=== PATIENT | female | born 1985 | race Caucasian/White ===

== ENCOUNTER 2018-07-29 21:47 | Emergency (ER) | payer SELFPAY ==
--- NOTE | 2018-07-29 22:45 | RAD REPORT ---
EXAM DESCRIPTION: RAD - Chest Single View - 07/29/2018 10:34 pm CLINICAL HISTORY: CHEST PAIN Chest pain. COMPARISON: No comparisons FINDINGS: Portable technique limits examination quality. The lungs are grossly clear. The heart is normal in size. No displaced fractures.Hardware is present midthoracic spine. IMPRESSION: No acute intrathoracic process suspected.
[2018-07-29 22:51] LABS: Urine Specific Gravity >1.030 (1.005-1.030)
[2018-07-29 22:51] LABS: Urine Blood 2+ (NEG); Urine Glucose NEGATIVE (NEG); Urine Protein NEGATIVE (NEG); Urine Specific Gravity >1.030 (1.005-1.030); Urine pH 5.5 (5.0-7.0)
[2018-07-29 23:43] LABS: Absolute Lymphocytes (CBC) 1.9 K/uL (0.7-4.9); Absolute Monocytes 0.5 K/uL (0.1-1.3); Absolute Neutrophil 5.4 K/uL (1.8-8.0); Basophils % 0.5 % (0-1.3); Eosinophils % 2.4 % (0-4.4); Lymphocytes % 23.5 % (15.3-44.8); MCH 27.2 pg (27.0-35.0); MCV 79.4 fL (80-100); MPV 8.4 fL (7.6-11.3); Monocytes % 6.5 % (3.3-12.3); RBC Red Blood Cell Count 4.79 M/uL (3.86-4.86)
[2018-07-29] MEDS ORDERED: KETOROLAC 30 MG/ML INJ ONE (23:57)
[2018-07-30 00:09] LABS: BUN Blood Urea Nitrogen 11 mg/dL (7-18); Bicarbonate 30 mmol/L (21-32); Glucose Level 119 mg/dL (74-106); Potassium 4.1 mmol/L (3.5-5.1); Sodium Level 141 mmol/L (136-145)
--- NOTE | 2018-07-30 00:18 | EDPHYS ---
Physician Documentation [facility] Name: Merlene Rockwell Age: 33 yrs Sex: Female : 1985 Arrival Date: 07/29/2018 Time: 21:49 Bed 7 Private MD: ED Physician Dustin Jean HPI: 07/30 06:17 This 33 yrs old Female presents to ER via EMS with complaints of Fall Injury. tw4 06:17 Details of fall: The patient fell from seated position, out of a wheelchair. Onset: The tw4 symptoms/episode began/occurred today. Associated injuries: The patient sustained injury to the head, contusion. Severity of symptoms: At their worst the symptoms were moderate, in the emergency department the symptoms are unchanged. 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 - Social history:: Smoking status: Patient/guardian denies using tobacco. - Ebola Screening: : No symptoms or risks identified at this time. ROS: 07/30 06:17 Constitutional: Negative for fever, chills, and weight loss, Eyes: Negative for injury, tw4 pain, redness, and discharge, Cardiovascular: Negative for chest pain, palpitations, and edema, Respiratory: Negative for shortness of breath, cough, wheezing, and pleuritic chest pain, Abdomen/GI: Negative for abdominal pain, nausea, vomiting, diarrhea, and constipation, MS/Extremity: Negative for injury and deformity, Skin: Negative for injury, rash, and discoloration, Neuro: Negative for headache, weakness, numbness, tingling, and seizure. 06:17 Neck: Positive for tenderness. tw4 Exam: 06:17 Constitutional: This is a well developed, well nourished patient who is awake, alert, tw4 and in no acute distress. Head/Face: Normocephalic, atraumatic. 06:17 Cardiovascular: Regular rate and rhythm with a normal S1 and S2. No gallops, murmurs, or rubs. Normal PMI, no JVD. No pulse deficits. Respiratory: Lungs have equal breath sounds bilaterally, clear to auscultation and percussion. No rales, rhonchi or wheezes noted. No increased work of breathing, no retractions or nasal flaring. Abdomen/GI: Soft, non-tender, with normal bowel sounds. No distension or tympany. No guarding or rebound. No evidence of tenderness throughout. Back: No spinal tenderness. No costovertebral tenderness. Full range of motion. 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 Vital Signs: 07/29 21:54 BP 123 / 96; Pulse 101; Resp 20; Temp 97.8(O); Pulse Ox 98% on R/A; Weight 64.86 kg; ea Height 5 ft. (152.40 cm); Pain 10/10; 22:50 BP 129 / 94; Pulse 98; Resp 18; Pulse Ox 100% ; ea 23:09 BP 111 / 85; Pulse 113; Resp 15; Pulse Ox 97% on R/A; ao 07/30 00:28 BP 117 / 84; Pulse 98; Resp 18; Pulse Ox 98% on R/A; ea 03:26 BP 116 / 71; Pulse 108; Resp 15; Pulse Ox 97% on R/A; jb5 05:48 BP 120 / 68; Pulse 90; Resp 16; Pulse Ox 98% ; ea 07/29 21:54 Body Mass Index 27.93 (64.86 kg, 152.40 cm) ea Kay Coma Score: 07/29 21:54 Eye Response: spontaneous(4). Verbal Response: oriented(5). Motor Response: obeys ea commands(6). Total: 15. 22:50 Eye Response: spontaneous(4). Verbal Response: oriented(5). Motor Response: obeys ea commands(6). Total: 15. Trauma Score (Adult): 21:54 Eye Response: spontaneous(1); Verbal Response: oriented(1); Motor Response: obeys ea commands(2); Systolic BP: > 89 mm Hg(4); Respiratory Rate: 10 to 29 per min(4); Harriman Score: 15; Trauma Score: 12 MDM: 21:49 Patient medically screened. tw4 07/30 06:17 Differential diagnosis: closed head injury, contusion. Data reviewed: vital signs, tw4 nurses notes. Data interpreted: Pulse oximetry: Interpretation: normal. Counseling: I had a detailed discussion with the patient and/or guardian regarding: the historical points, exam findings, and any diagnostic results supporting the discharge/admit diagnosis. Counseling: I had a detailed discussion with the patient and/or guardian regarding: lab results, radiology results. Special discussion: I discussed with the patient/guardian in detail that at this point there is no indication for admission to the hospital. It is understood, however, that if the symptoms persist or worsen the patient needs to return immediately for re-evaluation. 07/29 21:52 Order name: Basic Metabolic Panel; Complete Time: 00:13 tw4 07/29 21:52 Order name: CBC with Diff; Complete Time: 00:13 tw4 07/29 21:52 Order name: Creatinine for Radiology; Complete Time: 00:13 tw4 07/29 21:52 Order name: Type And Screen tw4 07/29 22:43 Order name: Urine Dipstick--Ancillary (enter results); Complete Time: 00:13 cc 07/29 22:44 Order name: Urine --Ancillary (enter results); Complete Time: 00:13 cc 07/29 21:52 Order name: XRAY Chest (1 view); Complete Time: 00:13 tw4 07/29 21:52 Order name: CT Traumagram (Head C Spine CAP wo con) tw4 07/30 02:00 Order name: ABO/RH no charge EDMS 07/29 21:52 Order name: Labs collected and sent; Complete Time: 23:36 tw4 Administered Medications: 07/29 23:56 Drug: TORadol 30 mg Route: IM; Site: left deltoid; ea 07/30 00:19 Follow up: Response: No adverse reaction; Pain is unchanged, physician notified ea 00:25 Drug: morphine 4 mg Route: IM; Site: left deltoid; ea 01:00 Follow up: Response: No adverse reaction; Pain is decreased ea Disposition: 07/30/18 00:18 Discharged to Home. Impression: Concussion, chest wall contusion. - Condition is Stable. - Discharge Instructions: Post-Concussion Syndrome, [id number]-rz-Izdl, Concussion, Adult, [id number]-Frbj, Head Injury, Adult, Wpqk-dr-Ezni. - Medication Reconciliation Form, Thank You Letter, Antibiotic Education, Prescription Opioid Use form. - Follow up: Private Physician; When: Upon discharge from the Emergency Department; Reason: Further diagnostic work-up, Recheck today's complaints, Continuance of care, Re-evaluation by your physician. - Problem is new. - Symptoms have improved. Signatures: Dispatcher [employer] EDFL Vanda Edmondson RN RN Tobin Bautista RN RN Dustin Mendieta MD MD tw4 Corrections: (The following items were deleted from the chart) 07/29 22:05 21:54 Head Brain Wo Cont+CT.RAD.BRZ ordered. [facility] : 21:54 Head C Spine MPR Wo Con+CT.RAD.BRZ ordered. [facility] EDFL : 21:54 Thorax Wo Con+CT.RAD.BRZ ordered. [facility] 07/30 09:04 00:18 07/30/2018 00:18 Discharged to Home. Impression: Concussion; chest wall bp contusion. Condition is Stable. Discharge Instructions: Post-Concussion Syndrome, Hxxf-[id number], Concussion, Adult, Cojz-pt-Mtex, Head Injury, Adult, Lrra-vs-Yfvm. Forms are Medication Reconciliation Form, Thank You Letter, Antibiotic Education, Prescription Opioid Use. Follow up: Private Physician; When: Upon discharge from the Emergency Department; Reason: Further diagnostic work-up, Recheck today's complaints, Continuance of care, Re-evaluation by your physician. Problem is new. Symptoms have improved. tw4
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
[2018-07-30] MEDS ORDERED: MORPHINE 4 MG/ML SYR ONE (00:21)
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
== END 2018-07-30 09:04 | disposition home or self-care (01) ==
LOC: ER 21:47
DX: S06.0X0A Concussion without loss of consciousness, initial encounter (principal); S20.219A Contusion of unspecified front wall of thorax, initial encounter; W05.0XXA Fall from non-moving wheelchair, initial encounter; Y93.89 Activity, other specified; Y92.9 Unspecified place or not applicable; F32.9 Major depressive disorder, single episode, unspecified
CPT/HCPCS: 36415; 70450; 71045; 71250; 72125; 80048; 81003; 81025; 85025; 86850; 86900; 86901; 96372; 99285

== ENCOUNTER 2018-08-10 12:13 | Emergency (ER) | payer SELFPAY ==
[2018-08-10] MEDS ORDERED: NA CHLORIDE 0.9% 500 ML ONE (12:48)
[2018-08-10] MEDS ORDERED: hydrOXYzine HCl 50 MG/ML VIAL IM ONE (12:49)
[2018-08-10 13:19] LABS: Absolute Monocytes 0.9 K/uL (0.1-1.3); Absolute Neutrophil 16.6 K/uL (1.8-8.0); Basophils % 0.6 % (0-1.3); Hematocrit 29.9 % (36.0-45.0); Lymphocytes % 5.4 % (15.3-44.8); MCH 25.5 pg (27.0-35.0); MCV 78.2 fL (80-100); MPV 7.9 fL (7.6-11.3); Monocytes % 4.9 % (3.3-12.3); RBC Red Blood Cell Count 3.83 M/uL (3.86-4.86)
[2018-08-10 13:20] LABS: Protime INR 1.19
--- NOTE | 2018-08-10 13:27 | RAD REPORT ---
EXAM DESCRIPTION: Brianne Single View08/10/2018 1:22 pm CLINICAL HISTORY: Fever COMPARISON: 08/08/2018 FINDINGS: The lungs appear clear of acute infiltrate. The heart is normal size IMPRESSION: No acute abnormalities displayed
[2018-08-10 13:42] LABS: ALT/SGPT 21 U/L (12-78); AST/SGOT 27 U/L (15-37); Albumin 2.7 g/dL (3.4-5.0); Alkaline Phosphatase 118 U/L (45-117); BUN Blood Urea Nitrogen 22 mg/dL (7-18); Bicarbonate 26 mmol/L (21-32); Bilirubin Direct 0.1 mg/dL (0-0.2); Bilirubin Total 0.4 mg/dL (0.2-1.0); Glucose Level 83 mg/dL (74-106); Magnesium 2.3 mg/dL (1.8-2.4); NT PRO-BNP 3805 pg/mL (<125); Protein, Total 7.5 g/dL (6.4-8.2); Sodium Level 141 mmol/L (136-145); Troponin (Emerg Dept Use Only) < 0.02 ng/mL (0.0-0.045)
--- NOTE | 2018-08-10 13:58 | RAD REPORT ---
EXAM DESCRIPTION: CT - Head Brain Wo Cont - 08/10/2018 1:42 pm CLINICAL HISTORY: Alteration of awareness. Confusion COMPARISON: 07/29/2018 TECHNIQUE: Computed axial tomography of the head was obtained. IV contrast was not requested. All CT scans are performed using dose optimization technique as appropriate and may include automated exposure control or mA/KV adjustment according to patient size. FINDINGS: An intracranial bleed is not seen . The ventricles are normal in caliber. No extra-axial fluid collection is noted. Fluid within the sinuses/ mastoids is not seen. Mild central spinal stenosis involves upper cervical spine IMPRESSION: No acute intracranial abnormality is seen. If patient's symptoms persist MRI of the bra in would be recommended. Mild central spinal stenosis involves upper cervical spine
[2018-08-10 15:29] LABS: Urine White Blood Cell Casts OK
[2018-08-10 15:30] LABS: Blood Morphology Comment NOT SEEN (NOT SEEN); Platelet Estimate INCR
--- NOTE | 2018-08-10 15:42 | RAD REPORT ---
EXAM DESCRIPTION: CT - Abdomen Pelvis W Contrast - 08/10/2018 3:15 pm CLINICAL HISTORY: Abdominal pain, altered mental status, history of UTI COMPARISON: CT imaging July 29. TECHNIQUE: Biphasic, helical CT imaging of the abdomen and pelvis was performed following 100 ml non -ionic IV contrast. Oral contrast was given. All CT scans are performed using dose optimization technique as appropriate and may include automated exposure control or mA/KV adjustment according to patient size. FINDINGS: Atelectasis present in the posterior gutter on the left. No pericardial effusion. The liver, spleen, and pancreas show no suspicious findings. Gallbladder and biliary tree are also wi thout suspicious finding. Heterogeneous enhancement pattern present in both kidneys. No hydronephrosis. No solid mass. Right ki dney is incompletely rotated. There is a nonobstructing 5 mm calcification lower pole left kidney and 2 mm calcification upper pole. Patient has normal variant retroaortic left renal vein. Urinary bladd er is fully contracted around a Arriaga catheter. No gastric dilatation or wall thickening. No dilated large or small bowel loops present. Tineo pouc h is seen. Patient has a left mid abdomen ostomy site. No acute finding at the ostomy site. There is a minimal amount of free fluid in the pelvis. No free air or pneumatosis. No omental thickening or bulky lymphadenopathy. No adrenal abnormality. Disc and bony degenerative changes are present. There is a posterior decubitus ulcer on the right roseann t extends from the skin surface down to the right ischium. Ischium is mildly sclerotic at this site a nd may be chronic osteomyelitis. There is posterolateral decubitus ulcer changes extending down to th e greater trochanter region. IMPRESSION: Bilateral pyelonephritis without abscess or emergent complication. Urinary bladder is fully contracted around a Arriaga catheter limiting assessment. Minimal amount of free fluid in the peritoneal cavity of the pelvis. No abnormality seen as an etiolo gy. Posterior and post oral lateral right decubitus ulcers. Chronic osteomyelitis of the ischial tuberosi ty noted on the right. No new finding since July 29.
[2018-08-10] MEDS ORDERED: CEFTRIAXONE/SWI 1gm 1 GM/10 ML SYR ONE (16:31)
--- NOTE | 2018-08-10 16:47 | EDPHYS ---
Physician Documentation [facility] Name: Merlene Rockwell Age: 33 yrs Sex: Female : 1985 Arrival Date: 08/10/2018 Time: 12:14 Bed 3 Private MD: ED Physician Cristino Cabrales HPI: 08/10 12:36 This 33 yrs old Female presents to ER via EMS with complaints of Altered kdr Mental Status. 12:36 This 33 yrs old Female presents to ER via EMS with complaints of Altered kdr Mental Status - The patient is unable to commuicate and cooperate with the exam. 12:36 The patient presents with agitation, confusion. Onset: The symptoms/episode kdr began/occurred just prior to arrival, this morning. Possible causes: unknown. Associated signs and symptoms: Pertinent positives:. Current symptoms: In the emergency department the patient's symptoms are unchanged from the initial presentation. Patient's baseline: Neuro: alert but confused, The patient states she is rocking back and forth in bed saying "mama." She is otherwise not able to cooperate with exam and answer questions. It is unknown whether or not the patient has had similar symptoms in the past. It is unknown whether or not the patient has recently seen a physician. 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 - Social history:: Smoking status: . - Ebola Screening: : Patient denies travel to an Ebola-affected area in the 21 days before illness onset. ROS: 12:36 Constitutional: Unable to obtain Eyes: Negative for injury, pain, redness, and kdr discharge. 12:36 Unable to obtain ROS due to altered mental status, patient distress, patient being uncooperative. Exam: 12:36 Constitutional: This is a well developed, well nourished patient who is awake, alert, kdr and in mild to moderate distress. Head/Face: Normocephalic, atraumatic. Eyes: Pupils equal round and reactive to light, extra-ocular motions intact. Lids and lashes normal. Conjunctiva and sclera are non-icteric and not injected. Cornea within normal limits. Periorbital areas with no swelling, redness, or edema. Neck: Trachea midline, no thyromegaly or masses palpated, and no cervical lymphadenopathy. Supple, full range of motion without nuchal rigidity, or vertebral point tenderness. No Meningismus. Chest/axilla: Normal chest wall appearance and motion. Nontender with no deformity. No lesions are appreciated. Cardiovascular: Regular rate and rhythm with a normal S1 and S2. No gallops, murmurs, or rubs. Normal PMI, no JVD. No pulse deficits. Respiratory: Lungs have equal breath sounds bilaterally, clear to auscultation and percussion. No rales, rhonchi or wheezes noted. No increased work of breathing, no retractions or nasal flaring. Back: No spinal tenderness. No costovertebral tenderness. Full range of motion. Skin: Warm, dry with normal turgor. Normal color with no rashes, no lesions, and no evidence of cellulitis. MS/ Extremity: Pulses equal, no cyanosis. Neurovascular intact. Full, normal range of motion. 12:36 Abdomen/GI: Inspection: The patient has a poorly connected colostomy bag in the left lower quadrant. Vital Signs: 12:23 BP 103 / 91; Pulse 112; Resp 19; Temp 98.6(O); Pulse Ox 100% on R/A; tw2 13:30 BP 126 / 88; Pulse 99; Resp 19; Pulse Ox 100% on R/A; tw2 14:20 BP 113 / 96; Pulse 100; Resp 19; Pulse Ox 100% on R/A; tw2 15:38 BP 97 / 67; Pulse 87; Resp 17; Pulse Ox 100% on R/A; tw2 16:32 BP 94 / 61; Pulse 81; Resp 16; Pulse Ox 100% on R/A; tw2 MDM: 16:47 Patient medically screened. kdr 08/11 06:06 Data reviewed: vital signs, nurses notes, lab test result(s), EKG, radiologic studies. kdr Counseling: I had a detailed discussion with the patient and/or guardian regarding: the historical points, exam findings, and any diagnostic results supporting the discharge/admit diagnosis, lab results, radiology results, the need for outpatient follow up. 08/10 12:30 Order name: Basic Metabolic Panel [facility] 08/10 12:30 Order name: CBC with Diff [facility] 08/10 12:30 Order name: LFT's kdr 08/10 12:30 Order name: Magnesium kdr 08/10 12:30 Order name: NT PRO-BNP [facility] 08/10 12:30 Order name: PT-INR kdr 08/10 12:30 Order name: Troponin (emerg Dept Use Only) kdr 08/10 12:30 Order name: AMMONIA; Complete Time: 16:05 [facility] 08/10 12:30 Order name: Blood Culture Adult (2) kdr 08/10 12:30 Order name: Procalcitonin; Complete Time: 16:05 [facility] 08/10 12:30 Order name: Lactate; Complete Time: 16:05 [facility] 08/10 12:30 Order name: Basic Metabolic Panel; Complete Time: 16:05 [facility] 08/10 12:30 Order name: CBC with Automated Diff; Complete Time: 16:05 [facility] 08/10 12:30 Order name: Liver (Hepatic) Function; Complete Time: 16:05 [facility] 08/10 12:30 Order name: XRAY Chest (1 view); Complete Time: 16:05 [facility] 08/10 12:30 Order name: EKG; Complete Time: 12:31 [facility] 08/10 12:30 Order name: Magnesium; Complete Time: 16:05 [facility] 08/10 12:30 Order name: NT PRO-BNP; Complete Time: 16:05 [facility] 08/10 12:30 Order name: Protime (+INR); Complete Time: 16:05 [facility] 08/10 12:30 Order name: Troponin (Emerg Dept Use Only); Complete Time: 16:05 [facility] 08/10 12:36 Order name: CT Head Brain wo Cont; Complete Time: 16:05 [facility] 08/10 13:34 Order name: CBC Smear Scan; Complete Time: 16:05 [facility] 08/10 14:40 Order name: CT Abd/Pelvis - W/Contrast; Complete Time: 16: [facility] 08/10 16:08 Order name: Urine Culture [facility] 08/10 16:27 Order name: Urine Dipstick--Ancillary (enter results) eb 08/10 16:27 Order name: Urine --Ancillary (enter results) eb 08/10 12:30 Order name: Cardiac monitoring; Complete Time: 13:05 kdr 08/10 12:30 Order name: EKG - Nurse/Tech; Complete Time: 13:05 kdr 08/10 12:30 Order name: IV Saline Lock; Complete Time: 13:05 kdr 08/10 12:30 Order name: Labs collected and sent; Complete Time: 13:05 kdr 08/10 12:30 Order name: O2 Per Protocol; Complete Time: 13:04 kdr 08/10 12:30 Order name: O2 Sat Monitoring; Complete Time: 13:04 kdr 08/10 16:08 Order name: Urine Dipstick-Ancillary (obtain specimen); Complete Time: 16:20 kdr Administered Medications: 08/10 12:50 Drug: hydrOXYzine 25 mg {Note: GIVEN IM, RIGHT DELTOID.} Route: PO; tw2 14:57 Follow up: Response: No adverse reaction; No change in condition tw2 13:00 Drug: NS 0.9% 500 ml Route: IV; Rate: bolus; Site: right wrist; tw2 14:57 Follow up: Response: No adverse reaction; IV Status: Completed infusion; IV Intake: tw2 500ml 13:02 Not Given (not available): Benadryl 25 mg IVP once tw2 16:25 Drug: Rocephin - (cefTRIAXone) 1 grams {Note: IVP available only.} Route: IVPB; Infused tw2 Over: 5 mins; Site: right wrist; 16:30 Follow up: IV Status: Completed infusion tw2 16:49 Follow up: Response: No adverse reaction tw2 Disposition: 08/10/18 16:47 Discharged to Home. Impression: Altered mental status, unspecified, Urinary tract infection, site not specified, Cymbalta abuse. - Condition is Stable. - Discharge Instructions: Confusion, Substance Use Disorder, Urinary Tract Infection, Adult, [id number]. - Prescriptions for Bactrim DS 800- 160 mg Oral Tablet - take 1 tablet by ORAL route every 12 hours for 10 days; 20 tablet. - Medication Reconciliation Form, Thank You Letter, Antibiotic Education form. - Follow up: Private Physician; When: 2 - 3 days; Reason: If symptoms return, Further diagnostic work-up, Recheck today's complaints, Continuance of care, Re-evaluation by your physician. - Problem is new. - Symptoms have improved. Signatures: Dispatcher [employer] EDCristino Smith MD MD [facility] Dalila Anne RN RN ss Cira Holcomb RN RN tw2 Corrections: (The following items were deleted from the chart) 17:01 16:47 08/10/2018 16:47 Discharged to Home. Impression: Altered mental status, ss unspecified; Urinary tract infection, site not specified; Cymbalta abuse. Condition is Stable. Forms are Medication Reconciliation Form, Thank You Letter, Antibiotic Education, Prescription Opioid Use. Follow up: Private Physician; When: 2 - 3 days; Reason: If symptoms return, Further diagnostic work-up, Recheck today's complaints, Continuance of care, Re-evaluation by your physician. Problem is new. Symptoms have improved. kdr
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
[2018-08-10 17:12] LABS: Urine Blood 2+ (NEG); Urine Glucose NEGATIVE (NEG); Urine Protein NEGATIVE (NEG); Urine Specific Gravity 1.015 (1.005-1.030)
--- NOTE | 2018-08-11 04:19 | EKG ---
Test Date: 2018-08-10 Test Time: 13:09:38 Staff Counsel: LUCY/Chuyita MEASUREMENT RESULTS: Intervals: Rate: 97 CT: 124 QRSD: 82 QT: 348 QTc: 441 [place]: P: 40 CT: 124 QRS: 60 T: 3 INTERPRETIVE STATEMENTS: Sinus rhythm with premature supraventricular complexes and fusion complexes Nonspecific T wave abnormality Abnormal ECG No previous ECG available for comparison Electronically Signed On 08-11-18 04:17:19 CDT by Rik Chew
== END 2018-08-10 17:01 | disposition home or self-care (01) ==
LOC: ER 12:13
DX: N39.0 Urinary tract infection, site not specified (principal); F19.10 Other psychoactive substance abuse, uncomplicated; F32.9 Major depressive disorder, single episode, unspecified; Z88.8 Allergy status to other drugs, medicaments and biological substances
CPT/HCPCS: 36415; 70450; 71045; 74177; 80048; 80076; 81003; 81025; 82140; 83605; 83735; 83880; 84145; 84484; 85025; 85610; 87040; 87086; 87088; 93005; 96361; 96374; 99285; J0696; J3410; Q9967

== ENCOUNTER 2022-01-28 17:03 | Emergency (ER) | payer OTHER ==
--- OUTSIDE RECORDS SUMMARY | 2022-01-28 17:09 | XMS REPORT | Continuity of Care Document ---
:1985 Author Organization [facility] t Address [address] [place] [address] Care Team Providers Name Role Phone Robert Galarza MD Primary Care Physician Janell BROOKE Attending Clinician Unavailable Guevara JARQUIN Attending Clinician Unavailable SHANTANU Attending Clinician Unavailable Guevara Jarquin MD Attending Clinician Shantanu BYRNES Attending Clinician Caitlin BARNES Attending Clinician Doctor Unassigned, Name Attending Clinician Unavailable Payers Payer Name Policy Type Policy Number Effective Date Expiration Date [facility] MEDICARE [id number] 2020 2021 COMPLETE 00:00:00 00:00:00 [place] [id number] 2020 00:00:00 WELLMED/UHC DUAL [id number] 2021 COMP CHOICE PPO 00:00:00 DSNP MEDICAID OF [place] [id number] 2021 00:00:00 Problems Condition Condition Condition Status Onset Resolution Last Treating Co mments Source Name Details Category Date Date Treatment Clinician Date Intractabl Intractabl Disease Active U nivers e pain e pain 3-19 ity of 00:00: [place] 00 Medical Branch F/U Diagnosis Active 2021-07-27 Mem oria 07-21 13:01:00 l F/U 00:00: [place] 00 Active 07/21/2021 [facility] Fever in Fever in Disease Active Unive rs adult adult 9-10 ity of 00:00: [place] 00 Medical Branch VIDEO-F/U Diagnosis Active 2021-07-13 Memoria 8-24 11:59:00 l 00:00: [place] VIDEO-F/U 00 Active 06/15/2021 [facility] F/U Diagnosis Active 2021-06-15 Mem oria 7-14 14:26:00 l F/U 00:00: [place] 00 Active 05/05/2021 [facility] CALL F/U Diagnosis Active 2021-04-06 M emoria 6-11 10:26:00 l CALL F/U 00:00: Ash gilbert 00 Active 04/02/2021 [facility] POST-OP Diagnosis Active 2021-05-03 Me moria FOLLOW-UP 03-17 12:56:00 l WITH SP POST-OP 00:00: Ash SAM FOLLOW-UP 00 CHANGE WITH SP FLACO CHANGE Active 03/17/2021 [facility] F/U-6 WKS Diagnosis Active 2021-03-09 Memoria 5-10 11:53:00 l F/U-6 00:00: [place] WKS 00 Active 03/01/2021 [facility] WELL WOMAN Diagnosis Active 2021-04-24 Memoria 4-27 16:01:00 l WELL 00:00: [place] WOMAN 00 Active 02/16/2021 [facility] Complicate Complicate Disease Active U nivers d UTI d UTI 4-05 ity of (urinary (urinary 00:00: [place] tract tract 00 Medical infection) infection) Br anch PHONE-F/U Diagnosis Active 2021-04-02 Memoria 3-30 23:43:00 l 00:00: [place] PHONE-F/U 00 Active 01/19/2021 [facility] EVAL Diagnosis Active 2021-04-02 Mem oria 2- 23:43:00 l EVAL 00:00: [place] 00 Active 12/15/2020 [facility] F/U-WITHDR Diagnosis Active 2020-12-22 Memoria AWALS 12-14 15:12:00 l 00:00: [place] F/U-WITHDR 00 AWALS Active 12/14/2020 [facility] 6 WEEK Diagnosis Active 2019-102020-10-27 Mem oria F/U-PHONE - 13:24:00 l 6 WEEK 00:00: [place] F/U-PHONE 00 Active 09/14/2020 [facility] PHONE-EVAL Diagnosis Active 2019-102020-09-08 Memoria 10-31 08:51:00 l 00:00: [place] PHONE-EVAL 00 Active 08/31/2020 [facility] NEUROGENIC Diagnosis Active 2019-102020-11-02 Memoria BLADDER 10-31 12:54:00 l 00:00: [place] NEUROGENIC 00 BLADDER Active 08/31/2020 [facility] EVAL-RE-VA Diagnosis Active 2020-09-08 Memoria L 9-15 15:11:00 l 00:00: [place] EVAL-RE-VA 00 L Active 07/07/2020 [facility] Pressure Pressure Disease Active 2018-10 Overview: Un amol injury of injury of 0-24 Added ity of contiguous contiguous 00:00: automatic [place] region region 00 ally from Medical involving involving request [facility] right right for buttock buttock surgery and hip, and hip, [id number] stage 3 stage 3 Pressure Pressure Disease Active 2018-10 Overview: Un amol injury of injury of 0-24 Formattin i ty of contiguous contiguous 00:00: g of this [facility] region 00 note Medical involving involving might be Br anch right right different buttock buttock from the and hip, and hip, original. stage 3 stage 3 Added automatic ally from request for surgery [id number] Carpal Carpal Disease Active Overview: Method i tunnel tunnel 6-[address] syndrome syndrome 00:00: g of this Hos oscar of left of left 00 note l wrist wrist might be different from the original. Added automatic ally from request for surgery [id number] Carpal Carpal Disease Active Overview: Method i tunnel tunnel 5-[address] syndrome syndrome 00:00: g of this Hos oscar on right on right 00 note l might be different from the original. Added automatic ally from request for surgery [id number] Hypotensio Hypotensio Disease Active 2017-10 U nivers n n 0-13 ity of 00:00: [place] 00 Medical Branch UTI UTI Disease Active 2017-10 Univers (urinary (urinary 0-13 ity of tract tract 00:00: [place] infection) infection) 00 Me dical Branch Tachycardi Tachycardi Disease Active 2017-10 U nivers a a 0-12 ity of 00:00: [place] 00 Medical Branch Obesity Obesity Disease Active 2017-10 Univers (BMI (BMI 0-10 ity of 30-39.9) 30-39.9) 00:00: [place] 00 Medical Branch OSTEOMYELI Diagnosis Active 2019-07-19 Memoria TIS 7-07 17:36:00 l 00:00: [place] OSTEOMYELI 00 TIS Active 04/28/2018 [facility] Janice Janice Disease Active Univers UTI UTI 6-29 ity of 00:00: [place] 00 Medical Branch Pressure Pressure Disease Active Unive rs ulcer ulcer 6-14 ity of 00:00: [place] 00 Medical Branch Decubitus Decubitus Disease Active Uni vers ulcer of ulcer of 4-12 ity of sacral sacral 00:00: [place] region, region, 00 Medical stage 4 stage 4 Branch Tinea Tinea Disease Active Univers corporis corporis 4-12 ity of 00:00: [place] 00 Medical Branch Contact Contact Disease Active Univers dermatitis dermatitis 4-12 it y of due to due to 00:00: [place] adhesives, adhesives, 00 Me dical unspecifie unspecifie Br anch d contact d contact dermatitis dermatitis type type Decubitus Decubitus Disease Active Uni vers ulcer of ulcer of 2-23 ity of sacral sacral 00:00: [place] region region 00 Medical Branch Acute Acute Disease Active Univers osteomyeli osteomyeli 2-23 it y of tis of tis of 00:00: [place] right right 00 Medical pelvic pelvic Branch region region Polymicrob Polymicrob Disease Active U nivers ial ial 2-23 ity of bacterial bacterial 00:00[place] infection infection 00 [facility] magdy Branch Sepsis Sepsis Disease Active Univers 2-20 ity of 00:00: [place] 00 Medical Branch Right Right Disease Active Overview: Univer s ischial ischial 2-20 Formattin ity o f pressure pressure 00:00: g of this Rachid as sore, sore, 00 note Medical stage IV stage IV might be Bran ch different from the original. Added automatic ally from request for surgery [id number] FOLLOW UP Diagnosis Active 2018-04-16 Memoria -02 08:32:00 l FOLLOW 00:00: [place] UP 00 Active 8 [facility] EVAL FOR Diagnosis Active 2017-08-22 M emoria IP/REHAB 07-21 13:47:00 l NEEDS EVAL FOR 00:00: Ash gilbert IP/REHAB 00 NEEDS Active 07/21/2017 [facility] Paraplegic Problem Resolve 2021-07-16 Memoria immobility d 00:12:04 l syndrome [place] (disorder) Paraplegic immobility syndrome (disorder) Resolved Problem 07/16/2021 [facility] Nondepende Problem Resolve 2021-07-16 Memoria nt alcohol d 00:12:04 l abuse in [place] remission Nondepende (disorder) nt alcohol abuse in remission (disorder) Resolved Problem 07/16/2021 delete [facility] Neurogenic Problem Active 2021-07-16 M emoria bladder 00:12:04 l (finding) [place] Neurogenic bladder (finding) Active Problem 07/16/2021 [facility] Neurogenic Problem Active 2021-07-16 M emoria bowel 00:12:04 l (disorder) Ash n Neurogenic bowel (disorder) Active Problem 07/16/2021 [facility] Paraplegia Problem Active 2021-07-16 M emoria (disorder) 00:12:04 l [place] Paraplegia (disorder) Active Problem 07/16/2021 [facility] Simple Problem Active 2021-07-16 Memor ia obesity 00:12:04 l (disorder) Simple Herm dorothea obesity (disorder) Active Problem 07/16/2021 [facility] Spasm Problem Active 2021-07-16 Memor ia (finding) 00:12:04 l Spasm [place] (finding) Active Problem 07/16/2021 [facility] Chronic Problem Active 2021-07-16 Leighton rajeev alcoholism 00:12:04 l in Chronic [place] remission alcoholism (disorder) in remission (disorder) Active Problem 07/16/2021 [facility] Chronic Problem Active 2021-07-16 Leighton rajeev post-traum 00:12:04 l atic Chronic [place] stress post-traum disorder atic (disorder) stress disorder (disorder) Active Problem 07/16/2021 [facility] Generalize Problem Active 2021-07-16 M emoria d anxiety 00:12:04 l disorder [place] (disorder) Generalize d anxiety disorder (disorder) Active Problem 07/16/2021 [facility] Opioid Problem Active 2021-07-16 Memor ia dependence 00:12:04 l in Opioid [place] remission dependence (disorder) in remission (disorder) Active Problem 07/16/2021 [facility] Recurrent Problem Active 2021-07-16 Me moria major 00:12:04 l depressive Ash n episodes, Recurrent moderate major (disorder) depressive episodes, moderate (disorder) Active Problem 07/16/2021 [facility] MAJOR Diagnosis Active 2020-09-08 Mem oria DEPRESSIVE 08:51:00 l DISORDER, MAJOR Ash n RECURRENT, DEPRESSIVE UN DISORDER, RECURRENT, UN Active [facility] PARAPLEGIA Diagnosis Active 2020-12-06 Memoria , 17:01:00 l UNSPECIFIE Ash n D PARAPLEGIA , UNSPECIFIE D Active [facility] NEUROGENIC Diagnosis Active 2020-12-06 Memoria BOWEL, NOT 17:01:00 l ELSEWHERE Magen CLASSIFI NEUROGENIC BOWEL, NOT ELSEWHERE CLASSIFI Active [facility] NEURALGIA Diagnosis Active 2020-12-06 Memoria AND 17:01:00 l NEURITIS, [place] UNSPECIFIE NEURALGIA D AND NEURITIS, UNSPECIFIE D Active [facility] History of Past Illness Condition Condition Condition Status Onset Resolution Last Treating Co mments Source Name Details Category Date Date Treatment Clinician Date Generalize Problem 2021-03-11 2021-03-11 Memoria d anxiety 03-09 23:48:25 23:48:25 l disorder 19:15: Magen Generalize 00 d anxiety disorder 03/11/2021 [facility] Major Problem 2021-03-11 2021-03-11 M emoria depressive 03-09 23:48:25 23:48:25 l disorder, Major 19:15: Ash n recurrent, depressive 00 moderate disorder, recurrent, moderate 03/11/2021 [facility] Alcohol Problem 2021-03-11 2021-03-11 Memoria dependence 03-09 23:48:25 23:48:25 l , in Alcohol 19:15: Magen remission dependence 00 , in remission 03/09/2021 03/11/2021 [facility] Post-traum Problem 2021-03-11 2021-03-11 Memoria atic 03-09 23:48:25 23:48:25 l stress 19:15: Magen disorder, Post-traum 00 chronic atic stress disorder, chronic 03/09/2021 03/11/2021 [facility] Other Problem 2019-102020-08-26 2020-08-26 M emoria muscle - 23:49:51 23:49:51 l spasm Other 18:14: Magen muscle 00 spasm 08/24/2020 08/26/2020 [facility] Paraplegia Problem 2019-102020-08-26 2020-08-26 Memoria , - 23:49:51 23:49:51 l unspecifie 16:21: Ash n d Paraplegia 00 , unspecifie d 08/24/2020 08/26/2020 [facility] Reflex Problem 2019-102020-08-26 2020-08-26 M emoria neuropathi - 23:49:51 23:49:51 l c bladder, Reflex 16:21: [place] not neuropathi 00 elsewhere c bladder, classified not elsewhere classified 08/24/2020 08/26/2020 [facility] Neurogenic Problem 2019-102020-08-26 2020-08-26 Memoria bowel, not 10-24 23:49:51 23:49:51 l elsewhere 16:21: [place] classified Neurogenic 00 bowel, not elsewhere classified 08/24/2020 08/26/2020 [facility] Allergies, Adverse Reactions, Alerts Allergy Allergy Status Severity Reaction(s) Onset Inactive Treating Comm ents Source Name Type Date Date Clinician gabapent DA Active U Drowsy [facility] in 03-29 00:00: 00 Gabapent Propensi Active Other - See 2017-10 Lethargy Univers in ty to comments 0-10 ity of adverse 00:00: [place] reaction 00 Medical s [place] GABAPENT DRUG Active Other-Cmnt 2017-10 Univ ers IN INGREDI 0-10 ity of 00:00: [address] No Known DA Active U 2008- [facility] Intolera 9-27 Clear nces 00:00: [facility] No Known DA Active U 2004-0 [facility] Contrast 5-23 Clear Allergie 00:00: [facility] No Known DA Active U 2004-0 [facility] Drug 5-23 Clear Allergie 00:00: [facility] No Known DA Active U 2004-0 [facility] Food 5-23 Clear Allergie 00:00: [facility] No Known DA Active U 2004-0 [facility] Other 5-23 Clear Allergie 00:00: [facility] Family History Family Member Diagnosis Comments Start Date Stop Date Source Natural father No Known Problems Met [facility] [place] [facility] Natural mother Cancer [facility] Natural mother Mental illness Method [facility] Social History Social Habit Start Date Stop Date Quantity Comments Source Exposure to Unable to assess Univers ity of SARS-CoV-2 (event) [facility] Alcohol intake 2022-01-19 2022-01-19 Current University of 00:00:00 00:00:00 non-drinker of [facility] alcohol Branch (finding) Education 2022-01-08 2022-01-08 12 University of 00:00:00 00:00:00 [facility] Cigarettes smoked 2019-09-09 2019-09-09 Univers ity of current (pack per 00:00:00 00:00:00 ) - Reported Branch Cigarette 2019-09-09 2019-09-09 University of pack-years 00:00:00 00:00:00 [facility] Tobacco use and 2019-09-09 2019-09-09 Never used Universit y of exposure 00:00:00 00:00:00 [facility] Tobacco Comment 2019-09-09 2019-09-09 quit 1 year ago, Uni versity of 00:00:00 00:00:00 vapes [facility] now-occassionall Branch y History of tobacco 2018-05-01 2018-12-12 Cigarette Smoker [facility] use 00:00:00 00:00:00 [facility][birth year] [facility] [birth year] [facility] 00:00:00 00:00:00 Smoking Status Start Date Stop Date Source Tobacco smoking [facility] consumption unknown Social History [facility] Magen Former smoker 2019-09-09 00:00:00 2019-09-09 [place] o f [place] 00:00:00 [facility] Branch Medications Ordered Filled Start Stop Current Ordering Indication Dosage Frequency Signature Comments Components Source Medication Medication Date Date Medication? Clinician (SIG) Name Name collagenase Yes [id number] Apply to Univers 250 3-26 affected ity of unit/gram 00:00: area(s) [place] ointment 00 daily. Medical Branch collagenase Yes [id number] Apply to Univers 250 3-26 affected ity of unit/gram 00:00: area(s) [place] ointment 00 daily. Medical Branch collagenase Yes [id number] Apply to Univers 250 3-26 affected ity of unit/gram 00:00: area(s) [place] ointment 00 daily. Medical Branch sennosides Yes 8.6mg Take 8.6 Un amol (SENNA) 8.6 3-25 mg by ity of mg tablet 14:13: mouth 2 [place] [address] (two) Medical times Branch daily. baclofen 10 Yes 35mg Take 35 mg Univers mg tablet 3-25 by mouth 4 ity of 14:13: (four) [place] [address] times Medical daily. Branch furosemide Yes 40mg Take 40 mg U nivers 20 mg 3-25 by mouth ity of tablet 14:13: daily. [place] [address] Medical Branch omeprazole Yes 20mg Take 20 mg U nivers 20 mg 3-25 by mouth ity of capsule 14:13: at [place] [address] bedtime. Medical Branch docusate 2021-0 Yes 100mg Take 100 Univ ers 100 mg 3-25 mg by ity of capsule 14:13: mouth 2 31 (two) Medical times Branch daily. pregabalin 2022-0 Yes 300mg Take 300 Un amol (LYRICA) 3-25 mg by ity of 300 mg 14:13: mouth 3 [place] capsule 31 (three) Medical times Branch daily. SERTraline 2-0 Yes 200mg Take 200 Un amol 100 mg 3-25 mg by ity of tablet 14:13: mouth [place] 31 daily. Medical Branch traZODone 2021-0 Yes 200mg Take 200 Uni vers 100 mg 3-25 mg by ity of tablet 14:13: mouth at [place] [address] bedtime. Medical Branch busPIRone 2021-0 Yes 30mg Take 30 mg Un amol 30 mg 3-25 by mouth 3 ity of tablet 14:13: (three) [place] [address] times Medical daily. Branch prazosin 5 2021-0 Yes 5mg Take 5 mg Un amol mg capsule 3-25 by mouth ity o f 14:13: at [place] [address] bedtime. Medical Branch buPROPion 2021-0 Yes 300mg Take 300 Uni vers XL 3-25 mg by ity of (WELLBUTRIN 14:13: mouth 3 Rachid as XL) 300 mg 31 (three) Medica l 24 hr times Branch tablet daily. sennosides 2021-0 Yes 8.6mg Take 8.6 Un amol (SENNA) 8.6 3-25 mg by ity of mg tablet 14:13: mouth 2 (two) Medical times Branch daily. baclofen 10 2021-0 Yes 35mg Take 35 mg Univers mg tablet 3-25 by mouth 4 ity of 14:13: (four) [place] [address] times Medical daily. Branch furosemide 2-0 Yes 40mg Take 40 mg U nivers 20 mg 3-25 by mouth ity of tablet 14:13: daily. [place] [address] Medical Branch omeprazole 2-0 Yes 20mg Take 20 mg U nivers 20 mg 3-25 by mouth ity of capsule 14:13: at [place] [address] bedtime. Medical Branch docusate 2-0 Yes 100mg Take 100 Univ ers 100 mg 3-25 mg by ity of capsule 14:13: mouth 2 [place] 31 (two) Medical times Branch daily. pregabalin 202-0 Yes 300mg Take 300 Un amol (LYRICA) 3-25 mg by ity of 300 mg 14:13: mouth 3 [place] capsule 31 (three) Medical times Branch daily. SERTraline 2021-0 Yes 200mg Take 200 Un amol 100 mg 3-25 mg by ity of tablet 14:13: mouth [place] 31 daily. Medical Branch traZODone 2021-0 Yes 200mg Take 200 Uni vers 100 mg 3-25 mg by ity of tablet 14:13: mouth at [place] [address] bedtime. Medical Branch busPIRone 2021-0 Yes 30mg Take 30 mg Un amol 30 mg 3-25 by mouth 3 ity of tablet 14:13: (three) [place] [address] times Medical daily. Branch prazosin 5 2021-0 Yes 5mg Take 5 mg Un amol mg capsule 3-25 by mouth ity o f 14:13: at [place] [address] bedtime. Medical Branch buPROPion 2021-0 Yes 300mg Take 300 Uni vers XL 3-25 mg by ity of (WELLBUTRIN 14:13: mouth 3 Rachid as XL) 300 mg 31 (three) Medica l 24 hr times Branch tablet daily. sennosides 2021-0 Yes 8.6mg Take 8.6 Un amol (SENNA) 8.6 3-25 mg by ity of mg tablet 14:13: mouth 2 [place] [address] (two) Medical times Branch daily. baclofen 10 2021-0 Yes 35mg Take 35 mg Univers mg tablet 3-25 by mouth 4 ity of 14:13: (four) [place] [address] times Medical daily. Branch furosemide 2021-0 Yes 40mg Take 40 mg U nivers 20 mg 3-25 by mouth ity of tablet 14:13: daily. [place] [address] Medical Branch omeprazole 2-0 Yes 20mg Take 20 mg U nivers 20 mg 3-25 by mouth ity of capsule 14:13: at [place] [address] bedtime. Medical Branch docusate 2022-0 Yes 100mg Take 100 Univ ers 100 mg 3-25 mg by ity of capsule 14:13: mouth 2 [place] 31 (two) Medical times Branch daily. pregabalin 2022-0 Yes 300mg Take 300 Un amol (LYRICA) 3-25 mg by ity of 300 mg 14:13: mouth 3 [place] capsule 31 (three) Medical times Branch daily. SERTraline 0 Yes 200mg Take 200 Un amol 100 mg 3-25 mg by ity of tablet 14:13: mouth [place] 31 daily. Medical Branch traZODone 0 Yes 200mg Take 200 Uni vers 100 mg 3-25 mg by ity of tablet 14:13: mouth at [place] [address] bedtime. Medical Branch busPIRone 0 Yes 30mg Take 30 mg Un amol 30 mg 3-25 by mouth 3 ity of tablet 14:13: (three) [place] 31 times Medical daily. Branch prazosin 5 0 Yes 5mg Take 5 mg Un amol mg capsule 3-25 by mouth ity o f 14:13: at [place] [address] bedtime. Medical Branch buPROPion 0 Yes 300mg Take 300 Uni vers XL 3-25 mg by ity of (WELLBUTRIN 14:13: mouth 3 Rachid as XL) 300 mg 31 (three) Medica l 24 hr times Branch tablet daily. mupirocin 2 0 Yes [id number] Apply to Univers % ointment 3-25 area(s) 3 ity of 00:00: (three) [place] 00 times Medical daily. Branch acetaminoph Yes [id number] 650mg Take 2 Univers en 325 mg 3-25 tablets by ity of tablet 00:00: mouth [place] 00 every 6 Medical (six) Branch hours as needed for Pain (scale 1-3) or Temp > 38.5 C. mupirocin 2 2021-0 Yes [id number] Apply to Univers % ointment 3-25 area(s) 3 ity of 00:00: (three) [place] 00 times Medical daily. Branch acetaminoph 0 Yes [id number] 650mg Take 2 Univers en 325 mg 3-25 tablets by ity of tablet 00:00: mouth [place] 00 every 6 Medical (six) Branch hours as needed for Pain (scale 1-3) or Temp > 38.5 C. mupirocin 2 2021-0 Yes [id number] Apply to Univers % ointment 3-25 area(s) 3 ity of 00:00: (three) [place] 00 times Medical daily. Branch acetaminoph Yes [id number] 650mg Take 2 Univers en 325 mg 3-25 tablets by ity of tablet 00:00: mouth [place] 00 every 6 Medical (six) Branch hours as needed for Pain (scale 1-3) or Temp > 38.5 C. ciprofloxac 202- Yes [id number] 500mg Take 1 Univers in HCl 500 3-25 -04 tablet by ity of mg tablet 00:00: 04:59 mouth [place] 00 :00 every 12 Medical (twelve) Branch hours for 9 days. morphine ER 2021- Yes [id number] 30mg Take 1 Uni vers 30 mg 12 hr 3-25 -02 tablet by it y of tablet 00:00: 04:59 mouth [place] 00 :00 every 12 Medical (twelve) Branch hours for 7 days. Indication s: acute pain ketorolac Yes [id number] 10mg Take 1 U nivers 10 mg 3-19 tablet by ity of tablet 00:00: mouth [place] 00 every 6 Medical (six) Branch hours as needed for Pain (scale 7-10). ketorolac Yes [id number] 10mg Take 1 U nivers 10 mg 3-19 tablet by ity of tablet 00:00: mouth [place] 00 every 6 Medical (six) Branch hours as needed for Pain (scale 7-10). ketorolac Yes [id number] 10mg Take 1 U nivers 10 mg 3-19 tablet by ity of tablet 00:00: mouth [place] 00 every 6 Medical (six) Branch hours as needed for Pain (scale 7-10). lithium 2020-10 Yes 300mg 300 mg at [facility] ers carbonate 0-18 bedtime. ity of CR 300 mg 00:00: [place] SR tablet 00 Medical Branch lithium 2020-10 Yes 300mg 300 mg at [facility] ers carbonate 0-18 bedtime. ity of CR 300 mg 00:00: [place] SR tablet 00 Medical Branch lithium 2020-10 Yes 300mg 300 mg at [facility] ers carbonate 0-18 bedtime. ity of CR 300 mg 00:00: [place] SR tablet 00 Medical Branch Lurasidone Yes 40 mg = 1 Me moria Hydrochlori 9-21 tab, PO, l de 40 MG 20:27: Daily, [place] Oral Tablet 00 with food, [Latuda] # 30 tab, 5 Refill(s), Pharmacy: [facility] [id number], 152.4, cm, 03/08/21 13:22:00 CDT, Height, 75, kg, 03/08/21 13:22:00 CDT, Weight Lurasidone 0 Yes 20 mg = 1 Me moria Hydrochlori 8-24 tab, PO, l de 20 MG 19:31: Daily, [place] Oral Tablet 00 with food, [Latuda] # 30 tab, 5 Refill(s), Pharmacy: [facility] [id number], 152.4, cm, 03/08/21 13:22:00 CDT, Height, 75, kg, 03/08/21 13:22:00 CDT, Weight Lurasidone Yes 20 mg = 1 Me moria Hydrochlori 8-24 tab, PO, l de 20 MG 19:31: Daily, [place] Oral Tablet 00 with food, [Latuda] # 30 tab, 5 Refill(s), Pharmacy: [facility] [id number], 152.4, cm, 03/08/21 13:22:00 CDT, Height, 75, kg, 03/08/21 13:22:00 CDT, Weight Sertraline 0 Yes 150 mg = Mem oria 100 MG Oral 8-24 1.5 tab, l Tablet 19:26: PO, Daily, Latoya nn [Zoloft] 00 # 45 tab, 1 Refill(s), Pharmacy: [facility] [id number], 152.4, cm, 03/08/21 13:22:00 CDT, Height, 75, kg, 03/08/21 13:22:00 CDT, Weight Sertraline 2020-0 Yes 150 mg = Mem oria 100 MG Oral 8-24 1.5 tab, l Tablet 19:26: PO, Daily, Latoya nn [Zoloft] 00 # 45 tab, 1 Refill(s), Pharmacy: [facility] [id number], 152.4, cm, 03/08/21 13:22:00 CDT, Height, 75, kg, 03/08/21 13:22:00 CDT, Weight Lactobac 2021-0 Yes [id number] Take 1 Univ ers 40-Bifido 7-28 TAB-CAP/M2 ity of 3-S.thermop 00:00: by mouth [place] 100 billion 00 daily. Medica l cell Cap Branch Lactobac Yes [id number] Take 1 Univ ers 40-Bifido 7-28 TAB-CAP/M2 ity of 3-S.thermop 00:00: by mouth [place] 100 billion 00 daily. Medica l cell Cap Branch Lactobac Yes [id number] Take 1 Univ ers 40-Bifido 7-28 TAB-CAP/M2 ity of 3-S.thermop 00:00: by mouth [place] 100 billion 00 daily. Medica l cell Cap Branch phenazopyri Yes [id number] 200mg Take 1 Univers dine 200 mg 6-17 tablet by ity of tablet 00:00: mouth 3 [place] 00 (three) Medical times Branch daily. metroNIDAZO Yes [id number] Apply to Univers LE 6-17 area(s) ity of (METROGEL) 00:00: daily. [place] 1 % gel 00 Apply thin Medica l film to Branch skin. phenazopyri Yes [id number] 200mg Take 1 Univers dine 200 mg 6-17 tablet by ity of tablet 00:00: mouth 3 [place] 00 (three) Medical times Branch daily. metroNIDAZO Yes [id number] Apply to Univers LE 6-17 area(s) ity of (METROGEL) 00:00: daily. [place] 1 % gel 00 Apply thin Medica l film to Branch skin. phenazopyri Yes [id number] 200mg Take 1 Univers dine 200 mg 6-17 tablet by ity of tablet 00:00: mouth 3 [place] 00 (three) Medical times Branch daily. metroNIDAZO Yes [id number] Apply to Univers LE 6-17 area(s) ity of (METROGEL) 00:00: daily. [place] 1 % gel 00 Apply thin Medica l film to Branch skin. Trazodone Yes 200 mg = 2 Me moria Hydrochlori 6-15 tab, PO, l de 100 MG 20:14: Bedtime, # He r[place] Oral Tablet 00 60 tab, 5 Refill(s), Pharmacy: [facility], 152.4, cm, 03/08/21 13:22:00 CDT, Height, 75, kg, 03/08/21 13:22:00 CDT, Weight Trazodone 0 Yes 200 mg = 2 Me moria Hydrochlori 6-15 tab, PO, l de 100 MG 20:14: Bedtime, # Hussain ricci Oral Tablet 00 60 tab, 5 Refill(s), Pharmacy: [facility], 152.4, cm, 03/08/21 13:22:00 CDT, Height, 75, kg, 03/08/21 13:22:00 CDT, Weight Trazodone 0 Yes 200 mg = 2 Me moria Hydrochlori 6-15 tab, PO, l de 100 MG 20:14: Bedtime, # Hussain rmann Oral Tablet 00 60 tab, 5 Refill(s), Pharmacy: [facility], 152.4, cm, 03/08/21 13:22:00 CDT, Height, 75, kg, 03/08/21 13:22:00 CDT, Weight 24 HR 0 Yes 300 mg = 1 Memori a Bupropion 6-15 tab, PO, l Hydrochlori 20:13: Daily, # Hussain rmann de 300 MG 00 30 tab, 5 Extended Refill(s), Release Pharmacy: [facility] [Wellbutrin [facility] ] 256, 152.4, cm, 03/08/21 13:22:00 CDT, Height, 75, kg, 03/08/21 13:22:00 CDT, Weight 24 HR 0 Yes 300 mg = 1 Memori a Bupropion 6-15 tab, PO, l Hydrochlori 20:13: Daily, # Hussain rmann de 300 MG 00 30 tab, 5 Extended Refill(s), Release Pharmacy: [facility] [Wellbutrin [facility] ] 256, 152.4, cm, 03/08/21 13:22:00 CDT, Height, 75, kg, 03/08/21 13:22:00 CDT, Weight 24 HR 0 Yes 300 mg = 1 Memori a Bupropion 6-15 tab, PO, l Hydrochlori 20:13: Daily, # He rmann de 300 MG 00 30 tab, 5 Extended Refill(s), Release Pharmacy: [facility] [Wellbutrin [facility] ] 256, 152.4, cm, 03/08/21 13:22:00 CDT, Height, 75, kg, 03/08/21 13:22:00 CDT, Weight 24 HR Yes 150 mg = 1 Memori a Bupropion 5-18 tab, PO, l Hydrochlori 18:46: Q24H, # 30 [place] de 150 MG 00 tab, 5 Extended Refill(s), Release Pharmacy: [facility] [Wellbutrin [facility] ] 256, 152.4, cm, 03/08/21 13:22:00 CDT, Height, 75, kg, 03/08/21 13:22:00 CDT, Weight 24 HR Yes 150 mg = 1 Memori a Bupropion 5-18 tab, PO, l Hydrochlori 18:46: Q24H, # 30 [place] de 150 MG 00 tab, 5 Extended Refill(s), Release Pharmacy: [facility] [Wellbutrin [facility] ] 256, 152.4, cm, 03/08/21 13:22:00 CDT, Height, 75, kg, 03/08/21 13:22:00 CDT, Weight 24 HR Yes 150 mg = 1 Memori a Bupropion 5-18 tab, PO, l Hydrochlori 18:46: Q24H, # 30 [place] de 150 MG 00 tab, 5 Extended Refill(s), Release Pharmacy: [facility] [Wellbutrin [facility] ] 256, 152.4, cm, 03/08/21 13:22:00 CDT, Height, 75, kg, 03/08/21 13:22:00 CDT, Weight mupirocin 2 Yes Pressure Apply to [facility] % ointment 4-22 injury of area(s) 3 ity of 00:00: skin, (three) [place] 00 unspecified times Medical injury daily. 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, Weight Hydroxyzine 2020-0 Yes 25 mg = 1 M emoria Hydrochlori 4-08 tab, PO, l de 25 MG 20:31: PRN, PRN Latoya nn Oral Tablet 00 anxiety, take HALF to ONE tablet every 8 hours as needed for severe anxiety, X 30 day, # 10 tab, 2 Refill(s), Pharmacy: [facility] 256, 152.4, cm, 11/02/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, Height, 75.909, kg, 11/02/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, Weight Hydroxyzine 2020-0 Yes 25 mg = 1 M emoria Hydrochlori 4-08 tab, PO, l de 25 MG 20:31: PRN, PRN Latoya nn Oral Tablet 00 anxiety, take HALF to ONE tablet every 8 hours as needed for severe anxiety, X 30 day, # 10 tab, 2 Refill(s), Pharmacy: [facility] 256, 152.4, cm, 11/02/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, Height, 75.909, kg, 11/02/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, Weight prazosin 5 2020-0 Yes 5 mg = 1 Mem oria mg oral 4-08 cap, PO, l capsule 20:30: Bedtime, Ash n 00 for PTSD, # 30 cap, 5 Refill(s), Pharmacy: [facility] 256, 152.4, cm, 11/02/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, Height, 75.909, kg, 11/02/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, Weight prazosin 5 1-0 Yes 5 mg = 1 Mem oria mg oral 4-08 cap, PO, l capsule 20:30: Bedtime, Ash n 00 for PTSD, # 30 cap, 5 Refill(s), Pharmacy: [facility] 256, 152.4, cm, 11/02/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, Height, 75.909, kg, 11/02/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, Weight prazosin 5 2020-0 Yes 5 mg = 1 Mem oria mg oral 4-08 cap, PO, l capsule 20:30: Bedtime, Ash n 00 for PTSD, # 30 cap, 5 Refill(s), Pharmacy: [facility] 256, 152.4, cm, 11/02/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, Height, 75.909, kg, 11/02/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, Weight Sertraline Yes 200 mg = 2 M emoria 100 MG Oral 4-08 tab, PO, l Tablet 20:26: Daily, # [place] [Zoloft] 00 60 tab, 5 Refill(s), Pharmacy: [place] [id number], 152.4, cm, 11/02/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, Height, 75.909, kg, 11/02/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, Weight Trazodone 0 Yes 150 mg = Leighton rajeev Hydrochlori 4-08 1.5 tab, l de 100 MG 20:26: PO, [place] Oral Tablet 00 Bedtime, # 45 tab, 5 Refill(s), Pharmacy: [facility] 256, 152.4, cm, 11/02/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, Height, 75.909, kg, 11/02/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, Weight Sertraline 0 Yes 200 mg = 2 M emoria 100 MG Oral 4-08 tab, PO, l Tablet 20:26: Daily, # M[place] [Zoloft] 00 60 tab, 5 Refill(s), Pharmacy: [facility] 256, 152.4, cm, 11/02/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, Height, 75.909, kg, 11/02/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, Weight Trazodone 2020-0 Yes 150 mg = Leighton rajeev Hydrochlori 4-08 1.5 tab, l de 100 MG 20:26: PO, [place] Oral Tablet 00 Bedtime, # 45 tab, 5 Refill(s), Pharmacy: [place] [address], 152.4, cm, 11/02/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, Height, 75.909, kg, 11/02/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, Weight Sertraline Yes 200 mg = 2 M emoria 100 MG Oral 4-08 tab, PO, l Tablet 20:26: Daily, # [place] [Zoloft] 00 60 tab, 5 Refill(s), Pharmacy: [facility] 256, 152.4, cm, 11/02/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 Medical Branch sodium Yes [id number] 16[oz_a Apply 473 [facility] hypochlorit 4-08 v] mL to ity of e 0.5% 00:00: area(s) [place] solution 00 daily. Medical Branch sodium Yes [id number] 16[oz_a Apply 473 [facility] hypochlorit 4-08 v] mL to ity of e 0.5% 00:00: area(s) [place] solution 00 daily. Medical Branch sodium Yes Complicated 16[oz_a Apply 473 [facility] hypochlorit 4-08 UTI v] mL to ity of e 0.5% 00:00: (urinary area(s) [place] solution 00 tract daily. Medical infection) Branch pregabalin Yes 300mg Take 300 Un amol (LYRICA) 4-07 mg by ity of 300 mg 22:31: mouth 3 [place] capsule 13 (three) Medical times Branch daily. SERTraline Yes 150mg Take 150 Un amol 100 mg 4-07 mg by ity of tablet 22:31: mouth [place] [address] daily. Medical Branch traZODone Yes 100mg Take 100 Uni vers 100 mg 4-07 mg by ity of tablet 22:31: mouth at [place] [address] bedtime. Medical Branch prazosin 2 Yes 2mg Take 2 mg Un amol mg capsule 4-07 by mouth ity o f 22:31: at [place] [address] bedtime. Medical Branch sennosides Yes 8.6mg Take 8.6 Un amol (SENNA) 8.6 4-07 mg by ity of mg tablet 22:31: mouth 2 [place] 13 (two) Medical times Branch daily. baclofen 10 Yes 35mg Take 35 mg [facility] mg tablet 4-07 by mouth 4 ity of 22:31: (four) [place] [address] times Medical daily. Branch furosemide Yes 40mg Take 40 mg U nivers 20 mg 4-07 by mouth ity of tablet 22:31: daily. [place] [address] Medical Branch omeprazole Yes 20mg Take 20 mg U nivers 20 mg 4-07 by mouth ity of capsule 22:31: at [place] [address] bedtime. Medical Branch docusate Yes 100mg Take 100 Univ ers 100 mg 4-07 mg by ity of capsule 22:31: mouth 2 [place] [address] (two) Medical times Branch daily. 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, Weight Sertraline Yes 150 mg = Mem oria 100 MG Oral 1-26 1.5 tab, l Tablet 19:31: PO, Daily, Latoya nn [Zoloft] 00 # 45 tab, 5 Refill(s), Pharmacy: [facility] 256, 152.4, cm, 11/02/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, Height, 75.909, kg, 11/02/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, Weight Trazodone Yes 50 mg = 1 Mem oria Hydrochlori 1-26 tab, PO, l de 50 MG 19:31: PRN, PRN Latoya nn Oral Tablet 00 Insomnia, take HALF to ONE tab at bedtime, # 30 tab, 5 Refill(s), Pharmacy: [facility] 256, 152.4, cm, 11/02/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, Height, 75.909, kg, 11/02/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, Weight prazosin 2 Yes 2 mg = 1 Mem oria mg oral 1-26 cap, PO, l capsule 19:31: Bedtime, Ash n 00 for PTSD nightmares , # 30 cap, 5 Refill(s), Pharmacy: [facility] 256, 152.4, cm, 11/02/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, Height, 75.909, kg, 11/02/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, Weight Sertraline Yes 150 mg = Mem oria 100 MG Oral 1-26 1.5 tab, l Tablet 19:31: PO, Daily, Latoya nn [Zoloft] 00 # 45 tab, 5 Refill(s), Pharmacy: [facility] 256, 152.4, cm, 11/02/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, Height, 75.909, kg, 11/02/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, Weight Trazodone 0 Yes 50 mg = 1 Mem oria Hydrochlori 1-26 tab, PO, l de 50 MG 19:31: PRN, PRN Latoya nn Oral Tablet 00 Insomnia, take HALF to ONE tab at bedtime, # 30 tab, 5 Refill(s), Pharmacy: [facility] 256, 152.4, cm, 11/02/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, Height, 75.909, kg, 11/02/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, Weight prazosin 2 2020-0 Yes 2 mg = 1 Mem oria mg oral 1-26 cap, PO, l capsule 19:31: Bedtime, Sah n 00 for PTSD nightmares , # 30 cap, 5 Refill(s), Pharmacy: [facility] 256, 152.4, cm, 11/02/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, Height, 75.909, kg, 11/02/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, Weight Sertraline 0 Yes 150 mg = Mem oria 100 MG Oral 1-26 1.5 tab, l Tablet 19:31: PO, Daily, Latoya nn [Zoloft] 00 # 45 tab, 5 Refill(s), Pharmacy: [facility] [place], 152.4, cm, 11/02/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, Height, 75.909, kg, 11/02/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, Weight Trazodone 0 Yes 50 mg = 1 Mem oria Hydrochlori 1-26 tab, PO, l de 50 MG 19:31: PRN, PRN Latoya nn Oral Tablet 00 Insomnia, take HALF to ONE tab at bedtime, # 30 tab, 5 Refill(s), Pharmacy: [facility] 256, 152.4, cm, 11/02/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, Height, 75.909, kg, 11/02/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, Weight prazosin 2 2020-0 Yes 2 mg = 1 Mem oria mg oral 1-05 cap, PO, l capsule 22:36: Bedtime, Ash n 00 for PTSD nightmares , # 30 cap, 5 Refill(s), Pharmacy: [facility] 256, 152.4, cm, 08/24/20 10:31: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, Height, 77.273, kg, 08/24/20 10:31: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, Weight prazosin 2 2020-0 Yes 2 mg = 1 Mem oria mg oral 1-05 cap, PO, l capsule 22:36: Bedtime, Ash n 00 for PTSD nightmares , # 30 cap, 5 Refill(s), [facility] 256, 152.4, cm, 08/24/20 10:31: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, Height, 77.273, kg, 08/24/20 10:31: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, Weight prazosin 2 2020-0 Yes 2 mg = 1 Mem oria mg oral 1-05 cap, PO, l capsule 22:36: Bedtime, Ash n 00 for PTSD nightmares , # 30 cap, 5 Refill(s), Pharmacy: [facility] 256, 152.4, cm, 08/24/20 10:31: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, Height, 77.273, kg, 08/24/20 10:31: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, Weight Sertraline 2020-0 Yes 150 mg = Mem oria 100 MG Oral 1-05 1.5 tab, l Tablet 22:35: PO, Daily, Latoya nn [Zoloft] 00 # 45 tab, 5 Refill(s), Pharmacy: [facility] [place], 152.4, cm, 08/24/20 10:31: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, Height, 77.273, kg, 08/24/20 10:31: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, Weight Sertraline 2020-0 Yes 150 mg = Mem oria 100 MG Oral 1-05 1.5 tab, l Tablet 22:35: PO, Daily, Latoya nn [Zoloft] 00 # 45 tab, 5 Refill(s), Pharmacy: [facility] 256, 152.4, cm, 08/24/20 10:31: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, Height, 77.273, kg, 08/24/20 10:31: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, Weight Sertraline 2020-0 Yes 150 mg = Mem oria 100 MG Oral 1-05 1.5 tab, l Tablet 22:35: PO, Daily, Latoya nn [Zoloft] 00 # 45 tab, 5 Refill(s), Pharmacy: [facility] 256, 152.4, cm, 08/24/20 10:31: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, Height, 77.273, kg, 08/24/20 10:31: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, Weight prazosin 1 2019-10 Yes 1 mg = 1 Mem oria mg oral 1-17 cap, PO, l capsule 17:02: Bedtime, Ash n 00 for PTSD nightmares , # 30 cap, 5 Refill(s), Pharmacy: [facility] 256, 152.4, cm, 08/24/20 10:31: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, Height, 77.273, kg, 08/24/20 10:31: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, Weight prazosin 1 2019-10 Yes 1 mg = 1 Mem oria mg oral 1-17 cap, PO, l capsule 17:02: Bedtime, Ash n 00 for PTSD nightmares , # 30 cap, 5 Refill(s), Pharmacy: [facility] [place], 152.4, cm, 08/24/20 10:31: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, Height, 77.273, kg, 08/24/20 10:31: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, Weight prazosin 1 2019-10 Yes 1 mg = 1 Mem oria mg oral 1-17 cap, PO, l capsule 17:02: Bedtime, Ash n 00 for PTSD nightmares , # 30 cap, 5 Refill(s), Pharmacy: [facility] [place], 152.4, cm, 08/24/20 10:31: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, Height, 77.273, kg, 08/24/20 10:31: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, Weight Sertraline 2019-10 Yes 100 mg = 1 M emoria 100 MG Oral 1-17 tab, PO, l Tablet 17:01: Daily, # [place] [Zoloft] 00 30 tab, 5 Refill(s), Pharmacy: [facility] 256, 152.4, cm, 08/24/20 10:31: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, Height, 77.273, kg, 08/24/20 10:31: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, Weight Sertraline 2019-10 Yes 100 mg = 1 M emoria 100 MG Oral 1-17 tab, PO, l Tablet 17:01: Daily, # [place] [Zoloft] 00 30 tab, 5 Refill(s), Pharmacy: [facility] 256, 152.4, cm, 08/24/20 10:31: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, Height, 77.273, kg, 08/24/20 10:31: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, Weight Sertraline 2019-10 Yes 100 mg = 1 M emoria 100 MG Oral 1-17 tab, PO, l Tablet 17:01: Daily, # [place] [Zoloft] 00 30 tab, 5 Refill(s), Pharmacy: [facility] 256, 152.4, cm, 08/24/20 10:31: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, Height, 77.273, kg, 08/24/20 10:31: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, Weight pregabalin 2019-10 Yes 300 mg = 1 M emoria 300 MG Oral 1-02 cap, PO, l Capsule 17:17: TID, 0 [place] [Lyrica] 00 Refill(s) pregabalin 2019-10 Yes 300 mg = 1 M emoria 300 MG Oral 1-02 cap, PO, l Capsule 17:17: TID, 0 [place] [Lyrica] 00 Refill(s) pregabalin 2019-10 Yes 300 mg = 1 M emoria 300 MG Oral 1-02 cap, PO, l Capsule 17:17: TID, 0 [place] [Lyrica] 00 Refill(s) Furosemide 2019-10 Yes 40 mg = 1 Me moria 40 MG Oral 1-02 tab, PO, l Tablet 16:53: Daily, # [place] 00 30 tab, 0 Refill(s) sertraline 2019-10 Yes 50 mg = 1 Me moria 50 mg oral 1-02 tab, PO, l tablet 16:53: Daily, # [place] 00 30 tab, 0 Refill(s) baclofen 10 2019-10 Yes 10 mg = 1 M emoria mg oral 1-02 tab, PO, l tablet 16:53: Q6H, 0 [place] 00 Refill(s) Stool 2019-10 Yes 1 cap, PO, Memori a Softener + 1-02 BID, 0 l Stimulant 16:53: Refill(s) Her navarro Laxative 50 00 mg-8.6 mg oral capsule Amoxicillin 2019-10 Yes 500 mg, Mem oria 1-02 PO, Daily, l 16:53: 0 [place] 00 Refill(s) omeprazole 2019-10 Yes 20 mg = 1 Me moria 20 mg oral 1-02 cap, PO, l delayed 16:53: Daily, # Ash n release 00 30 cap, 1 capsule Refill(s) QUEtiapine 2019-10 Yes 100 mg = 1 M emoria 100 mg oral 10-24 tab, PO, l tablet 16:53: Q6H, 0 [place] 00 Refill(s) Bisacodyl 5 2019-10 Yes 5 mg = 1 Me moria MG Enteric 10-24 tab, PO, l Coated 16:53: Daily, 0 [place]agen Tablet 00 Refill(s) [Dulcolax] Potassium 2019-10 Yes 1 tab po Leighton rajeev gluconate 10-24 daily, 0 l 16:53: Refill(s) Magen 00 Multi 2019-10 Yes super b Memoria Vitamin+ 10-24 complex, 0 l 16:53: Refill(s) [place] MAGNESIUM 2019-10 Yes PO, Daily, Me moria GLUCONATE 10-24 0 l 16:53: Refill(s) [place] Melatonin 2019-10 Yes Bedtime, 0 Me moria 10-24 Refill(s) l 16:53: [place] 00 Furosemide 2019-10 Yes 40 mg = 1 Me moria 40 MG Oral 10-24 tab, PO, l Tablet 16:53: Daily, # [place] 00 30 tab, 0 Refill(s) sertraline 2019-10 Yes 50 mg = 1 Me moria 50 mg oral 10-24 tab, PO, l tablet 16:53: Daily, # [place] 00 30 tab, 0 Refill(s) baclofen 10 2019-10 Yes 10 mg = 1 M emoria mg oral 10-24 tab, PO, l tablet 16:53: Q6H, 0 [place] 00 Refill(s) Stool 2019-10 Yes 1 cap, PO, Memori a Softener + 10-24 BID, 0 l Stimulant 16:53: Refill(s) Her navarro Laxative 50 00 mg-8.6 mg oral capsule Amoxicillin 2019-10 Yes 500 mg, Mem oria 10-24 PO, Daily, l 16:53: 0 [place] 00 Refill(s) omeprazole 2019-10 Yes 20 mg = 1 Me moria 20 mg oral 10-24 cap, PO, l delayed 16:53: Daily, # Ash n release 00 30 cap, 1 capsule Refill(s) QUEtiapine 2019-10 Yes 100 mg = 1 M emoria 100 mg oral 02 tab, PO, l tablet 16:53: Q6H, 0 Magen 00 Refill(s) Bisacodyl 5 2019-10 Yes 5 mg = 1 Me moria MG Enteric 10-24 tab, PO, l Coated 16:53: Daily, 0 [place] Tablet 00 Refill(s) [Dulcolax] Potassium 2019-10 Yes 1 tab po Leighton rajeev gluconate 10-24 daily, 0 l 16:53: Refill(s) [place] Multi 2019-10 Yes super b Memoria Vitamin+ 10-24 complex, 0 l 16:53: Refill(s) [place]agen MAGNESIUM 2019-10 Yes PO, Daily, Me moria GLUCONATE 10-24 0 l 16:53: Refill(s) [place] Melatonin 2019-10 Yes Bedtime, 0 Me moria 10-24 Refill(s) l 16:53: [place] 00 Furosemide 2019-10 Yes 40 mg = 1 Me moria 40 MG Oral 10-24 tab, PO, l Tablet 16:53: Daily, # [place] 00 30 tab, 0 Refill(s) sertraline 2019-10 Yes 50 mg = 1 Me moria 50 mg oral 10-24 tab, PO, l tablet 16:53: Daily, # [place] 00 30 tab, 0 Refill(s) baclofen 10 2019-10 Yes 10 mg = 1 M emoria mg oral 10-24 tab, PO, l tablet 16:53: Q6H, 0 Magen 00 Refill(s) Stool 2019-10 Yes 1 cap, PO, Memori a Softener + 10-24 BID, 0 l Stimulant 16:53: Refill(s) Her navarro Laxative 50 00 mg-8.6 mg oral capsule Amoxicillin 2019-10 Yes 500 mg, Mem oria 02 PO, Daily, l 16:53: 0 [place] 00 Refill(s) omeprazole 2019-10 Yes 20 mg = 1 Me moria 20 mg oral 02 cap, PO, l delayed 16:53: Daily, # Ash n release 00 30 cap, 1 capsule Refill(s) QUEtiapine 2019-10 Yes 100 mg = 1 M emoria 100 mg oral -02 tab, PO, l tablet 16:53: Q6H, 0 [place] 00 Refill(s) Bisacodyl 5 2019-10 Yes 5 mg = 1 Me moria MG Enteric 1-02 tab, PO, l Coated 16:53: Daily, 0 [place] Tablet 00 Refill(s) [Dulcolax] Potassium 2019-10 Yes 1 tab po [place] rajeev gluconate -02 daily, 0 l 16:53: Refill(s) [place] 00 Multi 2019-10 Yes super b Memoria Vitamin+ - complex, 0 l 16:53: Refill(s) MAGNESIUM 2019-10 Yes PO, Daily, Me moria GLUCONATE 02 0 l 16:53: Refill(s) [place] Melatonin 2019-10 Yes Bedtime, 0 Me moria 02 Refill(s) l 16:53: [place] 00 QUEtiapine Yes 400mg QD Take 400 Me thodi XR 7-[address] (SEROquel 19:17: [facility] XR) 400 MG 52 nightly. l 24 hr tablet vitamin B Yes 1{tbl} QD Take 1 Meth nancy complex (B 7-[address] COMPLETE 19:17: [facility] ORAL) 52 daily. l Lactobac Yes 1{tbl} QD Take 1 Metho di no.41/Bifid 7-[address] obact no.7 19:17: mouth Hospit a (PROBIOTIC- 52 daily. l 10 ORAL) POTASSIUM Yes 1{tbl} QD Take 1 Meth nancy ORAL 7-[address] 19:17: [facility] 52 daily. l MAGNESIUM Yes 1{tbl} QD Take 1 Meth nancy ORAL 7-[address] 19:17: mouth [facility] 52 daily. l estradiol 2019-0 Yes Q90D Inject [facility] cypionate 7-[address] (DEPO-ESTRA 19:17: shoulder, H ospita DIOL) 5 52 thigh, or l mg/mL buttocks injection every 3 (three) months. AMOXICILLIN 2018- Yes 1{tbl} [id number] Take 1 [facility] ORAL 7-[id number] 19:17: 3D mouth 3 Hospita 52 (three) l times a day. omeprazole 2018-0 Yes TK 1 C PO Me thodi (PriLOSEC) 6-[address] 20 MG 00:00: Hospita capsule 00 l amitriptyli Yes 100mg Take 100 U nivers ne 25 mg 5-14 mg by ity of tablet 00:00: mouth at [place] 00 bedtime. [facility] amitriptyli Yes 25mg QD Take 25 mg [facility] ne (ELAVIL) 5-[address] 25 MG 00:00: nightly. Hospita tablet 00 l amitriptyli Yes 100mg Take 100 U nivers ne 25 mg 5-14 mg by ity of tablet 00:00: mouth at [place] 00 bedtime. [facility] amitriptyli Yes 100mg Take 100 U nivers ne 25 mg 5-14 mg by ity of tablet 00:00: mouth at [place] 00 bedtime. [facility] amitriptyli Yes 100mg Take 100 U nivers ne 25 mg 5-14 mg by ity of tablet 00:00: mouth at [place] 00 bedtime. [facility] furosemide Yes 20mg QD Take 20 mg M [facility]i (LASIX) 20 4-[address] mg tablet 00:00: daily. Hospit a 00 l HYDROcodone Yes TAKE 1 Meth nancy -acetaminop 4-[address] hen (NORCO) 00:00: THREE Hospi ta 7.5-325 mg 00 TIMES A l per tablet DAY FOR 28 DAY(S) baclofen Yes TAKE 3.5 Metho di (LIORESAL) 2-[address] 10 MG 00:00: TIMES A Hospita tablet 00 DAY WITH l FOOD OR MILK FOUR TIMES LYRICA 200 Yes 200mg [id number] Take 200 [facility] mg capsule 2-[id number] 00:00: 3D mouth 3 Hospita 00 (three) l times a day. zolpidem Yes 10mg QD Take 10 mg [facility] (AMBIEN) 10 2-[address] mg tablet 00:00: nightly. Hosp ilan 00 l Non-Adheren Yes Use as [facility] t Bandage 7- directed ity of (MEPITEL) 2 00:00: [place] X 3 " [facility] 00 [facility] Non-Adheren Yes Use as [facility] ers t Bandage 7-03 directed ity of (MEPITEL) 2 00:00: [place] X 3 " [facility] Non-Adheren 0 Yes Use as [facility] ers t Bandage 7-03 directed ity of (MEPITEL) 2 00:00: [place] X 3 " [facility] Non-Adheren 0 Yes Use as Univ ers t Bandage 7-03 directed ity of (MEPITEL) 2 00:00: [place] X 3 " [facility] zolpidem 10 Yes TAKE 1 Univ ers mg tablet 4-27 TABLET AT ity o f 00:00: BEDTIME [place] NEEDED Medical Branch zolpidem 10 Yes TAKE 1 Univ ers mg tablet 4-27 TABLET AT ity o f 00:00: BEDTIME [place] NEEDED Medical Branch zolpidem 10 Yes TAKE 1 Univ ers mg tablet 4-27 TABLET AT ity o f 00:00: BEDTIME [place] NEEDED Medical Branch zolpidem 10 Yes TAKE 1 Univ ers mg tablet 4-27 TABLET AT ity o f 00:00: BEDTIME [place] NEEDED Medical Branch Immunizations Ordered Filled Immunization Date Status Comments [facility] e Immunization Name Name Pneumococcal 2018-08-06 Completed University o f Polysaccharide, 00:00:00 [place] [facility] ical PPSV23 (PNEUMOVAX) Branch Pneumococcal 2018-08-06 Completed University o f Polysaccharide, 00:00:00 [place] [facility] PPSV23 (PNEUMOVAX) Branch Pneumococcal 2018-08-06 Completed University o f Polysaccharide, 00:00:00 [place] [facility] ical PPSV23 (PNEUMOVAX) Branch Pneumococcal 2018-08-06 Completed University o f Polysaccharide, 00:00:00 [place] Med ical PPSV23 (PNEUMOVAX) Branch Vital Signs Vital Name Observation Time Observation Value Comments Source Head exam ED 2021-03-30 10:55:24 atraumatic 02 Sat by Pulse 2021-03-30 10:55:24 100 /min Oximetry Body Mass Index 2021-03-30 10:55:24 23.5 Height 2021-03-30 10:55:24 177.8\\S\\70 Pulse Rate 2021-03-30 10:55:24 81 /min Respiratory Rate 2021-03-30 10:55:24 18 /min Respiratory Depth 2021-03-30 10:55:24 Normal /min Respiratory Effort 2021-03-30 10:55:24 Spontaneous /min Respiratory Pattern 2021-03-30 10:55:24 Normal /min Temperature 2021-03-30 10:55:24 36.0\\S\\96.8 Weight 2021-03-30 10:55:24 21717.148\\S\\2624 Head exam ED 2021-03-30 09:12:21 atraumatic Body Mass Index 2021-03-30 09:12:21 23.5 Height 2021-03-30 09:12:21 177.8\\S\\70 Weight 2021-03-30 09:12:21 40974.148\\S\\2624 Head exam ED 2021-03-30 08:32:51 atraumatic Body Mass Index 2021-03-30 08:32:51 23.5 Height 2021-03-30 08:32:51 177.8\\S\\70 Weight 2021-03-30 08:32:51 21718.148\\S\\2624 WEIGHT 2021-03-30 08:32:00 74.748147 kg HEIGHT 2021-03-30 08:32:00 177.8 cm Head exam ED 2021-03-30 07:48:44 atraumatic Systolic (mm Hg) 2021-03-08 18:05:00 [facility] [place] Diastolic (mm Hg) 2021-03-08 18:05:00 [facility] [place] Heart Rate 2021-03-08 18:05:00 [facility] [place] Respitory Rate 2021-03-08 18:05:00 [facility] [place] Height 2021-03-08 18:05:00 152.4 cm [facility] [place] BMI Calculated 2021-03-08 18:05:00 [facility] [place] Weight 2021-03-08 18:05:00 [facility] [place] Systolic (mm Hg) 2020-11-02 19:33:00 [facility] [place] Diastolic (mm Hg) 2020-11-02 19:33:00 [facility] [place] Heart Rate 2020-11-02 19:33:00 [facility] [place] Respitory Rate 2020-11-02 19:33:00 [facility] [place] Height 2020-11-02 19:33:00 152.4 cm [facility] [place] BMI Calculated 2020-11-02 19:33:00 [facility] [place] Weight 2020-11-02 19:33:00 [facility] [place] Respitory Rate 2020-08-24 16:31:00 [facility] [place] Height 2020-08-24 16:31:00 152.4 cm [facility] [place] BMI Calculated 2020-08-24 16:31:00 [facility] [place] Weight 2020-08-24 16:31:00 [facility] [place] Systolic (mm Hg) 2020-08-24 16:31:00 [place] [facility] [place] Diastolic (mm Hg) 2020-08-24 16:31:00 [facility] [place] Heart Rate 2020-08-24 16:31:00 [facility] [place] BMI Calculated 2017-08-22 20:00:00 [facility] [place] Weight 2017-08-22 20:00:00 [facility] [place] Height 2017-08-22 20:00:00 165.1 cm [facility] [place] Heart Rate 2017-08-22 20:00:00 [facility] [place] Respitory Rate 2017-08-22 20:00:00 [facility] [place] Systolic (mm Hg) 2017-08-22 20:00:00 [facility] [place] Diastolic (mm Hg) 2017-08-22 20:00:00 [facility] [place] Procedures Procedure Date / Time Performing Clinician Source Performed AUTHORIZATION FOR 2021-02-12 05:01:00 Doctor Unassigned, No Univ [facility] RELEASE OF PHI Name Medical Branch Plan of Care Planned Activity Planned Date Details Comments Source Future Scheduled 2022-01-06 Depression screening [facility] Test 00:00:00 (procedure) [code = Medical Branch 307384576] Future Scheduled 2021-06-23 INFLUENZA VACCINE [facility] Test 00:00:00 (Season Ended) [code Medical Branch = INFLUENZA VACCINE (Season Ended)] Future Scheduled 2012-08-07 Screening for [facility] Test 00:00:00 malignant neoplasm Medical [facility] of cervix (procedure) [code = 820987026] Future Scheduled 2005 DTaP,Tdap,and Td Univers [facility] Test 00:00:00 Vaccines (1 - Tdap) Medical Branch [code = DTaP,Tdap,and Td Vaccines (1 - Tdap)] Future Scheduled 1987 [facility] [place] [facility] 00:[facility]:00 (1 of 2 - 2-dose Medical [facility] childhood series) [code = VARICELLA VACCINES (1 of 2 - 2-dose childhood series)] Future Scheduled COVID-19 [facility]INE ([facility] [code = COVID-19 VACCINE (1)] Future Scheduled [facility] (procedure[facility] [code = 974368484] Future Scheduled [facility] Test malignant neoplasm of cervix (procedure) [code = 399284641] Future Scheduled [facility]ACCINE [facility] [code = INFLUENZA VACCINE] Encounters Start End Encounter Admission Attending Care Care Encounter Source Date/Time Date/Time Type Type Clinicians Facility Department ID 2022-01-18 Outpatient [facility] [id number] [place] 10:50:[id number] [place] [id number] 2021-12-22 Outpatient ADHIA, [facility] [id number] [place] 01:03:31 [facility] 2021-12-01 Outpatient ADHIA, [facility] [id number] [place] 01:04:23 [facility] 2021-11-17 Outpatient [facility] [id number] [facility] [address] 13:46:35 [id number] [facility] 2021-11-08 Outpatient ADHIA, [facility] [id number] [place] 01:04:23 [facility] 2021-10-12 Outpatient ADHIA, [facility] [id number] [place] 01:04:27 [facility] 2021-06-19 Outpatient ADHIA, [facility] [id number] [place] 01:06:58 [facility] 2021-04-10 Outpatient ADHIA, [facility] [id number] [place] 01:06:38 [facility] 2022-02-02 2022-02-02 Outpatient Lonnie [facility] [id number] Univers 10:00:00 10:00:00 AYSE [id number] [facility] 2022-02-02 2022-02-02 Outpatient Lonnie [facility]QU[facility] [id number] Univers 10:00:00 10:00:00 AYSE [facility] 2022-02-01 2022-02-01 Outpatient Lonnie FOURNIER [facility] [id number] Univers 11:00:00 11:00:00 MARISELA [id number] [facility] 2022-02-01 2022-02-01 [facility] [id number] Univers 11:00:00 11:00:00 MARISELA [facility] 2022-01-26 2022-01-26 TelemedicREGINA MirIT [id number] Univers 11:45:00 12:00:00 ne Visit [facility] [employer] [id number] ity [place] [id number] [address] 2022-01-26 2022-01-26 Outpatient Lonnie [facility] [id number] Q-20 Univers 11:45:00 11:45:00 [facility] [id number] [facility] 2022-01-26 2022-01-26 Outpatient Lonnie [facility] [id number] Univers 11:45:00 11:45:00 [facility] 2022-01-20 2022-01-20 [facility] [id number] Univers 00:00:00 00:00:00 Marisela WHARTON [id number] i ty [facility] [place] PROF[place] [id number] [place] dic[address] 2022-01-19 2022-01-19 Outpatient Lonnie [facility] [id number] Univers 11:00:00 11:00:00 [facility] 2022-01-17 2022-01-17 Telephone REGINA Jarquin [id number] Univers 00:00:00 00:00:00 [facility] [employer] [id number] [place] [id number] [address] 2021-09-22 2021-09-22 ambulatory [facility]MLC [facility] [id number] [facility] 2021-09-22 2021-09-22 ambulatory [facility]ML[facility] [employer] [id number] [facility] 2021-07-13 2021-07-[place] [id number] [facility] 16:22:00 04:59:00 r Psychiatric 24 l s/Psychothe Herm dorothea rapy (PSYR) 2021-07-02 2021-07-02 Outpatient [employer] [facility] [id number] [facility] 2021-06-30 2021-06-30 Outpatient [employer] [id number] [facility] 2021-06-29 2021-06-29 Outpatient [employer] [id number] [facility] 2021-06-15 2021-06-[place] [id number] Memoria 19:07:00 04:59:00 r Psychiatric 22 l s/Psychothe Herm dorothea meena (PSYR) 2021-06-09 2021-06-09 [facility] 1.2.840.114 [id number] 11:13:45 12:39:22 Visit [facility] [id number] [facility] [id number] [id number] 2021-06-07 2021-06-07 EXT MHH OP EXT MSRDP 1.2.840.114 [id number] [place] 00:00:00 00:00:00 LOCATION 350.1.13.58 H ealth 9.2.7.2.686 [id number] 2021-06-07 2021-06-07 EXT MHH OP EXT MSRDP 1.2.840.114 [id number] [place] 00:00:00 00:00:00 LOCATION 350.1.13.58 H ealth 9.2.7.2.686 [id number] 2021-06-07 2021-06-07 EXT MHH OP EXT MSRDP 1.2.840.114 1 [id number] [place] 00:00:00 00:00:00 LOCATION 350.1.13.58 H ealth 9.2.7.2.686 [id number] 2021-06-07 2021-06-07 EXT MHH OP EXT MSRDP 1.2.840.114 1 [id number] [place] 00:00:00 00:00:00 LOCATION 350.1.13.58 H ealth 9.2.7.2.686 [id number] 2021-06-07 2021-06-07 EXT MHH OP EXT MSRDP 1.2.840.114 1 [id number] [place] 00:00:00 00:00:00 LOCATION 350.1.13.58 H ealth 9.2.7.2.686 [id number] 2021-06-07 2021-06-07 EXT H OP EXT MSRDP 1.2.840.114 1 [id number] [place] 00:00:00 00:00:00 LOCATION 350.1.13.58 H ealth 9.2.7.2.686 [id number] 2021-05-03 2021-05-04 Outpatient nullFlavo TR Urology 46 [id number] Memoria 17:49:00 04:59:00 r Clinic 19 l (UROR) [place] 2021-04-06 2021-04-[place] [id number] Mem[facility] 15:24:00 04:59:00 r Psychiatric 20 l s/Psychothe Herm dorothea rapy (PSYR) 2021-03-09 2021-03-10 [place] [id number] [facility] 16:45:00 04:59:00 r Psychiatric 18 l s/Psychothe Herm dorothea rapy (PSYR) 2021-03-08 2021-03-09 [place] [id number] Memoria 17:38:00 04:59:00 r Gynecology 17 l Clinic [place] (GYNR) 2021-03-05 2021-03-05 EXT [facility] OP [place], EXT MSRDP 1.2.840.114 [id number] [place] 00:00:00 00:00:00 [place] LOCATION 350.1.13.58 [facility] 9.2.7.2.686 [id number] 2021-01-28 2021-01-29 [place] [id number] [facility] 19:46:00 04:59:00 r Psychiatric 15 l s/Psychothe Herm dorothea rapy (PSYR) 2020-12-22 2020-12-23 [place] [id number] [facility] 20:34:00 05:59:00 r Psychiatric 12 l s/Psychothe Herm dorothea rapy (PSYR) 2020-11-17 2020-11-18 [place] [id number] [facility] 13:00:00 05:59:00 r Psychiatric 10 l s/Psychothe Herm dorothea rapy (PSYR) 2020-11-02 2020-11-03 Outpatient nullFlavo TR Urology 46 [id number] [facility]oria 16:50:00 05:59:00 r Clinic 04 l (UROR) [place] 2020-10-27 2020-10-28 [place] [id number] Memoria 19:20:00 05:59:00 r Psychiatric 08 l s/Psychothe Herm dorothea rapy (PSYR) 2020-09-08 2020-09-09 [place] [id number] [facility] 14:45:00 05:59:00 r Psychiatric 07 l s/Psychothe Herm dorothea rapy (PSYR) 2020-08-24 2020-08-25 Outpatient nullFlavo TR Spinal 116 [id number] Memoria 16:00:00 05:59:00 r Cord Inj 03 l [facility] (SCIR) 2018-06-07 2018-09-07 PreAdmit nullFlavo [facility] [id number] Memoria 14:15:00 15:17:00 r Memorial 02 l [facility] 2017-08-22 2017-08-23 Outpatient nullFlavo [facility] [id number] Memoria 18:37:00 04:59:00 r Memorial 00 l [facility] Medical [facility] Results This patient has no known results.
[2022-01-28 18:14] LABS: Absolute Lymphocytes (CBC) 1.1 K/uL (0.7-4.9); Hematocrit 44.3 % (36.0-45.0); Lymphocytes % 26.9 % (15.3-44.8); MPV 8.5 fL (7.6-11.3); RBC Red Blood Cell Count 5.59 M/uL (3.86-4.86)
[2022-01-28 18:33] LABS: ALT/SGPT 31 U/L (12-78); AST/SGOT 21 U/L (15-37); Albumin 3.8 g/dL (3.4-5.0); BUN Blood Urea Nitrogen 4 mg/dL (7-18); Bicarbonate 30 mmol/L (21-32); Bilirubin Total 0.3 mg/dL (0.2-1.0); Glucose Level 89 mg/dL (74-106); Magnesium 2.5 mg/dL (1.8-2.4); Potassium 3.6 mmol/L (3.5-5.1); Protein, Total 7.7 g/dL (6.4-8.2); Sodium Level 140 mmol/L (136-145)
[2022-01-28 18:34] LABS: Bilirubin Direct < 0.1 mg/dL (0-0.2)
[2022-01-28 18:39] LABS: Alkaline Phosphatase 80 U/L (45-117); NT PRO-BNP 151 pg/mL (<125)
--- NOTE | 2022-01-28 18:40 | RAD REPORT ---
EXAM DESCRIPTION: RAD - Chest Single View - 01/28/2022 6:23 pm CLINICAL HISTORY: SOB COMPARISON: Portable 08/10/2018 TECHNIQUE: AP portable chest image was obtained 01/28/2022 6:23 pm . FINDINGS: Lungs are clear. Interstitial markings not significantly different from comparison. Heart and vasculature are normal. No measurable pleural effusion and no pneumothorax. No acute bony abnorma lity seen. Midthoracic hardware is unchanged from the comparison. No acute aortic findings suspected. IMPRESSION: No acute cardiopulmonary process.
[2022-01-28] MEDS ORDERED: NA CHLORIDE 0.9% 1,000 ML ONE (19:12)
[2022-01-28 19:22] LABS: Urine Blood 3+ (Negative); Urine Glucose Negative (Negative); Urine Protein 1+ (Negative)
[2022-01-28 19:54] LABS: Barbiturates NEGATIVE (NEGATIVE); Benzodiazepines NEGATIVE (NEGATIVE); Cocaine NEGATIVE (NEGATIVE); METHAMPHETAM NEGATIVE (NEGATIVE); Methadone NEGATIVE (NEGATIVE); Opiates POSITIVE (NEGATIVE); Phencyclidine NEGATIVE (NEGATIVE); THC Cannibis NEGATIVE (NEGATIVE)
--- NOTE | 2022-01-28 20:18 | RAD REPORT ---
EXAM DESCRIPTION: CT - Chest For Pe Angio - 01/28/2022 7:59 pm CLINICAL HISTORY: SOB COMPARISON: Chest Single View dated 01/28/2022; Head C Spine Cap Wo Con dated 07/29/2018 TECHNIQUE: Dynamically enhanced 3 mm thick images of the chest were obtained during administration o f approximately 150mL Isovue 370 IV contrast. Coronal and oblique MIP reconstruction images were gene rated and reviewed. Exam utilizes a protocol to evaluate the pulmonary arterial tree. All CT scans are performed using dose optimization technique as appropriate and may include automated exposure control or mA/KV adjustment according to patient size. FINDINGS: No pulmonary emboli are identified. The aorta as imaged shows no acute or suspicious finding. No pericardial thickening or effusion. No infiltrate or mass in the lung parenchyma. No pleural effusion or pleural thickening. No mediastinal or hilar suspicious masses. No chest wall masses or abnormal axillary lymphadenopathy. No acute bone finding. midthoracic fusion changes are present with interbody graft material and poste rior fusion hardware showing no acute finding. No new bone abnormality identifiable. IMPRESSION: No pulmonary emboli identified. No other acute or suspicious findings.
--- NOTE | 2022-01-28 20:26 | RAD REPORT ---
EXAM DESCRIPTION: CT - Abdomen Pelvis W Contrast - 01/28/2022 7:59 pm CLINICAL HISTORY: ABD PAIN COMPARISON: Abdomen Pelvis W Contrast dated 08/10/2018 TECHNIQUE: Biphasic, helical CT imaging of the abdomen and pelvis was performed following 100 ml non -ionic IV contrast. No oral contrast administered. All CT scans are performed using dose optimization technique as appropriate and may include automated exposure control or mA/KV adjustment according to patient size. FINDINGS: Chest findings detailed in separate report. The liver, spleen, and pancreas show no suspicious findings. Gallbladder and biliary tree are also wi thout suspicious finding. Symmetric renal function is seen with no hydronephrosis or suspicious renal mass. No pyelonephritis o r acute parenchymal process. Urinary bladder is fully contracted around a suprapubic catheter. No adr enal abnormalities. No uterine or ovarian abnormality seen. No stomach or small bowel abnormality. No appendicitis findings. Moderate stool volume is present jun ling but not dilating the colon from cecum to the left mid abdomen colostomy site. History indicates infectious material at the colostomy site. The terminal end of the colon in the subcutaneous fat does not appear abnormally thickened or edematous. There is no congested or edematous stranding in the johnson bcutaneous fat surrounding the terminal into the colostomy. No active colon process seen. Stool remai ns present in the Tineo pouch. No free air, free fluid or inflammatory stranding. No mass or bulky lymphadenopathy. No omental th ickening. Soft tissue stranding is present lateral to the hip joint and greater trochanter. Far lateral aspect of the soft tissues fall outside of the field of view. Patient has had chronic soft tissue in this re gion. Soft tissue stranding is present in the subcutaneous fat posterior to the left ischial tuberosi ty. Chronic wound changes are present posterior to the right ischium. Sclerotic bone changes are pres ent similar to comparison. Sinus tract is seen extending from the skin surface down to the bone. A ch ronic osteomyelitis is suspected our findings are not clearly different from 2018. Prominent soft tis sues around the right hip joint are also without clear change from comparison. There are thickened so ft tissues posterior to the lower sacrum and coccygeal segments similar to prior imaging. No acute vascular finding seen. IMPRESSION: No emergent CT abdomen or pelvis finding identifiable. History indicates infectious material within or around the left abdomen colostomy site. No abscess, a bnormal air collection or significant CT findings surrounding the terminal end of the colon at the co lostomy site. Large stool volume is present in the colon. Chronic soft tissue wounds along the posterior and lateral aspects of the pelvis.
--- NOTE | 2022-01-28 20:56 | EDPHYS ---
Physician Documentation [facility] Name: Merlene Rockwell Age: 36 yrs Sex: Female : 1985 Arrival Date: 01/28/2022 Time: 17:05 Bed 6 Private MD: ED Physician Cj Del Rio HPI: 01/28 18:00 This 36 yrs old Female presents to ER via EMS with complaints of Shortness of Breath. cp 18:00 The patient has shortness of breath at rest, that woke him/her from sleep. cp 18:00 Onset: The symptoms/episode began/occurred gradually, and became worse 3 day(s) ago. cp 18:00 Duration: The symptoms are intermittent. The patient's shortness of breath is cp aggravated by supine position, sleeping. Associated signs and symptoms: Pertinent negatives: chest pain, productive cough, fever, vomiting. 18:00 The patient presents with burning pain left lower abdomen around stoma. Patient with cp history of bowel resection surgery. 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 - Social history:: Smoking status: Patient denies any tobacco usage or history of. ROS: 18:05 Eyes: Negative for injury, pain, redness, and discharge. cp 18:05 Constitutional: Negative for body aches, chills, fever, poor PO intake. 18:05 ENT: Negative for drainage from ear(s), ear pain, sore throat, difficulty swallowing, difficulty handling secretions. 18:05 Cardiovascular: Negative for chest pain, edema, palpitations. 18:05 Respiratory: Positive for shortness of breath, Negative for cough, wheezing. 18:05 Abdomen/GI: Positive for of the left lower quadrant, burning pain, Negative for vomiting, diarrhea, constipation. 18:05 Back: Positive for pain at rest, pain with movement. 18:05 Neuro: Negative for altered mental status, headache, weakness. 18:05 All other systems are negative. Exam: 18:05 ECG was reviewed by the Attending Physician. cp 18:10 Constitutional: The patient appears in no acute distress, alert, awake, cp non-diaphoretic, non-toxic, well developed, well nourished. 18:10 Head/Face: Normocephalic, atraumatic. cp 18:10 Eyes: Periorbital structures: appear normal, Pupils: equal, round, and reactive to light and accomodation, Extraocular movements: intact throughout, Conjunctiva: normal, no exudate, no injection, Sclera: no appreciated abnormality, Lids and lashes: appear normal, bilaterally. 18:10 ENT: External ear(s): are unremarkable, Nose: is normal, Mouth: Lips: moist, Oral mucosa: pink and intact, moist, Posterior pharynx: Airway: no evidence of obstruction, patent. 18:10 Chest/axilla: Inspection: normal. 18:10 Cardiovascular: Rate: tachycardic, Rhythm: regular, Edema: is not appreciated, JVD: is not appreciated. 18:10 Respiratory: the patient does not display signs of respiratory distress, Respirations: normal, no use of accessory muscles, no retractions, labored breathing, is not present, Breath sounds: are clear throughout, no decreased breath sounds, no stridor, no wheezing. 18:10 Abdomen/GI: Inspection: stoma left lower abdomen, suprapubic urine catheter, Bowel sounds: active, all quadrants, Palpation: soft, in all quadrants, mild abdominal tenderness, in the left lower quadrant. 18:10 Back: pain, that is mild, of the low back area and mid back area, ROM is normal. 18:10 Skin: cellulitis, is not appreciated. 18:10 Neuro: Orientation: to person, place \T\ time. Mentation: able to follow commands, slow to respond, Motor: no acute changes, Sensation: no acute changes. Vital Signs: 17:00 BP 153 / 98; Pulse 114; Resp 20 S; Temp 97.8(TE); Pulse Ox 100% on R/A; Weight 72.57 jg9 kg; Height 5 ft. 0 in. (152.40 cm); Pain 0/10; 19:00 BP 138 / 99; Pulse 120; Resp 17 S; Pulse Ox 98% on R/A; jg9 21:13 BP 138 / 93; Pulse 85; Resp 20 S; Pulse Ox 100% on R/A; as6 17:00 Body Mass Index 31.25 (72.57 kg, 152.40 cm) jg9 MDM: 17:12 Patient medically screened. kiara 18:00 Differential diagnosis: asthma, Bronchitis CHF exacerbation, pneumonia, Pneumothorax cp pulmonary edema, Pulmonary Embolism Sepsis. 20:55 Data reviewed: vital signs, nurses notes, lab test result(s), EKG, radiologic studies, cp CT scan, plain films. 20:55 Antibiotic administration: Not indicated, the patient does not have an appreciated cp infiltrate. Test interpretation: by ED physician or midlevel provider: ECG, plain radiologic studies. ED course: VSS. Patient appears non-toxic and no signs of respiratory distress. Patient admits to taking multiple sedating meds to include oral morphine, lyrica, has baclofen pump and also reports history of sleep apnea. Patient reports she is awaiting CPAP machine. Will discharge to home for continued monitoring. 01/28 17:46 Order name: Basic Metabolic Panel; Complete Time: 18:54 cp 01/28 17:46 Order name: CBC with Diff; Complete Time: 18:54 cp 01/28 19:58 Interpretation: Normal except: WBC 4.2; RBC 5.59; MCV 79.2; MCH 25.8; RDW 17.3. cp 01/28 17:46 Order name: LFT's; Complete Time: 18:54 cp 01/28 17:46 Order name: Magnesium; Complete Time: 18:54 cp 01/28 17:46 Order name: NT PRO-BNP; Complete Time: 18:54 cp 01/28 19:04 Order name: UDS; Complete Time: 19:57 cp 01/28 19:57 Interpretation: Reviewed. cp 01/28 17:46 Order name: XRAY Chest (1 view); Complete Time: 18:54 cp 01/28 17:46 Order name: EKG; Complete Time: 17:47 cp 01/28 17:46 Order name: Cardiac monitoring; Complete Time: 19:03 cp 01/28 19:03 Order name: CT Chest For PE Angio; Complete Time: 20:33 cp 01/28 19:03 Order name: CT Abd/Pelvis - IV Contrast Only; Complete Time: 20:33 cp 01/28 19:23 Order name: Urine Dipstick-Ancillary; Complete Time: 19:57 EDMS 01/28 19:57 Interpretation: Normal except: UBLD 3+; UPROT 1+; UESTR Trace. cp 01/28 17:46 Order name: EKG - Nurse/Tech; Complete Time: 19:03 cp 01/28 17:46 Order name: IV Saline Lock; Complete Time: 19:03 cp 01/28 17:46 Order name: Labs collected and sent; Complete Time: 19:03 cp 01/28 17:46 Order name: O2 Per Protocol; Complete Time: 19:23 cp 01/28 17:46 Order name: O2 Sat Monitoring; Complete Time: 19:03 cp 01/28 19:04 Order name: Urine Test (obtain specimen); Complete Time: 19:23 cp 01/28 19:04 Order name: Urine Dipstick-Ancillary (obtain specimen); Complete Time: 19:23 cp EC:05 Rate is 129 beats/min. Rhythm is regular. AL interval is normal. QRS interval is cp normal. QT interval is normal. T waves are Inverted in lead aVF. Interpreted by me. Reviewed by me. Administered Medications: 19:05 Drug: NS 0.9% 1000 ml Route: IV; Rate: 1 bolus; Site: right antecubital; jg9 21:25 Follow up: Response: No adverse reaction; IV Status: Completed infusion; IV Intake: as6 1000ml 21:04 Drug: Ativan (LORazepam) 0.5 mg Route: IVP; Site: right antecubital; as6 21:25 Follow up: Response: No adverse reaction as6 Disposition Summary: 01/28/22 20:56 Discharge Ordered Location: Home cp Problem: new cp Symptoms: have improved cp Condition: Stable cp Diagnosis - Anxiety disorder, unspecified cp - Shortness of breath cp - Abdominal pain, unspecified cp Followup: cp - With: Private Physician - When: 2 - 3 days - Reason: Recheck today's complaints Discharge Instructions: - Discharge Summary Sheet cp - Abdominal Pain, Adult cp - Constipation, Adult cp - Shortness of Breath, Adult cp - Generalized Anxiety Disorder, Adult cp Forms: - Medication Reconciliation Form cp - Thank You Letter cp - Antibiotic Education cp - Prescription Opioid Use cp Prescriptions: - Colace 100 mg Oral Tablet - take 1 tablet by ORAL route every 12 hours; 14 tablet; Refills: 0, Product cp Selection Permitted Addendum: 02/03/2022 18:55 Co-signature as Attending Physician, Cj Del Rio MD I agree with the assessment and c mittal plan of care. Signatures: Dispatcher [employer] EDMS Cj Del Rio MD MD cha Smirch, Shelby, RN RN ss Cj Cabrales, PA PA Davi Hinkle RN RN as6 Morena Simms RN RN jg9 Lorraine Morales PA PA sb3 Corrections: (The following items were deleted from the chart) 01/28 17:17 17:15 Home Meds: Baclofen Oral [Inactive]; jg9 jg9 17:17 17:15 Home Meds: Lyrica Oral [Inactive]; jg9 jg9 17:17 17:15 Home Meds: Cymbalta Oral [Inactive]; jg9 jg9 17:17 17:15 Home Meds: hydrocodone-acetaminophen 10-325 mg Oral tab 1 tab every 4 hours jg9 [Inactive]; jg9 17:17 17:15 Home Meds: Seroquel Oral [Inactive]; jg9 jg9 17:17 17:15 Home Meds: Ambien Oral [Inactive]; jg9 jg9 17:17 17:16 PMHx: paraplegic; jg9 jg9 01/29 02:17 01/28 22:14 This 36 yrs old Female presents to ER via EMS with complaints of Shortness cp of Breath. cp 01/29 02:01/28 22:20 Constitutional: Negative for body aches, chills, fever, poor PO intake, cp cp 01/29 02:01/28 22:20 Cardiovascular: Negative for chest pain, edema, palpitations, cp cp 01/29 02:01/28 22:20 Respiratory: Positive for shortness of breath, Negative for cough, cp wheezing, cp 01/29 02:01/28 22:20 Abdomen/GI: Positive for of the left lower quadrant, burning pain, Negative cp for vomiting, diarrhea, constipation, cp 01/29 02:01/28 22:20 Eyes: Negative for injury, pain, redness, and discharge, cp cp 01/29 02:01/28 22:20 ENT: Negative for drainage from ear(s), ear pain, sore throat, difficulty cp swallowing, difficulty handling secretions, cp 01/29 02:01/28 22:20 Back: Positive for pain at rest, pain with movement, cp cp 01/29 22:20 Neuro: Negative for altered mental status, headache, weakness, cp cp 01/29 02:01/28 22:20 All other systems are negative, cp cp
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
[2022-01-28] MEDS ORDERED: LORazepam 2 MG/ML VIAL ONE (21:06)
[2022-01-29 03:57] VITALS: BP 138/93; O2SAT 100
--- NOTE | 2022-01-31 09:43 | EKG ---
Test Date: 2022-01-28 Test Time: 18:00:51 Objective C Developer: MCKENZIE MEASUREMENT RESULTS: Intervals: Rate: 129 DE: 144 QRSD: 80 QT: 312 QTc: 457 [place]: P: 52 DE: 144 QRS: 95 T: 22 INTERPRETIVE STATEMENTS: Sinus tachycardia Rightward axis ST & T wave abnormality, consider anterolateral ischemia Abnormal ECG Compared to ECG 08/10/2018 13:09:38 Right-axis deviation now present ST (T wave) deviation now present Possible ischemia now present Sinus rhythm no longer present Atrial premature complex(es) no longer present Fusion complex(es) no longer present T-wave abnormality no longer present Electronically Signed On 01-31-22 09:36:17 CDT by Rik Chew
== END 2022-01-28 21:38 | disposition home or self-care (01) ==
LOC: ER 17:03
DX: F41.9 Anxiety disorder, unspecified (principal); R10.32 Left lower quadrant pain; G89.29 Other chronic pain; G82.20 Paraplegia, unspecified
CPT/HCPCS: 96361; 93005; 85025; 80048; 36415; 83735; 80076; 81003; 83880; 80307; 71275; 74177; 71045; 96374; 99284; Q9967; J7030

== ENCOUNTER 2022-02-17 10:24 | Emergency (ER) | payer OTHER ==
--- OUTSIDE RECORDS SUMMARY | 2022-02-17 10:28 | XMS REPORT | Continuity of Care Document ---
:1985 Author Organization [facility] t Address [address] [place] [address] Care Team Providers Name Role Phone Robert Galarza MD Primary Care Physician CELINA Attending Clinician Unavailable Janell BROOKE Attending Clinician Unavailable STEPHANIE FLORENCE Attending Clinician Unavailable Chuyita Galarza Attending Clinician Unavailable Guevara Jarquin MD Attending Clinician Parker Attending Clinician Unavailable Caitlin BARNES Attending Clinician Doctor Unassigned, Name Attending Clinician Unavailable CELINA Admitting Clinician Unavailable Chuyita Galarza Admitting Clinician Unavailable Physician, Primary or Family Admitting Clinician Unavailabl e Payers Payer Name Policy Type Policy Number Effective Date Expiration Date Mikayla HENDRICKSON MEDICAID [id number] 2020 00:00:00 [facility] MEDICARE [id number] 2020 2021 COMPLETE 00:00:00 00:00:00 Problems Condition Condition Condition Status Onset Resolution Last Treating Co mments Source Name Details Category Date Date Treatment Clinician Date Intractabl Intractabl Disease Active U nivers e pain e pain 3-19 ity of 00:00: [place] [address] Medical Branch F/U Diagnosis Active 2021-07-27 Mem oria 07-21 13:01:00 l F/U 00:00: Magen 00 Active 07/21/2021 [facility] Fever in Fever in Disease Active Unive rs adult adult 9-10 ity of 00:00: [place] [address] Medical Branch VIDEO-F/U Diagnosis Active 2021-07-13 Memoria 8- 11:59:00 l 00:00: Magen VIDEO-F/U 00 Active [...] Ash SAM FOLLOW-UP 00 CHANGE WITH SP SAM CHANGE Active 03/17/2021 [facility] F/U-6 WKS Diagnosis Active 2021-03-09 Memoria 5-10 11:53:00 l F/U-6 00:00: Magen WKS 00 Active 03/01/2021 [facility] WELL WOMAN Diagnosis Active 2021-04-24 Memoria 4 16:01:00 l WELL 00:00: Magen WOMAN 00 Active 02/16/2021 [facility] Complicate Complicate Disease Active U nivers d UTI d UTI 4-05 ity of (urinary (urinary 00:00: [place] tract tract 00 Medical infection) infection) Br anch PHONE-F/U Diagnosis Active 2021-04-02 Memoria 3-30 23:43:00 l 00:00: Bee PHONE-F/U 00 Active 01/19/2021 [facility] EVAL Diagnosis Active 2021-04-02 Mem oria 2-23 23:43:00 l EVAL 00:00: Magen 00 Active 12/15/2020 [facility] F/U-WITHDR Diagnosis Active 2020-12-22 Memoria AWALS 2- 15:12:00 l 00:00: Bee F/U-WITHDR 00 AWALS Active 12/14/2020 [facility] 6 WEEK Diagnosis Active 2019-102020-10-27 Mem oria F/U-PHONE - 13:24:00 l 6 WEEK 00:00: Magen F/U-PHONE 00 Active 09/14/2020 [facility] PHONE-EVAL Diagnosis Active 2019-102020-09-08 Memoria - 08:51:00 l 00:00: Magen PHONE-EVAL 00 Active 08/31/2020 [facility] NEUROGENIC Diagnosis Active 2019-102020-11-02 Memoria BLADDER 10-31 12:54:00 l 00:00: Bee NEUROGENIC 00 BLADDER Active 08/31/2020 [facility] EVAL-RE-VA Diagnosis Active 2020-09-08 Memoria L -15 15:11:00 l 00:00: Bee EVAL-RE-VA 00 L Active 07/07/2020 [facility] Pressure Pressure Disease Active 2018-10 Overview: Un amol injury of injury of 0-24 Added ity of contiguous contiguous 00:00: automatic [place] region region 00 ally from Medical involving involving request [facility] right right for buttock buttock surgery and hip, and hip, [id number] stage 3 stage 3 Pressure Pressure Disease Active 2018-10 Overview: Un amol injury of injury of 0-24 Formattin i ty of contiguous contiguous 00:00: g of this [place] region region 00 note Medical involving involving might be Br anch right right different buttock buttock from the and hip, and hip, original. stage 3 stage 3 Added automatic ally from request for surgery [id number] Carpal Carpal Disease Active Overview: Method i tunnel tunnel 6-[address] syndrome syndrome 00:00: g of this Hos oscar of left of left 00 note l wrist wrist might be different from the original. Added automatic ally from request for surgery [id number] Carpal Carpal Disease Active Overview: Method i tunnel tunnel 5-[address] syndrome syndrome 00:00: g of this Hos oscar on right on right 00 note l might be different from the original. Added automatic ally from request for surgery [id number] Hypotensio Hypotensio Disease Active 2017-10 U nivers n n 0-13 ity of 00:00: [place] 00 Medical Branch UTI UTI Disease Active 2017-10 Univers (urinary (urinary 0-13 ity of tract tract 00:00: [place] infection) infection) 00 Il dical Branch Tachycardi Tachycardi Disease Active 2017-10 U nivers a a 0-12 ity of 00:00: 00 Medical Branch Obesity Obesity Disease Active 2017-10 Univers (BMI (BMI 0-10 ity of 30-39.9) 30-39.9) 00:00: Medical Branch OSTEOMYELI Diagnosis Active 2019-07-19 Memoria TIS 7-07 17:36:00 l 00:00: Magen OSTEOMYELI 00 TIS Active 04/28/2018 [facility] Janice Janice Disease Active Univers UTI UTI 6-29 ity of 00:00: Medical Branch Pressure Pressure Disease Active Unive rs ulcer ulcer 6-14 ity of 00:00: 00 Medical Branch Decubitus Decubitus Disease Active Uni vers ulcer of ulcer of 4-12 ity of sacral sacral 00:00: [place] region, region, 00 Medical stage 4 stage 4 Branch Tinea Tinea Disease Active Univers corporis corporis 4-12 ity of 00:00: [place] 00 Medical Branch Contact Contact Disease Active [...] bacterial 00:00[place] infection infection 00 [facility] magdy Branch Sepsis Sepsis Disease Active Univers 2-20 ity of 00:00: [place] 00 Medical Branch Right Right Disease Active Overview: Univer s ischial ischial 2-20 Formattin ity o f pressure pressure 00:00: g of this Rachid as sore, sore, 00 note Medical stage IV stage IV might be Bran ch different from the original. Added automatic ally from request for surgery [id number] FOLLOW UP Diagnosis Active 2018-04-16 Memoria 1-02 08:32:00 l FOLLOW 00:00: Bee UP 00 Active 8 [facility] EVAL FOR Diagnosis Active 2017-08-22 M emoria IP/REHAB 07-21 13:47:00 l NEEDS EVAL FOR 00:00: Ash gilbert IP/REHAB 00 NEEDS Active 07/21/2017 [facility] Paraplegic Problem Resolve 2021-07-16 Memoria immobility d 00:12:04 l syndrome Bee (disorder) Paraplegic immobility syndrome (disorder) Resolved Problem 07/16/2021 [facility] Nondepende Problem Resolve 2021-07-16 Memoria nt alcohol d 00:12:04 l abuse in Bee remission Nondepende (disorder) nt alcohol abuse in remission (disorder) Resolved Problem 07/16/2021 delete [facility] Neurogenic Problem Active 2021-07-16 M emoria bladder 00:12:04 l (finding) Bee Neurogenic bladder (finding) Active Problem 07/16/2021 [facility] Neurogenic Problem Active 2021-07-16 M emoria bowel 00:12:04 l (disorder) Ash n Neurogenic bowel (disorder) Active Problem 07/16/2021 [facility] Paraplegia Problem Active 2021-07-16 M emoria (disorder) 00:12:04 l Magen Paraplegia (disorder) Active Problem 07/16/2021 [facility] Simple Problem Active 2021-07-16 Memor ia obesity 00:12:04 l (disorder) Simple Herm dorothea obesity (disorder) Active Problem 07/16/2021 [facility] Spasm Problem Active 2021-07-16 Memor ia (finding) 00:12:04 l Spasm Magen (finding) Active Problem 07/16/2021 [facility] Chronic Problem Active 2021-07-16 Leighton rajeev alcoholism 00:12:04 l in Chronic Magen remission alcoholism (disorder) in remission (disorder) Active Problem 07/16/2021 [facility] Chronic Problem Active 2021-07-16 Leighton rajeev post-traum 00:12:04 l atic Chronic Magen stress post-traum disorder atic (disorder) stress disorder (disorder) Active Problem 07/16/2021 [facility] Generalize Problem Active 2021-07-16 M emoria d anxiety 00:12:04 l disorder Bee (disorder) Generalize d anxiety disorder (disorder) Active Problem 07/16/2021 [facility] Opioid Problem Active 2021-07-16 Memor ia dependence 00:12:04 l in Opioid Bee remission dependence (disorder) in remission (disorder) Active [...] Active 2020-12-06 Memoria AND 17:01:00 l NEURITIS, Bee UNSPECIFIE NEURALGIA D AND NEURITIS, UNSPECIFIE D [...] Other Problem 2019-102020-08-26 2020-08-26 M emoria muscle 10-24 23:49:51 23:49:51 l spasm Other 18:14: Bee muscle 00 spasm 08/24/2020 08/26/2020 [facility] Paraplegia Problem 2019-102020-08-26 2020-08-26 Memoria , 10-24 23:49:51 23:49:51 l unspecifie 16:21: Ash n d Paraplegia 00 , unspecifie d 08/24/2020 08/26/2020 [facility] Reflex Problem 2019-102020-08-26 2020-08-26 M emoria neuropathi 10-24 23:49:51 23:49:51 l c bladder, Reflex 16:21: Herm dorothea not neuropathi 00 elsewhere c bladder, classified not elsewhere classified 08/24/2020 08/26/2020 [facility] Neurogenic Problem 2019-102020-08-26 2020-08-26 Memoria bowel, not 10-24 23:49:51 23:49:51 l elsewhere 16:21: Magen classified Neurogenic 00 bowel, not elsewhere classified 08/24/2020 08/26/2020 [facility] Allergies, Adverse Reactions, Alerts Allergy Allergy Status Severity Reaction(s) Onset Inactive Treating Comm ents Source Name Type Date Date Clinician No Known DA Active U UNKNOWN [facility] 4-15 Clear nces 00:00: [facility] gabapent DA Active U Drowsy [facility] in 03-29 00:00: 00 Gabapent Propensi Active Other - See 2017-10 Lethargy Univers in ty to comments 0-10 ity of adverse 00:00: [place] reaction [address] [place] [address] s [place] No Known DA Active U 2008-0 [facility] Intolera 9-27 Clear nces 00:00: [facility] No Known DA Active U 2008-0 [facility] Intolera 9-27 Clear nces 00:00: [facility] No Known DA Active U 2004-0 [facility] Contrast 5-23 Clear Allergie 00:00: [facility] s [facility] No Known DA Active U 2004-0 [facility] Drug 5-23 Clear Allergie 00:00: [facility] s [facility] No Known DA Active U 2004-0 [facility] Food 5-23 Clear Allergie 00:00: [facility] s [facility] No Known DA Active U 2004-0 [facility] Other 5-23 Clear Allergie 00:00: [facility] Family History Family Member Diagnosis Comments Start Date Stop Date Source Natural father No Known Problems Met [facility] Natural mother Cancer [facility] Natural mother Mental illness Method ist [facility] Social History Social Habit Start Date Stop Date Quantity Comments Source Exposure to Not sure University SARS-CoV-2 (event) [facility] Alcohol intake 2022-01-19 2022-01-19 Current University of 00:00:00 00:00:00 non-drinker of [facility] alcohol Branch (finding) Education 2022-01-08 2022-01-08 University of 00:00:00 00:00:00 [facility] Cigarettes smoked 2019-09-09 2019-09-09 Univers ity of current (pack per 00:00:00 00:00:00 [place] ) - Reported Branch Cigarette 2019-09-09 2019-09-09 University of pack-years 00:00:00 00:00:00 [facility] Tobacco use and 2019-09-09 2019-09-09 Never used Universit y of exposure 00:00:00 00:00:00 [facility] Tobacco Comment 2019-09-09 2019-09-09 quit 1 year ago, Uni versity of 00:00:00 00:00:00 vapes [facility] now-occassionall Branch y History of tobacco 2018-05-01 2018-12-12 Cigarette Smoker [facility] use 00:00:00 00:00:00 [facility][birth year] At [birth year] [facility] 00:00:00 00:00:00 Smoking Status Start Date Stop Date Source Tobacco smoking [facility] consumption unknown Social History Alec Us Former smoker 2019-09-09 00:00:00 2019-09-09 University o f [place] 00:00:00 [facility] Medications Ordered Filled Start Stop Current Ordering Indication Dosage Frequency Signature Comments Components Source Medication Medication Date Date Medication? Clinician (SIG) Name Name [facility] Yes [id number] Apply to Univers 250 3-26 affected ity of unit/gram 00:00: area(s) [facility] daily. Medical Branch sennosides Yes 8.6mg Take 8.6 Un amol (SENNA) 8.6 3-25 mg by ity of mg tablet 14:13: mouth 2 [place] [address] (two) Medical times Branch daily. baclofen 10 Yes 35mg Take 35 mg Univers mg tablet 3-25 by mouth 4 ity of 14:13: (four) [place] [address] times Medical daily. Branch furosemide Yes 40mg Take 40 mg U nivers 20 mg 3-25 by mouth ity of tablet 14:13: daily. [place] [address] Medical Branch omeprazole Yes 20mg Take 20 mg U nivers 20 mg 3-25 by mouth ity of capsule 14:13: at [place] [address] bedtime. Medical Branch docusate Yes 100mg Take 100 Univ ers 100 mg 3-25 mg by ity of capsule 14:13: mouth 2 [place] 31 (two) Medical times Branch daily. pregabalin 0 Yes 300mg Take 300 Un amol (LYRICA) 3-25 mg by ity of 300 mg 14:13: mouth 3 [place] capsule 31 (three) Medical times Branch daily. SERTraline Yes 200mg Take 200 Un amol 100 mg 3-25 mg by ity of tablet 14:13: mouth [place] 31 daily. Medical Branch traZODone 0 Yes 200mg Take 200 Uni vers 100 mg 3-25 mg by ity of tablet 14:13: mouth at [place] 31 bedtime. Medical Branch busPIRone Yes 30mg Take 30 mg Un amol 30 mg 3-25 by mouth 3 ity of tablet 14:13: (three) [place] 31 times Medical daily. Branch prazosin 5 Yes 5mg Take 5 mg Un amol mg capsule 3-25 by mouth ity o f 14:13: at [place] [address] bedtime. Medical Branch buPROPion Yes 300mg Take 300 Uni vers XL 3-25 mg by ity of (WELLBUTRIN 14:13: mouth 3 Rachid as XL) 300 mg 31 (three) Medica l 24 hr times Branch tablet daily. mupirocin 2 Yes [id number] Apply to Univers % ointment 3-25 area(s) 3 ity of 00:00: (three) [place] 00 times Medical daily. Branch acetaminoph Yes [id number] 650mg Take 2 Univers en 325 mg 3-25 tablets by ity of tablet 00:00: mouth [place] 00 every 6 Medical (six) Branch hours as needed for Pain (scale 1-3) or Temp > 38.5 C. ketorolac Yes [id number] 10mg Take 1 U nivers 10 mg 3-19 tablet by ity of tablet 00:00: mouth [place] 00 every 6 Medical (six) Branch hours as needed for Pain (scale 7-10). lithium 2020-10 Yes 300mg 300 mg at [facility] ers carbonate 0-18 bedtime. ity of CR 300 mg 00:00: [place] SR tablet 00 Medical Branch Lurasidone Yes 40 mg = 1 Me moria Hydrochlori 9-21 tab, PO, l de 40 MG 20:27: Daily, Bee Oral Tablet 00 with food, [Latuda] # 30 tab, 5 Refill(s), Pharmacy: [facility] [id number], 152.4, cm, 03/08/21 13:22:00 CDT, Height, 75, kg, 03/08/21 13:22:00 CDT, Weight Lurasidone 2020-0 Yes 20 mg = 1 Me moria Hydrochlori 8-24 tab, PO, l de 20 MG 19:31: Daily, Bee Oral Tablet 00 with food, [Latuda] # 30 tab, 5 Refill(s), Pharmacy: [facility] [id number], 152.4, cm, 03/08/21 13:22:00 CDT, Height, 75, kg, 03/08/21 13:22:00 CDT, Weight Lurasidone 2020-0 Yes 20 mg = 1 Me moria Hydrochlori 8-24 tab, PO, l de 20 MG 19:31: Daily, Magen Oral Tablet 00 with food, [Latuda] # 30 tab, 5 Refill(s), Pharmacy: [facility] [id number], 152.4, cm, 03/08/21 13:22:00 CDT, Height, 75, kg, 03/08/21 13:22:00 CDT, Weight Sertraline 2020-0 Yes 150 mg = Mem oria 100 MG Oral 8-24 1.5 tab, l Tablet 19:26: PO, Daily, Latoya nn [Zoloft] 00 # 45 tab, 1 Refill(s), Pharmacy: [facility] [id number], 152.4, cm, 03/08/21 13:22:00 CDT, Height, 75, kg, 03/08/21 13:22:00 CDT, Weight Sertraline 2020-0 Yes 150 mg = Mem oria 100 MG Oral 8-24 1.5 tab, l Tablet 19:26: PO, Daily, Latoya nn [Zoloft] 00 # 45 tab, 1 Refill(s), Pharmacy: [facility] [id number], 152.4, cm, 03/08/21 13:22:00 CDT, Height, 75, kg, 03/08/21 13:22:00 CDT, Weight Lactobac Yes [id number] Take 1 Univ ers 40-Bifido 7-28 TAB-CAP/M2 ity of 3-S.thermop 00:00: by mouth [place] 100 billion 00 daily. Medica l cell Cap Branch phenazopyri Yes [id number] 200mg Take 1 Univers dine 200 mg 6-17 tablet by ity of tablet 00:00: mouth 3 [place] 00 (three) Medical times Branch daily. metroNIDAZO Yes [id number] Apply to Univers LE 6-17 area(s) ity of (METROGEL) 00:00: daily. [place] 1 % gel 00 Apply thin Medica l film to Branch skin. Trazodone Yes 200 mg = 2 Me moria Hydrochlori 6-15 tab, PO, l de 100 MG 20:14: Bedtime, # He rmann Oral Tablet 00 60 tab, 5 Refill(s), Pharmacy: [facility] 256, 152.4, cm, 03/08/21 13:22:00 CDT, Height, 75, kg, 03/08/21 13:22:00 CDT, Weight Trazodone Yes 200 mg = 2 Me moria Hydrochlori 6-15 tab, PO, l de 100 MG 20:14: Bedtime, # He rmann Oral Tablet 00 60 tab, 5 Refill(s), Pharmacy: [facility] 256, 152.4, cm, 03/08/21 13:22:00 CDT, Height, 75, kg, 03/08/21 13:22:00 CDT, Weight Trazodone Yes 200 mg = 2 Me moria Hydrochlori 6-15 tab, PO, l de 100 MG 20:14: Bedtime, # He rmann Oral Tablet 00 60 tab, 5 Refill(s), Pharmacy: [facility] 256, 152.4, cm, 03/08/21 13:22:00 CDT, Height, 75, kg, 03/08/21 13:22:00 CDT, Weight 24 HR Yes 300 mg = 1 Memori a Bupropion 6-15 tab, PO, l Hydrochlori 20:13: Daily, # He rmann de 300 MG 00 30 tab, 5 Extended Refill(s), Release Pharmacy: [facility] [Wellbutrin [facility] ] 256, 152.4, cm, 03/08/21 13:22:00 CDT, Height, 75, kg, 03/08/21 13:22:00 CDT, Weight 24 HR 0 Yes 300 mg = 1 Memori a Bupropion 6-15 tab, PO, l Hydrochlori 20:13: Daily, Ambreen Nixon rmann de 300 MG 00 30 tab, 5 Extended Refill(s), Release Pharmacy: [facility] [Wellbutrin [facility] ] 256, 152.4, cm, 03/08/21 13:22:00 CDT, Height, 75, kg, 03/08/21 13:22:00 CDT, Weight 24 HR 0 Yes 300 mg = 1 Memori a Bupropion 6-15 tab, PO, l Hydrochlori 20:13: Daily, Ambreen Nioxn rmann de 300 MG 00 30 tab, 5 Extended Refill(s), Release Pharmacy: [facility] [Wellbutrin [facility] ] 256, 152.4, cm, 03/08/21 13:22:00 CDT, Height, 75, kg, 03/08/21 13:22:00 CDT, Weight 24 HR 0 Yes 150 mg = 1 Memori a Bupropion 5-18 tab, PO, l Hydrochlori 18:46: Q24H, # 30 Bee de 150 MG 00 tab, 5 Extended Refill(s), Release Pharmacy: [facility] [Wellbutrin [facility] ] 256, 152.4, cm, 03/08/21 13:22:00 CDT, Height, 75, kg, 03/08/21 13:22:00 CDT, Weight 24 HR 0 Yes 150 mg = 1 Memori a Bupropion 5-18 tab, PO, l Hydrochlori 18:46: Q24H, # 30 Magen de 150 MG 00 tab, 5 Extended Refill(s), Release Pharmacy: [facility] [Wellbutrin [facility] ] 256, 152.4, cm, 03/08/21 13:22:00 CDT, Height, 75, kg, 03/08/21 13:22:00 CDT, Weight 24 HR 2021-0 Yes 150 mg = 1 Memori a Bupropion 5-18 tab, PO, l Hydrochlori 18:46: Q24H, # 30 Bee de 150 MG 00 tab, 5 Extended Refill(s), Release Pharmacy: [facility] [Wellbutrin [facility] ] 256, 152.4, cm, 03/08/21 13:22:00 CDT, Height, 75, kg, 03/08/21 13:22:00 CDT, Weight mupirocin 2 Yes Pressure Apply to Univers % ointment 02-11 injury of area(s) 3 ity of 00:00: [...] day, # 10 tab, 2 Refill(s), Pharmacy: [facility] 256, 152.4, cm, 11/02/20 13:33:00 [employer], Height, 75.909, kg, 11/02/20 13:33:00 [employer], Weight Hydroxyzine Yes 25 mg = 1 M emoria Hydrochlori 4-08 tab, PO, l de 25 MG 20:31: PRN, PRN Latoya nn Oral Tablet 00 anxiety, take HALF to ONE tablet every 8 hours as needed for severe anxiety, X 30 day, # 10 tab, 2 Refill(s), Pharmacy: [facility] 256, 152.4, cm, 11/02/20 13:33:00 [employer], Height, 75.909, kg, 11/02/20 13:33:00 [employer], Weight Hydroxyzine Yes 25 mg = 1 M emoria Hydrochlori 4-08 tab, PO, l de 25 MG 20:31: PRN, PRN Latoya nn Oral Tablet 00 anxiety, take HALF to ONE tablet every 8 hours as needed for severe anxiety, X 30 day, # 10 tab, 2 Refill(s), Pharmacy: [facility] 256, 152.4, cm, 11/02/20 13:33:00 [employer], Height, 75.909, kg, 11/02/20 13:33:00 [employer], Weight prazosin 5 2020-0 Yes 5 mg = 1 Mem oria mg oral 4-08 cap, PO, l capsule 20:30: Bedtime, Ash n 00 for PTSD, # 30 cap, 5 Refill(s), [facility]: [facility], 152.4, cm, 11/02/20 13:33:00 [employer], Height, 75.909, kg, 11/02/20 13:33:00 [employer], Weight prazosin 5 2020-0 Yes 5 mg = 1 Mem oria mg oral 4-08 cap, PO, l capsule 20:30: Bedtime, Ash n 00 for PTSD, # 30 cap, 5 Refill(s), [facility], 152.4, cm, 11/02/20 13:33:00 [employer], Height, 75.909, kg, 11/02/20 13:33:00 [employer], Weight prazosin 5 2020-0 Yes 5 mg = 1 Mem oria mg oral 4-08 cap, PO, l capsule 20:30: Bedtime, Ash n 00 for PTSD, # 30 cap, 5 Refill(s), Pharmacy: [facility] 256, 152.4, cm, 11/02/20 13:33:00 [employer], Height, 75.909, kg, 11/02/20 13:33:00 [employer], Weight Sertraline 2020-0 Yes 200 mg = 2 M emoria 100 MG Oral 4-08 tab, PO, l Tablet 20:26: Daily, # Magen [Zoloft] 00 60 tab, 5 Refill(s), [facility], 152.4, cm, 11/02/20 13:33:00 [employer], Height, 75.909, kg, 11/02/20 13:33:00 [employer], Weight Trazodone 2020-0 Yes 150 mg = Leighton rajeev Hydrochlori 4-08 1.5 tab, l de 100 MG 20:26: PO, Magen Oral Tablet 00 Bedtime, # 45 tab, 5 Refill(s), [facility] 256, 152.4, cm, 11/02/20 13:33:00 [employer], Height, 75.909, kg, 11/02/20 13:33:00 [employer], Weight Sertraline Yes 200 mg = 2 M emoria 100 MG Oral 4-08 tab, PO, l Tablet 20:26: Daily, # Bee [Zoloft] 00 60 tab, 5 Refill(s), Pharmacy: [facility] 256, 152.4, cm, 11/02/20 13:33:00 [employer], Height, 75.909, kg, 11/02/20 13:33:00 [employer], Weight Trazodone Yes 150 mg = Leighton rajeev Hydrochlori 4-08 1.5 tab, l de 100 MG 20:26: PO, Magen Oral Tablet 00 Bedtime, # 45 tab, 5 Refill(s), Pharmacy: [facility] 256, 152.4, cm, 11/02/20 13:33:00 [employer], Height, 75.909, kg, 11/02/20 13:33:00 [employer], Weight Sertraline Yes 200 mg = 2 M emoria 100 MG Oral 4-08 tab, PO, l Tablet 20:26: Daily, # Magen [Zoloft] 00 60 tab, 5 Refill(s), Pharmacy: [facility] 256, 152.4, cm, 11/02/20 13:33:00 [employer], Height, 75.909, kg, 11/02/20 13:33:00 [employer], Weight Trazodone Yes 150 mg = Leighton rajeev Hydrochlori 4-08 1.5 tab, l de 100 MG 20:26: PO, Bee Oral Tablet 00 Bedtime, # 45 tab, 5 Refill(s), Pharmacy: [facility] 256, 152.4, cm, 11/02/20 13:33:00 [employer], Height, 75.909, kg, 11/02/20 13:33:00 [employer], Weight sodium Yes [id number] 16[oz_a Apply 473 Univers hypochlorit 4-08 v] mL to ity of e 0.5% 00:00: area(s) [place] solution 00 daily. Medical Branch sodium Yes Complicated 16[oz_a Apply 473 Univers hypochlorit 4-08 UTI v] mL to ity of e 0.5% 00:00: (urinary area(s) [place] solution 00 tract daily. Medical infection) Branch omeprazole Yes 20mg Take 20 mg U nivers 20 mg 4-07 by mouth ity of capsule 22:31: at [place] [address] bedtime. Medical Branch docusate Yes 100mg Take 100 Univ ers 100 mg 4-07 mg by ity of capsule 22:31: mouth 2 [place] [address] (two) Medical times Branch daily. pregabalin 0 Yes 300mg Take 300 Un amol (LYRICA) 4-07 mg by ity of 300 mg 22:31: mouth 3 [facility] 13 (three) Medical times Branch daily. SERTraline Yes 150mg Take 150 Un amol 100 mg 4-07 mg by ity of tablet 22:31: mouth [place] [address] daily. Medical Branch traZODone Yes 100mg Take 100 Uni vers 100 mg 4-07 mg by ity of tablet 22:31: mouth at [place] [address] bedtime. Medical Branch prazosin 2 Yes 2mg Take 2 mg Un amol mg capsule 4-07 by mouth ity o f 22:31: at [place] [address] bedtime. Medical Branch sennosides Yes 8.6mg Take 8.6 Un amol (SENNA) 8.6 4-07 mg by ity of mg tablet 22:31: mouth 2 [place] [address] (two) Medical times Branch daily. baclofen 10 Yes 35mg Take 35 mg Univers mg tablet 4-07 by mouth 4 ity of 22:31: (four) [place] [address] times Medical daily. Branch furosemide Yes 40mg Take 40 mg U nivers 20 mg 4-07 by mouth ity of tablet 22:31: daily. [place] [address] Medical Branch Trazodone 0 Yes 100 mg = 1 Me moria Hydrochlori 3-02 tab, PO, l de 100 MG 21:59: Bedtime, # He rmann Oral Tablet 00 30 tab, 5 Refill(s), Pharmacy: [facility] 256, 152.4, cm, 11/02/20 13:33:00 [employer], Height, 75.909, kg, 11/02/20 13:33:00 [employer], Weight Trazodone 2020-0 Yes 100 mg = 1 Me moria Hydrochlori 3-02 tab, PO, l de 100 MG 21:59: Bedtime, # He rmann Oral Tablet 00 30 tab, 5 Refill(s), [facility] 256, 152.4, cm, 11/02/20 13:33:00 [employer], Height, 75.909, kg, 11/02/20 13:33:00 [employer], Weight Trazodone 2020-0 Yes 100 mg = 1 Me moria Hydrochlori 3-02 tab, PO, l de 100 MG 21:59: Bedtime, # He rmann Oral Tablet 00 30 tab, 5 Refill(s), Pharmacy: [facility] 256, 152.4, cm, 11/02/20 13:33:00 [employer], Height, 75.909, kg, 11/02/20 13:33:00 [employer], Weight prazosin 2 2020-0 Yes 4 mg = 2 Mem oria mg oral 3-02 cap, PO, l capsule 21:58: Bedtime, Ash n 00 for PTSD nightmares . 4mg qhs., # 60 cap, 5 Refill(s), [facility]: [facility] 256, 152.4, cm, 11/02/20 13:33:00 [employer], Height, 75.909, kg, 11/02/20 13:33:00 [employer], Weight prazosin 2 2020-0 Yes 4 mg = 2 Mem oria mg oral 3-02 cap, PO, l capsule 21:58: Bedtime, Ash n 00 for PTSD nightmares . 4mg qhs., # 60 cap, 5 Refill(s), Pharm[facility]: [facility] 256, 152.4, cm, 11/02/20 13:33:00 [employer], Height, 75.909, kg, 11/02/20 13:33:00 [employer], Weight prazosin 2 2020-0 Yes 4 mg = 2 Mem oria mg oral 3-02 cap, PO, l capsule 21:58: Bedtime, Ash n 00 for PTSD nightmares . 4mg qhs., # 60 cap, 5 Refill(s), Pharmacy: [facility] 256, 152.4, cm, 11/02/20 13:33:00 [employer], Height, 75.909, kg, 11/02/20 13:33:00 [employer], Weight prazosin 2 0 Yes 2 mg = 1 Mem oria mg oral 1-26 cap, PO, l capsule 19:31: Bedtime, Ash n 00 for PTSD nightmares , # 30 cap, 5 Refill(s), Pharmacy: [facility] 256, 152.4, cm, 11/02/20 13:33:00 [employer], Height, 75.909, kg, 11/02/20 13:33:00 [employer], Weight Sertraline 0 Yes 150 mg = Mem oria 100 MG Oral 1-26 1.5 tab, l Tablet 19:31: PO, Daily, Latoya nn [Zoloft] 00 # 45 tab, 5 Refill(s), Pharmacy: [facility] 256, 152.4, cm, 11/02/20 13:33:00 [employer], Height, 75.909, kg, 11/02/20 13:33:00 [employer], Weight Trazodone Yes 50 mg = 1 Mem oria Hydrochlori 1-26 tab, PO, l de 50 MG 19:31: PRN, PRN Latoya nn Oral Tablet 00 Insomnia, take HALF to ONE tab at bedtime, # 30 tab, 5 Refill(s), Pharmacy: [facility] 256, 152.4, cm, 11/02/20 13:33:00 [employer], Height, 75.909, kg, 11/02/20 13:33:00 [employer], Weight prazosin 2 0 Yes 2 mg = 1 Mem oria mg oral 1-26 cap, PO, l capsule 19:31: Bedtime, Ash n 00 for PTSD nightmares , # 30 cap, 5 Refill(s), Pharmacy: [facility] 256, 152.4, cm, 11/02/20 13:33:00 [employer], Height, 75.909, kg, 11/02/20 13:33:00 [employer], Weight Sertraline Yes 150 mg = Mem oria 100 MG Oral 1-26 1.5 tab, l Tablet 19:31: PO, Daily, Latoya nn [Zoloft] 00 # 45 tab, 5 Refill(s), [facility]: [facility] 256, 152.4, cm, 11/02/20 13:33:00 [employer], Height, 75.909, kg, 11/02/20 13:33:00 [employer], Weight Trazodone Yes 50 mg = 1 Mem oria Hydrochlori 1-26 tab, PO, l de 50 MG 19:31: PRN, PRN Latoya nn Oral Tablet 00 Insomnia, take HALF to ONE tab at bedtime, # 30 tab, 5 Refill(s), Pharmacy: [facility] 256, 152.4, cm, 11/02/20 13:33:00 [employer], Height, 75.909, kg, 11/02/20 13:33:00 [employer], Weight prazosin 2 Yes 2 mg = 1 Mem oria mg oral 1-26 cap, PO, l capsule 19:31: Bedtime, Ash n 00 for PTSD nightmares , # 30 cap, 5 Refill(s), Pharmacy: [place] [id number], 152.4, cm, 11/02/20 13:33:00 [employer], Height, 75.909, kg, 11/02/20 13:33:00 [employer], Weight Sertraline Yes 150 mg = Mem oria 100 MG Oral 1-26 1.5 tab, l Tablet 19:31: PO, Daily, Latoya nn [Zoloft] 00 # 45 tab, 5 Refill(s), Pharmacy: [facility] 256, 152.4, cm, 11/02/20 13:33:00 [employer], Height, 75.909, kg, 11/02/20 13:33:00 [employer], Weight Trazodone Yes 50 mg = 1 Mem oria Hydrochlori 1-26 tab, PO, l de 50 MG 19:31: PRN, PRN Latoya nn Oral Tablet 00 Insomnia, take HALF to ONE tab at bedtime, # 30 tab, 5 Refill(s), [facility]: [facility] 256, 152.4, cm, 11/02/20 13:33:00 [employer], Height, 75.909, kg, 11/02/20 13:33:00 [employer], Weight prazosin 2 2021-0 Yes 2 mg = 1 Mem oria mg oral 1-05 cap, PO, l capsule 22:36: Bedtime, Ash n 00 for PTSD nightmares , # 30 cap, 5 Refill(s), Pharmacy: [facility] 256, 152.4, cm, 08/24/20 10:31:00 [employer], Height, 77.273, kg, 08/24/20 10:31:00 [employer], Weight prazosin 2 0 Yes 2 mg = 1 Mem oria mg oral 1-05 cap, PO, l capsule 22:36: Bedtime, Ash n 00 for PTSD nightmares , # 30 cap, 5 Refill(s), Pharm[facility]: [facility] 256, 152.4, cm, 08/24/20 10:31:00 [employer], Height, 77.273, kg, 08/24/20 10:31:00 [employer], Weight prazosin 2 0 Yes 2 mg = 1 Mem oria mg oral 1-05 cap, PO, l capsule 22:36: Bedtime, Ash n 00 for PTSD nightmares , # 30 cap, 5 Refill(s), Pharmacy: [facility] 256, 152.4, cm, 08/24/20 10:31:00 [employer], Height, 77.273, kg, 08/24/20 10:31:00 [employer], Weight Sertraline Yes 150 mg = Mem oria 100 MG Oral 1-05 1.5 tab, l Tablet 22:35: PO, Daily, Latoya nn [Zoloft] 00 # 45 tab, 5 Refill(s), Pharmacy: [facility] 256, 152.4, cm, 08/24/20 10:31:00 [employer], Height, 77.273, kg, 08/24/20 10:31:00 [employer], Weight Sertraline 0 Yes 150 mg = Mem oria 100 MG Oral 1-05 1.5 tab, l Tablet 22:35: PO, Daily, Latoya nn [Zoloft] 00 # 45 tab, 5 Refill(s), Pharmacy: [facility] 256, 152.4, cm, 08/24/20 10:31:00 [employer], Height, 77.273, kg, 08/24/20 10:31:00 [employer], Weight Sertraline Yes 150 mg = Mem oria 100 MG Oral 1-05 1.5 tab, l Tablet 22:35: PO, Daily, Latoya nn [Zoloft] 00 # 45 tab, 5 Refill(s), Pharmacy: [facility] 256, 152.4, cm, 08/24/20 10:31:00 [employer], Height, 77.273, kg, 08/24/20 10:31:00 [employer], Weight prazosin 1 2019-10 Yes 1 mg = 1 Mem oria mg oral 1-17 cap, PO, l capsule 17:02: Bedtime, Ash n 00 for PTSD nightmares , # 30 cap, 5 Refill(s), Pharmacy: [facility] 256, 152.4, cm, 08/24/20 10:31:00 [employer], Height, 77.273, kg, 08/24/20 10:31:00 [employer], Weight prazosin 1 2019-10 Yes 1 mg = 1 Mem oria mg oral 1-17 cap, PO, l capsule 17:02: Bedtime, Ash n 00 for PTSD nightmares , # 30 cap, 5 Refill(s), Pharmacy: [facility] 256, 152.4, cm, 08/24/20 10:31:00 [employer], Height, 77.273, kg, 08/24/20 10:31:00 [employer], Weight prazosin 1 2019-10 Yes 1 mg = 1 Mem oria mg oral 1-17 cap, PO, l capsule 17:02: Bedtime, Ash n 00 for PTSD nightmares , # 30 cap, 5 Refill(s), Pharmacy: [facility] 256, 152.4, cm, 08/24/20 10:31:00 [employer], Height, 77.273, kg, 08/24/20 10:31:00 [employer], Weight Sertraline 2019-10 Yes 100 mg = 1 M emoria 100 MG Oral 1-17 tab, PO, l Tablet 17:01: Daily, # Bee [Zoloft] 00 30 tab, 5 Refill(s), Pharmacy: [facility] 256, 152.4, cm, 08/24/20 10:31:00 [employer], Height, 77.273, kg, 08/24/20 10:31:00 [employer], Weight Sertraline 2019-10 Yes 100 mg = 1 M emoria 100 MG Oral 1-17 tab, PO, l Tablet 17:01: Daily, # Magen [Zoloft] 00 30 tab, 5 Refill(s), Pharmacy: [facility] 256, 152.4, cm, 08/24/20 10:31:00 [employer], Height, 77.273, kg, 08/24/20 10:31:00 [employer], Weight Sertraline 2019-10 Yes 100 mg = 1 M emoria 100 MG Oral 1-17 tab, PO, l Tablet 17:01: Daily, # Bee [Zoloft] 00 30 tab, 5 Refill(s), Pharmacy: [facility] 256, 152.4, cm, 08/24/20 10:31:00 [employer], Height, 77.273, kg, 08/24/20 10:31:00 [employer], Weight pregabalin 2019-10 Yes 300 mg = 1 M emoria 300 MG Oral 1-02 cap, PO, l Capsule 17:17: TID, 0 Magen [Lyrica] 00 Refill(s) pregabalin 2019-10 Yes 300 mg = 1 M emoria 300 MG Oral 1-02 cap, PO, l Capsule 17:17: TID, 0 Bee [Lyrica] 00 Refill(s) pregabalin 2019-10 Yes 300 mg = 1 M emoria 300 MG Oral 1-02 cap, PO, l Capsule 17:17: TID, 0 Magen [Lyrica] 00 Refill(s) Furosemide 2019-10 Yes 40 mg = 1 Me moria 40 MG Oral 1-02 tab, PO, l Tablet 16:53: Daily, # Bee 00 30 tab, 0 Refill(s) sertraline 2019-10 Yes 50 mg = 1 Me moria 50 mg oral 1-02 tab, PO, l tablet 16:53: Daily, # Bee 00 30 tab, 0 Refill(s) baclofen 10 2019-10 Yes 10 mg = 1 M emoria mg oral 1-02 tab, PO, l tablet 16:53: Q6H, 0 Magen 00 Refill(s) Stool 2019-10 Yes 1 cap, PO, Memori a Softener + 1-02 BID, 0 l Stimulant 16:53: Refill(s) Her navarro Laxative 50 00 mg-8.6 mg oral capsule Amoxicillin 2019-10 Yes 500 mg, Mem oria -02 PO, Daily, l 16:53: 0 Magen 00 Refill(s) omeprazole 2019-10 Yes 20 mg = 1 Me moria 20 mg oral 10-24 cap, PO, l delayed 16:53: Daily, # Ash n release 00 30 cap, 1 capsule Refill(s) QUEtiapine 2019-10 Yes 100 mg = 1 M emoria 100 mg oral 10-24 tab, PO, l tablet 16:53: Q6H, 0 Bee 00 Refill(s) Bisacodyl 5 2019-10 Yes 5 mg = 1 Me moria MG Enteric 10-24 tab, PO, l Coated 16:53: Daily, 0 Bee Tablet 00 Refill(s) [Dulcolax] Potassium 2019-10 Yes 1 tab po Leighton rajeev gluconate 10-24 daily, 0 l 16:53: Refill(s) Magen 00 Multi 2019-10 Yes super b Memoria Vitamin+ 10-24 complex, 0 l 16:53: Refill(s) Bee MAGNESIUM 2019-10 Yes PO, Daily, Me moria GLUCONATE 10-24 0 l 16:53: Refill(s) Bee 00 Melatonin 2019-10 Yes Bedtime, 0 Me moria 10-24 Refill(s) l 16:53: Magen 00 Furosemide 2019-10 Yes 40 mg = 1 Me moria 40 MG Oral 02 tab, PO, l Tablet 16:53: Daily, # Bee 00 30 tab, 0 Refill(s) sertraline 2019-10 Yes 50 mg = 1 Me moria 50 mg oral -02 tab, PO, l tablet 16:53: Daily, # Magen 00 30 tab, 0 Refill(s) baclofen 10 2019-10 Yes 10 mg = 1 M emoria mg oral -02 tab, PO, l tablet 16:53: Q6H, 0 Bee 00 Refill(s) Stool 2019-10 Yes 1 cap, PO, Memori a Softener + -02 BID, 0 l Stimulant 16:53: Refill(s) Her navarro Laxative 50 00 mg-8.6 mg oral capsule Amoxicillin 2020-1 Yes 500 mg, Mem oria 10-24 PO, [...] tab, PO, l Coated 16:53: Daily, 0 Bee Tablet 00 Refill(s) [Dulcolax] Potassium 2019-10 Yes 1 tab po Leighton rajeev gluconate 10-24 daily, 0 l 16:53: Refill(s) Bee 00 Multi 2019-10 Yes super b Memoria Vitamin+ 10-24 complex, 0 l 16:53: Refill(s) Bee MAGNESIUM 2019-10 Yes PO, Daily, Me moria GLUCONATE 10-24 0 l 16:53: Refill(s) Bee Melatonin 2019-10 Yes Bedtime, 0 Me moria 10-24 Refill(s) l 16:53: Magen 00 Furosemide 2019-10 Yes 40 mg = 1 Me moria 40 MG Oral 10-24 tab, PO, l Tablet 16:53: Daily, # Magen 00 30 tab, 0 Refill(s) sertraline 2019-10 Yes 50 mg = 1 Me moria 50 mg oral 02 tab, PO, l tablet 16:53: Daily, # Magen 00 30 tab, 0 Refill(s) baclofen 10 2019-10 Yes 10 mg = 1 M emoria mg oral 02 tab, PO, l tablet 16:53: Q6H, 0 Bee 00 Refill(s) Stool 2019-10 Yes 1 cap, [...] tab, PO, l tablet 16:53: Q6H, 0 Bee 00 Refill(s) Bisacodyl 5 2019-10 Yes 5 mg = 1 Me moria MG Enteric 10-24 tab, PO, l Coated 16:53: Daily, 0 Bee 00 Refill(s) [Dulcolax] Potassium 2019-10 Yes 1 tab po Leighton rajeev gluconate 10-24 daily, 0 l 16:53: Refill(s) Magen Multi 2019-10 Yes super b Memoria Vitamin+ 10-24 complex, 0 l 16:53: Refill(s) Bee 00 MAGNESIUM 2019-10 Yes PO, Daily, Me moria GLUCONATE 02 0 l 16:53: Refill(s) Melatonin 2019-10 Yes Bedtime, 0 Me moria 10-24 Refill(s) l 16:53: Bee 00 QUEtiapine Yes 400mg QD Take 400 Me thodi XR 7-[address] (SEROquel 19:17: mouth [facility]osp[facility] XR) 400 MG 52 nightly. l 24 hr tablet vitamin B Yes 1{tbl} QD Take 1 Meth nancy complex (B 7-[address] COMPLETE 19:17: mouth [facility]osp[facility] ORAL) 52 daily. l Lactobac 2018- Yes 1{tbl} QD Take 1 Metho di no.41/Bifid 7-[address] obact no.7 19:17: mouth Hospit a (PROBIOTIC- 52 daily. l 10 ORAL) POTASSIUM Yes 1{tbl} QD Take 1 Meth nancy ORAL 7-[address] 19:17: mouth [facility]ospita 52 daily. l MAGNESIUM 2018- Yes 1{tbl} QD Take 1 Meth nancy ORAL 7-[address] 19:17: mouth Hospita 52 daily. l estradiol 2019- Yes Q90D Inject Method i cypionate 7-[address] (DEPO-ESTRA 19:17: shoulder, H ospita DIOL) 5 52 thigh, or l mg/mL buttocks injection every 3 (three) months. AMOXICILLIN 2018- Yes 1{tbl} Q.[id number] Take 1 [facility] ORAL 7-[id number] 19:17: 3D mouth 3 Hospita 52 (three) l times a day. omeprazole 2018- Yes TK 1 C PO Me thodi (PriLOSEC) 6-[address] 20 MG 00:00: Hospita capsule 00 l amitriptyli Yes 100mg Take 100 U nivers ne 25 mg 5-14 mg by ity of tablet 00:00: mouth at [place] 00 bedtime. Medical Branch amitriptyli Yes 100mg Take 100 U nivers ne 25 mg 5-14 mg by ity of tablet 00:00: mouth at [place] 00 bedtime. Medical Branch amitriptyli Yes 25mg QD Take 25 mg Methodi ne (ELAVIL) 5-[address] 25 MG 00:00: nightly. Hospita tablet 00 l furosemide Yes 20mg QD Take 20 mg [...] FOOD OR MILK FOUR TIMES LYRICA 200 2018- Yes 200mg Q.[id number] Take 200 [facility] mg capsule 2-[id number] 00:00: 3D mouth 3 [...] Yes Use as Univ ers t Bandage 03 directed ity of (MEPITEL) 2 00:00: [place] X 3 " Bndg 00 Medical Branch zolpidem 10 Yes TAKE 1 Univ ers mg tablet 4-27 TABLET AT ity o f 00:00: BEDTIME [place] 00 NEEDED Medical Branch zolpidem 10 Yes TAKE 1 Univ ers mg tablet 4-27 TABLET AT ity o f 00:00: BEDTIME [place] 00 NEEDED Medical Branch Immunizations Ordered Filled Immunization Date Status Comments Sour e Immunization Name Name Pneumococcal 2018-08-06 Completed Ramona o f Polysaccharide, 00:00:00 [place] Med ical PPSV23 (PNEUMOVAX) Branch Pneumococcal 2018-08-06 Completed Ramona o f Polysaccharide, 00:00:00 [place] Med ical PPSV23 (PNEUMOVAX) Branch Vital Signs [...] Temperature 2021-03-30 10:55:24 36.0\\S\\96.8 Weight 2021-03-30 10:55:24 40936.148\\S\\2624 Head exam ED 2021-03-30 09:12:21 atraumatic Body Mass Index 2021-03-30 09:12:21 23.5 Height 2021-03-30 09:12:21 177.8\\S\\70 Weight 2021-03-30 09:12:21 63388.148\\S\\2624 Head exam ED 2021-03-30 08:32:51 atraumatic Body Mass Index 2021-03-30 08:32:51 23.5 Height 2021-03-30 08:32:51 177.8\\S\\70 Weight 2021-03-30 08:32:51 85961.148\\S\\2624 WEIGHT 2021-03-30 08:32:00 74.502600 kg HEIGHT 2021-03-30 08:32:00 177.8 cm Head exam ED 2021-03-30 07:48:44 atraumatic Systolic (mm Hg) 2021-03-08 18:05:00 Leighton rial Magen Diastolic (mm Hg) 2021-03-08 18:05:00 Mem orial Magen Heart Rate 2021-03-08 18:05:00 Memorial Bee Respitory Rate 2021-03-08 18:05:00 Memori al Magen Height 2021-03-08 18:05:00 152.4 cm Memorial Magen BMI Calculated 2021-03-08 18:05:00 Memori al Magen Weight 2021-03-08 18:05:00 Memorial Bee Systolic (mm Hg) 2020-11-02 19:33:00 Leighton rial Bee Diastolic (mm Hg) 2020-11-02 19:33:00 Mem orial Magen Heart Rate 2020-11-02 19:33:00 Memorial Bee Respitory Rate 2020-11-02 19:33:00 Memori al Bee Height 2020-11-02 19:33:00 152.4 cm Memorial Bee BMI Calculated 2020-11-02 19:33:00 Memori al Bee Weight 2020-11-02 19:33:00 Memorial Bee Respitory Rate 2020-08-24 16:31:00 Memori al Magen Height 2020-08-24 16:31:00 152.4 cm Memorial Bee BMI Calculated 2020-08-24 16:31:00 Memori al Magen Weight 2020-08-24 16:31:00 Memorial Magen Systolic (mm Hg) 2020-08-24 16:31:00 Leighton rial Magen Diastolic (mm Hg) 2020-08-24 16:31:00 Mem orial Bee Heart Rate 2020-08-24 16:31:00 Memorial Magen BMI Calculated 2017-08-22 20:00:00 Memori al Bee Weight 2017-08-22 20:00:00 Memorial Bee Height 2017-08-22 20:00:00 165.1 cm Alec Bee Heart Rate 2017-08-22 20:00:00 Alec Bee Respitory Rate 2017-08-22 20:00:00 Harrison blackwell Bee Systolic (mm Hg) 2017-08-22 20:00:00 Leighton lu Bee Diastolic (mm Hg) 2017-08-22 20:00:00 Mem orial Bee Procedures Procedure Date / Time Performing Clinician Source Performed AUTHORIZATION FOR 2021-02-12 05:01:00 Doctor Unassigned, No [facility] RELEASE OF PHI Name Medical Branch Plan of Care Planned Activity Planned Date Details Comments Source Future Scheduled 2022-01-06 Depression screening Uni [facility] Test 00:00:00 (procedure) [code = Medical Branch 295202385] Future Scheduled 2021-06-23 [facility] ([facility] Ended) [code Medical Branch = INFLUENZA VACCINE (Season Ended)] Future Scheduled 2012-08-07 Screening for [facility] Test 00:00:00 malignant neoplasm Medical B ranch of cervix (procedure) [code = 287424996] Future Scheduled 2005 [facility]ap,[facility]d [facility] [place] [facility] Vaccines (1 - Tdap) Medical Branch [code = DTaP,Tdap,and Td Vaccines (1 - Tdap)] Future Scheduled 1987 VARICELLA VACCINES Unive [facility] Test 00:00:00 (1 of 2 - 2-dose Medical [facility] childhood series) [code = VARICELLA VACCINES (1 of 2 - 2-dose childhood series)] Future Scheduled COVID-19 [facility]INE (1) [facility] [code = COVID-19 VACCINE (1)] Future Scheduled [facility] [code = 437436823] Future Scheduled [facility] Test malignant neoplasm of cervix (procedure) [code = 428800148] Future Scheduled [facility]UENZA [facility]ACCINE [facility] [code = INFLUENZA VACCINE] Encounters Start End Encounter Admission Attending Care Care Encounter Source Date/Time Date/Time Type Type Clinicians Facility Department ID 2022-02-10 Inpatient U CELINA, [facility] [id number] [facility] L 10:34:15 TIM 2022-02-09 Outpatient ADHIA, [facility] [place] [id number] [place] 01:05:33 [facility] [id number] [facility] 2022-02-01 Outpatient [facility] [place] [id number] [place] 09:25:40 [id number] [facility] 2022-01-18 Outpatient [facility] [place] [id number] [place] 10:50:23 [id number] [facility] 2021-12-22 Outpatient ADHIA, [facility] [place] [id number] [place] 01:03:31 [facility] 2021-12-01 Outpatient ADHIA, [facility] ER [id number] [place] 01:04:23 [facility] 2021-11-17 Outpatient STLMLC STLMLC [id number] 13:46:35 [id number] jordan [facility]ics 2021-11-08 Outpatient ADHIA, [facility] ER [id number] [place] 01:04:23 [facility] 2021-10-12 Outpatient ADHIA, [facility] [place] [id number] [place] 01:04:27 [facility] 2021-06-19 Outpatient ADHIA, [facility] ER [id number] [place] 01:06:58 [facility] 2021-04-10 Outpatient ADHIA, [facility] [place] [id number] [place] 01:06:38 [facility] 2022-02-11 2022-02-11 Outpatient NAMAN MHDAMIAN [facility]BL [id number] MHBL 09:51:00 12:34:00 JARRETT 2022-02-05 2022-02-10 Inpatient EM Geovanni HCACL MEDI.01 [id number] [facility] 00:53:00 19:15:00 Tony [id number] [facility] 2022-02-05 2022-02-10 Inpatient EM Geovanni, [facility] MEDI.01 [id number] [facility] 00:53:00 19:15:00 Tony 34 [facility] 2022-02-09 2022-02-09 TelemedicTAMIKA Mir [id number] [facility] 09:45:00 10:00:00 ne Visit [facility] [id number] ity of [facility] [id number] [place] zafar [id number] [facility] 201 Branch 2022-02-04 2022-02-04 Emergency EM Parker, HCAKAIA TRACY [id number] [facility] 20:49:00 20:49:00 Gabriel [id number] [facility] 2021-09-22 2021-09-22 [facility] [id number] [facility] 2021-09-22 2021-09-22 [facility] [id number] [facility] 2021-07-13 2021-07-[place] [id number] Memoria 16:22:00 04:59:00 r Psychiatric 24 l s/Psychothe Herm dorothea robledo (PSYR) 2021-07-02 2021-07-02 [id number] 2021-06-30 2021-06-30 [facility] [id number] [facility] 2021-06-29 2021-06-29 [facility] [id number] [facility] 2021-06-15 2021-06-16 [place] [id number] Memoria 19:07:00 04:59:00 r Psychiatric 22 l s/Psychothe Siena robledo (PSYR) 2021-06-09 2021-06-09 Office Janie [facility] [id number] 11:13:45 12:39:22 Visit [facility] 350.1.13.10 CLINICS [id number] [id number] 2021-06-07 2021-06-07 EXT MHH OP EXT MSRDP [id number] 1 [id number] [place] 00:00:00 00:00:00 LOCATION [id number] H ealth [id number] [id number] 2021-06-07 2021-06-07 EXT MHH OP EXT MSRDP 1.2.840.114 1 [id number] [place] 00:00:00 00:00:00 LOCATION 350.1.13.58 H ealth [id number] [id number] 2021-06-07 2021-06-07 EXT MHH OP EXT MSRDP [id number] 1 [id number] [place] 00:00:00 00:00:00 LOCATION 350.1.13.58 H ealth [id number] [id number] 2021-06-07 2021-06-07 EXT MHH OP EXT MSRDP 1.2.840.114 1 [id number] [place] 00:00:00 00:00:00 LOCATION [id number] H ealth [id number] [id number] 2021-06-07 2021-06-07 EXT MHH OP EXT MSRDP 1.2.840.114 1 [id number] [place] 00:00:00 00:00:00 LOCATION 350.1.13.58 H ealth [id number] [id number] 2021-06-07 2021-06-07 EXT MHH OP EXT MSRDP 1.2.840.114 1 [id number] [place] 00:00:00 00:00:00 LOCATION 350.1.13.58 H ealth [id number] [id number] 2021-05-03 2021-05-04 Outpatient nullFlavo TR [facility]rology 46 [id number] Memoria 17:49:00 04:59:00 r Clinic 19 l (UROR) Magen 2021-04-06 2021-04-07 [place] [id number] [facility] 15:24:00 04:59:00 r Psychiatric 20 l s/Psychothe Herm dorothea robledo (PSYR) 2021-03-09 2021-03-10 [place] [id number] [facility] 16:45:00 04:59:00 r Psychiatric 18 l s/Psychothe Herm dorothea rapy (PSYR) 2021-03-08 2021-03-09 [place] [id number] [facility] 17:38:00 04:59:00 r Gynecology 17 l Clinic [facility] (GYNR) 2021-03-05 2021-03-05 EXT [facility] OP Caitlin, EXT MSRDP [id number] [place] 00:00:00 00:00:00 Vera LOCATION [id number] H ealth [id number] 2021-01-28 2021-01-29 [place] [id number] [facility] 19:46:00 04:59:00 r Psychiatric 15 l s/Psychothe Herm dorothea rapy (PSYR) 2020-12-22 2020-12-23 [place] [id number] [facility] 20:34:00 05:59:00 r Psychiatric 12 l s/Psychothe Herm dorothea rapy (PSYR) 2020-11-17 2020-11-18 [place] [id number] [facility] 13:00:00 05:59:00 r Psychiatric 10 l s/Psychothe Herm dorothea rapy (PSYR) 2020-11-02 2020-11-03 Outpatient nullFlavo TR Urology 46 [id number] [facility] 16:50:00 05:59:00 r Clinic 04 l (UROR) Bee 2020-10-27 2020-10-28 [place] [id number] [facility] 19:20:00 05:59:00 r Psychiatric 08 l s/Psychothe Herm dorothea rapy (PSYR) 2020-09-08 2020-09-09 [place] [id number] [facility] 14:45:00 05:59:00 r Psychiatric 07 l s/Psychothe Herm dorothea rapy (PSYR) 2020-08-24 2020-08-25 Outpatient nullFlavo TR Spinal [id number] [facility] 16:00:00 05:59:00 r Cord Inj 03 l Clinic [facility] (SCIR) 2018-06-07 2018-09-07 PreAdmit nullFlavo [facility] [id number] [facility] 14:15:00 15:17:00 [facility] 2017-08-22 2017-08-23 Outpatient nullFlavo [facility]R [id number] [facility] 18:37:00 04:59:[address] [facility] Results Test Description Test Time Test Comments Results Result Comments Source BASIC METABOLIC PANEL 2022-02-09 08:18:00 Test Item Value Reference Range Interpretation Comme nts SODIUM (test code = NA) 141 mEq/L 134-147 N POTASSIUM (test code = K) 3.6 mEq/L 3.4-5.0 N CHLORIDE (test code = CL) 109 mEq/L 100-108 H CARBON DIOXIDE (test code = CO2) 26 mEq/l 21-33 N ANION GAP (test code = GAP) 9 0-20 N GLUCOSE (test code = GLU) 74 mg/dL 70-110 N BLOOD UREA NITROGEN (test code = 6 mg/dL 7-18 L BUN) GLOMERULAR FILTRATION RATE (test 140.4 105-110 H Units of measure = ml/min/1.73 code = GFR) m2 CREATININE (test code = CREAT) 0.5 mg/dL 0.6-1.3 L CALCIUM (test code = CA) 9.0 mg/dL 8.0-10.5 N CBC W/AUTO [id number] 07:27:00 Test Item Value Reference Range Interpretation Comments WHITE BLOOD CELL (test code = 4.9 x10 3/uL 4.5-11.0 N WBC) RED BLOOD CELL (test code = 4.85 x10 6/uL 3.54-5.02 N RBC) HEMOGLOBIN (test code = HGB) 12.5 g/dL 11.0-15.0 N HEMATOCRIT (test code = HCT) 40.9 % 33.0-45.0 N MEAN CELL VOLUME (test code = 84.3 fL 81.0-99.0 N MCV) MEAN CELL HGB (test code = MCH) 25.8 pg 27.0-33.0 L MEAN CELL HGB CONCETRATION 30.6 g/dL 33.0-37.0 L (test code = MCHC) RED CELL DISTRIBUTION WIDTH CV 16.5 % 11.5-14.5 H (test code = RDW) RED CELL DISTRIBUTION WIDTH SD 50.8 fL 37.0-54.0 N (test code = RDW-SD) PLATELET COUNT (test code = 159 x10 3/uL 150-400 N PLT) MEAN PLATELET VOLUME (test code 11.3 fL 7.0-9.0 H = MPV) NEUTROPHIL % (test code = NT%) 45.1 % 56.0-77.0 L IMMATURE GRANULOCYTE % (test 0.6 % 0.0-2.0 N code = IG%) LYMPHOCYTE % (test code = LY%) 42.7 % 14.0-32.0 H MONOCYTE % (test code = MO%) 7.5 % 4.8-9.0 N EOSINOPHIL % (test code = EO%) 3.7 % 0.3-3.7 N BASOPHIL % (test code = BA%) 0.4 % 0.0-2.0 N NUCLEATED RBC % (test code = 0.0 % 0-0 N NRBC%) NEUTROPHIL # (test code = NT#) 2.22 x10 3/uL 2.0-7.6 N IMMATURE GRANULOCYTE # (test 0.03 x10 3/uL 0.00-0.03 N code = IG#) LYMPHOCYTE # (test code = LY#) 2.10 x10 3/uL 1.0-3.8 N MONOCYTE # (test code = MO#) 0.37 x10 3/uL 0.1-0.8 N EOSINOPHIL # (test code = EO#) 0.18 x10 3/uL 0.0-0.2 N BASOPHIL # (test code = BA#) 0.02 x10 3/uL 0.0-0.2 N NUCLEATED RBC # (test code = 0.00 x10 3/uL 0.0-0.1 N NRBC#) MANUAL DIFF REQUIRED (test code NO = MDIFF) CBC W/AUTO [id number] 08:05:00 Test Item Value Reference Range Interpretation Comments WHITE BLOOD CELL (test code = 4.7 x10 3/uL 4.5-11.0 N WBC) RED BLOOD CELL (test code = 5.43 x10 6/uL 3.54-5.02 H RBC) HEMOGLOBIN (test code = HGB) 14.0 g/dL 11.0-15.0 N HEMATOCRIT (test code = HCT) 45.8 % 33.0-45.0 H MEAN CELL VOLUME (test code = 84.3 fL 81.0-99.0 N MCV) MEAN CELL HGB (test code = MCH) 25.8 pg 27.0-33.0 L MEAN CELL HGB CONCETRATION 30.6 g/dL 33.0-37.0 L (test code = MCHC) RED CELL DISTRIBUTION WIDTH CV 16.2 % 11.5-14.5 H (test code = RDW) RED CELL DISTRIBUTION WIDTH SD 50.4 fL 37.0-54.0 N (test code = RDW-SD) PLATELET COUNT (test code = 168 x10 3/uL 150-400 N PLT) MEAN PLATELET VOLUME (test code 11.5 fL 7.0-9.0 H = MPV) NEUTROPHIL % (test code = NT%) 37.1 % 56.0-77.0 L IMMATURE GRANULOCYTE % (test 0.4 % 0.0-2.0 N code = IG%) LYMPHOCYTE % (test code = LY%) 48.8 % 14.0-32.0 H MONOCYTE % (test code = MO%) 9.0 % 4.8-9.0 N EOSINOPHIL % (test code = EO%) 4.3 % 0.3-3.7 H BASOPHIL % (test code = BA%) 0.4 % 0.0-2.0 N NUCLEATED RBC % (test code = 0.0 % 0-0 N NRBC%) NEUTROPHIL # (test code = NT#) 1.73 x10 3/uL 2.0-7.6 L IMMATURE GRANULOCYTE # (test 0.02 x10 3/uL 0.00-0.03 N code = IG#) LYMPHOCYTE # (test code = LY#) 2.28 x10 3/uL 1.0-3.8 N MONOCYTE # (test code = MO#) 0.42 x10 3/uL 0.1-0.8 N EOSINOPHIL # (test code = EO#) 0.20 x10 3/uL 0.0-0.2 N BASOPHIL # (test code = BA#) 0.02 x10 3/uL 0.0-0.2 N NUCLEATED RBC # (test code = 0.00 x10 3/uL 0.0-0.1 N NRBC#) MANUAL DIFF REQUIRED (test code NO = MDIFF) SED RATE [id number] 08:05:00 Test Item Value Reference Range Interpretation Comments SED RATE WESTERGREN (test code = SEDW) mm/hr 0-20 BASIC METABOLIC [id number] 07:53:00 Test Item Value Reference Range Interpretation Comments SODIUM (test code = NA) 143 mEq/L 134-147 N POTASSIUM (test code = 3.2 mEq/L 3.4-5.0 L K) CHLORIDE (test code = 106 mEq/L 100-108 N CL) CARBON DIOXIDE (test 27 mEq/l 21-33 N code = CO2) ANION GAP (test code = 14 0-20 N GAP) GLUCOSE (test code = 68 mg/dL 70-110 L GLU) BLOOD UREA NITROGEN 6 mg/dL 7-18 L (test code = BUN) GLOMERULAR FILTRATION 113.8 105-110 H Units of measure = RATE (test code = GFR) ml/mi n/1.73 m2 CREATININE (test code = 0.6 mg/dL 0.6-1.3 N CREAT) CALCIUM (test code = 9.6 mg/dL 8.0-10.5 N CA) CBC W/AUTO [id number] 05:06:00 Test Item Value Reference Range Interpretation Comments WHITE BLOOD CELL (test code = 3.6 x10 3/uL 4.5-11.0 L WBC) RED BLOOD CELL (test code = 5.16 x10 6/uL 3.54-5.02 H RBC) HEMOGLOBIN (test code = HGB) 13.5 g/dL 11.0-15.0 N HEMATOCRIT (test code = HCT) 43.0 % 33.0-45.0 N MEAN CELL VOLUME (test code = 83.3 fL 81.0-99.0 N MCV) MEAN CELL HGB (test code = MCH) 26.2 pg 27.0-33.0 L MEAN CELL HGB CONCETRATION 31.4 g/dL 33.0-37.0 L (test code = MCHC) RED CELL DISTRIBUTION WIDTH CV 16.4 % 11.5-14.5 H (test code = RDW) RED CELL DISTRIBUTION WIDTH SD 49.5 fL 37.0-54.0 N (test code = RDW-SD) PLATELET COUNT (test code = 155 x10 3/uL 150-400 N PLT) MEAN PLATELET VOLUME (test code 11.5 fL 7.0-9.0 H = MPV) NEUTROPHIL % (test code = NT%) 44.0 % 56.0-77.0 L IMMATURE GRANULOCYTE % (test 0.3 % 0.0-2.0 N code = IG%) LYMPHOCYTE % (test code = LY%) 42.0 % 14.0-32.0 H MONOCYTE % (test code = MO%) 8.5 % 4.8-9.0 N EOSINOPHIL % (test code = EO%) 4.7 % 0.3-3.7 H BASOPHIL % (test code = BA%) 0.5 % 0.0-2.0 N NUCLEATED RBC % (test code = 0.0 % 0-0 N NRBC%) NEUTROPHIL # (test code = NT#) 1.60 x10 3/uL 2.0-7.6 L IMMATURE GRANULOCYTE # (test 0.01 x10 3/uL 0.00-0.03 N code = IG#) LYMPHOCYTE # (test code = LY#) 1.53 x10 3/uL 1.0-3.8 N MONOCYTE # (test code = MO#) 0.31 x10 3/uL 0.1-0.8 N EOSINOPHIL # (test code = EO#) 0.17 x10 3/uL 0.0-0.2 N BASOPHIL # (test code = BA#) 0.02 x10 3/uL 0.0-0.2 N NUCLEATED RBC # (test code = 0.00 x10 3/uL 0.0-0.1 N NRBC#) MANUAL DIFF REQUIRED (test code NO = MDIFF) SED RATE [id number] 05:06:00 Test Item Value Reference Range Interpretation Comments SED RATE ERGREN (test code = 17 mm/hr 0-20 N SEDW) [id number] 04:45:00 Test Item Value Reference Range Interpretation Comments HGBA1C% (test code = HGBA1C%) 4.8 %A1C 4.8-6.0 N COMMENTS: [id number] METABOLIC [id number] 04:40:00 Test Item Value Reference Range Interpretation Comments SODIUM (test code = NA) 143 mEq/L 134-147 N POTASSIUM (test code = 3.7 mEq/L 3.4-5.0 N K) CHLORIDE (test code = 108 mEq/L 100-108 N CL) CARBON DIOXIDE (test 29 mEq/l 21-33 N code = CO2) ANION GAP (test code = 10 0-20 N GAP) GLUCOSE (test code = 73 mg/dL 70-110 GLU) BLOOD UREA NITROGEN 8 mg/dL 7-18 N (test code = BUN) GLOMERULAR FILTRATION 140.4 105-110 H Units of measure = RATE (test code = GFR) ml/mi n/1.73 m2 CREATININE (test code = 0.5 mg/dL 0.6-1.3 L CREAT) TOTAL PROTEIN (test 6.2 g/dL 6.4-8.2 L code = PROT) ALBUMIN (test code = 3.70 g/dL 3.4-5.0 N ALB) CALCIUM (test code = 9.4 mg/dL 8.0-10.5 N CA) BILIRUBIN TOTAL (test 0.40 mg/dL 0.0-1.0 code = BILT) SGOT/AST (test code = 42 IUnit/L 15-37 H AST) SGPT/ALT (test code = 22 IUnit/L 30-65 L ALT) ALKALINE PHOSPHATASE 74 IUnit/L 20-125 N TOTAL (test code = ALKP) [id number] 04:40:00 Test Item Value Reference Range Interpretation Comments AMYLASE (test code = SEMAJ) 41 UNITS/L 25-115 N [id number] 04:40:00 Test Item Value Reference Range Interpretation Comments LIPASE (test code = LIP) 29 U/L 13-57 N VITAMIN [id number] 04:40:00 Test Item Value Reference Range Interpretation Comments VITAMIN B12 (test code = VITB12) 348 pg/mL 193-986 N THYROID STIMULATING [id number] 04:40:00 Test Item Value Reference Range Interpretation Comments THYROID STIMULATING 3.21 0.42-5.47 N Results in HORMONE (test code = TSH) mi lli-International Units/mL TROP-I HIGH [id number] 04:40:00 Test Item Value Reference Range Interpretation Comments TROP-I HIGH < 3 ng/L 0-34 N CAUTION: Units of the SENSITIVITY (test current te st methodology code = TROPIHS) (ng/L) diffe rfrom the prior test meth odology (ng/mL) by a fa ctor of 1000. 99t h Percentile Uppe r Reference Limit (URL): Fe males: 34 ng/LMales: 54 ng/L In order to distin guish acute elevations of h igh sensitivitytrop onin from other clinical conditions, the FourthUnive rsal Definition of M yocardial Infarction stressesclinica l assessment and the demonstration o f a rise and/orfall in s erial troponin result s above the URL. These resu lts were obtained using Siemens AtellThe Luxe Nomad IM TnI Hreagent. Results from di fferent methodologies s hould not becompared to o ne another as quantitative results and URLs mayvar y by method. COVID 19 Asymptomatic IH [id number] 17:19:00 Test Item Value Reference Range Interpretation Comments COVID 19 Asymptomatic Negative Negative A nega tive result is IH AG (test code = presumpti ve and should COVNONPUIAG) be confirmedwit h an FDA authorized mole cular assay, if neces carlyle forpatient wild gement.A positive result does not rule out co-inf ections withother patho gens.This test detects rainer th viable (live) and non-viable,SARS -CoV, and SARS-CoV-2. Rachel t performance dep ends on theamount of vi erin (antigen) in th e sample.This rachel t has not been FDA cleare d or approved; the t est hasbeen authori zed by FDA under an Em ergency Use Authorizati on(EUA) for use by labo ratories certified under the CLIA thatmeet the requirements to perform moderate, high or waivedcomplexit y tests. LACTIC [id number] 23:02:00 Test Item Value Reference Range Interpretation Comments LACTIC ACID (test code = LACT) 0.6 mmol/L 0.4-1.9 N UA RFLX MICR CULT IF [id number] 22:34:00 Test Item Value Reference Range Interpretation Comments UA COLOR (test code = COLU) CANDI YEL/STRAW A UA APPEARANCE (test code = APPU) SL CLOUDY CLEAR UA GLUCOSE DIPSTICK (test code = NEGATIVE NEGATIVE DGLUU) UA BILIRUBIN DIPSTICK (test code NEGATIVE NEGATIVE = BILU) UA KETONE DIPSTICK (test code = TRACE NEGATIVE A KETU) UA SPECIFIC GRAVITY (test code = 1.031 1.005-1.030 H SGU) UA BLOOD DIPSTICK (test code = 3+ NEGATIVE A AMARIS) UA PH DIPSTICK (test code = STACY) 6.0 5.0-7.0 N UA PROTEIN DIPSTICK (test code = 2+ NEGATIVE A PROU) UA UROBILINIOGEN DIPSTICK (test 0.2 mg/dL 0.2-1.0 code = URO) UA NITRITE DIPSTICK (test code = NEGATIVE NEGATIVE NAVJOT) UA LEUKOCYTE ESTERASE DIPSTICK 2+ NEGATIVE A (test code = LEUU) UA WBC (test code = WBCU) >50 WBC/HPF 0-3 A UA RBC (test code = RBCU) >50 RBC/HPF 0-3 A UA WBC NO REFLEX (test code = >50 WBC/HPF 0-3 A WBCUCL) UA BACTERIA (test code = BACU) TRACE /HPF NONE SEEN UA SQUAMOUS CELLS (test code = 0-5 /HPF NONE SEEN SQU) UA CALCIUM OXALATE CRYSTALS (test 1+ /HPF NONE SEEN A code = CAOXU) UA MUCUS (test code = MUCU) 4+ /LPF NONE SEEN A UA YEAST (BUDDING) (test code = 3+ /HPF NONE A YEASTUBD) Indication for culture: Dysuria/FrequencySpecimen Description: Clean Catch [id number] 22:27:00 Test Item Value Reference Range Interpretation Comments LIPASE (test code = LIP) 27 U/L 13-57 N TROP-I HIGH [id number] 22:27:00 Test Item Value Reference Range Interpretation Comments TROP-I HIGH < 3 ng/L 0-34 N CAUTION: Units of the SENSITIVITY (test current te st methodology code = TROPIHS) (ng/L) diffe rfrom the prior test meth odology (ng/mL) by a fa ctor of 1000. 99t h Percentile Uppe r Reference Limit (URL): Fe males: 34 ng/LMales: 54 ng/L In order to distin guish acute elevations of h igh sensitivitytrop onin from other clinical conditions, the FourthUnive rsal Definition of M yocardial Infarction stressesclinica l assessment and the demonstration o f a rise and/orfall in s erial troponin result s above the URL. These resu lts were obtained using Siemens AtellThe Luxe Nomad IM TnI Hreagent. Results from di fferent methodologies s hould not becompared to o ne another as quantitative results and URLs mayvar y by method. BASIC METABOLIC [id number] 22:27:00 Test Item Value Reference Range Interpretation Comments SODIUM (test code = NA) 142 mEq/L 134-147 N POTASSIUM (test code = 3.6 mEq/L 3.4-5.0 N K) CHLORIDE (test code = 108 mEq/L 100-108 N CL) CARBON DIOXIDE (test 28 mEq/l 21-33 N code = CO2) ANION GAP (test code = 9 0-20 N GAP) GLUCOSE (test code = 100 mg/dL 70-110 N GLU) BLOOD UREA NITROGEN 8 mg/dL 7-18 N (test code = BUN) GLOMERULAR FILTRATION 113.8 105-110 H Units of measure = RATE (test code = GFR) ml/mi n/1.73 m2 CREATININE (test code = 0.6 mg/dL 0.6-1.3 N CREAT) CALCIUM (test code = 9.5 mg/dL 8.0-10.5 N CA) HEPATIC FUNCTION [id number] 22:27:00 Test Item Value Reference Range Interpretation Comments TOTAL PROTEIN (test code = PROT) 6.8 g/dL 6.4-8.2 N ALBUMIN (test code = ALB) 4.00 g/dL 3.4-5.0 N BILIRUBIN TOTAL (test code = 0.30 mg/dL 0.0-1.0 N BILT) BILIRUBIN DIRECT (test code = < 0.10 MG/DL 0.0-0.30 N BILD) SGOT/AST (test code = AST) 17 IUnit/L 15-37 N SGPT/ALT (test code = ALT) 14 IUnit/L 30-65 L ALKALINE PHOSPHATASE TOTAL (test 74 IUnit/L 20-125 N code = ALKP) BILIRUBIN INDIRECT (test code = 0.20 MG/DL BILIND) HCG SERUM [id number] 22:22:00 Test Item Value Reference Range Interpretation Comments HCG SERUM QUAL (test code = SERUM NEGATIVE NEGATIVE HCGQL) CBC W/AUTO [id number] 22:11:00 Test Item Value Reference Range Interpretation Comments WHITE BLOOD CELL (test code = 5.8 x10 3/uL 4.5-11.0 N WBC) RED BLOOD CELL (test code = 5.41 x10 6/uL 3.54-5.02 H RBC) HEMOGLOBIN (test code = HGB) 13.9 g/dL 11.0-15.0 N HEMATOCRIT (test code = HCT) 43.8 % 33.0-45.0 N MEAN CELL VOLUME (test code = 81.0 fL 81.0-99.0 N MCV) MEAN CELL HGB (test code = MCH) 25.7 pg 27.0-33.0 L MEAN CELL HGB CONCETRATION 31.7 g/dL 33.0-37.0 L (test code = MCHC) RED CELL DISTRIBUTION WIDTH CV 16.3 % 11.5-14.5 H (test code = RDW) RED CELL DISTRIBUTION WIDTH SD 47.7 fL 37.0-54.0 N (test code = RDW-SD) PLATELET COUNT (test code = 194 x10 3/uL 150-400 N PLT) MEAN PLATELET VOLUME (test code 11.2 fL 7.0-9.0 H = MPV) NEUTROPHIL % (test code = NT%) 68.0 % 56.0-77.0 N IMMATURE GRANULOCYTE % (test 0.2 % 0.0-2.0 N code = IG%) LYMPHOCYTE % (test code = LY%) 22.6 % 14.0-32.0 N MONOCYTE % (test code = MO%) 6.3 % 4.8-9.0 N EOSINOPHIL % (test code = EO%) 2.7 % 0.3-3.7 N BASOPHIL % (test code = BA%) 0.2 % 0.0-2.0 N NUCLEATED RBC % (test code = 0.0 % 0-0 N NRBC%) NEUTROPHIL # (test code = NT#) 3.96 x10 3/uL 2.0-7.6 N IMMATURE GRANULOCYTE # (test 0.01 x10 3/uL 0.00-0.03 N code = IG#) LYMPHOCYTE # (test code = LY#) 1.32 x10 3/uL 1.0-3.8 N MONOCYTE # (test code = MO#) 0.37 x10 3/uL 0.1-0.8 N EOSINOPHIL # (test code = EO#) 0.16 x10 3/uL 0.0-0.2 N BASOPHIL # (test code = BA#) 0.01 x10 3/uL 0.0-0.2 N NUCLEATED RBC # (test code = 0.00 x10 3/uL 0.0-0.1 N NRBC#) MANUAL DIFF REQUIRED (test code NO = MDIFF) - CT ABD PELVIS [id number] 00:00:00 [facility] 1985 Sex: F Name: JAMILAH AG [facility] : 1984 Age/S: 36 / F [address] Unit #: [id number] Loc: [place] [address] Phys: Gabriel Canales DO Acct: [id number] Dis Date: Status: REG ER PHONE #: [phone] Exam Date: 02/04/20222318 FAX #: [phone] Reason: RLQ pain EXAMS: CPT CODE: [id number] CT ABD PELVIS W/CONT [id number] PROCEDURE INFORMATION: Exam: CT Abdomen And Pelvis With Contrast Exam date and time: 02/04/2022 11:17 PM Age: 36 years old Clinical indication: Abdominal pain; Additional info: Rlq pain TECHNIQUE: Imaging protocol: Computed tomography of the abdomen and pelvis with contrast. Radiation optimization: All CT scans at this facility use at least one of these dose optimization techniques: automated exposure control; mA and/or kV adjustment per patient size (includes targeted exams where dose is matched to clinical indication); or iterative reconstruction. Contrast material: ISO; Contrast volume: 100 ml; Contrast route: INTRAVENOUS (IV); COMPARISON: CR XR CHEST 1V 02/04/2022 9:37 PM FINDINGS: Tubes, catheters and devices: A suprapubic catheter decompresses the urinary bladder. Lungs: Visualized lung bases are unremarkable. Liver: Few scattered subcentimeterhypodensities likely on the basis of small cysts. Gallbladder and bile ducts: Normal. No calcified stones. No ductal dilation. Pancreas: Normal. No ductal dilation. Spleen: Normal. No splenomegaly. Adrenal glands: Normal. No mass. Kidneys and ureters: Normal. No hydronephrosis. Stomach and bowel: A left lower quadrant colostomy is present. No evidence of bowel wall thickening or obstruction. Appendix: The appendix is unremarkable,best seen on axial series 2, images 84-90. Intraperitoneal space: Unremarkable. No free air. No significant fluid collection. Arteries: Unremarkable. No abdominal aortic aneurysm. Lymph nodes: Unremarkable. No enlarged lymph nodes. Urinary bladder: Unremarkable as visualized. Reproductive: There is a 3.0 x 2.2 cm fat containing right adnexal lesion containing a coarse calcifications likely on the basis of a teratoma. The left adnexa and uterus unremarkable. Bones/joints: Partially imaged surgical hardware in the lower thoracic spine. Soft tissues: Mild infiltration of the subcutaneous tissues of the posterior pelvic wall on the left on series 2, image 78. PAGE 1 Signed Report (CONTINUED) Name: JAMILAH AG [facility] : 1985 Age/S: 36 / F [address] [place] [address] Unit #: [id number] Loc: [place] [address] Phys: Gabriel Canales Acct: [id number] Dis Date: Status: REG ER PHONE #: [phone] Exam Date: 02/04/2022 1243 FAX #: [phone] Reason: RLQ pain EXAMS: CPT CODE: [id number] CT ABD PELVIS W/CONT 71962 <Continued> IMPRESSION: 1. No acute findings in the abdomen or pelvis. 2. Right ovarian teratoma. 3. Mild infiltration of the posterior pelvic wall subcutaneous tissues may be stress related. at 4010 Reported and signed by: Shaina Dennis M.D. CC: Gabriel Canales DO Technologist:Patrick Gutierrez, RT(R)(CT) CTDI: DLP: Trnscb Date/Time: 02/04/2022 (2358) [email or web address] Orig Print D/T: S: 02/04/2022 (622) PAGE 2 Signed Report- XR CHEST 1 [id number] 00:00:00 [facility] : 1985 Sex: F FAX: Gabriel Will DO [phone] [place]: St: REG Name: JAMILAH AG [facility] : 1985 Age/S: 36/F [address] [place] [address] Unit #: [id number] Loc: [place] [address] Phys: Gabriel Canales DO Acct: [id number] Dis Date: S tatus: REG ER PHONE #: [phone] Exam Date: 02/04/20222156 FAX #: [phone] Reason: Abdominal Pain EXAMS: CPT CODE: [id number] XR CHEST 1 V 51211 PROCEDURE INFORMATION: Exam: XR Chest Exam date and time: 02/04/2022 9:37 PM Age: 36 years old Clinical indication: Other: Rlq pain/abd; Additional info: Abdominal pain TECHNIQUE: Imaging protocol: XR ofthe chest. Views: 1 view. COMPARISON: No relevant prior studies available. FINDINGS: Lungs: Clear. No consolidation. Pleural spaces: Unremarkable. No pleural effusion. No pneumothorax. Heart/Mediastinum: Contours within normal limits. Bones/joints: No acute osseous process. Other findings: Bilateral spinal rods and screws in the mid to lower thoracic spine. Chronic right rib fracture. IMPRESSION: No radiographically identified acute cardiopulmonary findings. at 2223 Reported and signed by: Mary Mclaughlin M.D. CC: Gabriel Canales DO Technologist: RT Marianne(Lonnie) Trnscrd Date/Time/By: 02/04/2022 (2222) : By: [email or web address] Orig Print D/T: S: 02/04/2022 (2222) PAGE 1 Signed Report
[2022-02-17 11:01] LABS: Urine Blood 2+ (Negative); Urine Glucose Negative (Negative); Urine Protein 1+ (Negative)
[2022-02-17 11:17] LABS: Urine Bacteria >50 /HPF (<20)
[2022-02-17 11:18] LABS: Urine Yeast PRESENT (NONE SEEN); Urine Yeast with Hyphae PRESENT
--- NOTE | 2022-02-17 12:12 | ER ---
Nurse's Notes [facility] Name: Merlene Rockwell Age: 37 yrs Sex: Female : 1985 Arrival Date: 02/17/2022 Time: 10:27 Bed 23 Private MD: Diagnosis: Mechanical complication of urinary (indwelling) catheter;UTI/ Urinary tract infection, site not specified Presentation: 02/17 10:39 Chief complaint: Patient states: Here for suprapubic cath change and to check her urine ll1 for infection. She noticed a small amount of blood in her urine. No fever. Coronavirus screen: Vaccine status: Patient reports receiving the 2nd dose of the covid vaccine. Client denies travel out of the [place] in the last 14 days. At this time, the client does not indicate any symptoms associated with coronavirus-19. Ebola Screen: Patient denies travel to an Ebola-affected area in the 21 days before illness onset. Initial Sepsis Screen: Does the patient meet any 2 criteria? No. Patient's initial sepsis screen is negative. Does the patient have a suspected source of infection? Yes: Dysuria/Frequency/Urgency/UTI. Risk Assessment: Do you want to hurt yourself or someone else? Patient reports no desire to harm self or others. Onset of symptoms was February 16, 2022. 10:39 Method Of Arrival: Wheelchair ll1 10:39 Acuity: MORE 3 ll1 Triage Assessment: 10:40 General: Appears uncomfortable, Behavior is cooperative, appropriate for age. Pain: ll1 Complains of pain in buttocks Pain currently is 3 out of 10 on a pain scale. Quality of pain is described as aching. : Reports blood in urine and needing a suprapubic cath change. Historical: - Allergies: 10:38 GABAPENTIN; ll1 - PMHx: 10:38 Chronic pain; Depression; Paraplegia; ll1 - PSHx: 10:38 pump removed from abdomen; ll1 11:51 Colostomy; sm6 - Immunization history:: Client reports receiving the 2nd dose of the Covid vaccine. - Social history:: Smoking status: Reported history of juuling and/or vaping. - Hospitalizations: : No recent hospitalization is reported. Screenin:56 Abuse screen: Denies threats or abuse. Denies injuries from another. Nutritional ab2 screening: No deficits noted. Tuberculosis screening: No symptoms or risk factors identified. Fall Risk None identified. Assessment: 10:56 General: Appears in no apparent distress. uncomfortable, Behavior is calm, cooperative, ab2 appropriate for age. Pain: Complains of pain in buttocks. Neuro: Level of Consciousness is awake, alert, obeys commands, Oriented to person, place, time, situation, Appropriate for age Lepidopterist are equal bilaterally. Cardiovascular: No deficits noted. Denies chest pain, shortness of breath, Heart tones S1 S2 present Patient's skin is warm and dry. Respiratory: No deficits noted. Airway is patent Respiratory effort is even, unlabored, Respiratory pattern is regular, symmetrical, Breath sounds are clear bilaterally. GI: No deficits noted. No signs and/or symptoms were reported involving the gastrointestinal system. : suprapubic catheter in place to gravity drainage Urine is cloudy. EENT: No deficits noted. No signs and/or symptoms were reported regarding the EENT system. Derm: Skin is intact. 11:59 Reassessment: Patient appears in no apparent distress at this time. MOLDING PRESS OPERATOR attempted to ab2 remove suprapubic catheter but met a great amount of resistance. MOLDING PRESS OPERATOR called nephrology and he said to collect urine culture and send her to the clinic for a follow up appointment. pt tolerated well. Pt turned onto her side for comfort. Vital Signs: 10:39 BP 114 / 69; Pulse 100; Resp 17; Temp 98.2; Pulse Ox 97% on R/A; Weight 68.04 kg; ll1 Height 5 ft. 0 in. (152.40 cm); Pain 5/10; 11:59 BP 107 / 71; Pulse 84; Resp 17; Pulse Ox 99% on R/A; ab2 12:44 BP 101 / 77; Pulse 80; Resp 17; Pulse Ox 98% on R/A; ab2 10:39 Body Mass Index 29.29 (68.04 kg, 152.40 cm) ll1 ED Course: 10:27 Patient arrived in ED. rg4 10:30 Gu[place] Camp [facility] anitam 10:30 Billie Valentino MD is Attending Physician. jmm 10:30 Mila Tinoco NP is PHCP. sm6 10:38 Arm band placed on Patient placed in an exam room, on a stretcher. ll1 10:40 Triage completed. ll1 10:55 Walt Corado is Primary Nurse. ab2 10:57 Patient has correct armband on for positive identification. Bed in low position. Call ab2 light in reach. Side rails up X2. 10:57 No provider procedures requiring assistance completed. ab2 11:04 UA MICROSCOPIC Sent. ab2 12:11 Mario Velez MD is Referral Physician. sm6 12:45 Patient did not have IV access during this emergency room visit. ab2 Administered Medications: No medications were administered Outcome: 12:12 Discharge ordered by MD. sm6 12:45 Discharged to home via wheelchair. ab2 12:45 Condition: good 12:45 Discharge instructions given to patient, family, Instructed on discharge instructions, follow up and referral plans. Demonstrated understanding of instructions, follow-up care. 12:45 Patient left the ED. ab2 Signatures: Guanako Camp PA PA jmm Garcia, Rubi rg4 Gagan Reyes RN RN 1 Walt Corado ab2 Mila Tinoco NP [employer] [facility]
--- NOTE | 2022-02-17 12:13 | EDPHYS ---
Physician Documentation [facility] Name: Merlene Rockwell Age: 37 yrs Sex: Female : 1985 Arrival Date: 02/17/2022 Time: 10:27 Bed 23 Private MD: ED Physician Billie Valentino HPI: 02/17 10:36 This 37 yrs old Female presents to ER via Wheelchair with complaints of sm6 Problem With Urinary Catheter, Urinary Problem. 10:36 This 37 yrs old Female presents to ER via Wheelchair with complaints of Problem With sm6 Urinary Catheter, Urinary Problem. 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 . 11:32 Associated signs and symptoms: Pertinent positives: Nausea, Pertinent negatives: fever. sm6 11:44 The patient has experienced a previous episode, approximately 5 months ago. Patient has sm6 urine in the bag and it is currently draining. . The suprapubic catheter has been in place for about 1 year. . Historical: - Allergies: 10:38 GABAPENTIN; ll1 - PMHx: 10:38 Chronic pain; Depression; Paraplegia; ll1 - PSHx: 10:38 pump removed from abdomen; ll1 11:51 Colostomy; sm6 - Immunization history:: Client reports receiving the 2nd dose of the Covid vaccine. - Social history:: Smoking status: Reported history of juuling and/or vaping. - Hospitalizations: : No recent hospitalization is reported. ROS: 11:53 Constitutional: Negative for fever, chills, and weight loss. sm6 11:53 Neck: Negative for injury, pain, and swelling, Cardiovascular: Negative for chest pain, palpitations, and edema, Respiratory: Negative for shortness of breath, cough, wheezing, and pleuritic chest pain, Skin: Negative for injury, rash, and discoloration, Allergy/Immunology: Negative for hives, rash, and allergies. 11:53 Constitutional: Positive for 11:53 Abdomen/GI: Positive for nausea, Suprapubic catheter unable to be removed. , Negative for abdominal pain, vomiting, abdominal distension. 11:53 : Positive for Mott unable to be removed but still draining to Mott bag. , Negative for 11:53 MS/extremity: Positive for decreased range of motion, Paraplegia, Negative for acute changes. 11:53 Neuro: Positive for numbness, Paraplegia, Negative for acute changes. Exam: 11:57 Constitutional: This is a well developed, well nourished patient who is awake, alert, sm6 and in no acute distress. Head/Face: Normocephalic, atraumatic. Cardiovascular: Regular rate and rhythm with a normal S1 and S2. No gallops, murmurs, or rubs. Normal PMI, no JVD. No pulse deficits. Respiratory: Lungs have equal breath sounds bilaterally, clear to auscultation and percussion. No rales, rhonchi or wheezes noted. No increased work of breathing, no retractions or nasal flaring. Skin: Warm, dry with normal turgor. Normal color with no rashes, no lesions, and no evidence of cellulitis. Psych: Awake, alert, with orientation to person, place and time. Behavior, mood, and affect are within normal limits. 11:57 Abdomen/GI: Inspection: Colostomy and Suprapubic catheter noted, Bowel sounds: active, Palpation: abdomen is soft and non-tender, Indicators: Liver: Hernia: emesis/gastric contents smell of Mott catheter with bright yellow urine with small amount of sediment noted. Small non adherent dressing to left side abdomen clean and dry from recent pain pump removal. . 11:57 : Bladder: Suprapubic, drainage to Mott, no drainage from site. , a suprapubic catheter is noted. 11:57 Musculoskeletal/extremity: Extremities: Patient is paraplegia with no active ROM of lower extremities. . 11:57 Neuro: Motor: no acute changes, No sensation from touch to lower abdomen or extremities. . Vital Signs: 10:39 BP 114 / 69; Pulse 100; Resp 17; Temp 98.2; Pulse Ox 97% on R/A; Weight 68.04 kg; ll1 Height 5 ft. 0 in. (152.40 cm); Pain 5/10; 11:59 BP 107 / 71; Pulse 84; Resp 17; Pulse Ox 99% on R/A; ab2 12:44 BP 101 / 77; Pulse 80; Resp 17; Pulse Ox 98% on R/A; ab2 10:39 Body Mass Index 29.29 (68.04 kg, 152.40 cm) ll1 Procedures: 12:03 Attempted to remove and replace suprapubic catheter. Removed 10 ml of saline from port, sm6 able to pull catheter about 2 inches and then face complete resistance. Catheter reinserted the 2 inches and 10 ml of saline replaced. Mott is still draining and specimen will be removed from upper port while drainage tube is clamped off. . MDM: 10:36 Data reviewed: old medical records. [facility] 11:07 Patient medically screened. [facility] 12:06 Differential diagnosis: UTI. Counseling: I had a detailed discussion with the patient sm6 and/or guardian regarding: the historical points, exam findings, and any diagnostic results supporting the discharge/admit diagnosis, the need for outpatient follow up. Response to treatment: There is no appreciated change of the patient's symptoms at this time. Physician consultation: Mario Velez MD was called at 11:33, regarding Suprapubic unable to be changed, and will see patient in office, would like further tests performed, culture(s), urine, obtained from port. Do not treat in ER, will follow up in clinic on urine culture. . Special discussion: Based on the history and exam findings, there is no indication for further emergent testing or inpatient evaluation. I discussed with the patient/guardian the need to see the urologist for further evaluation of the symptoms. 12:42 ED course: Patient is a 37-year-old female who has a indwelling suprapubic catheter. We sm6 attempted to replace the catheter in the ER unsuccessfully. Dr. Velez urology was consulted. This has been deemed a nonemergent condition due to the Mott catheter is draining at this time. The patient will be able to follow-up outpatient in his clinic for suprapubic catheter care and he will also follow-up on urine at that time he directs no treatment of UTI from the ER. He would like to wait on culture. Discussed this with patient and family who agree and will follow-up outpatient.. 02/17 10:54 Order name: UA MICROSCOPIC; Complete Time: 12:16 [facility] 02/17 12:17 Interpretation: Dr Velez request new culture, will follow up in office to treat. . [facility] 02/17 11:01 Order name: Urine Dipstick-Ancillary; Complete Time: 11:35 EDDE 02/17 11:36 Interpretation: Abnormal: Collection is from mott bag and will need to collect culture sm6 from port. . 02/17 10:54 Order name: Mott; Complete Time: 11:04 sm6 02/17 11:21 Order name: Urine Culture EDDE 02/17 11:43 Order name: Urine Culture: Suprapubic, From Clamped off Specimen sm6 Administered Medications: No medications were administered Disposition: 18:10 Co-signature as Attending Physician, Billie Valentino MD. ma2 Disposition Summary: 02/17/22 12:12 Discharge Ordered Location: Home sm6 Problem: new sm6 Symptoms: are unchanged sm6 Condition: Stable sm6 Diagnosis - Mechanical complication of urinary (indwelling) catheter sm6 - UTI/ Urinary tract infection, site not specified sm6 Followup: sm6 - With: Mario Velez MD - When: Upon discharge from the Emergency Department - Reason: Further diagnostic work-up, Continuance of care Discharge Instructions: - Discharge Summary Sheet sm6 - Indwelling Urinary Catheter Care, Adult, [id number] sm6 Forms: - Medication Reconciliation Form sm6 - Thank You Letter sm6 - Antibiotic Education sm6 - Prescription Opioid Use sm6 Signatures: Dispatcher [employer] EDDE [place] PA PA Billie Mary MD MD ma2 Gagan Reyes RN RN ll1 Mila Tinoco NP [employer] sm6 Corrections: (The following items were deleted from the chart) 12:11 12:06 Medical screen evaluation completed. EMTALA emergency medical condition absent. sm6 sm6 12:11 12:06 Medical screen evaluation completed. EMTALA emergency medical condition absent. sm6 sm6 12:17 12:17 Abnormal: Dr Velez request new culture, will follow up in office to treat. . [id number]
[2022-02-17 12:50] VITALS: TEMP 98.2
[2022-02-17 12:52] VITALS: BP 101/77; O2SAT 98
== END 2022-02-17 12:45 | disposition home or self-care (01) ==
LOC: ER 10:24
DX: T83.098A Other mechanical complication of other urinary catheter, initial encounter (principal); N39.0 Urinary tract infection, site not specified; G82.20 Paraplegia, unspecified; Z88.8 Allergy status to other drugs, medicaments and biological substances
CPT/HCPCS: 81003; 81015; 87077; 87086; 87088; 87186; 99283

== ENCOUNTER 2022-06-13 18:13 | Inpatient (IN) | payer OTHER ==
--- OUTSIDE RECORDS SUMMARY | 2022-06-13 18:23 | XMS REPORT | Continuity of Care Document ---
:1985 Author Organization [facility] t Address [address] [place] [address] Support Name Relationship Address Phone LILIAN GARCIA [address] [place] [address] [employer] SPENCER [address] [place] [address] NOT OBTAINED Unavailable Unavailable Unavailable GALINA ESCOBEDO [place] [address] [place] [address] JOSIE AG Unavailable [id number] [facility] [address] [address] [address] [phone] [place] [address] KATHLEEN GARCIA Unavailable [phone] [facility] [place] [address] Francoise Garcia Relative [address] [place] [address] [facility] [address] [place] [address] JAMILAH AG Other Unavailable Unavailable OBTAINED, NOT Unavailable Unavailable Unavailable GREGG GARCIA Relative Unavailable Unavailable Tera Spencer Unavailable Xochilt Brown Unavailable Unavailable unknow, unk Unknown [address] [place] [place] [address] UNK Unavailable Unavailable Unavailable BarryMary love Family/Other [address] [place] [place] [address] UN Unavailable Unavailable Unavailable LILIAN GARCIA UNK [phone] [place] [address] Care Team Providers Name Role Phone Tony Galarza Primary Care Physician JESUS BROOKE Attending Clinician Unavailable EARL GRIFFITH Attending Clinician Unavailable TIM PATRICK Attending Clinician Unavailable Lilian Villagran Attending Clinician Unavailable PRINCE JARQUIN Attending Clinician Unavailable VIRI FORMAN Attending Clinician Unavailable VIRI FORMAN Attending Clinician Unavailable GIGI SAM Attending Clinician Unavailable Gigi De Jesus Attending Clinician Prince Jarquin MD Attending Clinician Doctor Unassigned, Kemp Attending Clinician Unavailable Tony Galarza Attending Clinician Unavailable JARRETT FLORENCE Attending Clinician Unavailable Gabriel Canales Attending Clinician Unavailable Madeleine Tucker MD Attending Clinician TIM PATRICK Admitting Clinician Unavailable GIGI SAM Admitting Clinician Unavailable Naheed Jean Admitting Clinician Unavailable Tony Galarza Admitting Clinician Unavailable Physician, No Primary or Family Admitting Clinician Unavaila ble Payers Payer Name Policy Type Policy Number Effective Date Expiration Date S hi [facility] MEDICARE [id number] 2020 2020 COMPLETE 00:00:00 00:00:00 MD MEDICAID [id number] 2020 00:00:00 Problems Condition Condition Condition Status Onset Resolution Last Treating Co mments Source Name Details Category Date Date Treatment Clinician Date Intractabl Intractabl Disease Active U nivers e pain e pain 3-19 ity of 00:00: [address] F/U F/U Diagnosis Active 2021-07-27 Mem oria Active 07-21 13:01:00 l 07/21/2021 00:00: Ash POLLARD [facility] 00 Fever in Fever in Disease Active Unive rs adult adult 9-10 ity of 00:00: [address] Branch VIDEO-F/U VIDEO-F/U Diagnosis Active 2021-07-13 Memoria Active 06-15 11:59:00 l 06/15/2021 00:00: Ash POLLARD [facility] 00 F/U F/U Diagnosis Active 2021-06-15 Mem oria Active 05-05 14:26:00 l 05/05/2021 00:00: Ash gilbert [facility] 00 CALL F/U CALL F/U Diagnosis Active 2021-04-06 Memoria Active 04-02 10:26:00 l 04/02/2021 00:00: Ash gilbert [facility] 00 POST-OP POST-OP Diagnosis Active 2021-05-03 Memoria FOLLOW-UP FOLLOW-UP 03-17 12:56:00 l WITH SP WITH SP 00:00: Magen SAM 00 CHANGE CHANGE Active 03/17/2021 MH [facility] F/U-6 WKS F/U-6 WKS Diagnosis Active 2021-03-09 Memoria Active 03-01 11:53:00 l 03/01/2021 00:00: Ash gilbert [facility] 00 WELL WOMAN WELL Diagnosis Active 2021-04-24 Memoria WOMAN 02-16 16:01:00 l Active 00:00: Magen 02/16/2021 00 [facility] Complicate Complicate Disease Active U nivers d UTI d UTI 4-05 ity of (urinary (urinary 00:00: [place] tract tract 00 Medical infection) infection) Br anch PHONE-F/U PHONE-F/U Diagnosis Active 2021-04-02 Memoria Active 01-19 23:43:00 l 01/19/2021 00:00: Ash gilbert [facility] 00 EVAL EVAL Diagnosis Active 2021-04-02 Mem oria Active 12-15 23:43:00 l 12/15/2020 00:00: Ash gilbert [facility] 00 F/U-WITHDR F/U-WITHD Diagnosis Active 2020-12-22 Memoria AWALS RAWALS - 15:12:00 l Active 00:00: Magen 12/14/2020 00 MH [facility] 6 WEEK 6 WEEK Diagnosis Active 2019-102020-10-27 Me moria F/U-PHONE F/U-PHONE 11-14 13:24:00 l Active 00:00: Magen 09/14/2020 00 MH [facility] PHONE-EVAL PHONE-CRISTINA Diagnosis Active 2019-102020-09-08 Memdayana L Active 10-31 08:51:00 l 08/31/2020 00:00: Ash gilbert [facility] 00 NEUROGENIC NEUROGENI Diagnosis Active 2019-102020-11-02 Daniel BLADDER C BLADDER 10-31 12:54:00 l Active 00:00: Magen 08/31/2020 00 MH [facility] EVAL-RE-VA EVAL-RE-V Diagnosis Active 2020-09-08 Daniel L AL Active 07-07 15:11:00 l 07/07/2020 00:00: Ash gilbert [facility] 00 Pressure Pressure Disease Active 2018-10 Overview: Un amol injury of injury of 0-24 Formattin i ty of contiguous contiguous 00:00: g of this [place] region region 00 note Medical involving involving might be Br anch right right different buttock buttock from the and hip, and hip, original. stage 3 stage 3 Added automatic ally from request for surgery [id number] Pressure Pressure Disease Active 2018-10 Overview: Un amol injury of injury of 0-24 Added ity of contiguous contiguous 00:00: automatic [place] region region 00 ally from Medical involving involving request [facility] right right for buttock buttock surgery and hip, and hip, [id number] stage 3 stage 3 Carpal Carpal Disease Active Overview: Method i tunnel tunnel 6-[address] syndrome syndrome 00:00: g of this Hos oscar of left of left 00 note l wrist wrist might be different from the original. Added automatic ally from request for surgery [id number] Carpal Carpal Disease Active Overview: Method i tunnel tunnel 5-[address] syndrome syndrome 00:00: g of this Hos oscar on right on right 00 note l might be different from the original. Added automatic ally from request for surgery [id number] Hypotensio Hypotensio Disease Active 2017-10 U nivers n n 0-13 ity of 00:00: [place] 00 Medical Branch UTI UTI Disease Active 2017-10 Univers (urinary (urinary 0-13 ity of tract tract 00:00: [place] infection) infection) 00 Me dical Branch Tachycardi Tachycardi Disease Active 2017-10 U nivers a a 0-12 ity of 00:00: [place] 00 Medical Branch Obesity Obesity Disease Active 2017-10 Univers (BMI (BMI 0-10 ity of 30-39.9) 30-39.9) 00:00: [place] 00 Medical Branch OSTEOMYELI OSTEOMYEL Diagnosis Active 2019-07-19 Memoria TIS ITIS 707 17:36:00 l Active 00:00: Magen 04/28/2018 00 MH [facility] Janice Janice Disease Active Univers UTI UTI 6-29 ity of 00:00: [place] 00 Medical Branch Pressure Pressure Disease Active Unive rs ulcer ulcer 6-14 ity of 00:00: [place] 00 Medical Branch Decubitus Decubitus Disease Active Uni vers ulcer of ulcer of 4-12 ity of sacral sacral 00:00: [facility], region, 00 Medical stage 4 stage 4 Branch Tinea Tinea Disease Active Univers corporis corporis 4-12 ity of 00:00: [place] 00 Medical Branch Contact Contact Disease Active Univers dermatitis dermatitis 4-12 it y of due to due to 00:00: [place] adhesives, adhesives, 00 Me dical unspecifie unspecifie Br anch d contact d contact dermatitis dermatitis type type Decubitus Decubitus Disease Recurre Un amol ulcer of ulcer of nce 2-23 ity of sacral sacral 00:00: [place] region region 00 Medical Branch Acute Acute Disease Active Univers osteomyeli osteomyeli 2-23 it y of tis of tis of 00:00: [place] right right 00 Medical pelvic pelvic Branch region region Polymicrob Polymicrob Disease Active U nivers ial ial 2-23 ity of bacterial bacterial 00:00: Vivienne s infection infection 00 [facility] Branch Sepsis Sepsis Disease Active Univers 2-20 ity of 00:00: [place] 00 Medical Branch Right Right Disease Active Overview: Univer s ischial ischial 2-20 Formattin ity o f pressure pressure 00:00: g of this Rachid as sore, sore, 00 note Medical stage IV stage IV might be Bran ch different from the original. Added automatic ally from request for surgery [id number] FOLLOW UP FOLLOW UP Diagnosis Active 2018-04-16 Memoria Active 10-24 08:32:00 l 10/24/2017 00:00: Ash gilbert [facility] 00 EVAL FOR EVAL FOR Diagnosis Active 2017-08-22 Memoria IP/REHAB IP/REHAB 07-21 13:47:00 l NEEDS NEEDS 00:00: Magen Active 00 07/21/2017 [facility] Paraplegic Paraplegi Problem Resolve 2021-07-16 Memoria immobility c d 00:12:04 l syndrome immobility Herm dorothea (disorder) syndrome (disorder) Resolved Problem 07/16/2021 [facility] Nondepende Nondepend Problem Resolve 2021-07-16 Memoria nt alcohol ent d 00:12:04 l abuse in alcohol Magen remission abuse in (disorder) remission (disorder) Resolved Problem 07/16/2021 delete [facility] Neurogenic Neurogeni Problem Active 2021-07-16 Memoria bladder c bladder 00:12:04 l (finding) (finding) Herm dorothea Active Problem 07/16/2021 [facility] 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 00:12:04 l (disorder) (disorder) He rmann Active Problem 07/16/2021 [facility] Paraplegia Paraplegi Problem Active 2021-07-16 Memoria (disorder) a 00:12:04 l (disorder) Ash n Active Problem 07/16/2021 [facility] Simple Simple Problem Active 2021-07-16 Leighton rajeev obesity obesity 00:12:04 l (disorder) (disorder) He rmann Active Problem 07/16/2021 [facility] Spasm Spasm Problem Active 2021-07-16 Memor ia (finding) (finding) 00:12:04 l Active [place] Problem 07/16/2021 [facility] Chronic Chronic Problem Active 2021-07-16 Me moria alcoholism alcoholism 00:12:04 l in in Magen remission remission (disorder) (disorder) Active Problem 07/16/2021 [facility] Chronic Chronic Problem Active 2021-07-16 Me moria post-traum post-traum 00:12:04 l atic atic [place] stress stress disorder disorder (disorder) (disorder) Active Problem 07/16/2021 [facility] Generalize Generaliz Problem Active 2021-07-16 Memoria d anxiety ed anxiety 00:12:04 l disorder disorder Ash n (disorder) (disorder) Active Problem 07/16/2021 [facility] Opioid Opioid Problem Active 2021-07-16 Mem oria dependence dependence 00:12:04 l in in [place] remission remission (disorder) (disorder) Active Problem 07/16/2021 [facility] Recurrent Recurrent Problem Active 2021-07-16 Memoria major major 00:12:04 l depressive depressive He rmann episodes, episodes, moderate moderate (disorder) (disorder) Active Problem 07/16/2021 MH [facility] MAJOR MAJOR Diagnosis Active 2020-09-08 Mem oria DEPRESSIVE DEPRESSIVE 08:51:00 l DISORDER, DISORDER, Herm dorothea RECURRENT, RECURRENT, UN UN Active [facility] PARAPLEGIA PARAPLEGI Diagnosis Active 2020-12-06 Memoria , A, 17:01:00 l UNSPECIFIE UNSPECIFIE He rmann D D Active [facility] NEUROGENIC Diagnosis Active 2020-12-06 Memoria BOWEL, NOT NEUROGENIC 17:01:00 l ELSEWHERE BOWEL, NOT Her navarro CLASSIFI ELSEWHERE CLASSIFI Active [facility] NEURALGIA NEURALGIA Diagnosis Active 2020-12-06 Memoria AND AND 17:01:00 l NEURITIS, NEURITIS, Herm dorothea UNSPECIFIE UNSPECIFIE D D Active [facility] History of Past Illness Condition Condition Condition Status Onset Resolution Last Treating Co mments Source Name Details Category Date Date Treatment Clinician Date Generalize Problem 2021-03-11 2021-03-11 Memoria d anxiety Generalize 03-09 23:48:25 23:48:25 l disorder d anxiety 19:15: Latoya nn disorder 00 03/09/2021 03/11/2021 [facility] Major Major Problem 2021-03-11 2021-03-11 M emoria depressive depressive 03-09 23:48:25 23:48:25 l disorder, disorder, 19:15: Herm dorothea recurrent, recurrent, 00 moderate moderate 03/09/2021 03/11/2021 [facility] Alcohol Alcohol Problem 2021-03-11 2021-03-11 Memoria dependence dependence 03-09 23:48:25 23:48:25 l , in , in 19:15: [place] remission remission 00 03/09/2021 03/11/2021 [facility] Post-traum Post-trau Problem 2020-2021-03-11 2021-03-11 Memoria atic matic 03-09 23:48:25 23:48:25 l stress stress 19:15: Magen disorder, disorder, 00 chronic chronic 03/09/2021 03/11/2021 MH [facility] Other Other Problem 2019-102020-08-26 2020-08-26 M mckenzie muscle muscle 10-24 23:49:51 23:49:51 l spasm spasm 18:14: Magen 08/24/2020 00 08/26/2020 MH [facility] Paraplegia Problem 2019-102020-08-26 2020-08-26 Memoria , Paraplegia 10-24 23:49:51 23:49:51 l unspecifie , 16:21: Ash n d unspecifie 00 d 08/24/2020 08/26/2020 MH [facility] Reflex Reflex Problem 2019-102020-08-26 2020-08-26 Memoria neuropathi neuropathi 10-24 23:49:51 23:49:51 l c bladder, c bladder, 16:21: He rmann not not 00 elsewhere elsewhere classified classified 08/24/2020 08/26/2020 MH [facility] Neurogenic Neurogeni Problem 2019-102020-08-26 2020-08-26 Memoria bowel, not c bowel, 10-24 23:49:51 23:49:51 l elsewhere not 16:21: Magen classified elsewhere 00 classified 08/24/2020 0 MH [facility] Allergies, Adverse Reactions, Alerts Allergy Allergy Status Severity Reaction(s) Onset Inactive Treating Comm ents Source Name Type Date Date Clinician gabapent DA Active U UNKNOWN [facility] 02-21 Clear 00:00: [facility] gabapent DA Active U [facility]KNOWN [facility] 02-20 Clear 00:00: [facility] No Known DA Active U UNKNOWN [facility] Intolera 4-15 Clear nces 00:00: [facility] gabapent DA Active U Drowsy [facility] in 03-29 00:00: 00 Gabapent Propensi Active Other - See 2017-10 Lethargy Univers in ty to comments 0-10 ity of adverse 00:00: [place] reaction 00 Medical s Branch GABAPENT DRUG Active Other-Cmnt 2017-10 Univ ers IN INGREDI 0-10 ity of 00:00: [place] [facility] No Known DA Active U [facility] Intolera 9-27 Clear nces 00:00: [facility] No Known DA Active U 2009- [facility] Intolera 9-27 Clear nces 00:00: [facility] No Known DA Active U 2003-0 [facility] Contrast 5-23 Clear Allergie 00:00: [facility] No Known DA Active U 2003-0 [facility] Drug 5-23 Clear Allergie 00:00: [facility] No Known DA Active U 2003-0 [facility] Food 5-23 Clear Allergie 00:00: [facility] No Known DA Active U 2003-0 [facility] Other 5-23 Clear Allergie 00:00: [facility] Family History Family Member Diagnosis Comments Start Date Stop Date Source Natural father No Known Problems Met [facility] Natural mother Cancer [facility] Natural mother Mental illness Method [facility] Social History Social Habit Start Date Stop Date Quantity Comments Source History of tobacco Cigarette Smoker University of use [facility] Exposure to 2022-05-24 2022-06-03 Unable to assess Univers ity of SARS-CoV-2 (event) 00:00:00 10:55:00 [facility] Alcohol intake 2022-06-03 2022-06-03 Current University of 00:00:00 00:00:00 non-drinker of [facility] [place] [facility] alcohol Branch (finding) Education 2022-01-08 2022-01-08 12 University of 00:00:00 00:00:00 [facility] Cigarettes smoked 2019-09-09 2019-09-09 Univers ity of current (pack per 00:00:00 00:00:00 ) - Reported Branch Cigarette 2019-09-09 2019-09-09 University of pack-years 00:00:00 00:00:00 [facility] Tobacco use and 2019-09-09 2019-09-09 Smokeless Universit y of exposure 00:00:00 00:00:00 tobacco non-user [facility] dical Branch Tobacco Comment 2019-09-09 2019-09-09 quit 1 year ago, Uni versity of 00:00:00 00:00:00 vapes [facility] y Sex [facility]igned At [birth year] [facility] 00:00:00 00:00:00 Smoking Status Start Date Stop Date Source Tobacco smoking [facility] consumption unknown Social History [facility] Magen Ex-smoker 2019-09-09 00:00:00 2019-09-09 University o f [place] 00:00:00 Medical Branch Medications Ordered Filled Start Stop Current Ordering Indication Dosage Frequency Signature Comments Components Source Medication Medication Date Date Medication? Clinician (SIG) Name Name tiZANidine Yes 4mg Take 4 mg Un amol 4 mg 8-14 by mouth ity of capsule 04:12: in the [place] 04 morning Medical and 4 mg Branch at noon and 4 mg in the evening. NaCl 0.9% No 1000mL at 999 Uni vers (NS) bolus 06-03 mL/hr, ity of infusion 20:15: 20:20 1,000 mL, Rachid as 1,000 mL 00 :00 IV Medical Infusion, Branch ONCE, 1 dose, On [facility] 06/03/22 at 1515, STAT cefTRIAXone 2021- No 1000mg 1,000 mg, Univers (ROCEPHIN) 06-03 IV ity of 1,000 mg in 19:15: 20:00 [place], [place] NaCl 0.9% 00 :00 ONCE, 1 Medical (NS) 50 mL dose, On Branc h MINI-BAG 06/03/22 at 1415, Administer over 30 Minutes, 50 mL
Reas on for Anti-Infec tive: Documented Infection< br>Documen jess Infection Site: Urine<br&g t;Duration of Therapy: Other (see Comments) baclofen 2021- No 35mg 35 mg, Univer s (LIORESAL) 06-03 Oral, ity of tablet 35 19:15: 18:23 ONCE, 1 [place] mg 00 :00 dose, On Medical Fri Branch 06/03/22 at 1415, Routine iopamidol 2021- No [id number] 130mL 130 mL, Univers (ISOVUE 06-03 Intravenou ity o f 370-500 mL) 16:36: 16:37 s, ONCE, 1 [place] injection 00 :00 dose, On Medica l 130 mL Fri Branch 06/03/22 at 1145, Routine traZODone 2022-0 Yes 150mg Take 150 Uni vers 100 mg 8-12 mg by ity of tablet 13:01: mouth at [place] [address] bedtime. Medical Branch tiZANidine 2021-0 Yes 4mg Take 4 mg Un amol 4 mg 8-12 by mouth ity of capsule 13:01: in the [place] [address] morning Medical and 4 mg Branch at noon and 4 mg in the evening. traZODone 2021-0 Yes 150mg Take 150 Uni vers 100 mg 8-12 mg by ity of tablet 13:01: mouth at [place] [address] bedtime. Medical Branch cefdinir 2021-0 Yes [id number] 300mg Take 1 Un amol 300 mg 8-12 capsule by ity of capsule 00:00: mouth [place] 00 every 12 Medical (twelve) Branch hours. cefdinir 2021-0 Yes [id number] 300mg Take 1 Un amol 300 mg 8-12 capsule by ity of capsule 00:00: mouth [place] 00 every 12 Medical (twelve) Branch hours. sennosides 2021-0 Yes 8.6mg Take 8.6 Un amol (SENNA) 8.6 6-29 mg by ity of mg tablet 12:45: mouth 2 [place] [address] (two) Medical times Branch daily. sennosides 2021-0 Yes 8.6mg Take 8.6 Un amol (SENNA) 8.6 6-29 mg by ity of mg tablet 12:45: mouth 2 [place] [address] (two) Medical times Branch daily. sennosides 2021-0 Yes 8.6mg Take 8.6 Un amol (SENNA) 8.6 6-29 mg by ity of mg tablet 12:45: mouth 2 [place] [address] (two) Medical times Branch daily. sennosides 2021-0 Yes 8.6mg Take 8.6 Un amol (SENNA) 8.6 6-29 mg by ity of mg tablet 12:45: mouth 2 [place] [address] (two) Medical times Branch daily. sennosides 2021-0 Yes 8.6mg Take 8.6 Un amol (SENNA) 8.6 6-29 mg by ity of mg tablet 12:45: mouth 2 [place] [address] (two) Medical times Branch daily. sennosides 2021-0 Yes 8.6mg Take 8.6 Un amol (SENNA) 8.6 6-29 mg by ity of mg tablet 12:45: mouth 2 [place] 46 (two) Medical times Branch daily. sennosides 2022-0 Yes 8.6mg Take 8.6 Un amol (SENNA) 8.6 6-29 mg by ity of mg tablet 12:45: mouth 2 [place] 46 (two) Medical times Branch daily. baclofen 10 2021-0 Yes 35mg Take 35 mg Univers mg tablet 6-29 by mouth 4 ity of 12:44: (four) [place] [address] times Medical daily. Branch furosemide 2021-0 Yes 40mg Take 40 mg U nivers 20 mg 6-29 by mouth ity of tablet 12:44: daily. [place] [address] Medical Branch omeprazole 2021-0 Yes 20mg Take 20 mg U nivers 20 mg 6-29 by mouth ity of capsule 12:44: at [place] [address] bedtime. Medical Branch pregabalin 2021-0 Yes 300mg Take 300 Un amol (LYRICA) 6-29 mg by ity of 300 mg 12:44: mouth 3 [place] capsule 23 (three) Medical times Branch daily. traZODone 2021-0 Yes 200mg Take 200 Uni vers 100 mg 6-29 mg by ity of tablet 12:44: mouth at [place] [address] bedtime. Medical Branch busPIRone 2021-0 Yes 30mg Take 30 mg Un amol 30 mg 6-29 by mouth 3 ity of tablet 12:44: (three) [place] 23 times Medical daily. Branch prazosin 5 2021-0 Yes 5mg Take 5 mg Un amol mg capsule 6-29 by mouth ity o f 12:44: at [place] [address] bedtime. Medical Branch buPROPion 2021-0 Yes 300mg Take 300 Uni vers XL 6-29 mg by ity of (WELLBUTRIN 12:44: mouth 3 Rachid as XL) 300 mg 23 (three) Medica l 24 hr times Branch tablet daily. baclofen 10 2021-0 Yes 35mg Take 35 mg Univers mg tablet 6-29 by mouth 4 ity of 12:44: (four) [place] 23 times Medical daily. Branch furosemide 2-0 Yes 40mg Take 40 mg U nivers 20 mg 6-29 by mouth ity of tablet 12:44: daily. [place] [address] Medical Branch omeprazole 2022-0 Yes 20mg Take 20 mg U nivers 20 mg 6-29 by mouth ity of capsule 12:44: at [place] [address] bedtime. Medical Branch pregabalin 2022-0 Yes 300mg Take 300 Un amol (LYRICA) 6-29 mg by ity of 300 mg 12:44: mouth 3 [place] capsule 23 (three) Medical times Branch daily. traZODone 2022-0 Yes 200mg Take 200 Uni vers 100 mg 6-29 mg by ity of tablet 12:44: mouth at [place] [address] bedtime. Medical Branch busPIRone 2022-0 Yes 30mg Take 30 mg Un amol 30 mg 6-29 by mouth 3 ity of tablet 12:44: (three) [place] [address] times Medical daily. Branch prazosin 5 2021-0 Yes 5mg Take 5 mg Un amol mg capsule 6-29 by mouth ity o f 12:44: at [place] [address] bedtime. Medical Branch buPROPion 2021-0 Yes 300mg Take 300 Uni vers XL 6-29 mg by ity of (WELLBUTRIN 12:44: mouth 3 Rachid as XL) 300 mg 23 (three) Medica l 24 hr times Branch tablet daily. baclofen 10 2021-0 Yes 35mg Take 35 mg Univers mg tablet 6-29 by mouth 4 ity of 12:44: (four) [place] [address] times Medical daily. Branch furosemide 2021-0 Yes 40mg Take 40 mg U nivers 20 mg 6-29 by mouth ity of tablet 12:44: daily. [place] [address] Medical Branch omeprazole 2-0 Yes 20mg Take 20 mg U nivers 20 mg 6-29 by mouth ity of capsule 12:44: at [place] [address] bedtime. Medical Branch pregabalin 2022-0 Yes 300mg Take 300 Un amol (LYRICA) 6-29 mg by ity of 300 mg 12:44: mouth 3 [place] capsule 23 (three) Medical times [place] daily. traZODone 2022-0 Yes 200mg Take 200 Uni vers 100 mg 6-29 mg by ity of tablet 12:44: mouth at [place] [address] bedtime. Medical Branch busPIRone 2022-0 Yes 30mg Take 30 mg Un amol 30 mg 6-29 by mouth 3 ity of tablet 12:44: (three) [place] 23 times Medical daily. Branch prazosin 5 2022-0 Yes 5mg Take 5 mg Un amol mg capsule 6-29 by mouth ity o f 12:44: at [place] [address] bedtime. Medical Branch buPROPion 2-0 Yes 300mg Take 300 Uni vers XL 6-29 mg by ity of (WELLBUTRIN 12:44: mouth 3 Rachid as XL) 300 mg 23 (three) Medica l 24 hr times Branch tablet daily. baclofen 10 2021-0 Yes 35mg Take 35 mg Univers mg tablet 6-29 by mouth 4 ity of 12:44: (four) [place] 23 times Medical daily. Branch furosemide 2021-0 Yes 40mg Take 40 mg U nivers 20 mg 6-29 by mouth ity of tablet 12:44: daily. [place] [address] Medical Branch omeprazole 2021-0 Yes 20mg Take 20 mg U nivers 20 mg 6-29 by mouth ity of capsule 12:44: at [place] [address] bedtime. Medical Branch pregabalin 2-0 Yes 300mg Take 300 Un amol (LYRICA) 6-29 mg by ity of 300 mg 12:44: mouth 3 [place] capsule 23 (three) Medical times Branch daily. traZODone 2-0 Yes 200mg Take 200 Uni vers 100 mg 6-29 mg by ity of tablet 12:44: mouth at [place] [address] bedtime. Medical Branch busPIRone 2021-0 Yes 30mg Take 30 mg Un amol 30 mg 6-29 by mouth 3 ity of tablet 12:44: (three) [place] 23 times Medical daily. Branch prazosin 5 2021-0 Yes 5mg Take 5 mg Un amol mg capsule 6-29 by mouth ity o f 12:44: at [place] [address] bedtime. Medical Branch buPROPion 2-0 Yes 300mg Take 300 Uni vers XL 6-29 mg by ity of (WELLBUTRIN 12:44: mouth 3 Rachid as XL) 300 mg 23 (three) Medica l 24 hr times Branch tablet daily. baclofen 10 2-0 Yes 35mg Take 35 mg Univers mg tablet 6-29 by mouth 4 ity of 12:44: (four) [place] 23 times Medical daily. Branch furosemide 2022-0 Yes 40mg Take 40 mg U nivers 20 mg 6-29 by mouth ity of tablet 12:44: daily. [place] [address] Medical Branch omeprazole 2-0 Yes 20mg Take 20 mg U nivers 20 mg 6-29 by mouth ity of capsule 12:44: at [place] [address] bedtime. Medical Branch pregabalin 2022-0 Yes 300mg Take 300 Un amol (LYRICA) 6-29 mg by ity of 300 mg 12:44: mouth 3 [place] capsule 23 (three) Medical times Branch daily. busPIRone 2022-0 Yes 30mg Take 30 mg Un amol 30 mg 6-29 by mouth 3 ity of tablet 12:44: (three) [place] [address] times Medical daily. Branch prazosin 5 2021-0 Yes 5mg Take 5 mg Un amol mg capsule 6-29 by mouth ity o f 12:44: at [place] [address] bedtime. Medical Branch buPROPion 2-0 Yes 300mg Take 300 Uni vers XL 6-29 mg by ity of (WELLBUTRIN 12:44: mouth 3 Rachid as XL) 300 mg 23 (three) Medica l 24 hr times Branch tablet daily. baclofen 10 2021-0 Yes 35mg Take 35 mg Univers mg tablet 6-29 by mouth 4 ity of 12:44: (four) [place] [address] times Medical daily. Branch furosemide 2-0 Yes 40mg Take 40 mg U nivers 20 mg 6-29 by mouth ity of tablet 12:44: daily. [place] [address] Medical Branch omeprazole 2-0 Yes 20mg Take 20 mg U nivers 20 mg 6-29 by mouth ity of capsule 12:44: at [place] [address] bedtime. Medical Branch pregabalin 2022-0 Yes 300mg Take 300 Un amol (LYRICA) 6-29 mg by ity of 300 mg 12:44: mouth 3 [place] capsule 23 (three) Medical times Branch daily. busPIRone 2022-0 Yes 30mg Take 30 mg Un amol 30 mg 6-29 by mouth 3 ity of tablet 12:44: (three) [place] [address] times Medical daily. Branch prazosin 5 2-0 Yes 5mg Take 5 mg Un amol mg capsule 6-29 by mouth ity o f 12:44: at [place] [address] bedtime. Medical Branch buPROPion 2022-0 Yes 300mg Take 300 Uni vers XL 6-29 mg by ity of (WELLBUTRIN 12:44: mouth 3 Rachid as XL) 300 mg 23 (three) Medica l 24 hr times Branch tablet daily. baclofen 10 2021-0 Yes 35mg Take 35 mg [facility] mg tablet 6-29 by mouth 4 ity of 12:44: (four) [place] [address] times Medical daily. Branch furosemide 2021-0 Yes 40mg Take 40 mg U nivers 20 mg 6-29 by mouth ity of tablet 12:44: daily. [place] [address] Medical Branch omeprazole 2021-0 Yes 20mg Take 20 mg U nivers 20 mg 6-29 by mouth ity of capsule 12:44: at [place] [address] bedtime. Medical Branch pregabalin 0 Yes 300mg Take 300 Un amol (LYRICA) 6-29 mg by ity of 300 mg 12:44: mouth 3 [place] capsule 23 (three) Medical times [place] daily. traZODone 2021-0 Yes 200mg Take 200 Uni vers 100 mg 6-29 mg by ity of tablet 12:44: mouth at [place] [address] bedtime. Medical Branch busPIRone 0 Yes 30mg Take 30 mg Un amol 30 mg 6-29 by mouth 3 ity of tablet 12:44: (three) [place] [address] times Medical daily. Branch prazosin 5 0 Yes 5mg Take 5 mg Un amol mg capsule 6-29 by mouth ity o f 12:44: at [place] [address] bedtime. Medical Branch buPROPion 0 Yes 300mg Take 300 Uni vers XL 6-29 mg by ity of (WELLBUTRIN 12:44: mouth 3 [place]ach[place] as XL) 300 mg 23 (three) Medica l 24 hr times Branch tablet daily. LATUDA 40 0 Yes [facility] mg tablet 6- ity of 00:00: 00 Medical Branch LATUDA 40 0 Yes [facility] mg tablet 6-22 ity of 00:00: [place] [facility] LATUDA 40 0 Yes Univers mg tablet 6-22 ity of 00:00: Medical Branch LATUDA 40 0 Yes Univers mg tablet 6- ity of 00:00: Medical Branch LATUDA 40 0 Yes Univers mg tablet 6-22 ity of 00:00: Medical Branch LATUDA 40 2021-0 Yes Univers mg tablet 6- ity of 00:00: Medical Branch LATUDA 40 2022-0 Yes [facility] mg tablet 6-22 ity of 00:00: [place] 00 Medical Branch midodrine 2-0 Yes Univers 10 mg 6-13 ity of tablet 00:00: Medical Branch midodrine 2-0 Yes [facility] 10 mg 6-13 ity of tablet 00:00: Medical Branch midodrine 2-0 Yes Univers 10 mg 6-13 ity of tablet 00:00: Medical Branch midodrine 2-0 Yes [facility] 10 mg 6-13 ity of tablet 00:00: Medical Branch midodrine 2-0 Yes [facility] 10 mg 6-13 ity of tablet 00:00: Medical Branch midodrine 2-0 Yes [facility] 10 mg 6-13 ity of tablet 00:00: Medical Branch midodrine 2021-0 Yes [facility] 10 mg 6-13 ity of tablet 00:00: [place] [facility] acyclovir 2-0 Yes [facility] 400 mg 4-07 ity of tablet 00:00: [place] [facility] acyclovir 2-0 Yes [facility] 400 mg 4-07 ity of tablet 00:00: Medical Branch acyclovir 2-0 Yes [facility] 400 mg 4-07 ity of tablet 00:00: [place] [facility] acyclovir 2-0 Yes [facility] 400 mg 4-07 ity of tablet 00:00: [place] [facility] acyclovir 2-0 Yes [facility] 400 mg 4-07 ity of tablet 00:00: [place] [facility] acyclovir 2022-0 Yes [facility] 400 mg 4-07 ity of tablet 00:00: [place] [facility] acyclovir 2022-0 Yes [facility] 400 mg 4-07 ity of tablet 00:00: [place] 00 Medical Branch collagenase 2022-0 Yes [id number] Apply to [facility] 250 3-26 affected ity of unit/gram 00:00: area(s) [place] ointment 00 daily. Medical Branch collagenase 2022-0 Yes [id number] Apply to [facility] 250 3-26 affected ity of unit/gram 00:00: area(s) [place] ointment 00 daily. Medical Branch collagenase 2022-0 Yes [id number] Apply to [facility] 250 3-26 affected ity of unit/gram 00:00: area(s) [place] ointment 00 daily. Medical Branch collagenase 2022-0 Yes [id number] Apply to [facility] 250 3-26 affected ity of unit/gram 00:00: area(s) [place] ointment 00 daily. Medical Branch collagenase 2-0 Yes [id number] Apply to [facility] 250 3-26 affected ity of unit/gram 00:00: area(s) [place] ointment 00 daily. Medical Branch collagenase 2022-0 Yes [id number] Apply to [facility] 250 3-26 affected ity of unit/gram 00:00: area(s) [place] ointment 00 daily. Medical Branch collagenase 2-0 Yes [id number] Apply to [facility] 250 3-26 affected ity of unit/gram 00:00: area(s) [place] ointment 00 daily. Medical Branch docusate 2021-0 Yes 100mg Take 100 Univ ers 100 mg 3-25 mg by ity of capsule 14:13: mouth 2 [place] 31 (two) Medical times Branch daily. SERTraline 2022-0 Yes 200mg Take 200 Un amol 100 mg 3-25 mg by ity of tablet 14:13: mouth [place] 31 daily. Medical Branch docusate 2021-0 Yes 100mg Take 100 Univ ers 100 mg 3-25 mg by ity of capsule 14:13: mouth 2 [place] 31 (two) Medical times Branch daily. SERTraline 2022-0 Yes 200mg Take 200 Un amol 100 mg 3-25 mg by ity of tablet 14:13: mouth [place] 31 daily. Medical Branch docusate 2021-0 Yes 100mg Take 100 Univ ers 100 mg 3-25 mg by ity of capsule 14:13: mouth 2 [place] 31 (two) Medical times Branch daily. SERTraline 2022-0 Yes 200mg Take 200 Un amol 100 mg 3-25 mg by ity of tablet 14:13: mouth [place] 31 daily. Medical Branch docusate 2022-0 Yes 100mg Take 100 Univ ers 100 mg 3-25 mg by ity of capsule 14:13: mouth 2 [place] 31 (two) Medical times Branch daily. SERTraline 2022-0 Yes 200mg Take 200 Un maol 100 mg 3-25 mg by ity of tablet 14:13: mouth [place] 31 daily. Medical Branch docusate 2022-0 Yes 100mg Take 100 Univ ers 100 mg 3-25 mg by ity of capsule 14:13: mouth 2 31 (two) Medical times Branch daily. SERTraline 2022-0 Yes 200mg Take 200 Un amol 100 mg 3-25 mg by ity of tablet 14:13: mouth [place] 31 daily. Medical Branch docusate 2-0 Yes 100mg Take 100 Univ ers 100 mg 3-25 mg by ity of capsule 14:13: mouth 2 31 (two) Medical times Branch daily. SERTraline 2022-0 Yes 200mg Take 200 Un amol 100 mg 3-25 mg by ity of tablet 14:13: mouth [place] 31 daily. Medical Branch docusate 2021-0 Yes 100mg Take 100 Univ ers 100 mg 3-25 mg by ity of capsule 14:13: mouth 2 31 (two) Medical times Branch daily. SERTraline 2-0 Yes 200mg Take 200 Un amol 100 mg 3-25 mg by ity of tablet 14:13: mouth [place] 31 daily. Medical Branch mupirocin 2 2021-0 Yes [id number] Apply to Univers % ointment 3-25 area(s) 3 ity of 00:00: (three) [place] 00 times Medical daily. Branch acetaminoph 2021-0 Yes [id number] 650mg Take 2 Univers en 325 mg 3-25 tablets by ity of tablet 00:00: mouth [place] 00 every 6 Medical (six) Branch hours as needed for Pain (scale 1-3) or Temp > 38.5 C. mupirocin 2 2021-0 Yes [id number] Apply to Univers % ointment 3-25 area(s) 3 ity of 00:00: (three) [place] 00 times Medical daily. Branch acetaminoph 2021-0 Yes [id number] 650mg Take 2 Univers en 325 mg 3-25 tablets by ity of tablet 00:00: mouth [place] 00 every 6 Medical (six) Branch hours as needed for Pain (scale 1-3) or Temp > 38.5 C. mupirocin 2 2021-0 Yes [id number] Apply to Univers % ointment 3-25 area(s) 3 ity of 00:00: (three) [place] 00 times Medical daily. Branch acetaminoph 2021-0 Yes [id number] 650mg Take 2 Univers en 325 mg 3-25 tablets by ity of tablet 00:00: mouth [place] 00 every 6 Medical (six) Branch hours as needed for Pain (scale 1-3) or Temp > 38.5 C. mupirocin 2 2021-0 Yes [id number] Apply to Univers % ointment 3-25 area(s) 3 ity of 00:00: (three) [place] 00 times Medical daily. Branch acetaminoph 2021-0 Yes [id number] 650mg Take 2 Univers en 325 mg 3-25 tablets by ity of tablet 00:00: mouth [place] 00 every 6 Medical (six) Branch hours as needed for Pain (scale 1-3) or Temp > 38.5 C. mupirocin 2 2021-0 Yes [id number] Apply to Univers % ointment 3-25 area(s) 3 ity of 00:00: (three) [place] 00 times Medical daily. Branch acetaminoph 2021-0 Yes [id number] 650mg Take 2 Univers en 325 mg 3-25 tablets by ity of tablet 00:00: mouth [place] every 6 Medical (six) Branch hours as needed for Pain (scale 1-3) or Temp > 38.5 C. mupirocin 2 2021-0 Yes [id number] Apply to Univers % ointment 3-25 area(s) 3 ity of 00:00: (three) [place] 00 times Medical daily. Branch acetaminoph 2021-0 Yes [id number] 650mg Take 2 Univers en 325 mg 3-25 tablets by ity of tablet 00:00: mouth [place] 00 every 6 Medical (six) Branch hours as needed for Pain (scale 1-3) or Temp > 38.5 C. mupirocin 2 2021-0 Yes [id number] Apply to Univers % ointment 3-25 area(s) 3 ity of 00:00: (three) [place] 00 times Medical daily. Branch acetaminoph 2021-0 Yes [id number] 650mg Take 2 Univers en 325 mg 3-25 tablets by ity of tablet 00:00: mouth [place] 00 every 6 Medical (six) Branch hours as needed for Pain (scale 1-3) or Temp > 38.5 C. ketorolac 2021-0 Yes [id number] 10mg Take 1 U nivers 10 mg 3-19 tablet by ity of tablet 00:00: mouth [place] 00 every 6 Medical (six) Branch hours as needed for Pain (scale 7-10). ketorolac 2022-0 Yes [id number] 10mg Take 1 U nivers 10 mg 3-19 tablet by ity of tablet 00:00: mouth [place] 00 every 6 Medical (six) Branch hours as needed for Pain (scale 7-10). ketorolac 2022-0 Yes [id number] 10mg Take 1 U nivers 10 mg 3-19 tablet by ity of tablet 00:00: mouth [place] 00 every 6 Medical (six) Branch hours as needed for Pain (scale 7-10). ketorolac 2022-0 Yes [id number] 10mg Take 1 U nivers 10 mg 3-19 tablet by ity of tablet 00:00: mouth [place] 00 every 6 Medical (six) Branch hours as needed for Pain (scale 7-10). ketorolac 2022-0 Yes [id number] 10mg Take 1 U nivers 10 mg 3-19 tablet by ity of tablet 00:00: mouth [place] 00 every 6 Medical (six) Branch hours as needed for Pain (scale 7-10). ketorolac 2022-0 Yes [id number] 10mg Take 1 U nivers 10 mg 3-19 tablet by ity of tablet 00:00: mouth [place] 00 every 6 Medical (six) Branch hours as needed for Pain (scale 7-10). ketorolac 2022-0 Yes [id number] 10mg Take 1 U nivers 10 mg 3-19 tablet by ity of tablet 00:00: mouth [place] 00 every 6 Medical (six) Branch hours as needed for Pain (scale 7-10). lithium 2020-10 Yes 300mg 300 mg at [facility] ers carbonate 0-18 bedtime. ity of CR 300 mg 00:00: [place] SR tablet 00 Medical Branch lithium 2020-10 Yes 300mg 300 mg at [facility] ers carbonate 0-18 bedtime. ity of CR 300 mg 00:00: [place] SR tablet 00 Medical Branch lithium 2020-10 Yes 300mg 300 mg at [facility] ers carbonate 0-18 bedtime. ity of CR 300 mg 00:00: [place] SR tablet 00 Medical Branch lithium 2020-10 Yes 300mg 300 mg at [facility] ers carbonate 0-18 bedtime. ity of CR 300 mg 00:00: [place] SR tablet 00 [facility] lithium 2020-10 Yes 300mg 300 mg at [facility] ers carbonate 0-18 bedtime. ity of CR 300 mg 00:00: [place] SR tablet 00 [facility] lithium 2020-10 Yes 300mg 300 mg at [facility] ers carbonate 0-18 bedtime. ity of CR 300 mg 00:00: [place] SR tablet 00 [facility] lithium 2020-10 Yes 300mg 300 mg at [facility] ers carbonate 0-18 bedtime. ity of CR 300 mg 00:00: [place] SR tablet 00 [facility] Lurasidone 2020-0 Yes 40 mg = 1 Me moria Hydrochlori 9-21 tab, PO, l de 40 MG 20:27: Daily, [place] Oral Tablet 00 with food, [Latuda] # 30 tab, 5 Refill(s), Pharmacy: [facility] [id number], 152.4, cm, 03/08/21 13:22:00 CDT, Height, 75, kg, 03/08/21 13:22:00 CDT, Weight Lurasidone 0 Yes 20 mg = 1 Me moria Hydrochlori 8-24 tab, PO, l de 20 MG 19:31: Daily, [place] Oral Tablet 00 with food, [Latuda] # 30 tab, 5 Refill(s), Pharmacy: [facility] [id number], 152.4, cm, 03/08/21 13:22:00 CDT, Height, 75, kg, 03/08/21 13:22:00 CDT, Weight Lurasidone 0 Yes 20 mg = 1 Me moria Hydrochlori 8-24 tab, PO, l de 20 MG 19:31: Daily, [place] Oral Tablet 00 with food, [Latuda] # 30 tab, 5 Refill(s), Pharmacy: [facility] [id number], 152.4, cm, 03/08/21 13:22:00 CDT, Height, 75, kg, 03/08/21 13:22:00 CDT, Weight Sertraline 2020-0 Yes 150 mg = Mem oria 100 MG Oral 8-24 1.5 tab, l Tablet 19:26: PO, Daily, [place] nn [Zoloft] 00 # 45 tab, 1 Refill(s), Pharmacy: [facility] [id number], 152.4, cm, 03/08/21 13:22:00 CDT, Height, 75, kg, 03/08/21 13:22:00 CDT, Weight Sertraline Yes 150 mg = Mem oria 100 MG Oral 8-24 1.5 tab, l Tablet 19:26: PO, Daily, [place] nn [Zoloft] 00 # 45 tab, 1 Refill(s), Pharmacy: [facility] [id number], 152.4, cm, 03/08/21 13:22:00 CDT, Height, 75, kg, 03/08/21 13:22:00 CDT, Weight Lactobac Yes [id number] Take 1 Univ ers 40-Bifido 7-28 TAB-CAP/M2 ity of 3-S.thermop 00:00: by mouth [place] 100 billion 00 daily. Medica l cell Cap Branch Lactobac 2020- Yes [id number] Take 1 Univ ers 40-Bifido 7-28 TAB-CAP/M2 ity of 3-S.thermop 00:00: by mouth [place] 100 billion 00 daily. Medica l cell Cap Branch Lactobac 2020-0 Yes [id number] Take 1 Univ ers 40-Bifido 7-28 TAB-CAP/M2 ity of 3-S.thermop 00:00: by mouth [place] 100 billion 00 daily. Medica l cell Cap Branch Lactobac 2020-0 Yes [id number] Take 1 Univ ers 40-Bifido 7-28 TAB-CAP/M2 ity of 3-S.thermop 00:00: by mouth [place] 100 billion 00 daily. Medica l cell Cap Branch Lactobac 2020-0 Yes [id number] Take 1 Univ ers 40-Bifido 7-28 TAB-CAP/M2 ity of 3-S.thermop 00:00: by mouth [place] 100 billion 00 daily. Medica l cell Cap Branch Lactobac 2020-0 Yes [id number] Take 1 Univ ers 40-Bifido 7-28 TAB-CAP/M2 ity of 3-S.thermop 00:00: by mouth [place] 100 billion 00 daily. Medica l cell Cap Branch Lactobac 2020-0 Yes [id number] Take 1 Univ ers 40-Bifido 7-28 TAB-CAP/M2 ity of 3-S.thermop 00:00: by mouth [place] 100 billion 00 daily. Medica l cell Cap Branch phenazopyri 2020-0 Yes [id number] 200mg Take 1 Univers dine 200 mg 6-17 tablet by ity of tablet 00:00: mouth 3 [place] 00 (three) Medical times Branch daily. metroNIDAZO 2021-0 Yes [id number] Apply to Univers LE 6-17 area(s) ity of (METROGEL) 00:00: daily. [place] 1 % gel 00 Apply thin Medica l film to Branch skin. phenazopyri 2020-0 Yes [id number] 200mg Take 1 Univers dine 200 mg 6-17 tablet by ity of tablet 00:00: mouth 3 (three) Medical times Branch daily. metroNIDAZO 2021-0 Yes [id number] Apply to Univers LE 6-17 area(s) ity of (METROGEL) 00:00: daily. [place] 1 % gel 00 Apply thin Medica l film to Branch skin. phenazopyri 2020-0 Yes [id number] 200mg Take 1 Univers dine 200 mg 6-17 tablet by ity of tablet 00:00: mouth 3 (three) Medical times Branch daily. metroNIDAZO 2021-0 Yes [id number] Apply to Univers LE 6-17 area(s) ity of (METROGEL) 00:00: daily. [place] 1 % gel 00 Apply thin Medica l film to Branch skin. phenazopyri 2021-0 Yes [id number] 200mg Take 1 Univers dine 200 mg 6-17 tablet by ity of tablet 00:00: mouth 3 [place] (three) Medical times Branch daily. metroNIDAZO 2021-0 Yes [id number] Apply to Univers LE 6-17 area(s) ity of (METROGEL) 00:00: daily. [place] 1 % gel 00 Apply thin Medica l film to Branch skin. phenazopyri 2021-0 Yes [id number] 200mg Take 1 Univers dine 200 mg 6-17 tablet by ity of tablet 00:00: mouth 3 00 (three) Medical times Branch daily. metroNIDAZO 2021-0 Yes [id number] Apply to Univers LE 6-17 area(s) ity of (METROGEL) 00:00: daily. [place] 1 % gel 00 Apply thin Medica l film to Branch skin. phenazopyri 2021-0 Yes [id number] 200mg Take 1 Univers dine 200 mg 6-17 tablet by ity of tablet 00:00: mouth 3 [place] 00 (three) Medical times Branch daily. metroNIDAZO 2021-0 Yes [id number] Apply to Univers LE 6-17 area(s) ity of (METROGEL) 00:00: daily. [place] 1 % gel 00 Apply thin Medica l film to Branch skin. phenazopyri 2021-0 Yes [id number] 200mg Take 1 Univers dine 200 mg 6-17 tablet by ity of tablet 00:00: mouth 3 [place] [address] (three) Medical times Branch daily. metroNIDAZO 2021-0 Yes [id number] Apply to Univers LE 6-17 area(s) ity of (METROGEL) 00:00: daily. [place] 1 % gel 00 Apply thin Medica l film to Branch skin. Trazodone 2020-0 Yes 200 mg = 2 Me moria Hydrochlori 6-15 tab, PO, l de 100 MG 20:14: Bedtime, # [place] Oral Tablet 00 60 tab, 5 Refill(s), Pharmacy: [facility] 256, 152.4, cm, 03/08/21 13:22:00 CDT, Height, 75, kg, 03/08/21 13:22:00 CDT, Weight Trazodone Yes 200 mg = 2 Me moria Hydrochlori 6-15 tab, PO, l de 100 MG 20:14: Bedtime, # [place] Oral Tablet 00 60 tab, 5 Refill(s), Pharmacy: [facility] 256, 152.4, cm, 03/08/21 13:22:00 CDT, Height, 75, kg, 03/08/21 13:22:00 CDT, Weight Trazodone 2020-0 Yes 200 mg = 2 Me moria Hydrochlori 6-15 tab, PO, l de 100 MG 20:14: Bedtime, # [place] Oral Tablet 00 60 tab, 5 Refill(s), Pharmacy: [facility] 256, 152.4, cm, 03/08/21 13:22:00 CDT, Height, 75, kg, 03/08/21 13:22:00 CDT, Weight 24 HR Yes 300 mg = 1 Memori a Bupropion 6-15 tab, PO, l Hydrochlori 20:13: Daily, # [place]ain rmann de 300 MG 00 30 tab, 5 Extended Refill(s), Release Pharmacy: [facility] [Wellbutrin [facility] ] 256, 152.4, cm, 03/08/21 13:22:00 CDT, Height, 75, kg, 03/08/21 13:22:00 CDT, Weight 24 HR Yes 300 mg = 1 Memori a Bupropion 6-15 tab, PO, l Hydrochlori 20:13: Daily, # Hussain rmann de 300 MG 00 30 tab, 5 Extended Refill(s), Release Pharmacy: [facility] [Wellbutrin [facility] ] 256, 152.4, cm, 03/08/21 13:22:00 CDT, Height, 75, kg, 03/08/21 13:22:00 CDT, Weight 24 HR Yes 300 mg = 1 Memori a Bupropion 6-15 tab, PO, l Hydrochlori 20:13: Daily, # Hussain rmann de 300 MG 00 30 tab, 5 Extended Refill(s), Release Pharmacy: [facility] [Wellbutrin [facility] ] 256, 152.4, cm, 03/08/21 13:22:00 CDT, Height, 75, kg, 03/08/21 13:22:00 CDT, Weight 24 HR 0 Yes 150 mg = 1 Memori a Bupropion 5-18 tab, PO, l Hydrochlori 18:46: Q24H, # 30 [place] de 150 MG 00 tab, 5 Extended Refill(s), Release Pharmacy: [facility] [Wellbutrin [facility] ] 256, 152.4, cm, 03/08/21 13:22:00 CDT, Height, 75, kg, 03/08/21 13:22:00 CDT, Weight 24 HR 0 Yes 150 mg = 1 Memori a Bupropion 5-18 tab, PO, l Hydrochlori 18:46: Q24H, # 30 [place] de 150 MG 00 tab, 5 Extended Refill(s), Release Pharmacy: [facility] [Wellbutrin [facility] ] 256, 152.4, cm, 03/08/21 13:22:00 CDT, Height, 75, kg, 03/08/21 13:22:00 CDT, Weight 24 HR Yes 150 mg = 1 Memori a Bupropion 5-18 tab, PO, l Hydrochlori 18:46: Q24H, # 30 [place] de 150 MG 00 tab, 5 Extended Refill(s), Release Pharmacy: [facility] [Wellbutrin [facility] ] 256, 152.4, cm, 03/08/21 13:22:00 CDT, Height, 75, kg, 03/08/21 13:22:00 CDT, Weight mupirocin 2 Yes Pressure Apply to Univers % ointment - injury of area(s) 3 ity of 00:00: [...] [facility] 256, 152.4, cm, 11/02/20 13:33:00 [employer], Height, 75.909, kg, 11/02/20 13:33:00 [employer], Weight Hydroxyzine Yes 25 mg = 1 M emoria Hydrochlori 4-08 tab, PO, l de 25 MG 20:31: PRN, PRN [place] nn Oral Tablet 00 anxiety, take HALF to ONE tablet every 8 hours as needed for severe anxiety, X 30 day, # 10 tab, 2 Refill(s), Pharmacy: [facility] 256, 152.4, cm, 11/02/20 13:33:00 [employer], Height, 75.909, kg, 11/02/20 13:33:00 [employer], Weight Hydroxyzine Yes 25 mg = 1 M emoria Hydrochlori 4-08 tab, PO, l de 25 MG 20:31: PRN, PRN [place] nn Oral Tablet 00 anxiety, take HALF to ONE tablet every 8 hours as needed for severe anxiety, X 30 day, # 10 tab, 2 Refill(s), Pharmacy: [facility], 152.4, cm, 11/02/20 13:33:00 [employer], Height, 75.909, kg, 11/02/20 13:33:00 [employer], Weight prazosin 5 2020-0 Yes 5 mg = 1 Mem oria mg oral 4-08 cap, PO, l capsule 20:30: Bedtime, Ash n 00 for PTSD, # 30 cap, 5 Refill(s), Pharmacy: [facility] [place], 152.4, cm, 11/02/20 13:33:00 [employer], Height, 75.909, kg, 11/02/20 13:33:00 [employer], Weight prazosin 5 2020-0 Yes 5 mg = 1 Mem oria mg oral 4-08 cap, PO, l capsule 20:30: Bedtime, [place] 00 for PTSD, # 30 cap, 5 Refill(s), Pharmacy: [facility] [place], 152.4, cm, 11/02/20 13:33:00 [employer], Height, 75.909, kg, 11/02/20 13:33:00 [employer], Weight prazosin 5 2020-0 Yes 5 mg = 1 Mem oria mg oral 4-08 cap, PO, l capsule 20:30: Bedtime, [place] 00 for PTSD, # 30 cap, 5 Refill(s), Pharmacy: [facility] 256, 152.4, cm, 11/02/20 13:33:00 [employer], Height, 75.909, kg, 11/02/20 13:33:00 [employer], Weight Sertraline 0 Yes 200 mg = 2 M emoria 100 MG Oral 4-08 tab, PO, l Tablet 20:26: Daily, # [place] [Zoloft] 00 60 tab, 5 Refill(s), Pharmacy: [facility] 256, 152.4, cm, 11/02/20 13:33:00 [employer], Height, 75.909, kg, 11/02/20 13:33:00 [employer], Weight Trazodone 2020-0 Yes 150 mg = [place] rajeev Hydrochlori 4-08 1.5 tab, l de 100 MG 20:26: PO, [place] Oral Tablet 00 Bedtime, # 45 tab, 5 Refill(s), Pharmacy: [facility] 256, 152.4, cm, 11/02/20 13:33:00 [employer], Height, 75.909, kg, 11/02/20 13:33:00 [employer], Weight Sertraline Yes 200 mg = 2 M emoria 100 MG Oral 4-08 tab, PO, l Tablet 20:26: Daily, # [place] [Zoloft] 00 60 tab, 5 Refill(s), Pharmacy: [facility] 256, 152.4, cm, 11/02/20 13:33:00 [employer], Height, 75.909, kg, 11/02/20 13:33:00 [employer], Weight Trazodone 0 Yes 150 mg = [place] rajeev Hydrochlori 4-08 1.5 tab, l de 100 MG 20:26: PO, [place] Oral Tablet 00 Bedtime, # 45 tab, 5 Refill(s), Pharmacy: [facility] 256, 152.4, cm, 11/02/20 13:33:00 [employer], Height, 75.909, kg, 11/02/20 13:33:00 [employer], Weight Sertraline Yes 200 mg = 2 M emoria 100 MG Oral 4-08 tab, PO, l Tablet 20:26: Daily, # [place] [Zoloft] 00 60 tab, 5 Refill(s), Pharmacy: [facility] 256, 152.4, cm, 11/02/20 13:33:00 [employer], Height, 75.909, kg, 11/02/20 13:33:00 [employer], Weight Trazodone 2020-0 Yes 150 mg = [place] rajeev Hydrochlori 4-08 1.5 tab, l de 100 MG 20:26: PO, [place] Oral Tablet 00 Bedtime, # 45 tab, 5 Refill(s), Pharmacy: [facility] 256, 152.4, cm, 11/02/20 13:33:00 [employer], Height, 75.909, kg, 11/02/20 13:33:00 [employer], Weight sodium 2020-0 Yes [id number] 16[oz_a Apply 473 [facility] hypochlorit 4-08 v] mL to ity of e 0.5% 00:00: area(s) [place] solution 00 daily. Medical Branch sodium Yes [id number] 16[oz_a Apply 473 [facility] hypochlorit 4-08 v] mL to ity of e 0.5% 00:00: area(s) [place] solution 00 daily. Medical Branch sodium Yes [id number] 16[oz_a Apply 473 [facility] hypochlorit 4-08 v] mL to ity of e 0.5% 00:00: area(s) [place] solution 00 daily. Medical Branch sodium Yes [id number] 16[oz_a Apply 473 [facility] hypochlorit 4-08 v] mL to ity of e 0.5% 00:00: area(s) [place] solution 00 daily. Medical Branch sodium Yes [id number] 16[oz_a Apply 473 [facility] hypochlorit 4-08 v] mL to ity of e 0.5% 00:00: area(s) [place] solution 00 daily. Medical Branch sodium Yes [id number] 16[oz_a Apply 473 [facility] hypochlorit 4-08 v] mL to ity of e 0.5% 00:00: area(s) [place] solution 00 daily. Medical Branch sodium Yes [id number] 16[oz_a Apply 473 [facility] hypochlorit 4-08 v] mL to ity of e 0.5% 00:00: area(s) [place] solution 00 daily. Medical Branch sodium Yes Complicated 16[oz_a Apply 473 [facility] hypochlorit 4-08 UTI v] mL to ity of e 0.5% 00:00: (urinary area(s) [place] solution 00 tract daily. Medical infection) Branch sennosides Yes 8.6mg Take 8.6 Un amol (SENNA) 8.6 4-07 mg by ity of mg tablet 22:31: mouth 2 [place] 13 (two) Medical times Branch daily. baclofen 10 Yes 35mg Take 35 mg [facility] mg tablet 4-07 by mouth 4 ity of 22:31: (four) [place] 13 times Medical daily. Branch furosemide 2021-0 Yes 40mg Take 40 mg U nivers 20 mg 4-07 by mouth ity of tablet 22:31: daily. [place] [address] Medical Branch omeprazole 0 Yes 20mg Take 20 mg U nivers 20 mg 4-07 by mouth ity of capsule 22:31: at [place] [address] bedtime. Medical Branch docusate 0 Yes 100mg Take 100 [facility] ers 100 mg 4-07 mg by ity of capsule 22:31: mouth 2 [place] 13 (two) Medical times Branch daily. pregabalin 0 Yes 300mg Take 300 Un amol (LYRICA) 4-07 mg by ity of 300 mg 22:31: mouth 3 [facility] 13 (three) Medical times Branch daily. SERTraline Yes 150mg Take 150 Un amol 100 mg 4-07 mg by ity of tablet 22:31: mouth [place] [address] daily. Medical Branch traZODone Yes 100mg Take 100 Uni vers 100 mg 4-07 mg by ity of tablet 22:31: mouth at [place] [address] bedtime. Medical Branch prazosin 2 Yes 2mg Take 2 mg Un amol mg capsule 4-07 by mouth ity o f 22:31: at [place] [address] bedtime. Medical Branch Trazodone Yes 100 mg = 1 Me moria Hydrochlori 3-02 tab, PO, l de 100 MG 21:59: Bedtime, # [place] r[place] Oral Tablet 00 30 tab, 5 Refill(s), Pharmacy: [facility] 256, 152.4, cm, 11/02/20 13:33:00 [employer], Height, 75.909, kg, 11/02/20 13:33:00 [employer], Weight Trazodone Yes 100 mg = 1 Me moria Hydrochlori 3-02 tab, PO, l de 100 MG 21:59: Bedtime, # [place] Oral Tablet 00 30 tab, 5 Refill(s), Pharmacy: [facility] 256, 152.4, cm, 11/02/20 13:33:00 [employer], Height, 75.909, kg, 11/02/20 13:33:00 [employer], Weight Trazodone Yes 100 mg = 1 Me moria Hydrochlori 3-02 tab, PO, l de 100 MG 21:59: Bedtime, # [place] Oral Tablet 00 30 tab, 5 Refill(s), Pharmacy: [facility] Angela, 152.4, cm, 11/02/20 13:33:00 [employer], Height, 75.909, kg, 11/02/20 13:33:00 [employer], Weight prazosin 2 2020-0 Yes 4 mg = 2 Mem oria mg oral 3-02 cap, PO, l capsule 21:58: Bedtime, Ash n 00 for PTSD nightmares . 4mg qhs., # 60 cap, 5 Refill(s), Pharmacy: [facility] 256, 152.4, cm, 11/02/20 13:33:00 [employer], Height, 75.909, kg, 11/02/20 13:33:00 [employer], Weight prazosin 2 2020-0 Yes 4 mg = 2 Mem oria mg oral 3-02 cap, PO, l capsule 21:58: Bedtime, Ash n 00 for PTSD nightmares . 4mg qhs., # 60 cap, 5 Refill(s), Pharmacy: [facility] Angela, 152.4, cm, 11/02/20 13:33:00 [employer], Height, 75.909, kg, 11/02/20 13:33:00 [employer], Weight prazosin 2 2020-0 Yes 4 mg = 2 Mem oria mg oral 3-02 cap, PO, l capsule 21:58: Bedtime, Ash n 00 for PTSD nightmares . 4mg qhs., # 60 cap, 5 Refill(s), Pharmacy: [facility] Angela, 152.4, cm, 11/02/20 13:33:00 [employer], Height, 75.909, kg, 11/02/20 13:33:00 [employer], Weight prazosin 2 2020-0 Yes 2 mg = 1 Mem oria mg oral 1-26 cap, PO, l capsule 19:31: Bedtime, Ash n 00 for PTSD nightmares , # 30 cap, 5 Refill(s), Pharmacy: [facility] 256, 152.4, cm, 11/02/20 13:33:00 [employer], Height, 75.909, kg, 11/02/20 13:33:00 [employer], Weight Sertraline Yes 150 mg = Mem oria 100 MG Oral 1-26 1.5 tab, l Tablet 19:31: PO, Daily, Latoya nn [Zoloft] 00 # 45 tab, 5 Refill(s), Pharmacy: [facility] 256, 152.4, cm, 11/02/20 13:33:00 [employer], Height, 75.909, kg, 11/02/20 13:33:00 [employer], Weight Trazodone Yes 50 mg = 1 Mem oria Hydrochlori 1-26 tab, PO, l de 50 MG 19:31: PRN, PRN Latoya nn Oral Tablet 00 Insomnia, take HALF to ONE tab at bedtime, # 30 tab, 5 Refill(s), Pharmacy: [facility] 256, 152.4, cm, 11/02/20 13:33:00 [employer], Height, 75.909, kg, 11/02/20 13:33:00 [employer], Weight prazosin 2 Yes 2 mg = 1 Mem oria mg oral -26 cap, PO, l capsule 19:31: Bedtime, Ash n 00 for PTSD nightmares , # 30 cap, 5 Refill(s), Pharmacy: [facility] 256, 152.4, cm, 11/02/20 13:33:00 [employer], Height, 75.909, kg, 11/02/20 13:33:00 [employer], Weight Sertraline Yes 150 mg = Mem oria 100 MG Oral -26 1.5 tab, l Tablet 19:31: PO, Daily, [place] nn [Zoloft] 00 # 45 tab, 5 Refill(s), Pharmacy: [facility] 256, 152.4, cm, 11/02/20 13:33:00 [employer], Height, 75.909, kg, 11/02/20 13:33:00 [employer], Weight Trazodone 0 Yes 50 mg = 1 Mem oria Hydrochlori 1-26 tab, PO, l de 50 MG 19:31: PRN, PRN Latoya nn Oral Tablet 00 Insomnia, take HALF to ONE tab at bedtime, # 30 tab, 5 Refill(s), Pharmacy: [facility] 256, 152.4, cm, 11/02/20 13:33:00 [employer], Height, 75.909, kg, 11/02/20 13:33:00 [employer], Weight prazosin 2 2020-0 Yes 2 mg = 1 Mem oria mg oral 1-26 cap, PO, l capsule 19:31: Bedtime, Ash n 00 for PTSD nightmares , # 30 cap, 5 Refill(s), Pharmacy: [facility] 256, 152.4, cm, 11/02/20 13:33:00 [employer], Height, 75.909, kg, 11/02/20 13:33:00 [employer], Weight Sertraline Yes 150 mg = Mem oria 100 MG Oral 1-26 1.5 tab, l Tablet 19:31: PO, Daily, [place] nn [Zoloft] 00 # 45 tab, 5 Refill(s), Pharmacy: [facility] 256, 152.4, cm, 11/02/20 13:33:00 [employer], Height, 75.909, kg, 11/02/20 13:33:00 [employer], Weight Trazodone Yes 50 mg = 1 Mem oria Hydrochlori 1-26 tab, PO, l de 50 MG 19:31: PRN, PRN Latoya nn Oral Tablet 00 Insomnia, take HALF to ONE tab at bedtime, # 30 tab, 5 Refill(s), Pharmacy: [facility] 256, 152.4, cm, 11/02/20 13:33:00 [employer], Height, 75.909, kg, 11/02/20 13:33:00 [employer], Weight prazosin 2 2020-0 Yes 2 mg = 1 Mem oria mg oral 1-05 cap, PO, l capsule 22:36: Bedtime, Ash n 00 for PTSD nightmares , # 30 cap, 5 Refill(s), Pharmacy: [facility] 256, 152.4, cm, 08/24/20 10:31:00 [employer], Height, 77.273, kg, 08/24/20 10:31:00 [employer], Weight prazosin 2 2020-0 Yes 2 mg = 1 Mem oria mg oral 1-05 cap, PO, l capsule 22:36: Bedtime, Ash n 00 for PTSD nightmares , # 30 cap, 5 Refill(s), Pharmacy: [facility] 256, 152.4, cm, 08/24/20 10:31:00 [employer], Height, 77.273, kg, 08/24/20 10:31:00 [employer], Weight prazosin 2 2020-0 Yes 2 mg = 1 Mem oria mg oral 1-05 cap, PO, l capsule 22:36: Bedtime, Ash n 00 for PTSD nightmares , # 30 cap, 5 Refill(s), Pharmacy: [facility] 256, 152.4, cm, 08/24/20 10:31:00 [employer], Height, 77.273, kg, 08/24/20 10:31:00 [employer], Weight Sertraline 0 Yes 150 mg = Mem oria 100 MG Oral 1-05 1.5 tab, l Tablet 22:35: PO, Daily, Latoya nn [Zoloft] 00 # 45 tab, 5 Refill(s), Pharmacy: [facility] Angela, 152.4, cm, 08/24/20 10:31:00 [employer], Height, 77.273, kg, 08/24/20 10:31:00 [employer], Weight Sertraline 0 Yes 150 mg = Mem oria 100 MG Oral 1-05 1.5 tab, l Tablet 22:35: PO, Daily, Latoya nn [Zoloft] 00 # 45 tab, 5 Refill(s), Pharmacy: [facility] 256, 152.4, cm, 08/24/20 10:31:00 [employer], Height, 77.273, kg, 08/24/20 10:31:00 [employer], Weight Sertraline 2020-0 Yes 150 mg = Mem oria 100 MG Oral 1-05 1.5 tab, l Tablet 22:35: PO, Daily, Latoya nn [Zoloft] 00 # 45 tab, 5 Refill(s), Pharmacy: [facility] 256, 152.4, cm, 08/24/20 10:31:00 [employer], Height, 77.273, kg, 08/24/20 10:31:00 [employer], Weight prazosin 1 2019-10 Yes 1 mg = 1 Mem oria mg oral 1-17 cap, PO, l capsule 17:02: Bedtime, Ash n 00 for PTSD nightmares , # 30 cap, 5 Refill(s), Pharmacy: [facility], 152.4, cm, 08/24/20 10:31:00 [employer], Height, 77.273, kg, 08/24/20 10:31:00 [employer], Weight prazosin 1 2019-10 Yes 1 mg = 1 Mem oria mg oral 1-17 cap, PO, l capsule 17:02: Bedtime, Ash n 00 for PTSD nightmares , # 30 cap, 5 Refill(s), Pharmacy: [facility] [place], 152.4, cm, 08/24/20 10:31:00 [employer], Height, 77.273, kg, 08/24/20 10:31:00 [employer], Weight prazosin 1 2019-10 Yes 1 mg = 1 Mem oria mg oral 1-17 cap, PO, l capsule 17:02: Bedtime, Ash n for PTSD nightmares , # 30 cap, 5 Refill(s), Pharmacy: [facility], 152.4, cm, 08/24/20 10:31:00 [employer], Height, 77.273, kg, 08/24/20 10:31:00 [employer], Weight Sertraline 2019-10 Yes 100 mg = 1 M emoria 100 MG Oral 1-17 tab, PO, l Tablet 17:01: Daily, # [place] [Zoloft] 00 30 tab, 5 Refill(s), Pharmacy: [facility], 152.4, cm, 08/24/20 10:31:00 [employer], Height, 77.273, kg, 08/24/20 10:31:00 [employer], Weight Sertraline 2019-10 Yes 100 mg = 1 M emoria 100 MG Oral 1-17 tab, PO, l Tablet 17:01: Daily, # [place] [Zoloft] 00 30 tab, 5 Refill(s), Pharmacy: [facility], 152.4, cm, 08/24/20 10:31:00 [employer], Height, 77.273, kg, 08/24/20 10:31:00 [employer], Weight Sertraline 2019-10 Yes 100 mg = 1 M emoria 100 MG Oral 1-17 tab, PO, l Tablet 17:01: Daily, # [place] [Zoloft] 00 30 tab, 5 Refill(s), Pharmacy: [facility] 256, 152.4, cm, 08/24/20 10:31:00 [employer], Height, 77.273, kg, 08/24/20 10:31:00 [employer], Weight pregabalin 2019-10 Yes 300 mg = 1 M emoria 300 MG Oral 1-02 cap, PO, l Capsule 17:17: TID, 0 [place] [Lyrica] 00 Refill(s) pregabalin 2019-10 Yes 300 mg = 1 M emoria 300 MG Oral 1-02 cap, PO, l Capsule 17:17: TID, 0 [place] [Lyrica] 00 Refill(s) pregabalin 2019-10 Yes 300 mg = 1 M emoria 300 MG Oral 1-02 cap, PO, l Capsule 17:17: TID, 0 [place] [Lyrica] 00 Refill(s) Furosemide 2019-10 Yes 40 mg = 1 Me moria 40 MG Oral 1-02 tab, PO, l Tablet 16:53: Daily, # [place] 00 30 tab, 0 Refill(s) sertraline 2019-10 Yes 50 mg = 1 Me moria 50 mg oral 1-02 tab, PO, l tablet 16:53: Daily, # [place] 00 30 tab, 0 Refill(s) baclofen 10 2019-10 Yes 10 mg = 1 M emoria mg oral -02 tab, PO, l tablet 16:53: Q6H, 0 [place] 00 Refill(s) Stool 2019-10 Yes 1 cap, PO, Memori a Softener + 1-02 BID, 0 l Stimulant 16:53: Refill(s) Her navarro Laxative 50 00 mg-8.6 mg oral capsule Amoxicillin 2019-10 Yes 500 mg, Mem oria 1-02 PO, Daily, l 16:53: 0 [place] 00 Refill(s) omeprazole 2019-10 Yes 20 mg = 1 Me moria 20 mg oral 1-02 cap, PO, l delayed 16:53: Daily, # Ash n release 00 30 cap, 1 capsule Refill(s) QUEtiapine 2019-10 Yes 100 mg = 1 M emoria 100 mg oral 1-02 tab, PO, l tablet 16:53: Q6H, 0 [place]agen 00 Refill(s) Bisacodyl 5 2019-10 Yes 5 mg = 1 Me moria MG Enteric 10-24 tab, PO, l Coated 16:53: Daily, 0 [place] Tablet 00 Refill(s) [Dulcolax] Potassium 2019-10 Yes 1 tab po Leighton rajeev gluconate 02 daily, 0 l 16:53: Refill(s) [place] Multi 2019-10 Yes super b Memoria Vitamin+ 10-24 complex, 0 l 16:53: Refill(s) [place] MAGNESIUM 2019-10 Yes PO, Daily, Me moria GLUCONATE 10-24 0 l 16:53: Refill(s) Magen Melatonin 2019-10 Yes Bedtime, 0 Me moria 10-24 Refill(s) l 16:53: [place] 00 Furosemide 2019-10 Yes 40 mg = 1 Me moria 40 MG Oral 10-24 tab, PO, l Tablet 16:53: Daily, # Magen 00 30 tab, 0 Refill(s) sertraline 2019-10 Yes 50 mg = 1 Me moria 50 mg oral 10-24 tab, PO, l tablet 16:53: Daily, # [place] 00 30 tab, 0 Refill(s) baclofen 10 2019-10 Yes 10 mg = 1 M emoria mg oral 10-24 tab, PO, l tablet 16:53: Q6H, 0 [place] 00 Refill(s) Stool 2019-10 Yes 1 cap, [...] Yes 1 tab po Leighton rajeev gluconate 02 daily, 0 l 16:53: Refill(s) [place] 00 Multi 2019-10 Yes super b Memoria Vitamin+ 10-24 complex, 0 l 16:53: Refill(s) [place] MAGNESIUM 2019-10 Yes PO, Daily, Me moria GLUCONATE 10-24 0 l 16:53: Refill(s) [place] Melatonin 2019-10 Yes Bedtime, 0 Me moria 10-24 Refill(s) l 16:53: [place] 00 Furosemide 2019-10 Yes 40 mg = 1 Me moria 40 MG Oral 02 tab, PO, l Tablet 16:53: Daily, # Magen 00 30 tab, 0 Refill(s) sertraline 2019-10 Yes 50 mg = 1 Me moria 50 mg oral 10-24 tab, PO, l tablet 16:53: Daily, # [place] 00 30 tab, 0 Refill(s) baclofen 10 [...] = 1 M emoria 100 mg oral 1-02 tab, PO, l tablet 16:53: Q6H, 0 [place] 00 Refill(s) Bisacodyl 5 2019-10 Yes 5 mg = 1 Me moria MG Enteric - tab, PO, l Coated 16:53: Daily, 0 [place] Tablet 00 Refill(s) [Dulcolax] Potassium 2019-10 Yes 1 tab po Leighton rajeev gluconate 1-02 daily, 0 l 16:53: Refill(s) Multi 2019-10 Yes super b Memoria Vitamin+ -02 complex, 0 l 16:53: Refill(s) MAGNESIUM 2019-10 Yes PO, Daily, Me moria GLUCONATE 1-02 0 l 16:53: Refill(s) Melatonin 2019-10 Yes Bedtime, 0 Me moria -02 Refill(s) l 16:53: QUEtiapine 2018- Yes 400mg QD Take 400 Me thodi XR 7-[address] (SEROquel 19:17: mouth [facility]osp[facility] XR) 400 MG 52 nightly. l 24 hr tablet vitamin B 2018- Yes 1{tbl} QD Take 1 Meth [...] buttocks injection every 3 (three) months. AMOXICILLIN 2019-0 Yes 1{tbl} Q.[id number] Take 1 [facility] ORAL 7-[id number] 19:17: 3D mouth 3 [facility]ospita 52 (three) l times a day. omeprazole 2019-0 Yes TK 1 C PO Me thodi (PriLOSEC) 6-[address] 20 MG 00:00: Hospita capsule 00 l amitriptyli 2019-0 Yes 100mg Take 100 U nivers ne 25 mg 5-14 mg by ity of tablet 00:00: mouth at [place] 00 bedtime. Medical Branch amitriptyli Yes 100mg Take 100 U nivers ne 25 mg 5-14 mg by ity of tablet 00:00: mouth at [place] [address] bedtime. Medical Branch amitriptyli Yes 100mg Take 100 U nivers ne 25 mg 5-14 mg by ity of tablet 00:00: mouth at [place] [address] bedtime. Medical Branch amitriptyli Yes 100mg Take 100 U nivers ne 25 mg 5-14 mg by ity of tablet 00:00: mouth at [place] [address] bedtime. Medical Branch amitriptyli Yes 100mg Take 100 U nivers ne 25 mg 5-14 mg by ity of tablet 00:00: mouth at [place] [address] bedtime. Medical Branch amitriptyli Yes 100mg Take 100 U nivers ne 25 mg 5-14 mg by ity of tablet 00:00: mouth at [place] [address] bedtime. Medical Branch amitriptyli Yes 100mg Take 100 U nivers ne 25 mg 5-14 mg by ity of tablet 00:00: mouth at [place] [address] bedtime. Medical Branch amitriptyli Yes 100mg Take 100 U nivers ne 25 mg 5-14 mg by ity of tablet 00:00: mouth at [place] [address] bedtime. Medical Branch amitriptyli Yes 25mg QD [...] MILK FOUR TIMES LYRICA 200 Yes 200mg Q.[id number] Take 200 [facility] mg capsule 2-[id number] 00:00: 3D mouth 3 [facility]ospita 00 (three) l times a day. zolpidem Yes 10mg QD Take 10 mg Met hodi (AMBIEN) 10 2-[address] mg tablet 00:00: nightly. Hosp ilan 00 l Non-Adheren Yes Use as Univ ers t Bandage 7-03 directed ity of (MEPITEL) 2 00:00: [place] X 3 " Bn Medical Branch Non-Adheren Yes Use as Univ ers t Bandage 7-03 directed ity of (MEPITEL) 2 00:00: [place] X 3 " Bndg Medical Branch Non-Adheren Yes Use as Univ ers t Bandage 7-03 directed ity of (MEPITEL) 2 00:00: [place] X 3 " Bndg Medical Branch Non-Adheren Yes Use as Univ ers t Bandage 7-03 directed ity of (MEPITEL) 2 00:00: [place] X 3 " Bndg Medical Branch Non-Adheren Yes Use as Univ ers t Bandage 7-03 directed ity of (MEPITEL) 2 00:00: [place] X 3 " Bndg Medical Branch Non-Adheren Yes Use as Univ ers t Bandage 7-03 directed ity of (MEPITEL) 2 00:00: [place] X 3 " Bndg Medical Branch Non-Adheren Yes Use as Univ ers t Bandage 7-03 directed ity of (MEPITEL) 2 00:00: [place] X 3 " Bn Medical Branch Non-Adheren Yes Use as Univ ers t Bandage 7-03 directed ity of (MEPITEL) 2 00:00: [place] X 3 " [facility] Medical Branch zolpidem 10 Yes TAKE 1 Univ ers mg tablet 4-27 TABLET AT ity o f 00:00: BEDTIME NEEDED Medical Branch zolpidem 10 Yes TAKE 1 Univ ers mg tablet 4-27 TABLET AT ity o f 00:00: BEDTIME NEEDED Medical Branch zolpidem 10 Yes TAKE 1 Univ ers mg tablet 4-27 TABLET AT ity o f 00:00: BEDTIME NEEDED Medical Branch zolpidem 10 Yes TAKE 1 Univ ers mg tablet 4-27 TABLET AT ity o f 00:00: BEDTIME [place] NEEDED Medical Branch zolpidem 10 Yes TAKE 1 Univ ers mg tablet 4-27 TABLET AT ity o f 00:00: BEDTIME [place] NEEDED Medical Branch zolpidem 10 Yes TAKE 1 Univ ers mg tablet 4-27 TABLET AT ity o f 00:00: BEDTIME [place] NEEDED Medical Branch zolpidem 10 Yes TAKE 1 Univ ers mg tablet 4-27 TABLET AT ity o f 00:00: BEDTIME [place] NEEDED Medical Branch zolpidem 10 Yes TAKE 1 Univ ers mg tablet 4-27 TABLET AT ity o f 00:00: BEDTIME [place] NEEDED Medical Branch Immunizations Ordered Filled Immunization Date Status Comments [facility] e Immunization Name Name Pneumococcal 2018-08-06 [...] Name Observation Time Observation Value Comments Source Systolic blood 2022-06-03 20:30:00 142 mm[Hg] Univer sity of pressure [facility] Diastolic blood 2022-06-03 20:30:00 98 mm[Hg] Unive rsity of pressure [facility] Heart rate 2022-06-03 20:30:00 105 /min [facility] ty [facility] Respiratory rate 2022-06-03 20:30:00 13 /min [facility] Oxygen saturation in 2022-06-03 20:30:00 98 /min [facility] of Arterial blood by [facility] [place] [facility] Pulse oximetry Branch Body temperature 2022-06-03 16:01:00 37.22 [facility] ersity of [facility] Body weight 2022-06-03 16:01:00 68.04 kg Universi ty [facility] BMI 2022-06-03 16:01:00 28.34 kg/m2 [facility]i ty [facility] Systolic blood 2022-04-20 16:16:00 110 mm[Hg] Univer sity of pressure [facility] Diastolic blood 2022-04-20 16:16:00 63 mm[Hg] Unive rsity of pressure [facility] Heart rate 2022-04-20 16:16:00 102 /min Universi ty of [facility] Body temperature 2022-04-20 16:16:00 36.5 [facility] Respiratory rate 2022-04-20 16:16:00 18 /min [facility] Body height 2022-04-20 16:16:00 154.9 cm Universi ty of [facility] Body weight 2022-04-20 16:16:00 64.411 kg [facility] BMI 2022-04-20 16:16:00 26[facility]83 [facility] Head exam ED 2021-03-30 10:55:24 atraumatic 02 Sat by Pulse 2021-03-30 10:55:24 100 /min Oximetry Body Mass Index 2021-03-30 10:55:24 23.5 Height 2021-03-30 10:55:24 177.8\\S\\70 Pulse Rate 2021-03-30 10:55:24 81 /min Respiratory Rate 2021-03-30 10:55:24 18 /min Respiratory Depth 2021-03-30 10:55:24 Normal /min Respiratory Effort 2021-03-30 10:55:24 Spontaneous /min Respiratory Pattern 2021-03-30 10:55:24 Normal /min Temperature 2021-03-30 10:55:24 36.0\\S\\96.8 Weight 2021-03-30 10:55:24 58373.148\\S\\2624 Head exam ED 2021-03-30 09:12:21 atraumatic Body Mass Index 2021-03-30 09:12:21 23.5 Height 2021-03-30 09:12:21 177.8\\S\\70 Weight 2021-03-30 09:12:21 07251.148\\S\\2624 Head exam ED 2021-03-30 08:32:51 atraumatic Body Mass Index 2021-03-30 08:32:51 23.5 Height 2021-03-30 08:32:51 177.8\\S\\70 Weight 2021-03-30 08:32:51 25762.148\\S\\2624 WEIGHT 2021-03-30 08:32:00 74.892649 kg HEIGHT 2021-03-30 08:32:00 177.8 cm Head exam ED 2021-03-30 07:48:44 atraumatic Systolic (mm Hg) 2021-03-08 18:05:00 Leighton rial [place] Diastolic (mm Hg) 2021-03-08 18:05:00 Mem orial [place] Heart Rate 2021-03-08 18:05:00 [facility] [place] Respitory Rate 2021-03-08 18:05:00 Memori al [place] Height 2021-03-08 18:05:00 152.4 cm [facility] BMI Calculated 2021-03-08 18:05:00 Memori al [place] Weight 2021-03-08 18:05:00 [facility] [place] Systolic (mm Hg) 2020-11-02 19:33:00 [place]on rial [place] Diastolic (mm Hg) 2020-11-02 19:33:00 Mem orial [place] Heart Rate 2020-11-02 19:33:00 [facility] [place] Respitory Rate 2020-11-02 19:33:00 Memori al [place] Height 2020-11-02 19:33:00 152.4 cm [facility] [place] BMI Calculated 2020-11-02 19:33:00 Memori al [place] Weight 2020-11-02 19:33:00 [facility] [place] Respitory Rate 2020-08-24 16:31:00 Memori al [place] Height 2020-08-24 16:31:00 152.4 cm [facility] [place] BMI Calculated 2020-08-24 16:31:00 Memori al [place] Weight 2020-08-24 16:31:00 [facility] [place] Systolic (mm Hg) 2020-08-24 16:31:00 Leighton rial [place] Diastolic (mm Hg) 2020-08-24 16:31:00 Mem orial [place] Heart Rate 2020-08-24 16:31:00 [facility] [place] BMI Calculated 2017-08-22 20:00:00 Memori al [place] Weight 2017-08-22 20:00:00 [facility] [place] Height 2017-08-22 20:00:00 165.1 cm [facility] [place] Heart Rate 2017-08-22 20:00:00 [facility] [place] Respitory Rate 2017-08-22 20:00:00 Memori al [place] Systolic (mm Hg) 2017-08-22 20:00:00 Leighton rial [place] Diastolic (mm Hg) 2017-08-22 20:00:00 Mem orial [place] Procedures Procedure Date / Time Performing Clinician Source Performed URINE DRUG ([email or web address]) 2022-06-03 18:00:00 Gigi Sam [facility] SCREEN URINALYSIS 2022-06-03 18:00:00 Gigi Sam [facility] COVID-19 (ID NOW RAPID 2022-06-03 17:50:00 Gigi Sam [facility]) [facility] CT STROKE ANGIOGRAM HEAD 2022-06-03 16:44:13 Gigi Sam [facility] CT STROKE ANGIOGRAM NECK 2022-06-03 16:44:13 Gigi Sam [facility] CT STROKE PERFUSION W 2022-06-03 16:44:13 Gigi Sam [facility] CT STROKE HEAD WO 2022-06-03 16:39:43 Gigi Sam [facility] POCT GLUCOSE (AUTOMATED) 2022-06-03 16:24:00 Gigi Sam [facility] TROPONIN I 2022-06-03 16:23:00 Gigi Sam [place] [facility] BASIC METABOLIC PANEL 2022-06-03 16:23:00 Gigi Sam [facility] (NA, K, CL, CO2, Medical Branch GLUCOSE, BUN, CREATININE, CA) CBC WITHOUT DIFF 2022-06-03 16:23:00 Gigi Sam [facility] PROTHROMBIN TIME / INR 2022-06-03 16:23:00 [facility] 2022-06-03 16:23:00 Gigi Sam [facility] - OTHER 2022-05-13 05:01:00 [facility] 2022-05-03 05:01:00 [facility] [id number] 2022-02-25 00:00:00 [facility] [id number] 2022-02-25 00:00:00 [facility] [id number] 2022-02-24 00:00:00 HACJE [facility] AUTHORIZATION FOR 2021-02-12 05:01:00 Doctor Unassigned, No Univ [facility] RELEASE OF [facility] Plan of Care Planned Activity Planned Date Details Comments Source Future Scheduled 2022-01-06 Depression screening Uni [facility] Test 00:00:00 (procedure) [code = Medical Branch [id number]] Future Scheduled 2021-06-23 INFLUENZA VACCINE [facility] Test 00:00:00 (Season Ended) [code Medical Branch = INFLUENZA VACCINE (Season Ended)] Future Scheduled 2012-08-07 Screening for [facility] Test 00:00:00 malignant neoplasm [facility] of cervix (procedure) [code = [id number]] Future Scheduled 2005 DTaP,Tdap,and Td [facility] Test 00:00:00 Vaccines (1 - Tdap) Medical Branch [code = DTaP,Tdap,and Td Vaccines (1 - Tdap)] Future Scheduled 1987 [facility] Test 00:00:00 (1 of 2 - 2-dose Medical [facility] childhood series) [code = VARICELLA VACCINES (1 of 2 - 2-dose childhood series)] Future Scheduled COVID-19 VACCINE (1) [facility] [code = COVID-19 VACCINE (1)] Future Scheduled Hepatitis [facility] screening (procedure) [code = [id number]] Future Scheduled Screening for [facility] Test malignant neoplasm of cervix (procedure) [code = [id number]] Future Scheduled [facility]ACC[facility] [code = INFLUENZA VACCINE] Encounters Start End Encounter Admission Attending Care Care Encounter Source Date/Time Date/Time Type Type Clinicians Facility Department ID 2022-05-25 [id number] [place] [facility]:58 [id number] [facility] 2022-05-04 Outpatient [facility] [id number] [place] 01:04:28 J[facility]US [id number] [facility] 2022-04-20 [facility] [id number] [place] 01:04:28 [facility] [id number] [facility] 2022-04-07 [facility] [id number] [place] 10:27:58 [id number] [facility] 2022-04-06 [facility] [id number] [place] 14:25:22 [id number] [facility] 2022-03-19 [facility] [id number] [place] 06:09:02 [id number] [facility] 2022-03-17 [facility] [id number] [place] 13:48:32 [id number] [facility] 2022-03-15 [facility] [id number] [place] 07:24:32 [id number] [facility] 2022-03-07 [facility] [id number] [place] 12:34:58 [id number] [facility] 2022-03-05 [facility] [id number] [place] 17:36:28 [id number] [facility] 2022-03-02 Outpatient ADHIA[facility] [id number] [place] 01:05:06 JESUS [id number] [facility] 2022-02-23 Outpatient [facility] [id number] Common 12:46:01 [facility] 2022-02-23 [facility] [id number] [place] 01:03:27 A, EARL [id number] [facility] 2022-02-21 [facility] [id number] [place] 11:00:11 [id number] [facility] 2022-02-10 Inpatient U CELINA, MHBL MED 0 MHB L 10:34:15 TIM 2022-02-09 Outpatient [facility]HIA[facility] [id number] [place] 01:05:33 [facility] [id number] [facility] 2022-02-01 [facility] [id number] [place] 09:25:40 [id number] [facility] 2022-01-18 [facility] [id number] [place] 10:50:23 [id number] [facility] 2021-12-22 Outpatient [facility] [id number] [place] 01:03:31 [facility] 2021-12-01 Outpatient ADHIA[facility] [id number] [place] 01:04:23 [facility] 2021-11-17 Outpatient STLMLC STLMLC [id number] Common 13:46:35 [id number] [facility] 2021-11-08 Outpatient [facility]IA[facility] [id number] [place] 01:04:23 [facility] 2021-10-12 Outpatient [facility]IA[facility] [id number] [place] 01:04:27 [facility] 2021-06-19 Outpatient [facility] [id number] [place] 01:06:58 [facility] 2021-04-10 Outpatient [facility]HIA[facility] [id number] [place] 01:06:38 [facility] 2021-03-30 Inpatient Tyshawn, [facility] [id number] [facility] 08:00:00 Lilian Aragon 2022-06-29 2022-06-29 Outpatient Lonnie JARQUIN [facility] [id number] Q-20 Univers 11:30:00 11:30:00 PRINCE [id number] [facility] 2022-06-23 2022-06-23 Outpatient VIRI GARCIA [facility] [id number] Univers 13:00:00 13:00:00 [facility] [id number] [facility]22-06-09 Outpatient Lonnie GLORIA [facility] [id number] Q-20 Univers 00:00:00 00:00:00 [facility] [id number] [facility]-07 2022-06-07 [facility] [id number] Univers 00:00:00 00:00:00 [facility] 350.1.13.10 i ty of Faustino BARBOSA 4.2.7.2.686 [facility] [id number] [place] [id number] OFFICE BUILDING 2022-06-03 2022-06-03 Emergency X FLACO [facility] ERT [id number] Univers 11:04:00 16:12:00 GIGI [facility] 2022-06-03 2022-06-[address] [facility] [id number] Univers 11:04:00 16:12:00 Gigi WHARTON 350.1.13.10 i ty of YINA 4.2.7.2.686 [facility] [id number] [place] [address] [address] 2022-06-01 2022-06-01 Outpatient Lonnie JARQUIN [facility] [id number] Univers 11:45:00 11:45:00 PRINCE [facility] 2022-06-01 2022-06-01 [facility] [id number] Q-20 Univers 00:00:00 00:00:00 PRINEC [id number] [facility] 2022-05-24 2022-05-24 [facility] [id number] Q-20 Univers 00:00:00 00:00:00 PRINCE [id number] [facility] 2022-05-20 2022-05-20 [facility] [id number] Univers 12:54:34 23:59:00 Encounter [facility] 350.1.13.10 ity of [facility] 4.2.7.2.686 [facility] AT [id number] Hi thiago BULLARD 804 [facility] 2022-05-20 2022-05-20 Outpatient R GLORIA [facility] [id number] Univers 00:00:00 23:59:00 PRINCE ity of [facility] 2022-05-20 2022-05-20 Outpatient R GLORIA [facility] [id number] Q-20 Univers 00:00:00 00:00:00 PRINCE [id number] ity of [facility] 2022-05-13 2022-05-13 Outpatient R [facility] [id number] Univers 00:00:00 00:00:00 ity of [facility] 2022-05-13 2022-05-13 Orders Doctor CHAVO 1.2.840.114 [id number] Univers 00:00:00 00:00:00 Only Unassigned, ALEX 350.1.13.10 ity of [facility] 4.2.7.2.686 Rachid as [id number] [address] 2022-05-11 2022-05-11 Outpatient R [facility] [id number] Univers 00:00:00 00:00:00 ity of [facility] 2022-05-03 2022-05-03 Orders Doctor CHAVO 1.2.840.114 [id number] Univers 00:00:00 00:00:00 Only Unassigned, ALEX 350.1.13.10 ity of [facility] 4.2.7.2.686 Rachid as [id number] [address] 2022-04-28 2022-04-28 Telephone TAMIKA Jarquin 1.2.840.114 [id number] Univers 00:00:00 00:00:00 [facility] [employer] 350.1.13.10 ity of [id number] [address] 2022-04-20 2022-04-20 Office TAMIKA Jarquin 1.2.840.114 [id number] Univers 11:30:00 11:45:00 Visit [facility] Numerous HEALTH 350.1.13.10 [place] [id number] [address] 2022-04-20 2022-04-20 Outpatient Lonnie JARQUIN [facility] [id number] Univers 11:30:00 11:30:00 PRINCE betancur [facility] 2022-02-20 2022-03-04 Inpatient EM Geovanni, [facility] MEDI.01 [id number] [facility] 16:13:00 14:45:00 Tony 23 [facility] 2022-02-20 2022-03-04 Inpatient EM Geovanni, [facility] MEDI.01 [id number] [facility] 16:13:00 14:45:00 Tony [id number] [facility] 2022-02-11 2022-02-[address] 7539 ADAM 09:51:00 12:34:00 JARRETT 2022-02-05 2022-02-10 Inpatient EM Geovanni, [facility] MEDI.01 [id number] [facility] 00:53:00 19:15:00 Tony [id number] [facility] 2022-02-05 2022-02-10 Inpatient EM Geovanni, [facility] MEDI.01 [id number] [facility] 00:53:00 19:15:00 Tony 34 [facility] 2022-02-04 2022-02-04 Emergency EM Parker, [facility] [id number] [facility] 20:49:00 20:49:00 Gabriel [id number] [facility] 2021-09-22 2021-09-22 ambulatory STLMLC STLMLC [id number] Common 00:00:00 00:00:00 [facility] 2021-09-22 2021-09-22 ambulatory STLMLC STLMLC [id number] Common 00:00:00 00:00:00 [facility] 2021-07-13 2021-07-14 [place] [id number] Memoria 16:22:00 04:59:00 r Psychiatric 24 l s/Psychothe Herm dorothea rapy (PSYR) 2021-07-02 2021-07-02 Outpatient STLMLC STLMLC [id number] Common 00:00:00 00:00:00 [facility] 2021-06-30 2021-06-30 Outpatient STLMLC STLC [id number] Common 00:00:00 00:00:00 [facility] 2021-06-29 2021-06-29 Outpatient STLMLC [facility] [id number] Common 00:00:00 00:00:00 [facility] 2021-06-15 2021-06-16 [place] [id number] Memoria 19:07:00 04:59:00 r Psychiatric 22 l s/Psychothe Herm dorothea meena (PSYR) 2021-06-09 2021-06-09 Office TAMIKA Jarquin 1.2.840.114 [id number] 11:13:45 12:39:22 Visit [facility] 350.1.13.10 [facility] 4.2.7.2.686 [id number] 201 2021-06-07 2021-06-07 EXT MHH OP EXT MSRDP 1.2.840.114 1 [id number] [place] 00:00:00 00:00:00 LOCATION 350.1.13.58 H ealth 9.2.7.2.686 [id number] 0 2021-06-07 2021-06-07 EXT MHH OP EXT MSRDP 1.2.840.114 1 [id number] [place] 00:00:00 00:00:00 LOCATION 350.1.13.58 H ealth 9.2.7.2.686 [id number] 0 2021-06-07 2021-06-07 EXT MHH OP EXT MSRDP 1.2.840.114 1 [id number] [place] 00:00:00 00:00:00 LOCATION 350.1.13.58 H ealth 9.2.7.2.686 [id number] 0 2021-06-07 2021-06-07 EXT MHH OP EXT MSRDP 1.2.840.114 1 [id number] [place] 00:00:00 00:00:00 LOCATION 350.1.13.58 H ealth 9.2.7.2.686 [id number] 0 2021-06-07 2021-06-07 EXT MHH OP EXT MSRDP 1.2.840.114 1 [id number] [place] 00:00:00 00:00:00 LOCATION 350.1.13.58 H ealth 9.2.7.2.686 [id number] 0 2021-06-07 2021-06-07 EXT MHH OP EXT MSRDP 1.2.840.114 1 [id number] [place] 00:00:00 00:00:00 LOCATION 350.1.13.58 H ealth 9.2.7.2.686 [id number] 0 2021-06-07 2021-06-07 EXT MHH OP EXT MSRDP 1.2.840.114 1 [id number] [place] 00:00:00 00:00:00 LOCATION 350.1.13.58 H ealth 9.2.7.2.686 [id number] 0 2021-06-07 2021-06-07 EXT MHH OP EXT MSRDP 1.2.840.114 1 [id number] UT 00:00:00 00:00:00 LOCATION 350.1.13.58 H ealth 9.2.7.2.686 [id number] 0 2021-06-07 2021-06-07 EXT MHH OP EXT MSRDP 1.2.840.114 1 [id number] [place] 00:00:00 00:00:00 LOCATION 350.1.13.58 H ealth 9.2.7.2.686 [id number] 0 2021-06-07 2021-06-07 EXT MHH OP EXT MSRDP 1.2.840.114 1 [id number] UT 00:00:00 00:00:00 LOCATION 350.1.13.58 H ealth 9.2.7.2.686 [id number] 0 2021-06-07 2021-06-07 EXT MHH OP EXT MSRDP 1.2.840.114 1 [id number] [place] 00:00:00 00:00:00 LOCATION 350.1.13.58 H ealth 9.2.7.2.686 [id number] 0 2021-06-07 2021-06-[address] [facility] OP EXT MSRDP 1.2.840.114 1 [id number] [place] 00:00:00 00:00:00 LOCATION 350.1.13.58 H ealth 9.2.7.2.686 [id number] 0 2021-05-03 2021-05-04 Outpatient nullFlavo TR Urology 46 [id number] Memoria 17:49:00 04:59:00 r Clinic 19 l (UROR) [place] 2021-04-06 2021-04-07 [place] [id number] Memoria 15:24:00 04:59:00 r Psychiatric 20 l s/Psychothe Herm dorothea rapy (PSYR) 2021-03-09 2021-03-10 [place] [id number] Memoria 16:45:00 04:59:00 r Psychiatric 18 l s/Psychothe Herm dorothea rapy (PSYR) 2021-03-08 2021-03-09 [place] [id number] Memoria 17:38:00 04:59:00 r Gynecology 17 l [facility] [place] (GYNR) 2021-03-05 2021-03-[address] [facility] OP [facility], EXT MSRDP 1.2.840.[id number] 00:00:00 00:00:00 Vera LOCATION 350.1.13.58 H ealth 9.2.7.2.686 [id number] 0 2021-03-05 2021-03-[address] [facility] OP [facility], EXT MSRDP 1.2.840.114 [id number] [place] 00:00:00 00:00:00 Vera LOCATION 350.1.13.58 H ealth 9.2.7.2.686 [id number] 0 2021-01-28 2021-01-29 [place] [id number] Memoria 19:46:00 04:59:00 r Psychiatric 15 l s/Psychothe Herm dorothea rapy (PSYR) 2020-12-22 2020-12-23 [place] [id number] Memoria 20:34:00 05:59:00 r Psychiatric 12 l s/Psychothe Herm dorothea rapy (PSYR) 2020-11-17 2020-11-18 [place] [id number] [id number] Memoria 13:00:00 05:59:00 r Psychiatric 10 l s/Psychothe Herm dorothea rapy (PSYR) 2020-11-02 2020-11-03 Outpatient nullFlavo TR Urology 46 [id number] Memoria 16:50:00 05:59:00 r Clinic 04 l (UROR) [place] 2020-10-27 2020-10-28 [place] [id number] Memoria 19:20:00 05:59:00 r Psychiatric 08 l s/Psychothe Herm dorothea rapy (PSYR) 2020-09-08 2020-09-09 [place] [address] [id number] Memoria 14:45:00 05:59:00 r Psychiatric 07 l s/Psychothe Herm dorothea rapy (PSYR) 2020-08-24 2020-08-25 Outpatient nullFlavo TR Spinal 419 [id number] Memoria 16:00:00 05:59:00 r Cord Inj 03 l [facility] ([facility]) 2018-06-07 2018-09-07 PreAdmit nullFlavo TIRR [id number] Memoria 14:15:00 15:17:00 r Memorial 02 l [facility] 2017-08-22 2017-08-23 Outpatient nullFlavo TIRR [id number] Memoria 18:37:00 04:59:00 r [facility] 00 [facility] Medical [facility] Results Test Description Test Time Test Comments Results Result Comments Source Troponin I - Code Stroke 2022-06-03 16:48:57 Test Item Value Reference Range Interpretation Comme nts TROPONIN I (test code = 0.004 ng/mL See_Comment [Au tomated message] The 3150601218) system which ge nerated this result tra nsmitted reference range : <=0.034. The reference r zaria was not used to int erpret this result as normal/abnormal . ROSE (test code = ROSE) Reference (Normal) Range (defined by the 99th percentile reference limit): <= 0.034 ng/mL Note: Cardiac troponin begins to rise 3-4 hours after the onset of ischemia. Repeat in 4-6 hours if the sample was drawn within 3-4 hours of the onset of the symptom and found normal. Diagnosis of myocardial injury is made with acute changes in cTn concentrations with at least one serial sample above the 99th percentile upper reference limit (URL), taken together with the patient's clinical presentation. Biotin has been reported to cause a negative bias, interpret results relative to patient's use of biotin. Lab Interpretation Normal (test code = 13536-4) [facility]22-[facility]-03 16:43:07 Test Item Value Reference Range Interpretation Comments POCT GLU (test code = 2984605783) 88 mg/dL 70-110 Lab Interpretation (test code = Normal 95520-1) [facility] - Code [id number] 16:37:57 Test Item Value Reference Range Interpretation Comments APTT Patient (test See_Comment [Automat ed code = 3173-2) message] The system which generated this result transmitted reference range : 23 - 38 Seconds . The reference range was not used to interpr et this result as normal/abnormal . ROSE (test code = ROSE) The [facility] patient population mean normal value for aPTT is 30 seconds. Lab Interpretation Normal (test code = 59415-2) [facility] (NA, K, CL, CO2, Glucose, BUN, Creatinine, CA) - Code [id number] 16:37:37 Test Item Value Reference Range Interpretation Comments NA (test code = 143 mmol/L 135-145 9886083876) K (test code = 3.2 mmol/L 3.5-5 L 1589176241) CL (test code = 103 mmol/L 98-108 7714396686) CO2 TOTAL (test code = 30 mmol/L 23-31 5530584371) AGAP (test code = 2-16 3119505948) BUN (test code = 8 mg/dL 7-23 6302907976) GLUCOSE (test code = 92 mg/dL 70-110 1763655602) CREATININE (test code = 0.69 mg/dL 0.5-1.04 6054441293) CALCIUM (test code = 9.5 mg/dL 8.6-10.6 5451822195) eGFR (test code = mL/min/1.73m2 3928689398) ROSE (test code = ROSE) Association of Glomerular Filtration Rate (GFR) and Staging of Kidney Disease* + --+ --+ ------+| GFR (mL/min/1.73 m2) ?| With Kidney Damage ?| ?Without Kidney Damage+ --------+ --------+ +| ?>90 ?| ?Stage one ?| ? Normal ?+ ---+ ---+ -------+| ?60-89 ?| ?Stage two ?| ? Decreased GFR ? + --+ --+ ------+| ?30-59 ?| ?Stage three ?| ? Stage three ? + --+ --+ ------+| ?15-29 ?| ?Stage four ? | ? Stage four ?+ ---+ ---+ -------+| ?<15 (or dialysis) ? ?| ?Stage five ? | ? Stage five ?+ ---+ ---+ -------+ *Each stage assumes the associated GFR level has been in effect for at least three months. ?Stages 1 to 5, with or without kidney disease, indicate chronic kidney disease. Notes: Determination of stages one and two (with eGFR >59mL/min/1.73 m2) requires estimation of kidney damage for at least three months as defined by structural or functional abnormalities of the kidney, manifested by either:Pathological abnormalities or Markers of kidney damage (including abnormalities in the composition of the blood or urine or abnormalities in imaging tests). Lab Interpretation Abnormal (test code = 72478-9) [facility] / [facility]R - Code [id number] 16:35:55 Test Item Value Reference Range Interpretation Comments PROTIME PATIENT (test See_Comment [Auto mated message] code = 5964-2) The system 10X10 Room generated this result transmitted ref erence range: 12.0 - 1 4.7 Seconds. The re ference range was not u sed to interpret this result as normal/abnor mal. INR (test code = 6301-6) Nor mal INR <1.1; Warfarin Therap eutic range 2.0 to 3. 0 or 2.5 to 3.5, dep ending upon the indica tions. Lab Interpretation (test Normal code = 81318-9) [facility] without Diff - Code [id number] 16:28:15 Test Item Value Reference Range Interpretation Comments WBC (test code = See_Comment [Automated message] The 6690-2) system which ge nerated this result tra nsmitted reference range : 4.30 - 11.10 10*3/?L. The reference range was not used to interpr et this result as normal/abnormal . RBC (test code = See_Comment [Automated message] The 789-8) system which nerated this result tra nsmitted reference range : 3.93 - 5.25 10*6/?L. T he reference range was not used to interpr et this result as normal/abnormal . HGB (test code = 13.8 g/dL 11.6-15 718-7) HCT (test code = 42.2 % 35.7-45.2 4544-3) MCH (test code = 26.8 pg 25.9-32.8 785-6) MCV (test code = 82.1 fL 80.6-95.5 787-2) MCHC (test code = 32.7 g/dL 31.6-35.1 786-4) PLT (test code = See_Comment [Automated message] The 777-3) system which nerated this result tra nsmitted reference range : 166 - 358 10*3/?L. Th e reference range was not used to interpr et this result as normal/abnormal . MPV (test code = 10.4 fL 9.5-12.9 54335-2) RDW-CV (test code = 13.6 % 12-15.5 788-0) RDW-SD (test code = 40.7 fL 39-49.9 69295-1) NRBC x10^3 (test See_Comment [Automated message] The code = 8522890719) system [facility] generated this result tra nsmitted reference range : 10*3/?L. The reference r zaria was not used to int erpret this result as normal/abnormal . NRBC/100 WBC (test See_Comment [Automat ed message] The code = 3803804663) system [facility] generated this result tra nsmitted reference range : 0.0 - 10.0 /100 WBCs. The reference range was not used to interpr et this result as normal/abnormal . IPF % (test code = 4654431772) [facility] [id number] 12:50:00 Test Item Value Reference Range Interpretation Comments SODIUM (test code = NA) 139 mEq/L 134-147 N POTASSIUM (test code = 4.4 mEq/L 3.4-5.0 N K) CHLORIDE (test code = 109 mEq/L 100-108 H CL) CARBON DIOXIDE (test 28 mEq/l 21-33 N code = CO2) ANION GAP (test code = 7 0-20 N GAP) GLUCOSE (test code = 106 mg/dL 70-110 N GLU) BLOOD UREA NITROGEN 5 mg/dL 7-18 L (test code = BUN) GLOMERULAR FILTRATION 113.1 105-110 H Units of measure = RATE (test code = GFR) ml/mi n/1.73 m2 CREATININE (test code = 0.6 mg/dL 0.6-1.3 N CREAT) CALCIUM (test code = 9.3 mg/dL 8.0-10.5 N CA) CBC W/AUTO [id number] 12:37:00 Test Item Value Reference Range Interpretation Comments WHITE BLOOD CELL (test code = 5.8 x10 3/uL 4.5-11.0 N WBC) RED BLOOD CELL (test code = 5.27 x10 6/uL 3.54-5.02 H RBC) HEMOGLOBIN (test code = HGB) 13.9 g/dL 11.0-15.0 N HEMATOCRIT (test code = HCT) 43.6 % 33.0-45.0 N MEAN CELL VOLUME (test code = 82.7 fL 81.0-99.0 N MCV) MEAN CELL HGB (test code = MCH) 26.4 pg 27.0-33.0 L MEAN CELL HGB CONCETRATION 31.9 g/dL 33.0-37.0 L (test code = MCHC) RED CELL DISTRIBUTION WIDTH CV 15.7 % 11.5-14.5 H (test code = RDW) RED CELL DISTRIBUTION WIDTH SD 47.5 fL 37.0-54.0 N (test code = RDW-SD) PLATELET COUNT (test code = 202 x10 3/uL 150-400 N PLT) MEAN PLATELET VOLUME (test code 11.0 fL 7.0-9.0 H = MPV) NEUTROPHIL % (test code = NT%) 65.5 % 56.0-77.0 N IMMATURE GRANULOCYTE % (test 0.5 % 0.0-2.0 N code = IG%) LYMPHOCYTE % (test code = LY%) 24.0 % 14.0-32.0 N MONOCYTE % (test code = MO%) 6.9 % 4.8-9.0 N EOSINOPHIL % (test code = EO%) 2.8 % 0.3-3.7 N BASOPHIL % (test code = BA%) 0.3 % 0.0-2.0 N NUCLEATED RBC % (test code = 0.0 % 0-0 N NRBC%) NEUTROPHIL # (test code = NT#) 3.80 x10 3/uL 2.0-7.6 N IMMATURE GRANULOCYTE # (test 0.03 x10 3/uL 0.00-0.03 N code = IG#) LYMPHOCYTE # (test code = LY#) 1.39 x10 3/uL 1.0-3.8 N MONOCYTE # (test code = MO#) 0.40 x10 3/uL 0.1-0.8 N EOSINOPHIL # (test code = EO#) 0.16 x10 3/uL 0.0-0.2 N BASOPHIL # (test code = BA#) 0.02 x10 3/uL 0.0-0.2 N NUCLEATED RBC # (test code = 0.00 x10 3/uL 0.0-0.1 N NRBC#) MANUAL DIFF REQUIRED (test code NO = MDIFF) CBC W/AUTO [id number] 08:53:00 Test Item Value Reference Range Interpretation Comments WHITE BLOOD CELL (test code = 4.2 x10 3/uL 4.5-11.0 L WBC) RED BLOOD CELL (test code = 5.34 x10 6/uL 3.54-5.02 H RBC) HEMOGLOBIN (test code = HGB) 13.8 g/dL 11.0-15.0 N HEMATOCRIT (test code = HCT) 44.6 % 33.0-45.0 N MEAN CELL VOLUME (test code = 83.5 fL 81.0-99.0 N MCV) MEAN CELL HGB (test code = MCH) 25.8 pg 27.0-33.0 L MEAN CELL HGB CONCETRATION 30.9 g/dL 33.0-37.0 L (test code = MCHC) RED CELL DISTRIBUTION WIDTH CV 16.0 % 11.5-14.5 H (test code = RDW) RED CELL DISTRIBUTION WIDTH SD 48.9 fL 37.0-54.0 N (test code = RDW-SD) PLATELET COUNT (test code = 183 x10 3/uL 150-400 N PLT) MEAN PLATELET VOLUME (test code 11.3 fL 7.0-9.0 H = MPV) NEUTROPHIL % (test code = NT%) 53.1 % 56.0-77.0 L IMMATURE GRANULOCYTE % (test 0.7 % 0.0-2.0 N code = IG%) LYMPHOCYTE % (test code = LY%) 34.4 % 14.0-32.0 H MONOCYTE % (test code = MO%) 7.1 % 4.8-9.0 N EOSINOPHIL % (test code = EO%) 4.0 % 0.3-3.7 H BASOPHIL % (test code = BA%) 0.7 % 0.0-2.0 N NUCLEATED RBC % (test code = 0.0 % 0-0 N NRBC%) NEUTROPHIL # (test code = NT#) 2.24 x10 3/uL 2.0-7.6 N IMMATURE GRANULOCYTE # (test 0.03 x10 3/uL 0.00-0.03 N code = IG#) LYMPHOCYTE # (test code = LY#) 1.45 x10 3/uL 1.0-3.8 N MONOCYTE # (test code = MO#) 0.30 x10 3/uL 0.1-0.8 N EOSINOPHIL # (test code = EO#) 0.17 x10 3/uL 0.0-0.2 N BASOPHIL # (test code = BA#) 0.03 x10 3/uL 0.0-0.2 N NUCLEATED RBC # (test code = 0.00 x10 3/uL 0.0-0.1 N NRBC#) MANUAL DIFF REQUIRED (test code NO = MDIFF) BASIC METABOLIC [id number] 07:23:00 Test Item Value Reference Range Interpretation Comments SODIUM (test code = NA) 140 mEq/L 134-147 N POTASSIUM (test code = 4.1 mEq/L 3.4-5.0 N K) CHLORIDE (test code = 108 mEq/L 100-108 N CL) CARBON DIOXIDE (test 24 mEq/l 21-33 N code = CO2) ANION GAP (test code = 12 0-20 N GAP) GLUCOSE (test code = 102 mg/dL 70-110 N GLU) BLOOD UREA NITROGEN 5 mg/dL 7-18 L (test code = BUN) GLOMERULAR FILTRATION 113.1 105-110 H Units of measure = RATE (test code = GFR) ml/mi n/1.73 m2 CREATININE (test code = 0.6 mg/dL 0.6-1.3 N CREAT) CALCIUM (test code = 9.4 mg/dL 8.0-10.5 N CA) [id number] 14:52:00 Test Item Value Reference Range Interpretation Comments SURGICAL (test code = SR) R UN DATE: 03/01/22 [facility] - LAB PAGE 1 RUN TIME: 1452 Specimen Inquiry RUN USER: INTERFACE P ATIENT: JAMILAH AG LOC: G.5WS U #: [id number] AGE/SX: 37/F [place] [facility] [place] DR: Tony Galarza MD : 86 BED: 1 DIS: STATUS: ADM IN TLOC: SPEC #: [id number] RECD: 02/28/22 STATUS: MARCELLE FLORES #: [id number] BOUBACAR: 02/25/22- DR: Tony Galarza MD ENTERED: 02/28/22 SP TYPE: SURGICAL OTHR DR: Self Referred Jovi Jean Baptiste MD,Naheed Magallanes,Haim Miller,Sondra Browning,Kade Siddiqi,Mak Sharif,Jorden Newberry,Slick Benz,In S MDORDERED: [id number], ANATOMIC SPEC COPIES TO: Self Referred Jovi Jean Baptiste MD [address] [facility] [address] [place] [id number] Tony Galarza MD [address] [place], [place] [address] Naheed Jean MD [address] [place] [address] Haim Magallanes MD [address] [facility] [address] [place], [place] [phone] Sondra Miller MD [address] [place] [address] Kade Browning MD [address] [place] [address] [email or web address] CONTINUED ON NEXT PAGE R UN DATE: 03/01/22 [facility] PAGE 2 RUN TIME: 1452 Specimen Inquiry RUN USER: INTERFACE S PEC #: [id number] PATIENT: JAMILAH AG #[id number] (Continued) COPIES TO: (Continued) Mak Siddiqi MD [address] [facility] [address] [place] [address] [place] [address] [place] [address] Slick Newberry MD [address] [facility] [address] [place], [place] [id number] [email or web address] Shady Benz MD [address] [place] [address] [address] [place] [address] PROCEDURES: [id number] (02/28/22) TISSUES: A. COLOSTOMY STOMA, NOT FOR TUMOR FINAL DIAGNOSIS Colostomy, submitted: Colonic mucosa with surrounding fibrosis; squamous epithelium with reactive changes; consistent with colostomy takedown. GROSS DESCRIPTION Received in formalin labeled colostomy is a 4.5 cm in length 2.2 cm in diameter segment ofcolon with a ring of hassan indurated skin and surrounded dense adipose. The mucosa isunremarkable. Submitted (A)-(B). Technical component performed at [facility],[address] [place] [address], [place] [address] Unless gross only, the diagnosis is based upon microscopic examination.Immunohistochemistr y: This test was developed and its performance characteristicsdetermined by this laboratory. It has not been approved nor does it need approvalby the [place] FDA. Appropriate positive and negative controls are reviewed and judgedto be acceptable. This laboratory is certified under the Clinical Laboratory ImprovementAmendments (CLIA-88) as qualified to perform high complexity clinical laboratory testing. CONTINUED ON NEXT PAGE R TERRANCE DATE: 03/01/22 Icard - LAB PAGE 3 RUN TIME: 421 Specimen Inquiry RUN USER: INTERFACE Mikayla FIORE #: [id number] PATIENT: JAMILAH AG Valerie #[id number] (Continued) Signed SIGNATURE ON Robert Morales N DO 03/01/22 1452 END OF REPORT CBC W/AUTO [id number] 09:14:00 Test Item Value Reference Range Interpretation Comments WHITE BLOOD CELL (test code = 4.2 x10 3/uL 4.5-11.0 L WBC) RED BLOOD CELL (test code = 5.25 x10 6/uL 3.54-5.02 H RBC) HEMOGLOBIN (test code = HGB) 14.0 g/dL 11.0-15.0 N HEMATOCRIT (test code = HCT) 43.2 % 33.0-45.0 N MEAN CELL VOLUME (test code = 82.3 fL 81.0-99.0 N MCV) MEAN CELL HGB (test code = MCH) 26.7 pg 27.0-33.0 L MEAN CELL HGB CONCETRATION 32.4 g/dL 33.0-37.0 L (test code = MCHC) RED CELL DISTRIBUTION WIDTH CV 16.1 % 11.5-14.5 H (test code = RDW) PLATELET COUNT (test code = 167 x10 3/uL 150-400 N PLT) NEUTROPHIL % (test code = NT%) 56.3 % 56.0-77.0 N LYMPHOCYTE % (test code = LY%) 30.4 % 14.0-32.0 N NEUTROPHIL # (test code = NT#) 2.37 x10 3/uL 2.0-7.6 N LYMPHOCYTE # (test code = LY#) 1.28 x10 3/uL 1.0-3.8 N MANUAL DIFF REQUIRED (test code NO = MDIFF) RED CELL DISTRIBUTION WIDTH SD 48.4 fL 37.0-54.0 N (test code = RDW-SD) MEAN PLATELET VOLUME (test code 11.1 fL 7.0-9.0 H = MPV) IMMATURE GRANULOCYTE % (test 0.5 % 0.0-2.0 N code = IG%) MONOCYTE % (test code = MO%) 7.6 % 4.8-9.0 N EOSINOPHIL % (test code = EO%) 4.5 % 0.3-3.7 H BASOPHIL % (test code = BA%) 0.7 % 0.0-2.0 N NUCLEATED RBC % (test code = 0.0 % 0-0 N NRBC%) IMMATURE GRANULOCYTE # (test 0.02 x10 3/uL 0.00-0.03 N code = IG#) MONOCYTE # (test code = MO#) 0.32 x10 3/uL 0.1-0.8 N EOSINOPHIL # (test code = EO#) 0.19 x10 3/uL 0.0-0.2 N BASOPHIL # (test code = BA#) 0.03 x10 3/uL 0.0-0.2 N NUCLEATED RBC # (test code = 0.00 x10 3/uL 0.0-0.1 N NRBC#) COMPREHENSIVE METABOLIC [id number] 09:12:00 Test Item Value Reference Range Interpretation Comments SODIUM (test code = NA) 139 mEq/L 134-147 N POTASSIUM (test code = 4.0 mEq/L 3.4-5.0 N K) CHLORIDE (test code = 109 mEq/L 100-108 H CL) CARBON DIOXIDE (test 26 mEq/l 21-33 N code = CO2) ANION GAP (test code = 8 0-20 N GAP) GLUCOSE (test code = 107 mg/dL 70-110 GLU) BLOOD UREA NITROGEN < 5 mg/dL 7-18 L (test code = BUN) GLOMERULAR FILTRATION 139.6 105-110 H Units of measure = RATE (test code = GFR) ml/mi n/1.73 m2 CREATININE (test code = 0.5 mg/dL 0.6-1.3 L CREAT) TOTAL PROTEIN (test 6.3 g/dL 6.4-8.2 L code = PROT) ALBUMIN (test code = 3.60 g/dL 3.4-5.0 N ALB) CALCIUM (test code = 9.5 mg/dL 8.0-10.5 N CA) BILIRUBIN TOTAL (test 0.30 mg/dL 0.0-1.0 N code = BILT) SGOT/AST (test code = 10 IUnit/L 15-37 L AST) SGPT/ALT (test code = < 7 IUnit/L 30-65 L ALT) ALKALINE PHOSPHATASE 62 IUnit/L 20-125 N TOTAL (test code = ALKP) - XR ABDOMEN 1V (KUB)2022-02-28 00:00:00 [facility] : 1985 [place] St: ADM -- Name: JAMILAH AG [facility] : 1985 Age/S: 37/F [address] [place] [address] Unit #: [id number] Loc: [address] [address] Phys: Tony Galarza MD Acct: [id number] Dis Date: Status: ADM IN PHONE #: [phone] Exam Date: 02/27/20222056 FAX #: [phone] Reason: STOMACH PAIN/NAUSEA EXAMS: CPT CODE: [id number] XR ABDOMEN 1V (KUB) [id number] PROCEDURE INFORMATION: Exam: XR Abdomen Examdate and time: 02/27/2022 8:52 PM Age: 37 years old Clinical indication: Abdominal pain; Additional info: Stomach pain/nausea TECHNIQUE: Imaging protocol: XR of the abdomen. Views: Frontal supine view ofthe abdomen. 1 View. COMPARISON: CT ABD PELVIS W/CONT 02/04/2022 11:17 PM FINDINGS: Gastrointestinal tract: There is a non-obstructive bowel gas pattern. There is no abnormal dilatation of bowel loops. There is no pneumatosis or mass effect. Left pelvic ostomy site is noted. Bones/joints: There are mild degenerative changes in the left hip. Soft tissues: No abnormal radiopaque densities. IMPRESSION: Nonobstructive bowel gas pattern. at 0017 Reported and signed by: Tobin Garcia M.D. CC: Technologist: Quynh Hurt, RT(R); Temi Medrano RT(R) Trnscrd Date/Time/By: 02/28/2022 (001) : By: [email or web address] Orig Print D/T: S: 02/28/2022 (0017) PAGE 1 Signed ReportCBC W/AUTO [id number] 09:43:00 Test Item Value Reference Range Interpretation Comments WHITE BLOOD CELL (test code = 5.1 x10 3/uL 4.5-11.0 N WBC) RED BLOOD CELL (test code = 4.83 x10 6/uL 3.54-5.02 N RBC) HEMOGLOBIN (test code = HGB) 13.1 g/dL 11.0-15.0 N HEMATOCRIT (test code = HCT) 40.5 % 33.0-45.0 N MEAN CELL VOLUME (test code = 83.9 fL 81.0-99.0 N MCV) MEAN CELL HGB (test code = MCH) 27.1 pg 27.0-33.0 N MEAN CELL HGB CONCETRATION 32.3 g/dL 33.0-37.0 L (test code = MCHC) RED CELL DISTRIBUTION WIDTH CV 16.4 % 11.5-14.5 H (test code = RDW) RED CELL DISTRIBUTION WIDTH SD 50.0 fL 37.0-54.0 N (test code = RDW-SD) PLATELET COUNT (test code = 160 x10 3/uL 150-400 N PLT) MEAN PLATELET VOLUME (test code 10.8 fL 7.0-9.0 H = MPV) NEUTROPHIL % (test code = NT%) 58.3 % 56.0-77.0 N IMMATURE GRANULOCYTE % (test 0.6 % 0.0-2.0 N code = IG%) LYMPHOCYTE % (test code = LY%) 30.8 % 14.0-32.0 N MONOCYTE % (test code = MO%) 7.1 % 4.8-9.0 N EOSINOPHIL % (test code = EO%) 2.8 % 0.3-3.7 N BASOPHIL % (test code = BA%) 0.4 % 0.0-2.0 N NUCLEATED RBC % (test code = 0.0 % 0-0 N NRBC%) NEUTROPHIL # (test code = NT#) 2.95 x10 3/uL 2.0-7.6 N IMMATURE GRANULOCYTE # (test 0.03 x10 3/uL 0.00-0.03 N code = IG#) LYMPHOCYTE # (test code = LY#) 1.56 x10 3/uL 1.0-3.8 N MONOCYTE # (test code = MO#) 0.36 x10 3/uL 0.1-0.8 N EOSINOPHIL # (test code = EO#) 0.14 x10 3/uL 0.0-0.2 N BASOPHIL # (test code = BA#) 0.02 x10 3/uL 0.0-0.2 N NUCLEATED RBC # (test code = 0.00 x10 3/uL 0.0-0.1 N NRBC#) MANUAL DIFF REQUIRED (test code NO = MDIFF) BASIC METABOLIC [id number] 07:41:00 Test Item Value Reference Range Interpretation Comments SODIUM (test code = 142 mEq/L 134-147 N NA) POTASSIUM (test code = 4.4 mEq/L 3.4-5.0 SPECI MEN SLIGHTLY K) HEMOLYZED.Resul ts known to be adv ersely affected by hem olysis are: Potassium Magnesium LDH Phosphorus CHLORIDE (test code = 111 mEq/L 100-108 H CL) CARBON DIOXIDE (test 21 mEq/l 21-33 code = CO2) ANION GAP (test code = 14 0-20 N GAP) GLUCOSE (test code = 73 mg/dL 70-110 N GLU) BLOOD UREA NITROGEN < 5 mg/dL 7-18 L (test code = BUN) GLOMERULAR FILTRATION 139.6 105-110 H Units of measure = RATE (test code = GFR) ml/mi n/1.73 m2 CREATININE (test code 0.5 mg/dL 0.6-1.3 L = CREAT) CALCIUM (test code = 8.9 mg/dL 8.0-10.5 N CA) - XR CHEST 1 [id number] 00:00:00 [facility] : 1985 [place]: [place] St: ADM -- Name: JAMILAH AG [facility] : 1985 Age/S: 37/F [address] [place] [address] Unit #: [id number] Loc: [address] [address] Phys: Tony Galarza MD Acct: [id number] Dis Date: Status: ADM IN PHONE #: [phone] Exam Date: 02/27/2022 1047 FAX #: [phone] Reason: SOB EXAMS: CPT CODE: [id number] XR CHEST 1 V [id number] PROCEDURE INFORMATION: Exam: XR Chest Exam date and time: 02/27/2022 10:18 AM Age: 37 years old Clinical indication: Wheezing and other: SOB TECHNIQUE: Imaging protocol: XR of the chest. Views: 1 view. COMPARISON: CR XR CHEST 1V 02/24/2022 2:58 PM FINDINGS: Lungs: No acute airspace consolidation. Pleural spaces: No pleural effusion. No pneumothorax. Heart/Mediastinum: No cardiomegaly. Bones/joints: Postoperative change in the thoracic spine, stable. Old right rib fractures. IMPRESSION: No acute cardiopulmonary process. Electronically Signed by Jason Carter on at 1107 Reported and signed by: Judson Carter M.D. CC: Technologist: Nancy Looney, RT(R); Temi Medrano RT(R) Trnscrd Date/Time/By: 02/27/2022 (1107) : By: [email or web address] Orig Print D/T: S: 02/27/2022 (6145) PAGE 1 Signed ReportC W/AUTO [id number] 07:38:00 Test Item Value Reference Range Interpretation Comments WHITE BLOOD CELL (test code = 6.3 x10 3/uL 4.5-11.0 WBC) RED BLOOD CELL (test code = 5.16 x10 6/uL 3.54-5.02 H RBC) HEMOGLOBIN (test code = HGB) 13.5 g/dL 11.0-15.0 N HEMATOCRIT (test code = HCT) 43.3 % 33.0-45.0 N MEAN CELL VOLUME (test code = 83.9 fL 81.0-99.0 N MCV) MEAN CELL HGB (test code = MCH) 26.2 pg 27.0-33.0 L MEAN CELL HGB CONCETRATION 31.2 g/dL 33.0-37.0 L (test code = MCHC) RED CELL DISTRIBUTION WIDTH CV 15.9 % 11.5-14.5 H (test code = RDW) RED CELL DISTRIBUTION WIDTH SD 47.7 fL 37.0-54.0 N (test code = RDW-SD) PLATELET COUNT (test code = 175 x10 3/uL 150-400 N PLT) MEAN PLATELET VOLUME (test code 10.7 fL 7.0-9.0 H = MPV) NEUTROPHIL % (test code = NT%) 50.0 % 56.0-77.0 L IMMATURE GRANULOCYTE % (test 0.3 % 0.0-2.0 N code = IG%) LYMPHOCYTE % (test code = LY%) 39.9 % 14.0-32.0 H MONOCYTE % (test code = MO%) 9.0 % 4.8-9.0 N EOSINOPHIL % (test code = EO%) 0.5 % 0.3-3.7 N BASOPHIL % (test code = BA%) 0.3 % 0.0-2.0 N NUCLEATED RBC % (test code = 0.0 % 0-0 N NRBC%) NEUTROPHIL # (test code = NT#) 3.15 x10 3/uL 2.0-7.6 N IMMATURE GRANULOCYTE # (test 0.02 x10 3/uL 0.00-0.03 N code = IG#) LYMPHOCYTE # (test code = LY#) 2.52 x10 3/uL 1.0-3.8 N MONOCYTE # (test code = MO#) 0.57 x10 3/uL 0.1-0.8 N EOSINOPHIL # (test code = EO#) 0.03 x10 3/uL 0.0-0.2 N BASOPHIL # (test code = BA#) 0.02 x10 3/uL 0.0-0.2 N NUCLEATED RBC # (test code = 0.00 x10 3/uL 0.0-0.1 N NRBC#) MANUAL DIFF REQUIRED (test code NO = MDIFF) BASIC METABOLIC [id number] 07:18:00 Test Item Value Reference Range Interpretation Comments SODIUM (test code = NA) 144 mEq/L 134-147 N POTASSIUM (test code = 3.3 mEq/L 3.4-5.0 L K) CHLORIDE (test code = 109 mEq/L 100-108 H CL) CARBON DIOXIDE (test 29 mEq/l 21-33 code = CO2) ANION GAP (test code = 9 0-20 N GAP) GLUCOSE (test code = 97 mg/dL 70-110 N GLU) BLOOD UREA NITROGEN < 5 mg/dL 7-18 L (test code = BUN) GLOMERULAR FILTRATION 113.1 105-110 H Units of measure = RATE (test code = GFR) ml/mi n/1.73 m2 CREATININE (test code = 0.6 mg/dL 0.6-1.3 N CREAT) CALCIUM (test code = 9.5 mg/dL 8.0-10.5 N CA) COMPREHENSIVE METABOLIC [id number] 08:06:00 Test Item Value Reference Range Interpretation Comments SODIUM (test code = NA) 142 mEq/L 134-147 N POTASSIUM (test code = 3.2 mEq/L 3.4-5.0 L K) CHLORIDE (test code = 111 mEq/L 100-108 H CL) CARBON DIOXIDE (test 22 mEq/l 21-33 code = CO2) ANION GAP (test code = 12 0-20 N GAP) GLUCOSE (test code = 86 mg/dL 70-110 N GLU) BLOOD UREA NITROGEN < 5 mg/dL 7-18 L (test code = BUN) GLOMERULAR FILTRATION 139.6 105-110 H Units of measure = RATE (test code = GFR) ml/mi n/1.73 m2 CREATININE (test code = 0.5 mg/dL 0.6-1.3 L CREAT) TOTAL PROTEIN (test 5.3 g/dL 6.4-8.2 L code = PROT) ALBUMIN (test code = 3.10 g/dL 3.4-5.0 L ALB) CALCIUM (test code = 8.6 mg/dL 8.0-10.5 N CA) BILIRUBIN TOTAL (test 0.20 mg/dL 0.0-1.0 N code = BILT) SGOT/AST (test code = 11 IUnit/L 15-37 L AST) SGPT/ALT (test code = < 7 IUnit/L 30-65 L ALT) ALKALINE PHOSPHATASE 53 IUnit/L 20-125 N TOTAL (test code = ALKP) CBC W/AUTO [id number] 07:26:00 Test Item Value Reference Range Interpretation Comments WHITE BLOOD CELL (test code = 4.3 x10 3/uL 4.5-11.0 L WBC) RED BLOOD CELL (test code = 4.49 x10 6/uL 3.54-5.02 N RBC) HEMOGLOBIN (test code = HGB) 12.1 g/dL 11.0-15.0 N HEMATOCRIT (test code = HCT) 37.4 % 33.0-45.0 N MEAN CELL VOLUME (test code = 83.3 fL 81.0-99.0 N MCV) MEAN CELL HGB (test code = MCH) 26.9 pg 27.0-33.0 L MEAN CELL HGB CONCETRATION 32.4 g/dL 33.0-37.0 L (test code = MCHC) RED CELL DISTRIBUTION WIDTH CV 15.8 % 11.5-14.5 H (test code = RDW) RED CELL DISTRIBUTION WIDTH SD 47.5 fL 37.0-54.0 N (test code = RDW-SD) PLATELET COUNT (test code = 151 x10 3/uL 150-400 N PLT) MEAN PLATELET VOLUME (test code 10.8 fL 7.0-9.0 H = MPV) NEUTROPHIL % (test code = NT%) 59.0 % 56.0-77.0 N IMMATURE GRANULOCYTE % (test 0.5 % 0.0-2.0 N code = IG%) LYMPHOCYTE % (test code = LY%) 29.6 % 14.0-32.0 N MONOCYTE % (test code = MO%) 7.9 % 4.8-9.0 N EOSINOPHIL % (test code = EO%) 2.5 % 0.3-3.7 N BASOPHIL % (test code = BA%) 0.5 % 0.0-2.0 N NUCLEATED RBC % (test code = 0.0 % 0-0 N NRBC%) NEUTROPHIL # (test code = NT#) 2.56 x10 3/uL 2.0-7.6 N IMMATURE GRANULOCYTE # (test 0.02 x10 3/uL 0.00-0.03 N code = IG#) LYMPHOCYTE # (test code = LY#) 1.28 x10 3/uL 1.0-3.8 N MONOCYTE # (test code = MO#) 0.34 x10 3/uL 0.1-0.8 N EOSINOPHIL # (test code = EO#) 0.11 x10 3/uL 0.0-0.2 N BASOPHIL # (test code = BA#) 0.02 x10 3/uL 0.0-0.2 N NUCLEATED RBC # (test code = 0.00 x10 3/uL 0.0-0.1 N NRBC#) MANUAL DIFF REQUIRED (test code NO = MDIFF) PROTHROMBIN [id number] 06:13:00 Test Item Value Reference Range Interpretation Comments PROTHROMBIN TIME 13.0 SECONDS 9.3-12.9 H PATIENT (test code = PTP) INTERNATIONAL NORMAL 1.2 0.8-1.2 N TARGET INR BY RATIO (test code = INDICATIO N Indication INR) INR1. Prophylax is of venous thrombos is 2.0 - 3.0 (orthoped ic surgery), Proph ylaxis of venous throm bosis (other than hig h-risk surgery), Treat ment of Deep Vein Thrombosis/Pulm onary Embolism, Preve ntion of systemic emb olism - Tissue heart va lves, Acute Myocardia l Infarction (to prevent systemic emboli sm), Valvular heart disease, Atrial Fibrillation, Bileaflet mecha nical valve in aortic position.2. Mec hanical prosthetic valv es (high risk), 2. 5 - 3.5 Presence of Lup us Anticoagulant o r Antiphospholipi d Antibodies, Pre vention of systemic emb olism - Acute Myocardia l Infarction (to prevent recurrent infar ct). CBC W/AUTO [id number] 14:08:00 Test Item Value Reference Range Interpretation Comments WHITE BLOOD CELL (test code = 5.6 x10 3/uL 4.5-11.0 N WBC) RED BLOOD CELL (test code = 5.26 x10 6/uL 3.54-5.02 H RBC) HEMOGLOBIN (test code = HGB) 14.1 g/dL 11.0-15.0 N HEMATOCRIT (test code = HCT) 43.2 % 33.0-45.0 N MEAN CELL VOLUME (test code = 82.1 fL 81.0-99.0 N MCV) MEAN CELL HGB (test code = MCH) 26.8 pg 27.0-33.0 L MEAN CELL HGB CONCETRATION 32.6 g/dL 33.0-37.0 L (test code = MCHC) RED CELL DISTRIBUTION WIDTH CV 15.7 % 11.5-14.5 H (test code = RDW) RED CELL DISTRIBUTION WIDTH SD 46.1 fL 37.0-54.0 N (test code = RDW-SD) PLATELET COUNT (test code = 175 x10 3/uL 150-400 N PLT) MEAN PLATELET VOLUME (test code 10.7 fL 7.0-9.0 H = MPV) NEUTROPHIL % (test code = NT%) 59.9 % 56.0-77.0 N IMMATURE GRANULOCYTE % (test 0.4 % 0.0-2.0 N code = IG%) LYMPHOCYTE % (test code = LY%) 31.1 % 14.0-32.0 N MONOCYTE % (test code = MO%) 6.1 % 4.8-9.0 N EOSINOPHIL % (test code = EO%) 2.0 % 0.3-3.7 N BASOPHIL % (test code = BA%) 0.5 % 0.0-2.0 N NUCLEATED RBC % (test code = 0.0 % 0-0 N NRBC%) NEUTROPHIL # (test code = NT#) 3.33 x10 3/uL 2.0-7.6 N IMMATURE GRANULOCYTE # (test 0.02 x10 3/uL 0.00-0.03 N code = IG#) LYMPHOCYTE # (test code = LY#) 1.73 x10 3/uL 1.0-3.8 N MONOCYTE # (test code = MO#) 0.34 x10 3/uL 0.1-0.8 N EOSINOPHIL # (test code = EO#) 0.11 x10 3/uL 0.0-0.2 N BASOPHIL # (test code = BA#) 0.03 x10 3/uL 0.0-0.2 N NUCLEATED RBC # (test code = 0.00 x10 3/uL 0.0-0.1 N NRBC#) MANUAL DIFF REQUIRED (test code NO = MDIFF) BASIC METABOLIC [id number] 07:41:00 Test Item Value Reference Range Interpretation Comments SODIUM (test code = NA) 144 mEq/L 134-147 N POTASSIUM (test code = 3.4 mEq/L 3.4-5.0 N K) CHLORIDE (test code = 115 mEq/L 100-108 H CL) CARBON DIOXIDE (test 17 mEq/l 21-33 L code = CO2) ANION GAP (test code = 15 0-20 N GAP) GLUCOSE (test code = 81 mg/dL 70-110 N GLU) BLOOD UREA NITROGEN < 5 mg/dL 7-18 L (test code = BUN) GLOMERULAR FILTRATION 139.6 105-110 H Units of measure = RATE (test code = GFR) ml/mi n/1.73 m2 CREATININE (test code = 0.5 mg/dL 0.6-1.3 L CREAT) CALCIUM (test code = 8.4 mg/dL 8.0-10.5 N CA) - XR CHEST 1 [id number] 00:00:00 [facility] : 1985 Sex: F [place]: St: ADM -- Name: JAMILAH AG [facility] : 1985 Age/S: 37/F [address] [place] [address] Unit #: [id number] Loc: [address] [place] [address] Phys: Tony Galarza MD Acct: [id number] Dis Date: Status: ADM IN PHONE #: [phone] Exam Date: 02/24/20222 FAX #: [phone] Reason: SOB EXAMS: CPT CODE: [id number] XR CHEST 1 V [id number] PROCEDURE INFORMATION: Exam: XR Chest Exam date and time: 02/24/2022 2:58 PM Age: 37 years old Clinical indication: Shortness of breath; dyspnea TECHNIQUE: Imaging protocol: XR of the chest. Views: 1 view. Other technique: 1 view, frontal COMPARISON: CR XR CHEST 1V 01/21 9:37 PM FINDINGS: Lungs: No infiltrates or other focal abnormalities. Pleural spaces: Unremarkable. No pleural effusion. No pneumothorax. Heart/Mediastinum: The heart is normal in size. Bones/joints: Postoperative changes, thoracic spine. Impression. Old healed right rib fractures. The osseous structures are otherwise unremarkable. IMPRESSION: There is no evidence of an active or acute process within the chest. at 2233 Reported and signed by: Pedrito Britton M.D. CC: Technologist: RT Bin(Lonnie) Trnollie Date/Time/By: 02/24/2022 (2232) : By: [email or web address] Orig Print D/T: S: 02/24/2022 (2232) PAGE 1 Signed ReportCOVID 19 Asymptomatic IH [id number] 18:21:00 Test Item Value Reference Range Interpretation Comments [...] perform moderate, high or waivedcomplexit y tests. CBC W/AUTO [id number] 10:08:00 Test Item Value Reference Range Interpretation Comments WHITE BLOOD CELL (test code = 4.0 x10 3/uL 4.5-11.0 L WBC) RED BLOOD CELL (test code = 4.81 x10 6/uL 3.54-5.02 N RBC) HEMOGLOBIN (test code = HGB) 12.7 g/dL 11.0-15.0 N HEMATOCRIT (test code = HCT) 40.0 % 33.0-45.0 N MEAN CELL VOLUME (test code = 83.2 fL 81.0-99.0 N MCV) MEAN CELL HGB (test code = MCH) 26.4 pg 27.0-33.0 L MEAN CELL HGB CONCETRATION 31.8 g/dL 33.0-37.0 L (test code = MCHC) RED CELL DISTRIBUTION WIDTH CV 15.3 % 11.5-14.5 H (test code = RDW) RED CELL DISTRIBUTION WIDTH SD 46.5 fL 37.0-54.0 N (test code = RDW-SD) PLATELET COUNT (test code = 196 x10 3/uL 150-400 N PLT) MEAN PLATELET VOLUME (test code 11.0 fL 7.0-9.0 H = MPV) NEUTROPHIL % (test code = NT%) 53.5 % 56.0-77.0 L IMMATURE GRANULOCYTE % (test 0.5 % 0.0-2.0 N code = IG%) LYMPHOCYTE % (test code = LY%) 35.5 % 14.0-32.0 H MONOCYTE % (test code = MO%) 8.5 % 4.8-9.0 N EOSINOPHIL % (test code = EO%) 1.5 % 0.3-3.7 N BASOPHIL % (test code = BA%) 0.5 % 0.0-2.0 N NUCLEATED RBC % (test code = 0.0 % 0-0 N NRBC%) NEUTROPHIL # (test code = NT#) 2.14 x10 3/uL 2.0-7.6 N IMMATURE GRANULOCYTE # (test 0.02 x10 3/uL 0.00-0.03 N code = IG#) LYMPHOCYTE # (test code = LY#) 1.42 x10 3/uL 1.0-3.8 N MONOCYTE # (test code = MO#) 0.34 x10 3/uL 0.1-0.8 N EOSINOPHIL # (test code = EO#) 0.06 x10 3/uL 0.0-0.2 N BASOPHIL # (test code = BA#) 0.02 x10 3/uL 0.0-0.2 N NUCLEATED RBC # (test code = 0.00 x10 3/uL 0.0-0.1 N NRBC#) MANUAL DIFF REQUIRED (test code NO = MDIFF) SED RATE [id number] 10:08:00 Test Item Value Reference Range Interpretation Comments SED RATE JAUN (test code = 20 mm/hr 0-20 N SEDW) [id number]%[id number] 07:05:00 Test Item Value Reference Range Interpretation Comments HGBA1C% (test code = HGBA1C%) 4.8 %A1C 4.8-6.0 N COMMENTS: [id number] METABOLIC [id number] 06:57:00 Test Item Value Reference Range Interpretation Comments SODIUM (test code = NA) 141 mEq/L 134-147 N POTASSIUM (test code = 3.7 mEq/L 3.4-5.0 N K) CHLORIDE (test code = 110 mEq/L 100-108 H CL) CARBON DIOXIDE (test 26 mEq/l 21-33 N code = CO2) ANION GAP (test code = 9 0-20 N GAP) GLUCOSE (test code = 77 mg/dL 70-110 N GLU) BLOOD UREA NITROGEN < 5 mg/dL 7-18 L (test code = BUN) GLOMERULAR FILTRATION 139.6 105-110 H Units of measure = RATE (test code = GFR) ml/mi n/1.73 m2 CREATININE (test code = 0.5 mg/dL 0.6-1.3 L CREAT) TOTAL PROTEIN (test 6.1 g/dL 6.4-8.2 L code = PROT) ALBUMIN (test code = 3.60 g/dL 3.4-5.0 N ALB) CALCIUM (test code = 9.1 mg/dL 8.0-10.5 N CA) BILIRUBIN TOTAL (test 0.30 mg/dL 0.0-1.0 N code = BILT) SGOT/AST (test code = 17 IUnit/L 15-37 N AST) SGPT/ALT (test code = 10 IUnit/L 30-65 L ALT) ALKALINE PHOSPHATASE 64 IUnit/L 20-125 N TOTAL (test code = ALKP) BASIC METABOLIC [id number] 05:31:00 Test Item Value Reference Range Interpretation Comments SODIUM (test code = NA) 141 mEq/L 134-147 N POTASSIUM (test code = 3.3 mEq/L 3.4-5.0 L K) CHLORIDE (test code = 109 mEq/L 100-108 H CL) CARBON DIOXIDE (test 22 mEq/l 21-33 N code = CO2) ANION GAP (test code = 13 0-20 N GAP) GLUCOSE (test code = 73 mg/dL 70-110 N GLU) BLOOD UREA NITROGEN < 5 mg/dL 7-18 L (test code = BUN) GLOMERULAR FILTRATION 113.1 105-110 H Units of measure = RATE (test code = GFR) ml/mi n/1.73 m2 CREATININE (test code = 0.6 mg/dL 0.6-1.3 N CREAT) CALCIUM (test code = 9.0 mg/dL 8.0-10.5 N CA) [id number] 05:31:00 Test Item Value Reference Range Interpretation Comments MAGNESIUM (test code = MAG) 1.76 mg/dL 1.80-2.40 L CBC W/AUTO [id number] 05:17:00 Test Item Value Reference Range Interpretation Comments WHITE BLOOD CELL (test code = 5.0 x10 3/uL 4.5-11.0 N WBC) RED BLOOD CELL (test code = 5.25 x10 6/uL 3.54-5.02 H RBC) HEMOGLOBIN (test code = HGB) 13.8 g/dL 11.0-15.0 N HEMATOCRIT (test code = HCT) 44.5 % 33.0-45.0 N MEAN CELL VOLUME (test code = 84.8 fL 81.0-99.0 MCV) MEAN CELL HGB (test code = MCH) 26.3 pg 27.0-33.0 L MEAN CELL HGB CONCETRATION 31.0 g/dL 33.0-37.0 L (test code = MCHC) RED CELL DISTRIBUTION WIDTH CV 15.2 % 11.5-14.5 H (test code = RDW) RED CELL DISTRIBUTION WIDTH SD 47.5 fL 37.0-54.0 N (test code = RDW-SD) PLATELET COUNT (test code = 159 x10 3/uL 150-400 N PLT) MEAN PLATELET VOLUME (test code 11.3 fL 7.0-9.0 H = MPV) NEUTROPHIL % (test code = NT%) 61.9 % 56.0-77.0 N IMMATURE GRANULOCYTE % (test 0.4 % 0.0-2.0 N code = IG%) LYMPHOCYTE % (test code = LY%) 27.1 % 14.0-32.0 N MONOCYTE % (test code = MO%) 8.6 % 4.8-9.0 N EOSINOPHIL % (test code = EO%) 1.6 % 0.3-3.7 N BASOPHIL % (test code = BA%) 0.4 % 0.0-2.0 N NUCLEATED RBC % (test code = 0.0 % 0-0 N NRBC%) NEUTROPHIL # (test code = NT#) 3.09 x10 3/uL 2.0-7.6 N IMMATURE GRANULOCYTE # (test 0.02 x10 3/uL 0.00-0.03 N code = IG#) LYMPHOCYTE # (test code = LY#) 1.35 x10 3/uL 1.0-3.8 N MONOCYTE # (test code = MO#) 0.43 x10 3/uL 0.1-0.8 N EOSINOPHIL # (test code = EO#) 0.08 x10 3/uL 0.0-0.2 N BASOPHIL # (test code = BA#) 0.02 x10 3/uL 0.0-0.2 N NUCLEATED RBC # (test code = 0.00 x10 3/uL 0.0-0.1 N NRBC#) MANUAL DIFF REQUIRED (test code NO = MDIFF) COMPREHENSIVE METABOLIC [id number] 15:55:00 Test Item Value Reference Range Interpretation Comments SODIUM (test code = NA) 143 mEq/L 134-147 N POTASSIUM (test code = 3.7 mEq/L 3.4-5.0 N K) CHLORIDE (test code = 105 mEq/L 100-108 N CL) CARBON DIOXIDE (test 28 mEq/l 21-33 N code = CO2) ANION GAP (test code = 14 0-20 N GAP) GLUCOSE (test code = 87 mg/dL 70-110 N GLU) BLOOD UREA NITROGEN 8 mg/dL 7-18 N (test code = BUN) GLOMERULAR FILTRATION 113.1 105-110 H Units of measure = RATE (test code = GFR) ml/mi n/1.73 m2 CREATININE (test code = 0.6 mg/dL 0.6-1.3 N CREAT) TOTAL PROTEIN (test 7.6 g/dL 6.4-8.2 N code = PROT) ALBUMIN (test code = 4.50 g/dL 3.4-5.0 N ALB) CALCIUM (test code = 9.9 mg/dL 8.0-10.5 N CA) BILIRUBIN TOTAL (test 0.40 mg/dL 0.0-1.0 N code = BILT) SGOT/AST (test code = 19 IUnit/L 15-37 N AST) SGPT/ALT (test code = 16 IUnit/L 30-65 L ALT) ALKALINE PHOSPHATASE 80 IUnit/L 20-125 N TOTAL (test code = ALKP) UA RFLX MICR CULT IF [id number] 15:46:00 Test Item Value Reference Range Interpretation Comments UA COLOR (test code = COLU) YELLOW YEL/STRAW UA APPEARANCE (test code = TURBID CLEAR A APPU) UA GLUCOSE DIPSTICK (test code NEGATIVE NEGATIVE = DGLUU) UA BILIRUBIN DIPSTICK (test NEGATIVE NEGATIVE code = BILU) UA KETONE DIPSTICK (test code = 1+ NEGATIVE A KETU) UA SPECIFIC GRAVITY (test code 1.010 1.005-1.030 N = SGU) UA BLOOD DIPSTICK (test code = 1+ NEGATIVE A AMARIS) UA PH DIPSTICK (test code = 8.0 5.0-7.0 H STACY) UA PROTEIN DIPSTICK (test code NEGATIVE NEGATIVE = PROU) UA UROBILINIOGEN DIPSTICK (test 0.2 mg/dL 0.2-1.0 code = URO) UA NITRITE DIPSTICK (test code NEGATIVE NEGATIVE = NAVJOT) UA LEUKOCYTE ESTERASE DIPSTICK 2+ NEGATIVE A (test code = LEUU) UA WBC (test code = WBCU) 10-20 WBC/HPF 0-3 A UA RBC (test code = RBCU) 3-5 RBC/HPF 0-3 A UA BACTERIA (test code = BACU) 1+ /HPF NONE SEEN A UA AMORPHOUS SEDIMENT (test 2+ /HPF NONE A code = AMORU) Indication for culture: RiskForSepsis-no oth srcSpecimen Description: INDWELLING CATH (SAM)Cath Status: Over 72 hoursCBC W/AUTO [id number] 15:40:00 Test Item Value Reference Range Interpretation Comments WHITE BLOOD CELL (test code = 4.3 x10 3/uL 4.5-11.0 L WBC) RED BLOOD CELL (test code = 5.68 x10 6/uL 3.54-5.02 H RBC) HEMOGLOBIN (test code = HGB) 14.5 g/dL 11.0-15.0 N HEMATOCRIT (test code = HCT) 46.1 % 33.0-45.0 H MEAN CELL VOLUME (test code = 81.2 fL 81.0-99.0 N MCV) MEAN CELL HGB (test code = MCH) 25.5 pg 27.0-33.0 L MEAN CELL HGB CONCETRATION 31.5 g/dL 33.0-37.0 L (test code = MCHC) RED CELL DISTRIBUTION WIDTH CV 15.0 % 11.5-14.5 H (test code = RDW) RED CELL DISTRIBUTION WIDTH SD 45.0 fL 37.0-54.0 N (test code = RDW-SD) PLATELET COUNT (test code = 243 x10 3/uL 150-400 N PLT) MEAN PLATELET VOLUME (test code 10.5 fL 7.0-9.0 H = MPV) NEUTROPHIL % (test code = NT%) 63.9 % 56.0-77.0 N IMMATURE GRANULOCYTE % (test 0.2 % 0.0-2.0 N code = IG%) LYMPHOCYTE % (test code = LY%) 28.2 % 14.0-32.0 N MONOCYTE % (test code = MO%) 6.5 % 4.8-9.0 N EOSINOPHIL % (test code = EO%) 0.7 % 0.3-3.7 N BASOPHIL % (test code = BA%) 0.5 % 0.0-2.0 N NUCLEATED RBC % (test code = 0.0 % 0-0 N NRBC%) NEUTROPHIL # (test code = NT#) 2.76 x10 3/uL 2.0-7.6 N IMMATURE GRANULOCYTE # (test 0.01 x10 3/uL 0.00-0.03 N code = IG#) LYMPHOCYTE # (test code = LY#) 1.22 x10 3/uL 1.0-3.8 N MONOCYTE # (test code = MO#) 0.28 x10 3/uL 0.1-0.8 N EOSINOPHIL # (test code = EO#) 0.03 x10 3/uL 0.0-0.2 N BASOPHIL # (test code = BA#) 0.02 x10 3/uL 0.0-0.2 N NUCLEATED RBC # (test code = 0.00 x10 3/uL 0.0-0.1 N NRBC#) MANUAL DIFF REQUIRED (test code NO = MDIFF) BASIC METABOLIC [id number] 08:18:00 Test Item Value Reference Range Interpretation Comments SODIUM (test code = NA) 141 mEq/L 134-147 N POTASSIUM (test code = 3.6 mEq/L 3.4-5.0 N K) CHLORIDE (test code = 109 mEq/L 100-108 H CL) CARBON DIOXIDE (test 26 mEq/l 21-33 N code = CO2) ANION GAP (test code = 9 0-20 N GAP) GLUCOSE (test code = 74 mg/dL 70-110 N GLU) BLOOD UREA NITROGEN 6 mg/dL 7-18 L (test code = BUN) GLOMERULAR FILTRATION 140.4 105-110 H Units of measure = RATE (test code = GFR) ml/mi n/1.73 m2 CREATININE (test code = 0.5 mg/dL 0.6-1.3 L CREAT) CALCIUM (test code = 9.0 mg/dL 8.0-10.5 N CA) CBC W/AUTO [id number] 07:27:00 Test Item Value Reference Range Interpretation [...] (test code NO = MDIFF) CBC W/AUTO [id number] 08:05:00 Test Item Value Reference Range Interpretation [...] (test code NO = MDIFF) SED RATE [id number] 08:05:00 Test Item Value Reference Range Interpretation Comments SED RATE WESTERGREN (test code = SEDW) mm/hr 0-20 BASIC METABOLIC [id number] 07:53:00 Test Item Value Reference Range Interpretation [...] 9.6 mg/dL 8.0-10.5 N CA) CBC W/AUTO [id number] 05:06:00 Test Item Value Reference Range Interpretation [...] (test code NO = MDIFF) SED RATE [id number] 05:06:00 Test Item Value Reference Range Interpretation Comments SED RATE VIKTORIAREN (test code = 17 mm/hr 0-20 N SEDW) [id number] 04:45:00 Test Item Value Reference Range Interpretation Comments HGBA1C% (test code = HGBA1C%) 4.8 %A1C 4.8-6.0 N COMMENTS: [id number] METABOLIC [id number] 04:40:00 Test Item Value Reference Range Interpretation [...] 20-125 N TOTAL (test code = ALKP) [id number] 04:40:00 Test Item Value Reference Range Interpretation Comments AMYLASE (test code = QUYNH) 41 UNITS/L 25-115 N [id number] 04:40:00 Test Item Value Reference Range Interpretation Comments LIPASE (test code = LIP) 29 U/L 13-57 N VITAMIN [id number] 04:40:00 Test Item Value Reference Range Interpretation Comments VITAMIN B12 (test code = VITB12) 348 pg/mL 193-986 N THYROID STIMULATING [id number] 04:40:00 Test Item Value Reference Range Interpretation Comments THYROID STIMULATING 3.21 0.42-5.47 N Results in HORMONE (test code = TSH) mi lli-International Units/mL TROP-I HIGH [id number] 04:40:00 Test Item Value Reference Range Interpretation Comments TROP-I HIGH < 3 ng/L 0-34 N CAUTION: Units of the SENSITIVITY (test current te st methodology code = TROPIHS) (ng/L) diffe rfrom the prior test meth odology (ng/mL) by a fa ctor of 1000. 99t h Percentile Uppe r Reference Limit (URL): Fe males: 34 ng/LMales: 54 n g/L In order to distin guish acute elevations of h igh sensitivitytrop onin from other clinical conditions, the FourthUnive rsal Definition of M yocardial Infarction stressesclinica l assessment and the demonstration o f a rise and/orfall in s erial troponin result s above the URL. These resu lts were obtained using Siemens [employer] IM TnI Hreagent. Results from di fferent methodologies s hould not becompared to o ne another as quantitative results and URLs mayvar y by method. COVID 19 Asymptomatic IH [id number] 17:19:00 Test Item Value Reference Range Interpretation [...] moderate, high or waivedcomplexit y tests. LACTIC [id number] 23:02:00 Test Item Value Reference Range Interpretation Comments LACTIC ACID (test code = LACT) 0.6 mmol/L 0.4-1.9 N UA RFLX MICR CULT IF [id number] 22:34:00 Test Item Value Reference Range Interpretation [...] YEASTUBD) Indication for culture: Dysuria/FrequencySpecimen Description: Clean CatchLIPASE 2022-02-04 22:27:00 Test Item Value Reference Range Interpretation Comments LIPASE (test code = LIP) 27 U/L 13-57 N TROP-I HIGH [id number] 22:27:00 Test Item Value Reference Range Interpretation Comments TROP-I HIGH < 3 ng/L 0-34 N CAUTION: Units of the SENSITIVITY (test current te st methodology code = TROPIHS) (ng/L) diffe rfrom the prior test meth odology (ng/mL) by a fa ctor of 1000. 99t h Percentile Uppe r Reference Limit (URL): Fe males: 34 ng/LMales: 54 n g/L In order to distin guish acute elevations of h igh sensitivitytrop onin from other clinical conditions, the FourthUnive rsal Definition of M yocardial Infarction stressesclinica l assessment and the demonstration o f a rise and/orfall in s erial troponin result s above the URL. These resu lts were obtained using Siemens [employer] IM TnI Hreagent. Results from di fferent methodologies s hould not becompared to o ne another as quantitative results and URLs mayvar y by method. BASIC METABOLIC [id number] 22:27:00 Test Item Value Reference Range Interpretation [...] 9.5 mg/dL 8.0-10.5 N CA) HEPATIC FUNCTION [id number] 22:27:00 Test Item Value Reference Range Interpretation [...] code = 0.20 MG/DL BILIND) HCG SERUM [id number] 22:22:00 Test Item Value Reference Range Interpretation Comments HCG SERUM QUAL (test code = SERUM NEGATIVE NEGATIVE HCGQL) CBC W/AUTO [id number] 22:11:00 Test Item Value Reference Range Interpretation [...] NO = MDIFF) - CT ABD PELVIS [id number] 00:00:00 [facility] : 1985 Sex: F Name: JAMILAH AG [facility] : 1985 Age/S: 36 / F [address] [place] [address] Unit#: [id number] Loc: [place] [address] Phys: Gabriel Canales Acct: [id number] Dis Date: Status: REG ER PHONE #: [phone] Exam Date: 02/04/2022 2319 FAX #: [phone] Reason: RLQ pain EXAMS: CPT CODE: [id number] CT ABD PELVIS W/CONT 87334 PROCEDURE INFORMATION: Exam: CT Abdomen And Pelvis With Contrast Exam date and time: 02/04/2022 11:17 PM Age: 36 years old Clinical indication: Abdominal pain; Additional info: Rlq pain TECHNIQUE: Imaging protocol: Computed tomography of the abdomen and pelvis with contrast. Radiation optimization: All CT scans at this facility use at least one of these dose op timization techniques: automated exposure control; mA and/or kV [...] lung bases are unremarkable. Liver: Few scattered subcentimeter hypodensities likely on the basis of small cysts. Gallbladder and bile ducts: Normal. No calcified stones. No ductal dilation. Pancreas: Normal. No ductal dilation. Spleen: Normal. No splenomegaly. Adrenalglands: Normal. No mass. Kidneys and ureters: Normal. No hydronephrosis. Stomach and bowel: A left lower quadrant colostomy is present. No evidence of bowel wall thickening or obstruction. Appendix: The appendix is unremarkable, best seen on axial series 2, images 84-90. [...] 1 Signed Report (CONTINUED) Name: JAMILAH AG [facility] : 1985 Age/S: 36 / F [address] [facility] Unit #: [id number] Loc: [place] [address] Phys: Gabriel Canales Acct: [id number] Dis Date: Status: REG ER PHONE #: [phone] Exam Date: 02/04/2022 2319 FAX #: [phone] Reason: RLQpain EXAMS: CPT CODE: [id number] CT ABD PELVIS W/CONT 00672 (Continued) IMPRESSION: 1. No acute findings in the abdomen or pelvis. 2. Right ovarian teratoma. 3. Mild infiltration of the posterior pelvicwall subcutaneous tissues may be stress related. at 2359 Reported and signed by: Shaina Dennis M.D. CC: Gabriel Canales DO Technolog ist:RT Nedra(R)(CT) CTDI: DLP: Trnscb Date/Time: 02/04/2022 (0643) [email or web address] Orig Print D/T: S: 02/04/2022 (6632) PAGE 2 Signed Report- XR CHEST 1 [id number] 00:00:00 [facility] : 1985 Sex: FFAX: Gabriel Will DO [phone] [place]: St: REG Name: JAMILAH AG [facility] : 1985 Age/S: 36/F[address] Unit #: [id number] Loc: [place] [address] Phys: Gabriel Canales DO Acct: [id number] Dis Date: Status: REG ER PHONE #: [phone] Exam Date: 02/04/20222156 FAX #: [phone] Reason: Abdominal Pain EXAMS: CPT CODE: [id number] XR CHEST 1 V 05862 PROCEDURE INFORMATION: Exam: XR Chest Exam date and time: 02/04/2022 9:37 PM Age: 36 years old Clinical indication: Other: Rlq pain/abd; Additional info: Abdominal pain TECHNIQUE: Imaging protocol: XR of the chest. Views: 1 view. COMPARISON: No relevant prior studies available. FINDINGS: Lungs: Clear. No consolidation. Pleuralspaces: Unremarkable. No pleural effusion. No pneumothorax. Heart/Mediastinum: Contours within normal limits. Bones/joints: No acute osseous process. Other findings: Bilateral spinal rods and screws inthe mid to lower thoracic spine. Chronic right rib fracture. IMPRESSION: No radiographically identified acute cardiopulmonary findings. at 2223 Reported and signed by: Mary Mclaughlin M.D. CC: Gabriel Canales DO Technologist: RT Marianne(Lonnie) Trnollie Date/Time/By: 02/04/2022 (2222) : By: [email or web address] Orig Print D/T: S: 02/04/2022 (7996) PAGE1 Signed Report
--- NOTE | 2022-06-13 19:35 | RAD REPORT ---
EXAM DESCRIPTION: CT - Head Brain Wo Cont - 06/13/2022 7:15 pm CLINICAL HISTORY: Headache COMPARISON: 2018 TECHNIQUE: Computed axial tomography of the head was obtained. IV contrast was not requested. All CT scans are performed using dose optimization technique as appropriate and may include automated exposure control or mA/KV adjustment according to patient size. FINDINGS: An intracranial bleed is not seen . The ventricles are normal in caliber. No significant hypodense areas within the brain visualized No extra-axial fluid collection is noted. Fluid within the sinuses/ mastoids is not seen. IMPRESSION: No acute intracranial abnormality is seen. If patient's symptoms persist MRI of the bra in would be recommended.
[2022-06-13 20:07] LABS: Absolute Lymphocytes (CBC) 1.5 K/uL (0.7-4.9); Hematocrit 45.4 % (36.0-45.0); Lymphocytes % 21.2 % (15.3-44.8); MCV 83.2 fL (80-100); RBC Red Blood Cell Count 5.46 M/uL (3.86-4.86)
[2022-06-13 20:22] LABS: Protime INR 1.08
[2022-06-13 20:23] LABS: ALT/SGPT 21 U/L (12-78); AST/SGOT 14 U/L (15-37); Albumin 4.3 g/dL (3.4-5.0); Alkaline Phosphatase 87 U/L (45-117); BUN Blood Urea Nitrogen 13 mg/dL (7-18); Bicarbonate 29 mmol/L (21-32); Bilirubin Direct < 0.1 mg/dL (0-0.2); Bilirubin Total 0.2 mg/dL (0.2-1.0); CKMB Creatine Kinase MB < 1.0 ng/mL (1.0-3.6); Creatine Phosphokinase 89 U/L (26-192); Glomerular Filtration Rate 101 ml/min (=/>90); Glucose Level 106 mg/dL (74-106); Lipase 158 U/L (73-393); Magnesium 2.1 mg/dL (1.8-2.4); Protein, Total 8.5 g/dL (6.4-8.2); Sodium Level 138 mmol/L (136-145)
--- NOTE | 2022-06-13 20:51 | RAD REPORT ---
EXAM DESCRIPTION: MRI - Brain Wo Cont - 06/13/2022 8:32 pm CLINICAL HISTORY: Headache COMPARISON: Head CT June 13, 2022 TECHNIQUE: Axial, sagittal, and coronal magnetic resonance images of the brain were obtained. FINDINGS: No significant abnormal signal within the brain Diffusion-weighted/ADC mapping does not reveal evidence of acute infarction. The ventricles are normal caliber. An extra-axial fluid collection is not noted. Fluid within the sinuses/mastoids is not seen IMPRESSION: No acute intracranial abnormality noted
--- NOTE | 2022-06-13 21:59 | ER ---
Nurse's Notes [facility] Name: Merlene Rockwell Age: 37 yrs Sex: Female : 1985 Arrival Date: 06/13/2022 Time: 18:16 Bed 30 Private MD: Diagnosis: Weakness;Altered mental status, unspecified Presentation: 06/13 18:34 Chief complaint: Patient states: Pt requested to call her [id number]-inv to report kb3 symptoms. SAYDA via telephone reports pt has been experiencing confusion, disorientation, headache, and memory loss over the last few weeks. Pt states "I have been feeling noise." Pt was evaluated for stroke-like symptoms last week and found a brain aneurysm. Pt was to follow up with neuro upon discharge from ED but SAYDA states symptoms are progressing. Coronavirus screen: Vaccine status: Patient reports receiving the 2nd dose of the covid vaccine. Client denies travel out of the [place] in the last 14 days. Ebola Screen: Patient negative for fever greater than or equal to 101.5 degrees Fahrenheit, and additional compatible Ebola Virus Disease symptoms Patient denies exposure to infectious person. Patient denies travel to an Ebola-affected area in the 21 days before illness onset. No acute neurological deficit is noted. Initial Sepsis Screen: Does the patient meet any 2 criteria? No. Patient's initial sepsis screen is negative. Does the patient have a suspected source of infection? No. Patient's initial sepsis screen is negative. Risk Assessment: Do you want to hurt yourself or someone else? Patient reports no desire to harm self or others. Onset of symptoms is unknown. 18:34 Method Of Arrival: Wheelchair kb3 18:34 Acuity: MORE 3 kb3 Triage Assessment: 18:39 The onset of the patients symptoms was at an unknown time. General: Appears in no kb3 apparent distress. Behavior is calm, cooperative. Pain: Complains of pain in head. Neuro: No deficits noted. Level of Consciousness is awake, alert, Oriented to person, place, time, situation, [employer] are equal bilaterally Paralysis in bilateral from waist down, Speech is normal, Facial symmetry appears normal. Historical: - Allergies: 18:39 GABAPENTIN; kb3 - PMHx: 18:39 Chronic pain; Depression; Paraplegia; kb3 - PSHx: 18:39 Colostomy; pump removed from abdomen; kb3 - Immunization history:: Adult Immunizations up to date, Client reports receiving the 2nd dose of the Covid vaccine, Last tetanus immunization: up to date. - Social history:: Smoking status: Patient denies any tobacco usage or history of. Screenin:21 Abuse screen: Denies threats or abuse. Denies injuries from another. Nutritional tw5 screening: No deficits noted. Tuberculosis screening: No symptoms or risk factors identified. Fall Risk Secondary diagnosis (15 points) Mental Status- Overestimates/Forgets Limitations (15 pts.). Assessment: 19:51 VAN Scoring: Arm Drift: Patients demonstrates NO arm weakness. Patient is VAN Negative. tw5 General: Appears in no apparent distress. Behavior is calm, cooperative, Reports "I just feel like my brain isn't working the way it should be. I will forgot what I am talking about mid conversation. I just feel off.". Pain: Denies pain. Neuro: Level of Consciousness is obeys commands. Cardiovascular: Rhythm is sinus tachycardia. Respiratory: Airway is patent Trachea midline. GI: Colostomy site is intact. : 3-way catheter in place to gravity drainage "It has been a while, I think I need a new cath.". Derm: Skin is intact. 19:51 General: Patient states "I dont want to get into the bed, I am more comfotable sitting tw5 in my wheelchair if that is okay?". 21:21 General: Behavior is anxious, crying, uncooperative. Neuro: Level of Consciousness is tw5 confused. 06/15 11:02 Reassessment: attempted to give report. nurse will call back. tp1 Vital Signs: 06/13 18:34 BP 144 / 90; Pulse 130; Resp 20; Temp 97.1; Pulse Ox 100% ; Weight 70.76 kg; kb3 18:34 Height 5 ft. 0 in. (152.40 cm); Pain 10/10; kb3 ED Course: 18:16 Patient arrived in ED. rg4 18:22 [facility]C [facility] kb 18:22 Travis De La Garza MD is Attending Physician. kb 18:39 Triage completed. kb3 18:39 Arm band placed on right wrist. kb3 19:04 Uma Bender is Primary Nurse. tw5 19:16 CT Head Brain wo Cont In Process Unspecified. EDMS 19:42 Basic Metabolic Panel Sent. tw5 19:42 CBC with Diff Sent. tw5 19:42 CPK Sent. tw5 19:42 Ptt, Activated Sent. tw5 19:42 Lipase Sent. tw5 19:42 Hepatic Function Sent. tw5 19:43 Ckmb Sent. tw5 19:43 Protime (+inr) Sent. tw5 19:43 Magnesium Sent. tw5 20:23 MRI - Brain Wo Cont In Process Unspecified. EDMS 21:58 Nima De La Garza MD is Hospitalizing Provider. kb 23:45 Patient has correct armband on for positive identification. Placed in gown. Bed in low tw5 position. Call light in reach. Side rails up X2. Pulse ox on. NIBP on. Door closed. Noise minimized. Moved to private room. Warm blanket given. Verbal reassurance given. 23:45 Arriaga cath inserted, using sterile technique, 16 Fr., by ca, balloon inflated, to tw5 gravity drainage, other suprapubic Patient tolerated well. 06/14 01:29 SARS RAPID Sent. lp1 01:34 Urine Culture Sent. lp1 01:34 Urine Microscopic Only Sent. lp1 06:34 Inserted saline lock: 20 gauge in right antecubital area, using aseptic technique. tw5 ultrasound guided. 10:55 Repositioned patient. mb7 06/15 07:03 Primary Nurse role handed off by Uma Bender Administered Medications: 06/13 23:30 Drug: Ativan (LORazepam) 1 mg Route: IVP; Site: right antecubital; ld1 06/14 01:58 Follow up: Response: No adverse reaction; Anxiety decreased tw5 06/13 23:46 Drug: NS 0.9% 1000 ml Route: IV; Rate: 1000 ml; Site: right antecubital; ld1 06/14 01:59 Follow up: IV Status: Infusion continued upon admission tw5 06/13 23:46 Drug: Tylenol 1000 mg Route: PO; 3 06/14 01:58 Follow up: Response: No adverse reaction tw5 Medication: 06/13 21:21 VIS not applicable for this client. tw5 Outcome: 21:59 Decision to Hospitalize by Provider. kb 06/15 11:25 Patient left the ED. tp1 Signatures: Dispatcher [employer] EDWendy Benitez, PAYABLE MANAGER-C PAYABLE MANAGER-Ckb Madonna Dietz Laura, RN RN lp1 Mee Krishnamurthy rg4 Sanna Rhodes, RN RN ld1 Uma Bender tw5 Uma Zhang, RN RN tp1 Benita, [facility]7 Bravo, Celsa, RN RN eh3 Marissa Krishnan, RN RN kb3
--- NOTE | 2022-06-13 21:59 | EDPHYS ---
Physician Documentation [facility] Name: Merlene Rockwell Age: 37 yrs Sex: Female : 1985 Arrival Date: 06/13/2022 Time: 18:16 Bed 30 Private MD: ED Physician Travis De La Garza HPI: 06/13 23:35 This 37 yrs old Female presents to ER via Wheelchair with complaints of Weakness, kb Headache, Ear Pain. 23:35 The patient presents with generalized weakness. Onset: The symptoms/episode kb began/occurred last week. Context: occurred at home. Modifying factors: The symptoms are alleviated by nothing, the symptoms are aggravated by nothing. Associated signs and symptoms: Pertinent positives: headache, confusion. Severity of symptoms: At their worst the symptoms were moderate in the emergency department the symptoms are unchanged. The patient has not experienced similar symptoms in the past. The patient has not recently seen a physician. Spoke with pt's [id number] about pt's complaints per patient request because she couldn't remember everything that has been going on. SAYDA states pt had right sided weakness and facial drooping last week, EMS responded and took her to an ER due to suspicion for stroke. Was told she had an aneurysm last week and to follow up with her neurologist. Pt has appt scheduled, but it is a few weeks from now. States pt has had confusion and weakness that has gotten worse over the last week. States she is unable to do ADLs such as transferring from chair which she can normally do. States she has been complaining headaches. Pt reports she has noises in her head as well. . Historical: - Allergies: 18:39 GABAPENTIN; kb3 - PMHx: 18:39 Chronic pain; Depression; Paraplegia; kb3 - PSHx: 18:39 Colostomy; pump removed from abdomen; kb3 - Immunization history:: Adult Immunizations up to date, Client reports receiving the 2nd dose of the Covid vaccine, Last tetanus immunization: up to date. - Social history:: Smoking status: Patient denies any tobacco usage or history of. ROS: 23:34 Constitutional: Negative for fever, chills, and weight loss. kb 23:34 Neuro: Positive for altered mental status, headache, weakness. 23:34 All other systems are negative. Exam: 19:50 ECG was reviewed by the Attending Physician. kb 23:33 Constitutional: This is a well developed, well nourished patient who is awake, alert, kb and in no acute distress. Head/Face: Normocephalic, atraumatic. ENT: Moist Mucous membranes Cardiovascular: Regular rate and rhythm with a normal S1 and S2. No gallops, murmurs, or rubs. No pulse deficits. Respiratory: Respirations even and unlabored. No increased work of breathing. Talking in full sentences Abdomen/GI: Soft, non-tender. No distention Skin: Warm, dry with normal turgor. Normal color. MS/ Extremity: Pulses equal, no cyanosis. Neurovascular intact. Full, normal range of motion. 23:33 Neuro: Orientation: to person, place, time \T\ situation. Mentation: able to follow commands, Memory: is normal, Motor: no acute changes. 23:33 Psych: Behavior/mood is cooperative, anxious, Affect is animated, Oriented to person, place, time, Patient has no thoughts/intents to harm self or others. Vital Signs: 18:34 BP 144 / 90; Pulse 130; Resp 20; Temp 97.1; Pulse Ox 100% ; Weight 70.76 kg; kb3 18:34 Height 5 ft. 0 in. (152.40 cm); Pain 10/10; kb3 MDM: 18:40 Patient medically screened. kb 23:32 Data reviewed: vital signs, nurses notes. Data interpreted: Pulse oximetry: on room air kb is 100 %. Interpretation: normal. Counseling: I had a detailed discussion with the patient and/or guardian regarding: the historical points, exam findings, and any diagnostic results supporting the discharge/admit diagnosis, lab results, radiology results, the need for further work-up and treatment in the hospital. Physician consultation: Lorraine JUAREZ was contacted at 23:33, regarding admission, to the medical/surgical unit. and will see patient in ED. ED course: Discussed pt condition and diagnostics with Dr Del Rio. Recommends admission. . 06/13 18:40 Order name: Basic Metabolic Panel; Complete Time: 20:27 kb 06/13 18:40 Order name: CBC with Diff; Complete Time: 20:27 kb 06/13 18:40 Order name: CPK; Complete Time: 20:27 kb 06/13 18:40 Order name: Ckmb; Complete Time: 20:27 kb 06/13 18:40 Order name: Hepatic Function; Complete Time: 20:27 kb 06/13 18:40 Order name: Lipase; Complete Time: 20:27 kb 06/13 18:40 Order name: Magnesium; Complete Time: 20:27 kb 06/13 18:40 Order name: Protime (+inr); Complete Time: 20:27 kb 06/13 18:40 Order name: Ptt, Activated; Complete Time: 20:27 kb 06/13 23:56 Order name: SARS RAPID sb3 06/14 01:31 Order name: Urine Microscopic Only mw2 06/14 01:31 Order name: Urine Culture mw2 06/14 01:33 Order name: Urine Dipstick-Ancillary EDMS 06/14 02:17 Order name: Urine Microscopic Only EDMS 06/13 18:39 Order name: MRI - Brain Wo Cont; Complete Time: 20:53 kb 06/13 18:40 Order name: CT Head Brain wo Cont; Complete Time: 19:38 kb 06/13 18:40 Order name: EKG; Complete Time: 18:41 kb 06/13 18:40 Order name: EKG - Nurse/Tech; Complete Time: 19:42 kb 06/14 04:18 Order name: CBC with Automated Diff EDMS 06/14 04:26 Order name: Basic Metabolic Panel EDMS 06/14 04:26 Order name: Magnesium EDMS 06/14 04:45 Order name: Manual Differential EDMS 06/15 02:57 Order name: CBC with Automated Diff EDMS 06/15 03:03 Order name: Basic Metabolic Panel EDMS 06/15 03:03 Order name: Magnesium EDMS 06/15 07:01 Order name: Urine Culture EDMS 06/13 18:40 Order name: IV Saline Lock; Complete Time: 19:42 kb 06/13 18:40 Order name: Labs collected and sent; Complete Time: 19:42 kb 06/13 18:40 Order name: NPO; Complete Time: 19:42 kb 06/13 18:40 Order name: O2 Per Protocol; Complete Time: 19:42 kb 06/13 18:40 Order name: O2 Sat Monitoring; Complete Time: 19:43 kb 06/13 18:40 Order name: Urine Dipstick-Ancillary (obtain specimen); Complete Time: 01:31 kb EC:50 Rate is 111 beats/min. Rhythm is regular. QRS Spencer is Normal. IA interval is normal at kb 136 msec. QRS interval is normal at 86 msec. QT interval is normal at 418 msec. Administered Medications: 23:30 Drug: Ativan (LORazepam) 1 mg Route: IVP; Site: right antecubital; ld1 06/14 01:58 Follow up: Response: No adverse reaction; Anxiety decreased tw5 06/13 23:46 Drug: NS 0.9% 1000 ml Route: IV; Rate: 1000 ml; Site: right antecubital; ld1 06/14 01:59 Follow up: IV Status: Infusion continued upon admission tw5 06/13 23:46 Drug: Tylenol 1000 mg Route: PO; 3 06/14 01:58 Follow up: Response: No adverse reaction tw5 Disposition Summary: 06/13/22 21:59 Hospitalization Ordered Hospitalization Status: Observation kb Provider: Nima De La Garza Condition: Stable kb Problem: an ongoing problem kb Symptoms: have worsened kb Bed/Room Type: Standard Location: Telemetry/MedSurg (Inpatient)(06/15/22 10:57) Room Assignment: 202(06/15/22 10:57) dw Diagnosis - Weakness kb - Altered mental status, unspecified kb Forms: - Medication Reconciliation Form kb - SBAR form kb Addendum: 06/18/2022 16:22 Co-signature as Attending Physician, Travis De La Garza MD. r n Signatures: Dispatcher [employer] EDWendy Benitez, TV NEWS DIRECTOR-C TV NEWS DIRECTOR-CkLeela Godoy RN MC Travis De La Garza MD MD rn Garcia, Cindy, RN RN Sanna Rhodes RN RN ld1 Celsa Cordon RN RN eh3 Marissa Krishnan RN RN kb3 Uma Bender tw5 Corrections: (The following items were deleted from the chart) 06/14 01:14 06/13 21:59 Telemetry/MedSurg (observation) [facility] 06/14 01:14 06/13 21:59 kb 06/15 10:57 06/14 01:14 [facility] ER HOLD [facility] 06/15 10:57 06/14 01:14 ERHOLD- [facility]
[2022-06-13] MEDS ORDERED: LORazepam 2 MG/ML VIAL ONE (23:24)
[2022-06-13] MEDS ORDERED: NA CHLORIDE 0.9% 1,000 ML ONE (23:24)
[2022-06-13] MEDS ORDERED: ACETAMINOPHEN 500 MG TAB ONE (23:40)
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
[2022-06-14 01:33] LABS: Urine Blood 3+ (Negative); Urine Glucose Negative (Negative); Urine Protein 2+ (Negative); Urine Specific Gravity >=1.030 (1.005-1.030); Urine pH 6.5 (5.0-7.0)
[2022-06-14] MEDS: Levofloxacin 750mg IV 750 MG/150 ML BAG IV SCH (02:00)
[2022-06-14 02:15] LABS: Urine Bacteria >50 /HPF (<20)
[2022-06-14] MEDS ORDERED: ONDANSETRON 4 MG/2 ML VIAL IV PRN (02:15)
[2022-06-14] MEDS ORDERED: ACETAMINOPHEN 500 MG TAB PO PRN (02:15)
[2022-06-14 02:16] LABS: Urine RBC 21-50 /HPF (None Seen)
[2022-06-14 02:17] LABS: SARS-CoV-2 Antigen Rapid Res Negative (Negative)
[2022-06-14 02:24] VITALS: BMI 30.4
[2022-06-14] MEDS ORDERED: Levofloxacin 750mg IV 750 MG/150 ML BAG IV ONE (02:29)
[2022-06-14 02:37] VITALS: O2SAT 100
[2022-06-14 04:16] LABS: Absolute Lymphocytes (CBC) 2.6 K/uL (0.7-4.9); Hematocrit 41.6 % (36.0-45.0); MCV 83.5 fL (80-100); RBC Red Blood Cell Count 4.99 M/uL (3.86-4.86)
[2022-06-14 04:26] LABS: Magnesium 2.1 mg/dL (1.8-2.4); Potassium 3.1 mmol/L (3.5-5.1)
[2022-06-14 04:44] LABS: Blood Morphology Comment NOT SEEN (NOT SEEN); Platelet Estimate ADEQ
[2022-06-14] MEDS ORDERED: POTASSIUM 25 MEQ EFFERV TAB ONE ×2 (05:15→05:53)
[2022-06-14] MEDS ORDERED: POTASSIUM 25 MEQ EFFERV TAB PO ONE (06:26)
[2022-06-14] MEDS ORDERED: ACETAMINOPHEN 325 MG TABLET PO PRN (08:33)
[2022-06-14] MEDS: ENOXAPARIN 40 MG/0.4 ML SQ SCH (09:00)
[2022-06-14] MEDS: PANTOPRAZOLE 40MG TABLET PO SCH (09:00)
[2022-06-14] MEDS: PREGABALIN 150 MG CAP PO SCH ×2 (09:00→20:13)
[2022-06-14] MEDS: BACLOFEN 10 MG TAB PO PRN (09:00)
[2022-06-14] MEDS ORDERED: ENOXAPARIN 40 MG/0.4 ML SQ ONE (09:07)
[2022-06-14] MEDS ORDERED: PREGABALIN 150 MG CAP PO ONE ×2 (09:09→20:19)
[2022-06-14] MEDS ORDERED: PANTOPRAZOLE 40MG TABLET PO ONE (10:21)
--- NOTE | 2022-06-14 13:50 | EKG ---
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
--- NOTE | 2022-06-14 17:46 | P.PN ---
Date of Service: 06/14/22 Patient is complaining of hearing pounding/pulsating noise in her head. Emotionally labile. With incongruent mood. UA suggest UTI. Urine culture is pending. MRI of the brain reviewed and shows no acute changes. Diagnosis: UTI Anxiety disorder. Suspected pulsating tinnitus. Plan: Continue antibiotics. Resume anxiety medications. Neurology consult is pending. Also consulted psychiatry for incongruent mood and emotional lability. Follow urine culture.
[2022-06-14] MEDS ORDERED: PNEUMOCOCCAL VACCINE 0.5 ML IMVAC ONE (18:00)
[2022-06-14] MEDS: TIZANIDINE 4 MG TABLET PO SCH (20:13)
[2022-06-14] MEDS: PRAZOSIN HCL 1 MG CAP PO SCH (20:15)
[2022-06-14] MEDS: AMITRIPTYLINE 50 MG TAB PO SCH (20:15)
[2022-06-14] MEDS ORDERED: HOME MED 1 EA UNK (Trazodone Hcl [Trazodone Hcl] 100 MG Tablet) PO SCH (21:00)
[2022-06-14] MEDS ORDERED: HOME MED 1 EA UNK (Amitriptyline Hcl [Amitriptyline Hcl] 100 MG Tablet) PO SCH (21:00)
[2022-06-14] MEDS ORDERED: TRAZODONE 50 MG TABLET PO SCH (21:00)
[2022-06-15] MEDS ORDERED: Levofloxacin 750mg IV 750 MG/150 ML BAG IV ONE (00:43)
[2022-06-15] MEDS: Levofloxacin 750mg IV 750 MG/150 ML BAG IV SCH (01:57)
[2022-06-15] MEDS ORDERED: BACLOFEN 10 MG TAB ONE (02:24)
[2022-06-15] MEDS: BACLOFEN 10 MG TAB PO PRN ×4 (02:40→20:52)
[2022-06-15 02:54] LABS: Absolute Lymphocytes (CBC) 1.7 K/uL (0.7-4.9); Hematocrit 38.1 % (36.0-45.0); Lymphocytes % 45.2 % (15.3-44.8); MCV 82.6 fL (80-100); RBC Red Blood Cell Count 4.61 M/uL (3.86-4.86)
[2022-06-15 03:02] LABS: Potassium 3.1 mmol/L (3.5-5.1)
[2022-06-15] MEDS ORDERED: PANTOPRAZOLE 40MG TABLET PO ONE (06:38)
[2022-06-15] MEDS ORDERED: POTASSIUM 25 MEQ EFFERV TAB PO ONE (06:55)
[2022-06-15] MEDS ORDERED: POTASSIUM 25 MEQ EFFERV TAB ONE (07:06)
[2022-06-15] MEDS: PANTOPRAZOLE 40MG TABLET PO SCH (07:16)
[2022-06-15] MEDS ORDERED: ENOXAPARIN 40 MG/0.4 ML SQ ONE (08:46)
[2022-06-15] MEDS ORDERED: PREGABALIN 150 MG CAP PO ONE (08:49)
[2022-06-15] MEDS: TIZANIDINE 4 MG TABLET PO SCH ×2 (08:54→20:36)
[2022-06-15] MEDS: BUPROPION HCL XL 150 MG TAB PO SCH (08:54)
[2022-06-15] MEDS: ENOXAPARIN 40 MG/0.4 ML SQ SCH (08:54)
[2022-06-15] MEDS: PREGABALIN 150 MG CAP PO SCH ×2 (08:54→20:39)
--- NOTE | 2022-06-15 13:05 | P.PN ---
Subjective Date of Service: 06/15/22 Primary Care Provider: Alisa Chief Complaint: AMS Patient states her head noise is better. She reports burning in her legs from neuropathy. No recorded fever. Physical Examination - Vital Signs Temperature: 99.1 F Blood Pressure: 97/64 Pulse: 98 Respirations: 16 Pulse Ox (%): 98 Assessment And Plan - Current Problems (Diagnosis) (1) Peripheral neuropathy Current Visit: Yes Status: Acute (2) Anxiety disorder Current Visit: Yes Status: Acute (3) Emotional lability Current Visit: Yes Status: Acute (4) AMS (altered mental status) Current Visit: Yes Status: Acute Qualifiers: Altered mental status type: unspecified Qualified Code(s): R41.82 - Altered mental status, unspecified (5) UTI (urinary tract infection) Current Visit: Yes Status: Acute Qualifiers: Urinary tract infection type: catheter-associated UTI Indwelling urinary catheter type: cystostomy catheter Encounter type: initial encounter Qualified Code(s): T83.510A - Infection and inflammatory reaction due to cystostomy catheter, initial encounter; N39.0 - Urinary tract infection, site not specified (6) Paraplegia Current Visit: Yes Status: Chronic (7) Suprapubic catheter Current Visit: Yes Status: Chronic (8) Pressure ulcer of right buttock Current Visit: No Status: Acute - Plan Physical Exam General: Alert, emotional HEENT: Atraumatic, PERRLA, EOMI, Sclerae nonicteric Neck: Supple, 2+ carotid pulse no bruit, No LAD, Without JVD or thyroid abnormality Respiratory: Clear to auscultation bilaterally, Normal air movement Cardiovascular: Regular rate/rhythm, Normal S1 S2 Gastrointestinal: Normal bowel sounds, No tenderness Musculoskeletal: No tenderness Integumentary: Right sinus tract/decubitus ulcer-packed with copious discharge. Neurological: Dysphoric, stuttering. No focal motor deficit. Urinary: Suprapubic catheter. Plan: Continue current antibiotics. Urine culture is growing gram-negative rods. Follow for organism identification and antibiotic sensitivity. Suprapubic catheter changed in the ED. Resume home medications for neuropathy and chronic pain. Surgery consult for right decubitus ulcer. Patient seen by psychiatry. Trazodone replaced with Prozac for anxiety. Monitor and correct electrolytes as needed.
[2022-06-15] MEDS: AMITRIPTYLINE 50 MG TAB PO SCH (20:37)
[2022-06-15] MEDS: PRAZOSIN HCL 1 MG CAP PO SCH (20:40)
[2022-06-15] MEDS ORDERED: FLUOXETINE 20 MG CAP PO SCH (21:00)
[2022-06-15] MEDS ORDERED: TRAZODONE 50 MG TABLET PO PRN (21:55)
[2022-06-16] MEDS: Levofloxacin 750mg IV 750 MG/150 ML BAG IV SCH (01:13)
[2022-06-16] MEDS: PANTOPRAZOLE 40MG TABLET PO SCH (05:59)
[2022-06-16] MEDS: BUPROPION HCL XL 150 MG TAB PO SCH (09:09)
[2022-06-16] MEDS: ENOXAPARIN 40 MG/0.4 ML SQ SCH (09:09)
[2022-06-16] MEDS: TIZANIDINE 4 MG TABLET PO SCH (09:09)
[2022-06-16] MEDS: PREGABALIN 150 MG CAP PO SCH ×2 (09:09→13:25)
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
[2022-06-16] MEDS: BACLOFEN 10 MG TAB PO PRN (11:29)
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
[2022-06-16 17:01] VITALS: BP 108/67; TEMP 97.6
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
== END 2022-06-16 18:22 | disposition home or self-care (01) | DRG 698 ==
LOC: ER 18:13 → ERHOLD 06-14 00:04 → OBSVTOIN 06-14 12:32 → ERHOLD 06-15 04:28 → 2ND 06-15 11:17
PROVIDERS: ADMIT Internal Medicine; ATTEND Internal Medicine
DX: T83.510A Infection and inflammatory reaction due to cystostomy catheter, initial encounter (principal); G93.41 Metabolic encephalopathy; N39.0 Urinary tract infection, site not specified; G82.20 Paraplegia, unspecified; R47.01 Aphasia; E87.6 Hypokalemia; F41.9 Anxiety disorder, unspecified; L89.319 Pressure ulcer of right buttock, unspecified stage; G62.9 Polyneuropathy, unspecified; K21.9 Gastro-esophageal reflux disease without esophagitis; B96.5 Pseudomonas (aeruginosa) (mallei) (pseudomallei) as the cause of diseases classified elsewhere; B95.2 Enterococcus as the cause of diseases classified elsewhere; R45.86 Emotional lability; Z93.3 Colostomy status; Z88.8 Allergy status to other drugs, medicaments and biological substances; Z79.899 Other long term (current) drug therapy
CPT/HCPCS: 36415; 51702; 70450; 70551; 80048; 80076; 81003; 81015; 82550; 82553; 83690; 83735; 84132; 85025; 85610; 85730; 87070; 87077; 87086; 87088; 87186; 87205; 87811; 92523; 92610; 93005; 96361; 96374; 97129; 97130; 99285; G0378; J1650; J7030

== ENCOUNTER 2022-06-23 22:40 | Observation (INO) | payer OTHER ==
--- OUTSIDE RECORDS SUMMARY | 2022-06-23 22:52 | XMS REPORT | Continuity of Care Document ---
:1985 Author Organization [facility] t Address [address] [place] [address] Support Name Relationship Address Phone LILIAN GARCIA [address] [phone] [place] [address] FCO SPENCER [address] [place] [address] NOT OBTAINED Unavailable Unavailable Unavailable GALINA ESCOBEDO [place] [address] [place] [place] [address] JOSIE GA Unavailable [id number] [facility] [address] [phone] [place] [address] KATHLEEN GARCIA Unavailable [phone] [facility] [place] [place] [address] Fco M[facility]od Mother [address] [place] [address] Francoise Garcia Relative [address] [place] [address] JAMILAH AG Other Unavailable Unavailable OBTAINED, NOT Unavailable Unavailable Unavailable GREGG GARCIA Relative Unavailable Unavailable Tera Spencer Unavailable Xochilt Brown Unavailable Unavailable unknow, unk Unknown [address] [place] [address] UNK Unavailable Unavailable Unavailable BarryMary love Family/Other [address] [place] [address] UN Unavailable Unavailable Unavailable LILIAN GARCIA UNK [phone] [place] [address] Care Team Providers Name Role Phone Tony Galarza Primary Care Physician JESUS BROOKE Attending Clinician Unavailable NU GRIFFITH Attending Clinician Unavailable MANUEL GAONA Attending Clinician Unavailable Lilian Villagran Attending Clinician Unavailable PRINCE JARQUIN Attending Clinician Unavailable VIRI FORMAN Attending Clinician Unavailable VIRI FORMAN Attending Clinician Unavailable GIGI SAM S Attending Clinician Unavailable Gigi De Jesus S Attending Clinician Jesus Brooke Attending Clinician Prince Jarquin MD Attending Clinician Doctor Unassigned, Celada Attending Clinician Unavailable Richard Ramesh Attending Clinician Tony Galarza Attending Clinician Unavailable Jarrett Florence II Attending Clinician JARRETT FLORENCE Attending Clinician Unavailable Manuel Gaona Attending Clinician Gabriel Canales Attending Clinician Unavailable Nu Griffith Attending Clinician [phone] Lilian Villagran Attending Clinician Madeleine Tucker Attending Clinician Madeleine Tucker MD Attending Clinician Guanako Barrett Attending Clinician Physician, Non Associated Attending Clinician Unavailable Edward Curtis Attending Clinician MANUEL GAONA Admitting Clinician Unavailable GIGI SAM Admitting Clinician Unavailable Richard Ramesh Admitting Clinician Naheed Jean Admitting Clinician Unavailable Manuel Gaona Admitting Clinician Tony Galarza Admitting Clinician Unavailable Physician, No Primary or Family Admitting Clinician Unavaila ble Physician, Non Associated Admitting Clinician Unavailable Payers Payer Name Policy Type Policy Number Effective Date Expiration Date S hi FORMERLY [facility] MEDICARE [id number] 2020 2020 COMPLETE 00:00:00 00:00:00 [place] [id number] 2020 00:00:00 WELLMED/UHC DUAL [id number] 2021 COMP CHOICE PPO 00:00:00 DSNP MEDICAID OF [place] [id number] 2021 00:00:00 Problems Condition Condition Condition Status Onset Resolution Last Treating Co mments Source Name Details Category Date Date Treatment Clinician Date F/U F/U Diagnosis Active 2022-06-03 Mem oria Active 05-26 13:23:00 l 05/26/2022 00:00: Ash gilbert [facility] 00 PHONE F/U PHONE F/U Diagnosis Active 2022-06-01 Memoria Active 04-27 10:40:00 l 04/27/2022 00:00: Ash gilbert [facility] 00 VIDEO-2WEE VIDEO-2WE Diagnosis Active 2022-04-13 Memoria K D/C EK D/C 6 09:08:00 l FOLLOW UP FOLLOW UP 00:00: Siena piedra Active 04/04/2022 [facility] T7 PARA T7 PARA Diagnosis Active 2022-04-26 Memoria Active 03-02 07:12:00 l 03/02/2022 00:00: Ash gilbert [facility] 00 UNK UNK Diagnosis Active 2022-02-11 Mem oria Active 02-11 08:43:00 l 02/11/2022 00:00: Ash Michael 00 Magen RNDO IT RNDO IT Diagnosis Active 2022-02-11 Memoria PUMP PUMP 02-11 09:51:00 l REMOVAL REMOVAL 00:00: Wenden Active 00 02/11/2022 [facility] Magen BACLOFEN BACLOFEN Diagnosis Active 2022-02-10 Memoria PUMP PUMP 02-09 14:09:00 l MALFUNCTIO MALFUNCTIO 00:00: Hussain Gilbert Active 00 02/09/2022 [facility] Magen VIDEO-F/U VIDEO-F/U Diagnosis Active 2022-02-02 Memoria Active 01-31 11:11:00 l 01/31/2022 00:00: Ash gilbert [facility] 00 Intractabl Intractabl Disease Active U nivers e pain e pain 3-19 ity of 00:00: [place] [facility] RICHARD RICHARD Diagnosis Active 2021-12-21 Mem oria Active 12-01 15:56:00 l 12/01/2021 00:00: Ash POLLARD [facility] 00 PHONE PHONE Diagnosis Active 2021-12-01 Mem oria VISIT-MED VISIT-MED 11-24 11:35:00 l ADJUSTMENT ADJUSTMENT 00:00: He rmann Active 00 11/24/2021 MH [facility] F/U-SIGNS F/U-SIGNS Diagnosis Active 2020-102021-11-10 Memoria OF OF 12-07 15:57:00 l BIPOLARNES BIPOLARNES 00:00: He rmann S PER PT S PER PT 00 Active 10/06/2021 MH [facility] EVAL EVAL Diagnosis Active 2020-102021-11-24 Mem oria Active 11-13 14:11:00 l 09/13/2021 00:00: Ash gilbert [facility] 00 VIRTUAL-F/ VIRTUAL-F Diagnosis Active 2020-102021-09-22 Memoria U /U Active 11-07 08:42:00 l 09/07/2021 00:00: Ash gilbert [facility] 00 VIDEO F/U VIDEO F/U Diagnosis Active 2020-102021-09-01 Memoria Active 10:33:00 l 08/13/2021 00:00: Ash gilbert [facility] 00 F/U-HAS F/U-HAS Diagnosis Active 2020-102021-10-05 Memoria QUESTIONS QUESTIONS 0-18 09:59:00 l Active 00:00: Magen 08/09/2021 00 [facility] F/U F/U Diagnosis Active 2021-07-27 Mem oria Active 07-21 13:01:00 l 07/21/2021 00:00: Ash gilbert [facility] 00 Fever in Fever in Disease Active Unive rs adult adult 9- ity of 00:00: [place] [address] Medical Branch VIDEO-F/U VIDEO-F/U Diagnosis Active 2021-07-13 Memoria Active 06-15 11:59:00 l 06/15/2021 00:00: Ash gilbert [facility] 00 F/U F/U Diagnosis Active 2021-06-15 [...] Active U nivers d UTI d UTI -05 ity of (urinary (urinary 00:00: [place] tract tract 00 Medical infection) infection) Br anch PHONE-F/U PHONE-F/U Diagnosis Active 2021-04-02 Memoria Active 01-19 23:43:00 l 01/19/2021 00:00: Ash gilbert [facility] 00 EVAL EVAL Diagnosis Active 2021-04-02 Mem oria Active 12-15 23:43:00 l 12/15/2020 00:00: Ash gilbert [facility] 00 F/U-WITHDR F/U-WITHD Diagnosis Active 2020-12-22 Memdayana AWALS RAWALS 12-14 15:12:00 l Active 00:00: Magen 12/14/2020 00 MH [facility] 6 WEEK 6 WEEK Diagnosis Active 2019-102020-10-27 Me moria F/U-PHONE F/U-PHONE 11-14 13:24:00 l Active 00:00: Magen 09/14/2020 00 MH [facility] PHONE-EVAL PHONE-CRISTINA Diagnosis Active 2019-102020-09-08 Daniel L Active 10-31 08:51:00 l 08/31/2020 00:00: [...] of contiguous contiguous 00:00: g of this [place] region region 00 note Medical involving involving might be Br anch right right different buttock buttock from the and hip, and hip, original. stage 3 stage 3 Added automatic ally from request for surgery [id number] Pressure Pressure Disease Active 2018-10 Overview: Un amol injury of injury of 0-24 Added ity of contiguous contiguous 00:00: automatic [place] region region 00 ally from Medical involving involving request Bra nch right right for buttock buttock surgery and hip, and hip, [id number] stage 3 stage 3 Carpal Carpal Disease Active Overview: Method i tunnel tunnel 6-[address] syndrome syndrome 00:00: g of this Hos oscar of left of left 00 note l wrist wrist might be different from the original. Added automatic ally from request for surgery [id number] Carpal Carpal Disease Active Overview: Method i tunnel tunnel 5-[address] syndrome syndrome 00:00: g of this Hos oscar on right on right 00 note l might be different from the original. Added automatic ally from request for surgery [id number] UTI UTI Disease Active 2017-10 Univers (urinary [...] OSTEOMYEL Diagnosis Active 2019-07-19 Memoria TIS ITIS 7 17:36:00 l Active 00:00: Magen 04/28/2018 00 MH [facility] Janice Janice Disease Active Univers UTI UTI 6-29 ity of 00:00: [place] 00 Medical Branch Pressure Pressure Disease Active Unive rs ulcer ulcer 6-14 ity of 00:00: [place] 00 Medical Branch Decubitus Decubitus Disease Active Uni vers ulcer of ulcer of 4-12 ity of sacral sacral 00:00: [place] region, region, 00 Medical stage 4 stage 4 Branch Tinea Tinea Disease Active Univers corporis corporis 4-12 ity of 00:00: [place] 00 Medical Branch Contact Contact Disease Active Univers dermatitis dermatitis 4-12 it y of due to due to 00:00: [place] adhesives, adhesives, 00 Me dical unspecifie unspecifie Br anch d contact d contact dermatitis dermatitis type type Decubitus Decubitus Disease Recurre Un amol ulcer of ulcer of nce 2-23 ity of sacral sacral 00:00: [place] region region 00 Medical Branch Acute Acute Disease Active Univers osteomyeli osteomyeli 2-23 it y of tis of tis of 00:00: [place] right right 00 Medical pelvic pelvic Branch region region Polymicrob Polymicrob Disease Active U nivers ial ial 2-23 ity of bacterial bacterial 00:00: [place] s infection infection 00 [facility] Branch Sepsis Sepsis Disease Active Univers 2-20 ity of 00:00: [place] 00 Medical Branch FOLLOW UP FOLLOW UP Diagnosis Active 2018-04-16 Memoria Active 10-24 08:32:00 l 10/24/2017 00:00: Ash gilbert [facility] 00 EVAL FOR EVAL FOR Diagnosis Active 2017-08-22 Memoria IP/REHAB IP/REHAB 07-21 13:47:00 l NEEDS NEEDS 00:00: Magen Active 00 07/21/2017 [facility] PARAPLEGIA PARAPLEGI Diagnosis Active 2022-04-26 Zana Sanchez, 07:12:00 l UNSPECIFIE UNSPECIFIE He ricci D D Active [facility] Paraplegia Paraplegi Problem 2022-03-23 Memoria , a, 22:46:55 l unspecifie unspecifie He rmann d d 03/23/2022 [facility] Nondepende Nondepend Problem Resolve 2022-06-04 Memoria nt alcohol ent d 01:22:37 l abuse in alcohol W[place] remission abuse in (disorder) remission (disorder) Resolved Problem 06/04/2022 delete Valerie Leigh [facility] Paraplegic Paraplegi Problem Resolve 2022-06-04 Memoria immobility c d 01:22:37 l syndrome immobility Herm dorothea (disorder) syndrome (disorder) Resolved Problem 06/04/2022 Valerie Leigh [facility] Recurrent Recurrent Problem Resolve 2022-06-04 Memoria major major d 01:22:37 l depressive depressive He rmann episodes, episodes, moderate moderate (disorder) (disorder) Resolved Problem 06/04/2022 Valerie Leigh [facility] Mixed Mixed Problem Resolve 2022-06-04 Leighton rajeev anxiety anxiety d 01:22:37 l and and Magen depressive depressive disorder disorder (disorder) (disorder) Resolved Problem 06/04/2022 [facility] Chronic Chronic Problem Active 2022-06-04 Me moria alcoholism alcoholism 01:22:37 l in in Magen remission remission (disorder) (disorder) Active Problem 06/04/2022 Valerie Leigh [facility] Chronic Chronic Problem Active 2022-06-04 Me moria post-traum post-traum 01:22:37 l atic atic Magen stress stress disorder disorder (disorder) (disorder) Active Problem 06/04/2022 Valerie Leigh [facility] Generalize Generaliz Problem Active 2022-06-04 Memoria d anxiety ed anxiety 01:22:37 l disorder disorder Ash n (disorder) (disorder) Active Problem 06/04/2022 Valerie Tello [facility] 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 bladder 01:22:37 l (finding) (finding) Herm dorothea Active Problem 06/04/2022 Valerie Tello [facility] 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 01:22:37 l (disorder) (disorder) He rmann Active Problem 06/04/2022 Valerie Tello H [facility] Opioid Opioid Problem Active 2022-06-04 Leighton rajeev dependence dependence 01:22:37 l in in [place] remission remission (disorder) (disorder) Active Problem 06/04/2022 Valerie Leigh [facility] Paraplegia Paraplegi Problem Active 2022-06-04 Memoria (disorder) a 01:22:37 l (disorder) Ash n Active Problem 06/04/2022 Valerie Leigh [facility] Simple Simple Problem Active 2022-06-04 Mem oria obesity obesity 01:22:37 l (disorder) (disorder) He rmann Active Problem 06/04/2022 Valerie Leigh [facility] Spasm Spasm Problem Active 2022-06-04 Memor ia (finding) (finding) 01:22:37 l Active Magen Problem 06/04/2022 Valerie Leigh [facility] Bipolar Bipolar Problem Active 2022-06-04 Me moria disorder disorder 01:22:37 l (disorder) (disorder) He rmann Active Problem 06/04/2022 Valerie Leigh [facility] Complete Complete Problem Active 2022-06-04 Memoria paraplegia paraplegia 01:22:37 l (disorder) (disorder) He rmann Active Problem 06/04/2022 [facility] Finding of Finding Problem Active 2022-06-04 Memoria functional of 01:22:37 l performanc functional He rmann e and performanc activity e and (finding) activity (finding) Active Problem 06/04/2022 [facility] Finding of Finding Problem Active 2022-06-04 Memoria sacral of sacral 01:22:37 l region region Wenden (finding) (finding) Active Problem 06/04/2022 [facility] Herpes Herpes Problem Active 2022-06-04 Leighton rajeev simplex simplex 01:22:37 l (disorder) (disorder) He rmann Active Problem 06/04/2022 [facility] Low blood Low blood Problem Active 2022-06-04 Memoria pressure pressure 01:22:37 l (disorder) (disorder) He rmann Active Problem 06/04/2022 [facility] Non-healin Non-heali Problem Active 2022-06-04 Memoria g surgical ng 01:22:37 l wound surgical Magen wound Active Problem 06/04/2022 [facility] Obstructiv Obstructi Problem Active 2022-06-04 Memoria e sleep ve sleep 01:22:37 l apnea apnea Magen syndrome syndrome (disorder) (disorder) Active Problem 06/04/2022 MH [facility] Orthostati Orthostat Problem Active 2022-06-04 Memoria c ic 01:22:37 l hypotensio hypotensio He rmann n n (disorder) (disorder) Active Problem 06/04/2022 [facility] Osteomyeli Osteomyel Problem Active 2022-06-04 Memoria tis itis 01:22:37 l (disorder) (disorder) He rmann Active Problem 06/04/2022 MH [facility] Pressure Pressure Problem Active 2022-06-04 Memoria sore on sore on 01:22:37 l buttocks buttocks Ash n (disorder) (disorder) Active Problem 06/04/2022 [facility] MAJOR MAJOR Diagnosis Active 2020-09-08 Mem oria DEPRESSIVE DEPRESSIVE 08:51:00 l DISORDER, DISORDER, Herm dorothea RECURRENT, RECURRENT, UN UN Active [facility] NEUROGENIC NEUROGENI Diagnosis Active 2020-12-06 Memoria BOWEL, NOT C BOWEL, 17:01:00 l ELSEWHERE NOT Magen CLASSIFI ELSEWHERE CLASSIFI Active [facility] NEURALGIA Diagnosis Active 2020-12-06 Memoria AND NEURALGIA 17:01:00 l NEURITIS, AND Magen UNSPECIFIE NEURITIS, D UNSPECIFIE D Active [facility] History of Past Illness Condition Condition Condition Status Onset Resolution Last Treating Co mments Source Name Details Category Date Date Treatment Clinician Date Other Other Problem 2022-03-23 2022-03-23 M emoria complicati complicati 5-16 22:46:55 22:46:55 l ons of ons of 22:23: [place] procedures procedures 00 , not , not elsewhere elsewhere classified classified , initial , initial encounter encounter 03/07/2022 03/23/2022 [facility] Generalize Generaliz Problem 2022-02-05 2022-02-05 Memoria d anxiety ed anxiety 4-14 01:16:04 01:16:04 l disorder disorder 04:19: Ash n 02/03/2022 00 02/05/2022 MH [facility] Post-traum Post-trau Problem 2022-02-05 2022-02-05 Memoria atic matic 02-03 01:16:04 01:16:04 l stress stress 04:19: [place] disorder, disorder, 00 chronic chronic 02/03/2022 02/05/2022 MH [facility] Alcohol Alcohol Problem 2022-02-05 2022-02-05 Memoria dependence dependence 02-03 01:16:04 01:16:04 l , in , in 04:19: Magen remission remission 00 02/03/2022 02/05/2022 MH [facility] Opioid Opioid Problem 2022-02-05 2022-02-05 Memoria dependence dependence 02-03 01:16:04 01:16:04 l , in , in 04:19: W[place] remission remission 00 02/03/2022 02/05/2022 MH [facility] Other Other Problem 2022-02-05 2022-02-05 M emoria bipolar bipolar 02-03 01:16:04 01:16:04 l disorder disorder 04:18: Ash n 02/03/2022 00 02/05/2022 MH [facility] Obstructiv Obstructi Problem 2021-11-27 2021-11-27 Memoria e sleep ve sleep 11-24 00:56:53 00:56:53 l apnea apnea 21:03: Magen (adult) (adult) 00 (pediatric (pediatric ) ) 11/24/2021 11/27/2021 MH [facility] Other Other Problem 2021-11-27 2021-11-27 M emoria abnormalit abnormalit 11-24 00:56:53 00:56:53 l ies of ies of 21:03: Wenden breathing breathing 00 11/24/2021 11/27/2021 MH [facility] Anxiety Anxiety Problem 2021-11-27 2021-11-27 Memoria disorder, disorder, 11-24 00:56:53 00:56:53 l unspecifie unspecifie 20:52: He rmann d d 00 11/24/2021 11/27/2021 MH [facility] Insomnia Insomnia Problem 2021-11-27 2021-11-27 Memoria due to due to 11-24 00:56:53 00:56:53 l other other 20:52: Magen mental mental 00 disorder disorder 11/24/2021 11/27/2021 MH [facility] Generalize Generaliz Problem 2021-03-11 2021-03-11 Memoria d anxiety ed anxiety 03-09 23:48:25 23:48:25 l disorder disorder 19:15: Ash n 03/09/2021 00 03/11/2021 MH [facility] Major Major Problem 2021-03-11 2021-03-11 M jeannetterizana depressive depressive 03-09 23:48:25 23:48:25 l disorder, disorder, 19:15: Siena piedra recurrent, recurrent, 00 moderate moderate 03/09/2021 03/11/2021 MH [facility] Alcohol Alcohol Problem 2021-03-11 2021-03-11 Memoria dependence dependence 03-09 23:48:25 23:48:25 l , in , in 19:15: Magen remission remission 00 03/09/2021 03/11/2021 MH [facility] Post-traum Post-trau Problem 2021-03-11 2021-03-11 Memoria atic matic 03-09 23:48:25 23:48:25 l stress stress 19:15: Magen disorder, disorder, 00 chronic chronic 03/09/2021 03/11/2021 MH [facility] Other Other Problem 2019-102020-08-26 2020-08-26 M emoria muscle muscle 10-24 23:49:51 23:49:51 l spasm spasm 18:14: Magen 08/24/2020 00 08/26/2020 MH [facility] Reflex Reflex Problem 2019-102020-08-26 2020-08-26 Memoria neuropathi neuropathi 10-24 23:49:51 23:49:51 l c bladder, c bladder, 16:21: He ricci not not 00 elsewhere elsewhere classified classified 08/24/2020 08/26/2020 MH [facility] Neurogenic Neurogeni Problem 2019-102020-08-26 2020-08-26 Memoria bowel, not c bowel, 10-24 23:49:51 23:49:51 l elsewhere not 16:21: Magen classified elsewhere 00 classified 08/24/2020 08/26/2020 [facility] Allergies, Adverse Reactions, Alerts Allergy Allergy Status Severity Reaction(s) Onset Inactive Treating Comm ents Source Name Type Date Date Clinician gabapent DA Active U UNKNOWN [facility] in 02-21 Clear 00:00: [facility] gabapent DA Active U UNKNOWN [facility] in 02-20 Clear 00:00: [facility] No Known DA Active U UNKNOWN [facility] Intolera 4-15 Clear nces 00:00: [facility] gabapent DA Active U Drowsy [facility] in 03-29 00:00: 00 Gabapent Propensi Active Other - See 2017-10 Lethargy Univers in ty to comments 0-10 ity of adverse 00:00: [place] reaction [address] [place] [address] GABAPENT DRUG Active Other-Cmnt 2017-10 Univ ers IN INGREDI 0-10 ity of 00:00: [address] No Known DA Active U 2009-0 [facility] Intolera 9-27 Clear nces 00:00: [facility] No Known DA Active U 2009-0 [facility] Intolera 9-27 Clear nces 00:00: [facility] No Known DA Active U 2004-0 [facility] Contrast 5-23 Clear Allergie 00:00: Hughes [facility] No Known DA Active U 2004-0 [facility] Drug 5-23 Clear Allergie 00:00: [facility] No Known DA Active U 2004-0 [facility] Food 5-23 Clear Allergie 00:00: Hughes s [facility] No Known DA Active U 2004-0 [facility] Other 5-23 Clear Allergie 00:00: Hughes [facility] gabapent gabapent Active Memori a in in l Magen Family History Family Member Diagnosis Comments Start Date Stop Date Source Natural father No Known Problems [facility] Natural mother Cancer [facility] Natural mother Mental illness Method [facility] Social History Social Habit Start Date Stop Date Quantity Comments Source History of tobacco Cigarette Smoker University of use [facility] Exposure to 2022-05-24 2022-06-03 Unable to assess Univers ity of SARS-CoV-2 (event) 00:00:00 10:55:00 [facility] Social History 2022-02-11 2022-02-11 [facility] ermann 20:33:49 20:33:49 Education 2022-01-08 2022-01-[address] [place] [address] 00:00:00 00:00:00 [facility] Tobacco use and 2019-09-09 2019-09-09 Smokeless Universit y of exposure 00:00:00 00:00:00 tobacco non-user [facility] dical Curtis Tobacco Comment 2019-09-09 2019-09-09 quit 1 year ago, Uni versity of 00:00:00 00:00:00 vapes [facility] now-occassionall Branch y Alcohol intake 2019-05-13 2019-05-13 Current [employer] 00:00:00 00:00:00 non-drinker of Hospital alcohol (finding) Cigarettes smoked 2019-02-12 2019-02-[address] current (pack per 00:00:00 00:00:00 Hospita l day) - Reported Cigarette 2019-02-12 2019-02-12 [facility] pack-years 00:00:00 00:00:00 Hospital Sex [birth year] At [birth year] [employer] 00:00:00 00:00:00 Hospital Smoking Status Start Date Stop Date Source Tobacco smoking [facility] consumption unknown Social History [facility] Magen Ex-smoker 2019-09-09 00:00:00 2019-09-09 [facility] 00:00:00 [facility] Medications Ordered Filled Start Stop Current Ordering Indication Dosage Frequency Signature Comments Components Source Medication Medication Date Date Medication? Clinician (SIG) Name Name tiZANidine Yes 4mg Take 4 mg Un amol 4 mg 8-14 by mouth ity of capsule 04:12: in the [place] 04 morning Medical and 4 mg Branch at noon and 4 mg in the evening. NaCl 0.9% No 1000mL at 999 Uni vers (NS) bolus 06-03 mL/hr, ity of infusion 20:15: 20:20 1,000 mL, Rachid as 1,000 mL 00 :00 IV Medical Infusion, Branch ONCE, 1 dose, On Mon06/03/22 at 1515, STAT cefTRIAXone 0 2021- No 1000mg 1,000 mg, Univers (ROCEPHIN) 06-0312 IV ity of 1,000 mg in 19:15: 20:00 Piggyback, [place] NaCl 0.9% 00 :00 ONCE, 1 [...] 06/03/22 at 1415, Routine iopamidol 2021- No [id number] 130mL 130 mL, Univers (ISOVUE 06-03 Intravenou ity o f 370-500 mL) 16:36: 16:37 s, ONCE, 1 [place] injection 00 :00 dose, On Medica l 130 mL Fri Branch 06/03/22 at 1145, Routine traZODone Yes 150mg Take 150 Uni vers 100 mg 8-12 mg by ity of tablet 13:01: mouth at [place] [address] bedtime. Medical Branch tiZANidine Yes 4mg Take 4 mg Un amol 4 mg 8-12 by mouth ity of capsule 13:01: in the [place] [address] morning Medical and 4 mg Branch at noon and 4 mg in the evening. traZODone 0 Yes 150mg Take 150 Uni vers 100 mg 8-12 mg by ity of tablet 13:01: mouth at [place] [address] bedtime. Medical Branch cefdinir 0 Yes [id number] 300mg Take 1 Un amol 300 mg 8-12 capsule by ity of capsule 00:00: mouth [place] 00 every 12 Medical (twelve) Branch hours. cefdinir 0 Yes [id number] 300mg Take 1 Un amol 300 mg 8-12 capsule by ity of capsule 00:00: mouth [place] 00 every 12 Medical (twelve) Branch hours. Latuda 60 0 Yes 60 mg = 1 Mem oria mg oral 8-10 tab, PO, l tablet 20:36: Daily, Magen 00 with food, # 30 tab, 11 Refill(s), Pharmacy: [facility] [id number], 152.4, cm, 03/11/22 14:38:00 CDT, Height, 64.205, kg, 03/11/22 14:38:00 CDT, Weight trazodone 0 Yes 200 mg = 2 Me moria 100 mg oral 8-10 tab, PO, l tablet 20:35: Bedtime, # Latoya nn 00 60 tab, 11 Refill(s), Pharmacy: [facility] [id number], 152.4, cm, 03/11/22 14:38:00 CDT, Height, 64.205, kg, 03/11/22 14:38:00 CDT, Weight busPIRone Yes 10 mg = 1 Mem oria 10 mg oral 8-10 tab, PO, l tablet 20:34: TID, # 90 Ash n 00 tab, 11 Refill(s), Pharmacy: [facility] [id number], 152.4, cm, 03/11/22 14:38:00 CDT, Height, 64.205, kg, 03/11/22 14:38:00 CDT, Weight Wellbutrin 0 Yes 450 mg = 3 M emoria XL 150 8-10 tab, PO, l mg/24 hours 20:34: Q24H, # 90 W[place] oral 00 tab, 11 tablet, Refill(s), extended Pharmacy: release [facility] [id number], 152.4, cm, 03/11/22 14:38:00 CDT, Height, 64.205, kg, 03/11/22 14:38:00 CDT, Weight sennosides 0 Yes 8.6mg Take 8.6 Un amol (SENNA) 8.6 6-29 mg by ity of mg tablet 12:45: mouth 2 [place] [address] (two) Medical times Branch daily. sennosides 0 Yes 8.6mg Take 8.6 Un amol (SENNA) 8.6 6-29 mg by ity of mg tablet 12:45: mouth 2 [place] 46 (two) Medical times Branch daily. sennosides 2021-0 Yes 8.6mg Take 8.6 Un amol (SENNA) 8.6 6-29 mg by ity of mg tablet 12:45: mouth 2 [place] 46 (two) Medical times Branch daily. sennosides 2021-0 Yes 8.6mg Take 8.6 Un amol (SENNA) 8.6 6-29 mg by ity of mg tablet 12:45: mouth 2 [place] 46 (two) Medical times Branch daily. sennosides 2021-0 Yes 8.6mg Take 8.6 Un amol (SENNA) 8.6 6-29 mg by ity of mg tablet 12:45: mouth 2 [place] 46 (two) Medical times Branch daily. sennosides 2021-0 Yes 8.6mg Take 8.6 Un amol (SENNA) 8.6 6-29 mg by ity of mg tablet 12:45: mouth 2 [place] 46 (two) Medical times Branch daily. sennosides 2021-0 Yes 8.6mg Take 8.6 Un amol (SENNA) 8.6 6-29 mg by ity of mg tablet 12:45: mouth 2 [place] [address] (two) Medical times Branch daily. baclofen 10 2021-0 Yes 35mg Take 35 mg [facility] mg tablet 6-29 by mouth 4 ity of 12:44: (four) [place] [address] times Medical daily. Branch furosemide 2021-0 Yes 40mg Take 40 mg U nivers 20 mg 6-29 by mouth ity of tablet 12:44: daily. [place] [address] Medical Branch omeprazole 2021-0 Yes 20mg Take 20 mg U nivers 20 mg 6-29 by mouth ity of capsule 12:44: at [place] [address] bedtime. Medical Branch pregabalin 2021-0 Yes 300mg Take 300 Un amol (LYRICA) 6-29 mg by ity of 300 mg 12:44: mouth 3 [place] [facility] (three) Medical times Branch daily. busPIRone 2021-0 Yes 30mg Take 30 mg Un amol 30 mg 6-29 by mouth 3 ity of tablet 12:44: (three) [place] 23 times Medical daily. Branch prazosin 5 2021-0 Yes 5mg Take 5 mg Un amol mg capsule 6-29 by mouth ity o f 12:44: at [place] [address] bedtime. Medical Branch buPROPion 2021-0 Yes 300mg Take 300 Uni vers XL 6-29 mg by ity of (WELLBUTRIN 12:44: mouth 3 Rachid as XL) 300 mg 23 (three) Medica l 24 hr times Branch tablet daily. baclofen 10 2021-0 Yes 35mg Take 35 mg [facility] mg tablet 6-29 by mouth 4 ity of 12:44: (four) [place] 23 times Medical daily. Branch furosemide 2-0 Yes 40mg Take 40 mg U nivers 20 mg 6-29 by mouth ity of tablet 12:44: daily. [place] [address] Medical Branch omeprazole 2-0 Yes 20mg Take 20 mg U nivers 20 mg 6-29 by mouth ity of capsule 12:44: at [place] [address] bedtime. Medical Branch pregabalin 2021-0 Yes 300mg Take 300 Un amol (LYRICA) 6-29 mg by ity of 300 mg 12:44: mouth 3 [place] capsule 23 (three) Medical times Branch daily. busPIRone 2-0 Yes 30mg Take 30 mg Un amol 30 mg 6-29 by mouth 3 ity of tablet 12:44: (three) [place] [address] times Medical daily. Branch prazosin 5 2021-0 Yes 5mg Take 5 mg Un amol mg capsule 6-29 by mouth ity o f 12:44: at [place] [address] bedtime. Medical Branch buPROPion 2021-0 Yes 300mg Take 300 Uni vers XL 6-29 mg by ity of (WELLBUTRIN 12:44: mouth 3 Rachid as XL) 300 mg 23 (three) Medica l 24 hr times Branch tablet daily. baclofen 10 2021-0 Yes 35mg Take 35 mg [facility] mg tablet 6-29 by mouth 4 ity of 12:44: (four) [place] 23 times Medical daily. Branch furosemide 2-0 Yes 40mg Take 40 mg U nivers 20 mg 6-29 by mouth ity of tablet 12:44: daily. [place] [address] Medical Branch omeprazole 2-0 Yes 20mg Take 20 mg U nivers 20 mg 6-29 by mouth ity of capsule 12:44: at [place] [address] bedtime. Medical Branch pregabalin 2022-0 Yes 300mg Take 300 Un amol (LYRICA) 6-29 mg by ity of 300 mg 12:44: mouth 3 [place] capsule 23 (three) Medical times Branch daily. traZODone 2022-0 Yes 200mg Take 200 Uni vers 100 mg 6-29 mg by ity of tablet 12:44: mouth at [place] [address] bedtime. Medical Branch busPIRone 2-0 Yes 30mg Take 30 mg Un amol 30 mg 6-29 by mouth 3 ity of tablet 12:44: (three) [place] 23 times Medical daily. Branch prazosin 5 2021-0 Yes 5mg Take 5 mg Un amol mg capsule 6-29 by mouth ity o f 12:44: at [place] [address] bedtime. Medical Branch buPROPion 2021-0 Yes 300mg Take 300 Uni vers XL 6-29 mg by ity of (WELLBUTRIN 12:44: mouth 3 Rachid as XL) 300 mg 23 (three) Medica l 24 hr times Branch tablet daily. baclofen 10 2021-0 Yes 35mg Take 35 mg [facility] mg tablet 6-29 by mouth 4 ity of 12:44: (four) [place] 23 times Medical daily. Branch furosemide 2021-0 Yes 40mg Take 40 mg U nivers 20 mg 6-29 by mouth ity of tablet 12:44: daily. [place] [address] Medical Branch omeprazole 2021-0 Yes 20mg Take 20 mg U nivers 20 mg 6-29 by mouth ity of capsule 12:44: at [place] [address] bedtime. Medical Branch pregabalin 2021-0 Yes 300mg Take 300 Un amol (LYRICA) 6-29 mg by ity of 300 mg 12:44: mouth 3 [place] capsule 23 (three) Medical times Branch daily. traZODone 2021-0 Yes 200mg Take 200 Uni vers 100 mg 6-29 mg by ity of tablet 12:44: mouth at [place] [address] bedtime. Medical Branch busPIRone 2021-0 Yes 30mg Take 30 mg Un amol 30 mg 6-29 by mouth 3 ity of tablet 12:44: (three) [place] 23 times Medical daily. Branch prazosin 5 2021-0 Yes 5mg Take 5 mg Un amol mg capsule 6-29 by mouth ity o f 12:44: at [place] [address] bedtime. Medical Branch buPROPion 2021-0 Yes 300mg Take 300 Uni vers XL 6-29 mg by ity of (WELLBUTRIN 12:44: mouth 3 Rachid as XL) 300 mg 23 (three) Medica l 24 hr times Branch tablet daily. baclofen 10 2021-0 Yes 35mg Take 35 mg Univers mg tablet 6-29 by mouth 4 ity of 12:44: (four) [place] [address] times Medical daily. Branch furosemide 2021-0 Yes 40mg Take 40 mg U nivers 20 mg 6-29 by mouth ity of tablet 12:44: daily. [place] [address] Medical Branch omeprazole 2021-0 Yes 20mg Take 20 mg U nivers 20 mg 6-29 by mouth ity of capsule 12:44: at [place] [address] bedtime. Medical Branch pregabalin 2021-0 Yes 300mg Take 300 Un amol (LYRICA) 6-29 mg by ity of 300 mg 12:44: mouth 3 [place] capsule 23 (three) Medical times Branch daily. traZODone 2-0 Yes 200mg Take 200 Uni vers 100 mg 6-29 mg by ity of tablet 12:44: mouth at [place] [address] bedtime. Medical Branch busPIRone 2021-0 Yes 30mg Take 30 mg Un amol 30 mg 6-29 by mouth 3 ity of tablet 12:44: (three) [place] [address] times Medical daily. Branch prazosin 5 2021-0 Yes 5mg Take 5 mg Un amol mg capsule 6-29 by mouth ity o f 12:44: at [place] [address] bedtime. Medical Branch buPROPion 2021-0 Yes 300mg Take 300 Uni vers XL 6-29 mg by ity of (WELLBUTRIN 12:44: mouth 3 Rachid as XL) 300 mg 23 (three) Medica l 24 hr times Branch tablet daily. baclofen 10 2021-0 Yes 35mg Take 35 mg [facility] mg tablet 6-29 by mouth 4 ity of 12:44: (four) [place] [address] times Medical daily. Branch furosemide 2021-0 Yes 40mg Take 40 mg U nivers 20 mg 6-29 by mouth ity of tablet 12:44: daily. [place] [address] Medical Branch omeprazole 2-0 Yes 20mg Take 20 mg U nivers 20 mg 6-29 by mouth ity of capsule 12:44: at [place] [address] bedtime. Medical Branch pregabalin 2022-0 Yes 300mg Take 300 Un amol (LYRICA) 6-29 mg by ity of 300 mg 12:44: mouth 3 [place] capsule 23 (three) Medical times Branch daily. traZODone 2022-0 Yes 200mg Take 200 Uni vers 100 mg 6-29 mg by ity of tablet 12:44: mouth at [place] [address] bedtime. Medical Branch busPIRone 2021-0 Yes 30mg Take 30 mg Un amol 30 mg 6-29 by mouth 3 ity of tablet 12:44: (three) [place] 23 times Medical daily. Branch prazosin 5 2021-0 Yes 5mg Take 5 mg Un amol mg capsule 6-29 by mouth ity o f 12:44: at [place] [address] bedtime. Medical Branch buPROPion 2021-0 Yes 300mg Take 300 Uni vers XL 6-29 mg by ity of (WELLBUTRIN 12:44: mouth 3 Rachid as XL) 300 mg 23 (three) Medica l 24 hr times Branch tablet daily. baclofen 10 2021-0 Yes 35mg Take 35 mg Univers mg tablet 6-29 by mouth 4 ity of 12:44: (four) [place] 23 times Medical daily. Branch furosemide 2021-0 Yes 40mg Take 40 mg U nivers 20 mg 6-29 by mouth ity of tablet 12:44: daily. [place] [address] Medical Branch omeprazole 2021-0 Yes 20mg Take 20 mg U nivers 20 mg 6-29 by mouth ity of capsule 12:44: at [place] [address] bedtime. Medical Branch pregabalin 2021-0 Yes 300mg Take 300 Un amol (LYRICA) 6-29 mg by ity of 300 mg 12:44: mouth 3 [place] capsule 23 (three) Medical times Branch daily. traZODone 2021-0 Yes 200mg Take 200 Uni vers 100 mg 6-29 mg by ity of tablet 12:44: mouth at [place] [address] bedtime. Medical Branch busPIRone 2021-0 Yes 30mg Take 30 mg Un amol 30 mg 6-29 by mouth 3 ity of tablet 12:44: (three) [place] 23 times Medical daily. Branch prazosin 5 2021-0 Yes 5mg Take 5 mg Un amol mg capsule 6-29 by mouth ity o f 12:44: at [place] [address] bedtime. Medical Branch buPROPion 2021-0 Yes 300mg Take 300 Uni vers XL 6-29 mg by ity of (WELLBUTRIN 12:44: mouth 3 Rachid as XL) 300 mg 23 (three) Medica l 24 hr times Branch tablet daily. Latuda 40 2022-0 Yes 40 mg = 1 Mem oria mg oral 6-22 tab, PO, l tablet 17:10: Daily, with food, # 30 tab, 11 Refill(s), Pharmacy: [facility] [id number], 152.4, cm, 03/11/22 14:38:00 CDT, Height, 64.205, kg, 03/11/22 14:38:00 CDT, [facility]: [place] [facility] mg tablet 6-22 ity of 00:00: [place] [facility] 40 Yes Univers mg tablet 6-22 ity of 00:00: [place] [facility] 40 Yes Univers mg tablet 6-22 ity of 00:00: [facility] 40 Yes Univers mg tablet 6-22 [facility] mg tablet 6-22 ity of 00:00: [place] [facility] midodrine Yes Univers 10 mg 6-13 [facility]: [place] [facility] mg [facility]-13 ity [facility] tablet 00:00: [place] [facility] mg 6-13 ity [facility] tablet 00:00: [place] [facility] mg 6-13 ity [facility] tablet 00:00: [place] [facility] mg 6-13 ity of tablet 00:00: [address] ZyPREXA No Notes: Memoria 5-28 (Same as: l 02:00: ZyPREXA) melatonin 3 No Notes: Leighton rajeev mg oral 5-28 (Same as: l tablet 02:00: Melatonin) Latoya nn 00 buPROPion No Notes: Memori a 24 hour 5-26 (Same as: l extended 03:00: Wellbutrin Her navarro release 00 XL) "Do Not Crush" ZyPREXA No Notes: Memoria 5-26 (Same as: l 02:00: ZyPREXA) [place] trazodone No Notes: Memori a 5-26 (Same As: l 02:00: Desyrel) [place] ibuprofen No Notes: Memori a 400 mg oral 5-25 (Same as: l tablet 23:44: Motrin) [place] 00 "Do Not Crush" Give with food. Tylenol No Notes: Do Memor ia with 5-23 not exceed l Codeine #3 04:15: 4gm/day of H ermann oral tablet 00 acetaminop hen. (Same as: Tylenol with Codeine # 3) vancomycin No 2000 mg: Me moria + Sodium 5-21 infuse l Chloride 11:00: over 2.5 Latoya nn 0.9% IV 250 00 hours For mL adult patients only: Round to nearest 250 mg per Medical Staff approval MEDICATION WASTE Product Size: 1000 mg Product Wasted: ___ mg vancomycin No 2000 mg: Me moria 5-20 infuse l 19:57: over 2.5 Magen 00 hours Vancomycin No Notes: Memor ia Pharmacy 5-20 Vancomycin l Dosing 19:39: Pharmacy Magen Consult 19 Dosing Protocol PHARMAC Y USE ONLY Note: This is not a medication order. This is a consultati on order. cefepime + No Notes: Memor ia Sodium 5-20 (Same As: l Chloride 19:38: Maxipime) Herm dorothea 0.9% IV 100 00 mL MEDICATION WASTE Product Size: 1000 mg Product Wasted: ___ mg senna 8.6 No Notes: Memori a mg oral 5-20 (Same as: l tablet 17:00: Senokot) [place] 00 Milk of No Notes: Memoria Magnesia 5-20 (Same as: l 14:33: Milk of Magnesia, MOM) morphine No Notes: Memoria Sulfate 5-19 (Same l 22:30: as:MORPhin e Sulfate) baclofen No Notes: Memoria 5-18 (Same As: l 17:00: Lioresal) trazodone No Notes: Memori a 5-18 (Same As: l 02:00: Desyrel) morphine 10 No Notes: Leighton rajeev mg oral 5-18 Same as: l capsule, 02:00: Ash Reynaga n extended 00 Morphine release Sulfate ERC "Do Not Crush" Do not give via NG tube Contents of Juhi capsules may be opened and sprinkled on applesauce or sprinkled over 10 mL water and flushed through prewetted 16F gastrostom y tube. prazosin No Notes: Memoria 5-18 Non-Formul l 02:00: vinayak Drug morphine No Notes: Memoria Sulfate 5-17 (Same l 21:32: as:MORPhin e Sulfate) Donya No Notes: Memoria packet 5-16 (Same as: l 21:30: Donya Unflavored ) Administer ing DONYA orally: Mix into 8-10 fl oz of room temperatur e juice, soda, or water. Also mixes well with warm beverages, like coffee or tea. Can be mixed with applesauce . Thoroughly stir for 30-60 seconds or until completely dissolved ergocalcife No Notes: Leighton rajeev rol 50,000 5-16 (Same as: l intl units 14:00: Vitamin D) H ermann oral 00 "Do Not capsule Crush" Vitamin C No Notes: Memori a 5-16 (Same as: l 13:30: Vitamin C) zinc No Notes: Memoria sulfate 5-16 (Zinc l 13:30: sulfate capsule) - 220 mg Zinc sulfate = 50 mg elemental zinc Same as Zinc Sulfate baclofen No Notes: Memoria 5-14 (Same As: l 17:30: Lioresal) Levaquin No 500 mg, 1 Leighton rajeev 5-14 tab, l 13:30: Route: PO, Drug form: TAB, Daily, Dosing Weight 64.205, kg, Start date: 03/05/22 8:30:00 CDT, Duration: 30 day, Stop date: 04/03/22 8:30:00 CDT, ABX Indication : Urinary Tract Infection midodrine No Notes: Memori a 5-14 Same as l 13:00: Proamatine buPROPion No Notes: Memori a 5-14 (Same As: l 12:30: Wellbutrin ) Tylenol No Notes: Do Memor ia 5-14 not exceed l 05:00: 4 gm/day. (Same as: Tylenol) baclofen No Notes: Memoria 5-14 (Same As: l 05:00: Lioresal) Lyrica No Notes: Memoria 5-14 (Same as: l 03:00: Lyrica) prazosin No Notes: Memoria 5-14 Non-Formul l 02:00: vinayak Drug Bactroban No Route: Memori a 2% topical 5-14 TOP, BID, l ointment 02:00: Drug form: Her navarro 00 OINT, Start date: 03/04/22 21:00:00 CDT, Duration: 30 day, Stop date: 04/03/22 8:30:00 CDT, 0 Zovirax No Notes: Memoria 5-14 (Same as: l 02:00: Zovirax) trazodone No Notes: Memori a 5-14 (Same As: l 02:00: Desyrel) Lyrica No Notes: Memoria 5-14 (Same as: l 02:00: Lyrica) busPIRone No Notes: Memori a 5-14 (Same As: l 02:00: BuSpar) buPROPion No Notes: Memori a 24 hour 5-14 (Same as: l extended 01:00: Wellbutrin Her navarro release 00 XL) "Do Not Crush" morphine No Notes: Memoria Sulfate 5-14 (Same l 00:16: as:MORPhin e Sulfate) loperamide No Notes: Memor ia 5-13 (Same as: l 23:58: Imodium A-D) MAX adult dose is 16 mg/day Valium No Notes: Memoria 5-13 (Same as: l 23:20: Valium) baclofen No Notes: Memoria 5-13 (Same As: l 22:00: Lioresal) morphine No 30 mg, Memoria Sulfate 5-13 Route: PO, l 22:00: Q4H, Dosing Weight 64.205, kg, Start date: 03/04/22 17:00:00 CDT, Duration: 30 day, Stop date: 04/03/22 13:00:00 CDT ondansetron No Notes: Leighton rajeev 5-13 (Same as: l 21:53: Zofran) Lyrica 200 Yes 200 mg = 1 M emoria mg oral 5-12 cap, PO, l capsule 21:46: TID ketOROLAC Yes 15 mg, IV, Me moria 15 mg/mL 5-12 Q6H, PRN, l injectable 21:45: 0 Refill(s) trazodone Yes 150 mg = 1 Me moria 150 mg oral 5-12 tab, PO, l tablet 21:45: Bedtime, 0 Latoya 00 Refill(s) loperamide Yes 2 mg, PO, Me moria 5-12 Q6H, PRN, l 21:44: PRN, 0 [place] Refill(s) Valium 2 mg Yes 2 mg = 1 Me moria oral tablet 5-12 tab, PO, l 21:42: Q8H, PRN, Magen 00 0 Refill(s) Colace 100 Yes 100 mg = 1 M emoria mg oral 5-12 cap, PO, l capsule 21:42: Daily, Magen 00 PRN, 0 Refill(s) Zovirax 400 Yes 400 mg = 1 Memoria mg oral 5-12 tab, PO, l tablet 21:41: TID, 0 [place] 00 Refill(s) Levaquin Yes 500 mg = 1 Mem oria 500 mg oral 5-12 tab, PO, l tablet 21:41: Daily, 0 [place] 00 Refill(s) morphine Yes 30 mg, PO, Mem oria Sulfate 5-12 Q4H, PRN, l 21:40: 0 Magen 00 Refill(s) Wellbutrin Yes 150 mg, Leighton rajeev 5-12 PO, TID, 0 l 21:39: Refill(s) [place] 00 baclofen Yes See Memoria 5-12 Instructio l 21:39: ns, 30 MG PO QID, 0 Refill(s) Bactroban Yes See Memoria 2% topical 12 Instructio l ointment 21:38: ns, 1 VINICIO Herm dorothea TOP BID, 0 Refill(s) Zofran Yes 4 mg, IV, Memori a 5-12 Q4H, PRN, l 21:38: 0 M[place] 00 Refill(s) ANES No Notes: Memoria hydrALAZINE 4-22 (Same as: l 16:18: Apresoline ) Push over 5 minutes ANES No Notes: Memoria labetalol 4-22 (Same as: l 16:18: Normodyne, Trandate) Push over 2 minutes Give bolus over 2-3 minutes. ANES No 4 days Memoria ketOROLAC 4-22 l 16:18: MEDICATION WASTE Product Size: 30 mg Product Wasted: ___ mg ANES No Notes: Max Memoria acetaminoph 4-22 acetaminop l en 16:18: hen 4000 Magen 00 mg/day (4 gm/day). (Same as: Tylenol Extra Strength) ANES No Notes: Memoria oxyCODONE 5 4-22 (Same as: l mg 16:18: Roxicodone ) release tablet ANES No Notes: Memoria fentaNYL 4-22 (Same as: l 16:18: Sublimaze) Preservati ve free. ANES No Notes: Memoria HYDROmorpho 4-22 Same as: l ne 16:18: Dilaudid No Notes: Memoria flumazenil 4-22 (Same as: l 16:18: Romazicon) ANES No Notes: Memoria naloxone 4-22 Same as l 16:18: Narcan No Notes: Memoria ePHEDrine 4-22 (Same as: l 16:18: ePHEDrine 00 Sulfate) ANES No Notes: SEE Memoria albuterol 4-22 RT l 0.083% 16:18: DOCUMENTAT Latoya nn inhalation 00 ION (Same solution as: Proventil) ANES No Notes: Memoria diphenhydrA 4-22 (Same as: l MINE 16:18: Benadryl) No Notes: Memoria meperidine 4-22 (Same as: l 16:18: Demerol) "Use Precaution in Elderly, Seizure disorders, and Renal impairment " ANES No Notes: Memoria ondansetron 4-22 (Same as: l 16:18: Zofran) MEDICATION WASTE Product Size: 4 mg Product Wasted: ___ mg ANES No 6.25 mg, Memoria promethazin -22 Route: l e 16:18: IVPB, ONCE, Dosing Weight 66.818, kg, PRN Nausea & Vomiting, Start date: 02/11/22 11:18:00 CDT ondansetron No Route: IV, Memoria (ANES) 02-11 Drug form: l 15:47: INJ, ONCE, Stop date: 02/11/22 10:47:00 CDT ketOROLAC 0 No IV, ONCE Leighton rajeev (ANES) 02-11 l 15:47: [place] 00 ceFAZolin No Route: IV, Me moria (ANES) 02-11 Drug form: l 15:42: INJ, ONCE, Stop date: 02/11/22 10:42:00 CDT fentaNYL No Route: IV, Mem oria (ANES) 02-11 Drug form: l 15:42: INJ, ONCE, Stop date: 02/11/22 10:42:00 CDT propofol No Route: IV, Mem oria (ANES) 02-11 Drug form: l 15:42: INJ, ONCE, Stop date: 02/11/22 10:42:00 CDT midazolam No Route: IV, Me moria (ANES) 02-11 Drug form: l 15:37: SOLN, 00 ONCE, Stop date: 02/11/22 10:37:00 CDT Lactated No Route: IV, Mem oria Ringers 02-11 Total l Injection 14:30: Volume: Latoya nn IV (ANES) 00 1,000, 1000 mL Start date: 02/11/22 9:30:00 CDT, Stop date: 02/11/22 10:30:00 CDT busPIRone Yes 7.5 mg = 1 Me moria 7.5 mg oral 4-13 tab, PO, l tablet 20:57: TID, # 90 Ash n 00 tab, 5 Refill(s), Pharmacy: [facility] [id number], 152.4, cm, 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, Height, 77.273, kg, 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, Weight trazodone Yes 200 mg = 2 Me moria 100 mg oral 4-13 tab, PO, l tablet 20:53: Bedtime, [place] 00 pleae notify pain doctor whenever dose is adjusted, # 60 tab, 5 Refill(s), Pharmacy: [facility] [id number], please have pt notify pain doctor, 152.4, cm, 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 acyclovir 2-0 Yes Univers 400 mg 4-07 ity of tablet 00:00: 00 Medical Branch acyclovir 2-0 Yes Univers 400 mg 4-07 ity of tablet 00:00: 00 Medical Branch acyclovir 2-0 Yes Univers 400 mg 4-07 ity of tablet 00:00: 00 Medical Branch acyclovir 2-0 Yes Univers 400 mg 4-07 ity of tablet 00:00: 00 Medical Branch acyclovir 2-0 Yes Univers 400 mg 4-07 ity of tablet 00:00: 00 Medical Branch acyclovir 2-0 Yes Univers 400 mg 4-07 ity of tablet 00:00: 00 Medical Branch acyclovir 2-0 Yes Univers 400 mg 4-07 ity of tablet 00:00: 00 Medical Branch collagenase 2-0 Yes [id number] Apply to Univers 250 3-26 affected ity of unit/gram 00:00: area(s) [place] ointment 00 daily. Medical Branch collagenase 2-0 Yes [id number] Apply to Univers 250 3-26 affected ity of unit/gram 00:00: area(s) [place] ointment 00 daily. Medical Branch collagenase 2-0 Yes [id number] Apply to Univers 250 3-26 affected ity of unit/gram 00:00: area(s) [place] ointment 00 daily. Medical Branch collagenase 2022-0 Yes [id number] Apply to Univers 250 3-26 affected ity of unit/gram 00:00: area(s) [place] ointment 00 daily. Medical Branch collagenase 2022-0 Yes [id number] Apply to Univers 250 3-26 affected ity of unit/gram 00:00: area(s) [place] ointment 00 daily. Medical Branch collagenase 2022-0 Yes [id number] Apply to Univers 250 3-26 affected ity of unit/gram 00:00: area(s) [place] ointment 00 daily. Medical Branch collagenase 2022-0 Yes [id number] Apply to Univers 250 3-26 affected ity of unit/gram 00:00: area(s) [place] ointment 00 daily. Medical Branch docusate 2022-0 Yes 100mg [...] 31 (two) Medical times Branch daily. SERTraline 2021-0 Yes 200mg Take 200 Un amol 100 mg 3-25 mg by ity of tablet 14:13: mouth 31 daily. Medical Branch mupirocin 2 2021-0 Yes [id number] Apply to Univers % ointment 3-25 area(s) 3 ity of 00:00: (three) [place] 00 times Medical daily. Branch acetaminoph 2021-0 Yes [id number] 650mg Take 2 Univers en 325 mg 3-25 tablets by ity of tablet 00:00: mouth [place] 00 every 6 Medical (six) Branch hours as needed for Pain (scale 1-3) or Temp > 38.5 C. mupirocin 2 2021-0 Yes [id number] Apply to Univers % ointment 3-25 area(s) 3 ity of 00:00: (three) [place] 00 times Medical daily. Branch acetaminoph 2021-0 Yes [id number] 650mg Take 2 Univers en 325 mg 3-25 tablets by ity of tablet 00:00: mouth [place] 00 every 6 Medical (six) Branch hours as needed for Pain (scale 1-3) or Temp > 38.5 C. mupirocin 2 2021-0 Yes [id number] Apply to Univers % ointment 3-25 area(s) 3 ity of 00:00: (three) [place] 00 times Medical daily. Branch acetaminoph 2021-0 Yes [id number] 650mg Take 2 Univers en 325 mg 3-25 tablets by ity of tablet 00:00: mouth [place] every 6 Medical (six) Branch hours as needed for Pain (scale 1-3) or Temp > 38.5 C. mupirocin 2 2021-0 Yes [id number] Apply to Univers % ointment 3-25 area(s) 3 ity of 00:00: (three) [place] 00 times Medical daily. Branch acetaminoph 2021-0 Yes [id number] 650mg Take 2 Univers en 325 mg 3-25 tablets by ity of tablet 00:00: mouth [place] 00 every 6 Medical (six) Branch hours as needed for Pain (scale 1-3) or Temp > 38.5 C. mupirocin 2 2021-0 Yes [id number] Apply to Univers % ointment 3-25 area(s) 3 ity of 00:00: (three) [place] 00 times Medical daily. Branch acetaminoph 2021-0 Yes [id number] 650mg Take 2 Univers en 325 mg 3-25 tablets by ity of tablet 00:00: mouth [place] 00 every 6 Medical (six) Branch hours as needed for Pain (scale 1-3) or Temp > 38.5 C. mupirocin 2 2021-0 Yes [id number] Apply to Univers % ointment 3-25 area(s) 3 ity of 00:00: (three) [place] 00 times Medical daily. Branch acetaminoph 2021-0 Yes [id number] 650mg Take 2 Univers en 325 mg 3-25 tablets by ity of tablet 00:00: mouth [place] 00 every 6 Medical (six) Branch hours as needed for Pain (scale 1-3) or Temp > 38.5 C. mupirocin 2 2021-0 Yes [id number] Apply to Univers % ointment 3-25 area(s) 3 ity of 00:00: (three) [place] 00 times Medical daily. Branch acetaminoph 2021-0 Yes [id number] 650mg Take 2 Univers en 325 mg 3-25 tablets by ity of tablet 00:00: mouth [place] 00 every 6 Medical (six) Branch hours as needed for Pain (scale 1-3) or Temp > 38.5 C. ketorolac 2021-0 Yes [id number] 10mg Take 1 U nivers 10 mg 3-19 tablet by ity of tablet 00:00: mouth [place] 00 every 6 Medical (six) Branch hours as needed for Pain (scale 7-10). ketorolac 2022-0 Yes [id number] 10mg Take 1 U nivers 10 mg 3-19 tablet by ity of tablet 00:00: mouth [place] 00 every 6 Medical (six) Branch hours as needed for Pain (scale 7-10). ketorolac 2022-0 Yes [id number] 10mg Take 1 U nivers 10 mg 3-19 tablet by ity of tablet 00:00: mouth [place] 00 every 6 Medical (six) Branch hours as needed for Pain (scale 7-10). ketorolac 2022-0 Yes [id number] 10mg Take 1 U nivers 10 mg 3-19 tablet by ity of tablet 00:00: mouth [place] 00 every 6 Medical (six) Branch hours as needed for Pain (scale 7-10). ketorolac 0 Yes [id number] 10mg Take 1 U nivers 10 mg 3-19 tablet by ity of tablet 00:00: mouth [place] 00 every 6 Medical (six) Branch hours as needed for Pain (scale 7-10). ketorolac 2021-0 Yes [id number] 10mg Take 1 U nivers 10 mg 3-19 tablet by ity of tablet 00:00: mouth [place] 00 every 6 Medical (six) Branch hours as needed for Pain (scale 7-10). ketorolac 2021-0 Yes [id number] 10mg Take 1 U nivers 10 mg 3-19 tablet by ity of tablet 00:00: mouth [place] 00 every 6 Medical (six) Branch hours as needed for Pain (scale 7-10). 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, 77.273, kg, 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, 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 busPIRone 5 Yes 5 mg = 1 Me moria mg oral 2-10 tab, PO, l tablet 03:18: BID, # 60 Ash n 00 tab, 5 Refill(s), Pharmacy: [facility] [id number], 152.4, cm, 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, 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, 77.273, kg, 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, 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 prazosin 2 Yes 2 mg = 1 Mem oria mg oral 2-10 cap, PO, l capsule 03:16: Bedtime, 7 Herm dorothea 00 mg total at bedtime, # 30 cap, 5 Refill(s), Pharmacy: [facility] [id number], 7 mg qhs, 152.4, cm, 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, 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, 77.273, kg, 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, 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 Home Yes Tylenol PM Memoria Medication 2-02 2 tabs po l 21:00: at night, Wenden 00 Refill(s) 0 Trazodone 0 Yes PO, BID, 0 Me moria 2-02 Refill(s) l 20:59: Wenden 00 Trazodone 0 Yes 100 mg = 1 Me moria Hydrochlori 2-02 tab, PO, l de 100 MG 20:59: Bedtime, 0 He rmann Oral Tablet 00 Refill(s) 24 HR 2020-10 Yes 450 mg = 3 Memori a Bupropion 1-12 tab, PO, l Hydrochlori 02:50: Q24H, # 90 Wenden de 150 MG 00 tab, 5 Extended Refill(s), Release Pharmacy: Tablet [facility] [id number], 152.4, cm, 03/08/21 13:22:00 CDT, Height, 75, kg, 03/08/21 13:22:00 CDT, Weight buPROPion 2020-10 No 450 mg = 1 Me moria 450 mg/24 1-10 tab, PO, l hours (XL) 17:34: Q24H, # 30 H ermann oral 00 tab, 5 tablet, Refill(s), extended Pharmacy: release [facility] [id number], 152.4, cm, 03/08/21 13:22:00 CDT, Height, 75, kg, 03/08/21 13:22:00 CDT, Weight propranolol 2020-10 Yes 10 mg = 1 M emoria 10 mg oral 1-10 tab, PO, l tablet 17:30: BID, take Ash n 00 twice day scheduled OR as needed for anxiety/ akathisia/ tremors, # 60 tab, 2 Refill(s), Pharmacy: [facility] [id number], 152.4, cm, 03/08/21 13:22:00 CDT, Height, 75, kg, 03/08/21 13:22:00 CDT, Weight prazosin 5 2020-10 Yes 5 mg = 1 Mem oria mg oral 0-18 cap, PO, l capsule 16:12: Bedtime, Ash gilbert 00 for PTSD, # 30 cap, 0 Refill(s), Pharmacy: [facility] [id number], 152.4, cm, 03/08/21 13:22:00 CDT, Height, 75, kg, 03/08/21 13:22:00 CDT, Weight [place] 2020-10 Yes 300 mg = 1 Leighton rajeev Carbonate 0-18 tab, PO, l 300 MG 16:12: Bedtime, # Latoya nn Extended 00 30 tab, 5 Release Refill(s), Tablet Pharmacy: [facility] [id number], 152.4, cm, 03/08/21 13:22:00 CDT, Height, 75, kg, 03/08/21 13:22:00 CDT, Weight 24 HR 2020-10 Yes 300 mg = 1 Memori a Bupropion 0-18 tab, PO, l Hydrochlori 16:11: Daily, # He rmann de 300 MG 00 30 tab, 5 Extended Refill(s), Release [facility]: [facility] [id number], 152.4, cm, 03/08/21 13:22:00 CDT, Height, 75, kg, 03/08/21 13:22:00 CDT, Weight lithium 2020-10 Yes 300mg 300 mg at [facility] [place] ers carbonate 0-18 bedtime. ity of CR 300 mg 00:00: [place] SR tablet 00 [facility] lithium 2020-10 Yes 300mg 300 mg at [facility] [place] ers carbonate 0-18 bedtime. ity of CR 300 mg 00:00: [place] SR tablet 00 [facility] [place] lithium 2020-10 Yes 300mg 300 mg at [facility] [place] ers carbonate 0-18 bedtime. ity of CR 300 mg 00:00: [place] SR tablet 00 [facility] [place] lithium 2020-10 Yes 300mg 300 mg at [facility] [place] ers carbonate 0-18 bedtime. ity of CR 300 mg 00:00: [place] SR tablet 00 Medical Branch lithium 2020-1 Yes 300mg 300 mg at [facility] [place] ers carbonate 0-18 bedtime. ity of CR 300 mg 00:00: [place] SR tablet 00 Medical Branch lithium 2020-1 Yes 300mg 300 mg at [facility] [place] ers carbonate 0-18 bedtime. ity of CR 300 mg 00:00: [place] SR tablet 00 Medical Branch lithium 2020- Yes 300mg 300 mg at [facility] [place] ers carbonate 0-18 bedtime. ity of CR 300 mg 00:00: [place] SR tablet 00 [facility] Branch Lurasidone 2021-0 Yes 40 mg = 1 Me moria Hydrochlori 9-21 tab, PO, l de 40 MG 20:27: Daily, Wenden Oral Tablet 00 with food, [Latuda] # 30 tab, 5 Refill(s), Pharmacy: [facility] [id number], 152.4, cm, 03/08/21 13:22:00 CDT, Height, 75, kg, 03/08/21 13:22:00 CDT, Weight Lurasidone 2020-0 Yes 40 mg = 1 Me moria Hydrochlori 9-21 tab, PO, l de 40 MG 20:27: Daily, Wenden Oral Tablet 00 with food, [Latuda] # 30 tab, 5 Refill(s), Pharmacy: [facility] [id number], 152.4, cm, 03/08/21 13:22:00 CDT, Height, 75, kg, 03/08/21 13:22:00 CDT, Weight Lurasidone 2020-0 Yes 20 mg = 1 Me moria Hydrochlori 8-24 tab, PO, l de 20 MG 19:31: Daily, Wenden Oral Tablet 00 with food, [Latuda] # 30 tab, 5 Refill(s), Pharmacy: [facility] [id number], 152.4, cm, 03/08/21 13:22:00 CDT, Height, 75, kg, 03/08/21 13:22:00 CDT, Weight Lurasidone 2021-0 Yes 20 mg = 1 Me moria Hydrochlori 8-24 tab, PO, l de 20 MG 19:31: Daily, Wenden Oral Tablet 00 with food, [Latuda] # 30 tab, 5 Refill(s), Pharmacy: [facility] [id number], 152.4, cm, 03/08/21 13:22:00 CDT, Height, 75, kg, 03/08/21 13:22:00 CDT, Weight Lurasidone 0 Yes 20 mg = 1 Me moria Hydrochlori 8-24 tab, PO, l de 20 MG 19:31: Daily, Wenden Oral Tablet 00 with food, [Latuda] # 30 tab, 5 Refill(s), Pharmacy: [facility] [id number], 152.4, cm, 03/08/21 13:22:00 CDT, Height, 75, kg, 03/08/21 13:22:00 CDT, Weight Sertraline Yes 150 mg = Mem oria 100 MG Oral 8-24 1.5 tab, l Tablet 19:26: PO, Daily, Latoya nn [Zoloft] 00 # 45 tab, 1 Refill(s), Pharmacy: [facility] [id number], 152.4, cm, 03/08/21 13:22:00 CDT, Height, 75, kg, 03/08/21 13:22:00 CDT, Weight Sertraline Yes 150 mg = Mem oria 100 MG Oral 8-24 1.5 tab, l Tablet 19:26: PO, Daily, Latoya nn [Zoloft] 00 # 45 tab, 1 Refill(s), Pharmacy: [facility] [id number], 152.4, cm, 03/08/21 13:22:00 CDT, Height, 75, kg, 03/08/21 13:22:00 CDT, Weight Sertraline 0 Yes 150 mg = Mem oria 100 MG Oral 8-24 1.5 tab, l Tablet 19:26: PO, Daily, Latoya nn [Zoloft] 00 # 45 tab, 1 Refill(s), Pharmacy: [facility] [id number], 152.4, cm, 03/08/21 13:22:00 CDT, Height, 75, kg, 03/08/21 13:22:00 CDT, Weight Lactobac 2020-0 Yes [id number] Take 1 Univ ers 40-Bifido 7-28 TAB-CAP/M2 ity of 3-S.thermop 00:00: by mouth [place] 100 billion 00 daily. Medica l cell Cap Branch Lactobac Yes [id number] Take 1 Univ ers 40-Bifido 7-28 TAB-CAP/M2 ity of 3-S.thermop 00:00: by mouth [place] 100 billion 00 daily. Medica l cell Cap Branch Lactobac Yes [id number] Take 1 Univ ers 40-Bifido 7-28 TAB-CAP/M2 ity of 3-S.thermop 00:00: by mouth [place] 100 billion 00 daily. Medica l cell Cap Branch Lactobac Yes [id number] Take 1 Univ ers 40-Bifido 7-28 TAB-CAP/M2 ity of 3-S.thermop 00:00: by mouth [place] 100 billion 00 daily. Medica l cell Cap Branch Lactobac Yes [id number] Take 1 Univ ers 40-Bifido 7-28 TAB-CAP/M2 ity of 3-S.thermop 00:00: by mouth [place] 100 billion 00 daily. Medica l cell Cap Branch Lactobac Yes [id number] Take 1 Univ ers 40-Bifido 7-28 TAB-CAP/M2 ity of 3-S.thermop 00:00: by mouth [place] 100 billion 00 daily. Medica l cell Cap Branch Lactobac Yes [id number] Take 1 Univ ers 40-Bifido 7-28 TAB-CAP/M2 ity of 3-S.thermop 00:00: by mouth [place] 100 billion 00 daily. Medica l cell Cap Branch phenazopyri Yes [id number] 200mg Take 1 Univers dine 200 mg 6-17 tablet by ity of tablet 00:00: mouth 3 [place] 00 (three) Medical times Branch daily. metroNIDAZO Yes [id number] Apply to Univers LE 6-17 area(s) ity of (METROGEL) 00:00: daily. [place] 1 % gel 00 Apply thin Medica l film to Branch skin. phenazopyri Yes [id number] 200mg Take 1 Univers dine 200 mg 6-17 tablet by ity of tablet 00:00: mouth 3 [place] 00 (three) Medical times Branch daily. metroNIDAZO Yes [id number] Apply to Univers LE 6-17 area(s) ity of (METROGEL) 00:00: daily. [place] 1 % gel 00 Apply thin Medica l film to Branch skin. phenazopyri 2021-0 Yes [id number] 200mg Take 1 Univers dine 200 mg 6-17 tablet by ity of tablet 00:00: mouth 3 [place] 00 (three) Medical times Branch daily. metroNIDAZO 2021-0 Yes [id number] Apply to Univers LE 6-17 area(s) ity of (METROGEL) 00:00: daily. [place] 1 % gel 00 Apply thin Medica l film to Branch skin. phenazopyri 2020-0 Yes [id number] 200mg Take 1 Univers dine 200 mg 6-17 tablet by ity of tablet 00:00: mouth 3 [place] 00 (three) Medical times Branch daily. metroNIDAZO 2021-0 Yes [id number] Apply to Univers LE 6-17 area(s) ity of (METROGEL) 00:00: daily. [place] 1 % gel 00 Apply thin Medica l film to Branch skin. phenazopyri 2020-0 Yes [id number] 200mg Take 1 Univers dine 200 mg 6-17 tablet by ity of tablet 00:00: mouth 3 [place] 00 (three) Medical times Branch daily. metroNIDAZO 2021-0 Yes [id number] Apply to Univers LE 6-17 area(s) ity of (METROGEL) 00:00: daily. [place] 1 % gel 00 Apply thin Medica l film to Branch skin. phenazopyri 202-0 Yes [id number] 200mg Take 1 Univers dine 200 mg 6-17 tablet by ity of tablet 00:00: mouth 3 [place] 00 (three) Medical times Branch daily. metroNIDAZO 2021-0 Yes [id number] Apply to Univers LE 6-17 area(s) ity of (METROGEL) 00:00: daily. [place] 1 % gel 00 Apply thin Medica l film to Branch skin. phenazopyri 2021-0 Yes [id number] 200mg Take 1 Univers dine 200 mg 6-17 tablet by ity of tablet 00:00: mouth 3 [place] 00 (three) Medical times Branch daily. metroNIDAZO 2021-0 Yes [id number] Apply to Univers LE 6-17 area(s) ity of (METROGEL) 00:00: daily. [place] 1 % gel 00 Apply thin Medica l film to Branch skin. Trazodone Yes 200 mg = 2 Me moria Hydrochlori 6-15 tab, PO, l de 100 MG 20:14: Bedtime, # He rmann Oral Tablet 00 60 tab, 5 Refill(s), Pharmacy: [facility] 256, 152.4, cm, 03/08/21 13:22:00 CDT, Height, 75, kg, 03/08/21 13:22:00 CDT, Weight Trazodone Yes 200 mg = 2 Me moria Hydrochlori 6-15 tab, PO, l de 100 MG 20:14: Bedtime, # He rmann Oral Tablet 00 60 tab, 5 Refill(s), Pharmacy: [facility] 256, 152.4, cm, 03/08/21 13:22:00 CDT, Height, 75, kg, 03/08/21 13:22:00 CDT, Weight Trazodone Yes 200 mg = 2 Me moria Hydrochlori 6-15 tab, PO, l de 100 MG 20:14: Bedtime, # He rmann Oral Tablet 00 60 tab, 5 Refill(s), Pharmacy: [facility] 256, 152.4, cm, 03/08/21 13:22:00 CDT, Height, 75, kg, 03/08/21 13:22:00 CDT, Weight Trazodone Yes 200 mg = 2 Me moria Hydrochlori 6-15 tab, PO, l de 100 MG 20:14: Bedtime, # He rmann Oral Tablet 00 60 tab, 5 Refill(s), Pharmacy: [facility] 256, 152.4, cm, 03/08/21 13:22:00 CDT, Height, 75, kg, 03/08/21 13:22:00 CDT, Weight 24 HR Yes 300 mg = 1 Memori a Bupropion 6-15 tab, PO, l Hydrochlori 20:13: Daily, # He rmann de 300 MG 00 30 tab, 5 Extended Refill(s), Release Pharmacy: [facility] 256, 152.4, cm, 03/08/21 13:22:00 CDT, Height, 75, kg, 03/08/21 13:22:00 CDT, Weight 24 HR 0 Yes 300 mg = 1 Memori a Bupropion 6-15 tab, PO, l Hydrochlori 20:13: Daily, # Hussain rmann de 300 MG 00 30 tab, 5 Extended Refill(s), Release Pharmacy: [facility] [[facility] ] 256, 152.4, cm, 03/08/21 13:22:00 CDT, Height, 75, kg, 03/08/21 13:22:00 CDT, Weight 24 HR Yes 300 mg = 1 Memori a Bupropion 6-15 tab, PO, l Hydrochlori 20:13: Daily, # Hussain rmann de 300 MG 00 30 tab, 5 Extended Refill(s), Release Pharmacy: [facility] [[facility] ] 256, 152.4, cm, 03/08/21 13:22:00 CDT, Height, 75, kg, 03/08/21 13:22:00 CDT, Weight 24 HR Yes 300 mg = 1 Memori a Bupropion 6-15 tab, PO, l Hydrochlori 20:13: Daily, # Hussain rmann de 300 MG 00 30 tab, 5 Extended Refill(s), Release Pharmacy: [facility] [[facility] ] 256, 152.4, cm, 03/08/21 13:22:00 CDT, Height, 75, kg, 03/08/21 13:22:00 CDT, Weight 24 HR 0 Yes 150 mg = 1 Memori a Bupropion 5-18 tab, PO, l Hydrochlori 18:46: Q24H, # 30 Magen de 150 MG 00 tab, 5 Extended Refill(s), Release Pharmacy: [facility] [[facility] ] 256, 152.4, cm, 03/08/21 13:22:00 CDT, Height, 75, kg, 03/08/21 13:22:00 CDT, Weight 24 HR 0 Yes 150 mg = 1 Memori a Bupropion 5-18 tab, PO, l Hydrochlori 18:46: Q24H, # 30 Wenden de 150 MG 00 tab, 5 Extended Refill(s), Release Pharmacy: [facility] [[facility] ] 256, 152.4, cm, 03/08/21 13:22:00 CDT, Height, 75, kg, 03/08/21 13:22:00 CDT, Weight 24 HR Yes 150 mg = 1 Memori a Bupropion 5-18 tab, PO, l Hydrochlori 18:46: Q24H, # 30 Wenden de 150 MG 00 tab, 5 Extended Refill(s), Release Pharmacy: [facility] [[facility] ] 256, 152.4, cm, 03/08/21 13:22:00 CDT, Height, 75, kg, 03/08/21 13:22:00 CDT, Weight 24 HR Yes 150 mg = 1 Memori a Bupropion 5-18 tab, PO, l Hydrochlori 18:46: Q24H, # 30 Wenden de 150 MG 00 tab, 5 Extended Refill(s), Release Pharmacy: [facility] [[facility] ] 256, 152.4, cm, 03/08/21 13:22:00 CDT, [...] day, # 10 tab, 2 Refill(s), Pharmacy: [facility] 256, 152.4, cm, 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, Height, 75.909, kg, 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, Weight Hydroxyzine Yes 25 mg = 1 M emoria Hydrochlori 4-08 tab, PO, l de 25 MG 20:31: PRN, PRN Latoya nn Oral Tablet 00 anxiety, take HALF to ONE tablet every 8 hours as needed for severe anxiety, X 30 day, # 10 tab, 2 Refill(s), Pharmacy: [facility] 256, 152.4, cm, 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, Height, 75.909, kg, 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, Weight Hydroxyzine 2020-0 Yes 25 mg = 1 M emoria Hydrochlori 4-08 tab, PO, l de 25 MG 20:31: PRN, PRN Latoya nn Oral Tablet 00 anxiety, take HALF to ONE tablet every 8 hours as needed for severe anxiety, X 30 day, # 10 tab, 2 Refill(s), Pharmacy: [place] [address], 152.4, cm, 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, Height, 75.909, kg, 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, Weight Hydroxyzine 2020-0 Yes 25 mg = 1 M emoria Hydrochlori 4-08 tab, PO, l de 25 MG 20:31: PRN, PRN Latoya nn Oral Tablet 00 anxiety, take HALF to ONE tablet every 8 hours as needed for severe anxiety, X 30 day, # 10 tab, 2 Refill(s), Pharmacy: [facility] 256, 152.4, cm, 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, Height, 75.909, kg, 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, Weight prazosin 5 2020-0 Yes 5 mg = 1 Mem oria mg oral 4-08 cap, PO, l capsule 20:30: Bedtime, Ash n 00 for PTSD, # 30 cap, 5 Refill(s), Pharmacy: [facility] 256, 152.4, cm, 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, Height, 75.909, kg, 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, Weight prazosin 5 1-0 Yes 5 mg = 1 Mem oria mg oral 4-08 cap, PO, l capsule 20:30: Bedtime, Ash n 00 for PTSD, # 30 cap, 5 Refill(s), Pharmacy: [place] [address], 152.4, cm, 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, Height, 75.909, kg, 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, Weight prazosin 5 2020-0 Yes 5 mg = 1 Mem oria mg oral 4-08 cap, PO, l capsule 20:30: Bedtime, Ash n 00 for PTSD, # 30 cap, 5 Refill(s), [facility]: [facility] 256, 152.4, cm, 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, Height, 75.909, kg, 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, Weight prazosin 5 2020-0 Yes 5 mg = 1 Mem oria mg oral 4-08 cap, PO, l capsule 20:30: Bedtime, Ash n 00 for PTSD, # 30 cap, 5 Refill(s), [place] [facility] [address], 152.4, cm, 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, Height, 75.909, kg, 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, Weight Sertraline 0 Yes 200 mg = 2 M emoria 100 MG Oral 4-08 tab, PO, l Tablet 20:26: Daily, # Wenden [Zoloft] 00 60 tab, 5 Refill(s), Pharm[place] [facility] [address], 152.4, cm, 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, Height, 75.909, kg, 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, Weight Trazodone 2020-0 Yes 150 mg = Leighton rajeev Hydrochlori 4-08 1.5 tab, l de 100 MG 20:26: PO, Magen Oral Tablet 00 Bedtime, # 45 tab, 5 Refill(s), Pharm[place]: [facility] [address], 152.4, cm, 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, Height, 75.909, kg, 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, Weight Sertraline 2020-0 Yes 200 mg = 2 M emoria 100 MG Oral 4-08 tab, PO, l Tablet 20:26: Daily, # Wenden [Zoloft] 00 60 tab, 5 Refill(s), Pharm[place]: [place] [facility] [address], 152.4, cm, 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, Height, 75.909, kg, 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, Weight Trazodone 2020-0 Yes 150 mg = Leighton rajeev Hydrochlori 4-08 1.5 tab, l de 100 MG 20:26: PO, Magen Oral Tablet 00 Bedtime, # 45 tab, 5 Refill(s), Pharmacy: [facility] 256, 152.4, cm, 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, Height, 75.909, kg, 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, Weight Sertraline Yes 200 mg = 2 M emoria 100 MG Oral 4-08 tab, PO, l Tablet 20:26: Daily, # Wenden [Zoloft] 00 60 tab, 5 Refill(s), Pharmacy: [place] [address], 152.4, cm, 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, Height, 75.909, kg, 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, Weight Trazodone Yes 150 mg = Leighton rajeev Hydrochlori 4-08 1.5 tab, l de 100 MG 20:26: PO, Magen Oral Tablet 00 Bedtime, # 45 tab, 5 Refill(s), Pharmacy: [facility] 256, 152.4, cm, 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, Height, 75.909, kg, 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, Weight Sertraline Yes 200 mg = 2 M emoria 100 MG Oral 4-08 tab, PO, l Tablet 20:26: Daily, # Magen [Zoloft] 00 60 tab, 5 Refill(s), Pharmacy: [facility] 256, 152.4, cm, 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 Medical infection) Branch sodium Yes [id number] 16[oz_a Apply 473 [facility] hypochlorit 4-08 v] mL to ity of e 0.5% 00:00: area(s) [place] solution 00 daily. Medical Branch sodium Yes [id number] 16[oz_a Apply 473 [facility] hypochlorit 4-08 v] mL to ity of e 0.5% 00:00: area(s) [place] solution 00 daily. Medical Branch sodium Yes [id number] 16[oz_a Apply 473 [facility] hypochlorit 4-08 v] mL to ity of e 0.5% 00:00: area(s) [place] solution 00 daily. Medical Branch sodium Yes [id number] 16[oz_a Apply 473 [facility] hypochlorit 4-08 v] mL to ity of e 0.5% 00:00: area(s) [place] solution 00 daily. Medical Branch sodium Yes [id number] 16[oz_a Apply 473 [facility] hypochlorit 4-08 v] mL to ity of e 0.5% 00:00: area(s) [place] solution 00 daily. Medical Branch sodium Yes [id number] 16[oz_a Apply 473 [facility] hypochlorit 4-08 v] mL to ity of e 0.5% 00:00: area(s) [place] solution 00 daily. Medical Branch sodium Yes [id number] 16[oz_a Apply 473 [facility] hypochlorit 4-08 v] mL to ity of e 0.5% 00:00: area(s) [place] solution 00 daily. Medical Branch sennosides Yes 8.6mg Take 8.6 Un amol (SENNA) 8.6 4-07 mg by ity of mg tablet 22:31: mouth 2 [place] 13 (two) Medical times Branch daily. baclofen 10 Yes 35mg Take 35 mg Univers mg tablet 4-07 by mouth 4 ity of 22:31: (four) [place] [address] times Medical daily. Branch furosemide Yes 40mg Take 40 mg U nivers 20 mg 4-07 by mouth ity of tablet 22:31: daily. [place] [address] Medical Branch omeprazole 0 Yes 20mg Take 20 mg U nivers 20 mg 4-07 by mouth ity of capsule 22:31: at [place] [address] bedtime. Medical Branch docusate Yes 100mg Take 100 Univ ers 100 mg 4-07 mg by ity of capsule 22:31: mouth 2 [place] 13 (two) Medical times Branch daily. pregabalin Yes 300mg Take 300 Un amol (LYRICA) 4-07 mg by ity of 300 mg 22:31: mouth 3 [place] [facility] (three) Medical times Branch daily. SERTraline Yes 150mg Take 150 Un amol 100 mg 4-07 mg by ity of tablet 22:31: mouth [place] [address] daily. Medical Branch traZODone Yes 100mg Take 100 Uni vers 100 mg 4-07 mg by ity of tablet 22:31: mouth at [place] [address] bedtime. Medical Branch prazosin 2 Yes 2mg Take 2 mg Un amol mg capsule 4-07 by mouth ity o f 22:31: at [place] [address] bedtime. 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, Height, 75.909, kg, 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, Weight Trazodone 2020-0 Yes 100 mg = 1 Me moria Hydrochlori 3-02 tab, PO, l de 100 MG 21:59: Bedtime, # Hussain rmann Oral Tablet 00 30 tab, 5 Refill(s), Pharmacy: [facility] 256, 152.4, cm, 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 4mg qhs., # 60 cap, 5 Refill(s), Pharmacy: [facility], 152.4, cm, 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 4mg qhs., # 60 cap, 5 Refill(s), Pharmacy: [facility], 152.4, cm, 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 4mg qhs., # 60 cap, 5 Refill(s), Pharmacy: [facility] [place], 152.4, cm, 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, Height, 75.909, kg, 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, Weight prazosin 2 Yes 4 mg = 2 Mem oria mg oral 3-02 cap, PO, l capsule 21:58: Bedtime, Ash n 00 for PTSD nightmares . 4mg qhs., # 60 cap, 5 Refill(s), Pharmacy: [facility] [place], 152.4, cm, 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, Height, 75.909, kg, 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, Weight prazosin 2 Yes 2 mg = 1 Mem oria mg oral 1-26 cap, PO, l capsule 19:31: Bedtime, Ash n 00 for PTSD nightmares , # 30 cap, 5 Refill(s), [facility] [place], 152.4, cm, 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, Height, 75.909, kg, 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, Weight Sertraline Yes 150 mg = Mem oria 100 MG Oral 1-26 1.5 tab, l Tablet 19:31: PO, Daily, Latoya nn [Zoloft] 00 # 45 tab, 5 Refill(s), [facility] [place], 152.4, cm, 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, Height, 75.909, kg, 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, Weight Trazodone Yes 50 mg = 1 Mem oria Hydrochlori 1-26 tab, PO, l de 50 MG 19:31: PRN, PRN Latoya nn Oral Tablet 00 Insomnia, take HALF to ONE tab at bedtime, # 30 tab, 5 Refill(s), [facility] [place], 152.4, cm, 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, Height, 75.909, kg, 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, Weight prazosin 2 Yes 2 mg = 1 Mem oria mg oral 1-26 cap, PO, l capsule 19:31: Bedtime, Ash n 00 for PTSD nightmares , # 30 cap, 5 Refill(s), Pharmacy: [facility] 256, 152.4, cm, 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, Height, 75.909, kg, 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, 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 Sertraline 0 Yes 150 mg = Mem oria 100 MG Oral 1-26 1.5 tab, l Tablet 19:31: PO, Daily, Latoya nn [Zoloft] 00 # 45 tab, 5 Refill(s), Pharmacy: [facility] 256, 152.4, cm, 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, 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, 75.909, kg, 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, Weight Trazodone Yes 50 mg = 1 Mem oria Hydrochlori 1-26 tab, PO, l de 50 MG 19:31: PRN, PRN Latoya nn Oral Tablet 00 Insomnia, take HALF to ONE tab at bedtime, # 30 tab, 5 Refill(s), Pharmacy: [facility] 256, 152.4, cm, 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, Height, 75.909, kg, 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, Weight prazosin 2 Yes 2 mg = 1 Mem oria mg oral 1-26 cap, PO, l capsule 19:31: Bedtime, Ash n 00 for PTSD nightmares , # 30 cap, 5 Refill(s), Pharmacy: [facility] 256, 152.4, cm, 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, Height, 75.909, kg, 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, Weight Sertraline 0 Yes 150 mg = Mem oria 100 MG Oral 1-26 1.5 tab, l Tablet 19:31: PO, Daily, Latoya nn [Zoloft] 00 # 45 tab, 5 Refill(s), Pharmacy: [facility] 256, 152.4, cm, 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, Height, 75.909, kg, 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, Weight Trazodone Yes 50 mg = 1 Mem oria Hydrochlori 1-26 tab, PO, l de 50 MG 19:31: PRN, PRN Latoya nn Oral Tablet 00 Insomnia, take HALF to ONE tab at bedtime, # 30 tab, 5 Refill(s), Pharmacy: [facility] 256, 152.4, cm, 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, Height, 75.909, kg, 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, Weight prazosin 2 Yes 2 mg = 1 Mem oria mg oral 1-26 cap, PO, l capsule 19:31: Bedtime, Ash n 00 for PTSD nightmares , # 30 cap, 5 Refill(s), Pharmacy: [place] [address], 152.4, cm, 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, Height, 75.909, kg, 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, Weight Sertraline Yes 150 mg = Mem oria 100 MG Oral 1-26 1.5 tab, l Tablet 19:31: PO, Daily, Latoya nn [Zoloft] 00 # 45 tab, 5 Refill(s), Pharmacy: [place] [address], 152.4, cm, 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, Height, 75.909, kg, 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, Weight Trazodone Yes 50 mg = 1 Mem oria Hydrochlori 1-26 tab, PO, l de 50 MG 19:31: PRN, PRN Latoya nn Oral Tablet 00 Insomnia, take HALF to ONE tab at bedtime, # 30 tab, 5 Refill(s), Pharmacy: [facility] 256, 152.4, cm, 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, Height, 75.909, kg, 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, Weight prazosin 2 Yes 2 mg = 1 Mem oria mg oral 1-05 cap, PO, l capsule 22:36: Bedtime, Ash n 00 for PTSD nightmares , # 30 cap, 5 Refill(s), Pharmacy: [place] [address], 152.4, cm, 08/24/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, Height, 77.273, kg, 08/24/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, Weight prazosin 2 2020-0 Yes 2 mg = 1 Mem oria mg oral 1-05 cap, PO, l capsule 22:36: Bedtime, Ash n 00 for PTSD nightmares , # 30 cap, 5 Refill(s), Pharmacy: [facility], 152.4, cm, 08/24/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, Height, 77.273, kg, 08/24/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, Weight prazosin 2 2020-0 Yes 2 mg = 1 Mem oria mg oral 1-05 cap, PO, l capsule 22:36: Bedtime, Ash n 00 for PTSD nightmares , # 30 cap, 5 Refill(s), Pharmacy: [facility], 152.4, cm, 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/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, Height, 77.273, kg, 08/24/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, Weight prazosin 2 2020-0 Yes 2 mg = 1 Mem oria mg oral 1-05 cap, PO, l capsule 22:36: Bedtime, Ash n 00 for PTSD nightmares , # 30 cap, 5 Refill(s), Pharmacy: [facility], 152.4, cm, 08/24/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, Height, 77.273, kg, 08/24/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, Weight Sertraline 0 Yes 150 mg = Mem oria 100 MG Oral 1-05 1.5 tab, l Tablet 22:35: PO, Daily, Latoya nn [Zoloft] 00 # 45 tab, 5 Refill(s), Pharmacy: [facility] [place], 152.4, cm, 08/24/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, Height, 77.273, kg, 08/24/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, Weight Sertraline 0 Yes 150 mg = Mem oria 100 MG Oral 1-05 1.5 tab, l Tablet 22:35: PO, Daily, Latoya nn [Zoloft] 00 # 45 tab, 5 Refill(s), Pharmacy: [facility], 152.4, cm, 08/24/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, Height, 77.273, kg, 08/24/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, Weight Sertraline Yes 150 mg = Mem oria 100 MG Oral 1-05 1.5 tab, l Tablet 22:35: PO, Daily, Latoya nn [Zoloft] 00 # 45 tab, 5 Refill(s), Pharmacy: [facility], 152.4, cm, 08/24/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, Height, 77.273, kg, 08/24/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, Weight Sertraline Yes 150 mg = Mem oria 100 MG Oral 1-05 1.5 tab, l Tablet 22:35: PO, Daily, Latoya nn [Zoloft] 00 # 45 tab, 5 Refill(s), Pharmacy: [facility] [place], 152.4, cm, 08/24/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, Height, 77.273, kg, 08/24/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, 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 prazosin 1 2019-10 Yes 1 mg = 1 Mem oria mg oral 1-17 cap, PO, l capsule 17:02: Bedtime, Ash n 00 for PTSD nightmares , # 30 cap, 5 Refill(s), Pharmacy: [facility], 152.4, cm, 08/24/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, Height, 77.273, kg, 08/24/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, 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 prazosin 1 2019-10 Yes 1 mg = 1 Mem oria mg oral 1-17 cap, PO, l capsule 17:02: Bedtime, Ash n 00 for PTSD nightmares , # 30 cap, 5 Refill(s), Pharmacy: [facility], 152.4, cm, 08/24/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, Height, 77.273, kg, 08/24/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, Weight prazosin 1 2019- Yes 1 mg = 1 Mem oria mg oral 1-17 cap, PO, l capsule 17:02: Bedtime, Ash n 00 for PTSD nightmares , # 30 cap, 5 Refill(s), Pharmacy: [facility], 152.4, cm, 08/24/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, Height, 77.273, kg, 08/24/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, Weight prazosin 1 2019-10 Yes 1 mg = 1 Mem oria mg oral 1-17 cap, PO, l capsule 17:02: Bedtime, Ash n 00 for PTSD nightmares , # 30 cap, 5 Refill(s), Pharmacy: [facility] [place], 152.4, cm, 08/24/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, Height, 77.273, kg, 08/24/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, Weight Sertraline 2019-10 Yes 100 mg = 1 M emoria 100 MG Oral 1-17 tab, PO, l Tablet 17:01: Daily, # [place] [Zoloft] 00 30 tab, 5 Refill(s), Pharmacy: [facility] [place], 152.4, cm, 08/24/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, Height, 77.273, kg, 08/24/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, Weight Sertraline 2019-10 Yes 100 mg = 1 M emoria 100 MG Oral 1-17 tab, PO, l Tablet 17:01: Daily, # Magen [Zoloft] 00 30 tab, 5 Refill(s), Pharmacy: [facility] [place], 152.4, cm, 08/24/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, Height, 77.273, kg, 08/24/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, Weight Sertraline 2019-10 Yes 100 mg = 1 M emoria 100 MG Oral 1-17 tab, PO, l Tablet 17:01: Daily, # Magen [Zoloft] 00 30 tab, 5 Refill(s), Pharmacy: [facility] [place], 152.4, cm, 08/24/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, Height, 77.273, kg, 08/24/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, Weight Sertraline 2019-10 Yes 100 mg = 1 M emoria 100 MG Oral 1-17 tab, PO, l Tablet 17:01: Daily, # Magen [Zoloft] 00 30 tab, 5 Refill(s), Pharmacy: [facility] 256, 152.4, cm, 08/24/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, Height, 77.273, kg, 08/24/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, Weight pregabalin 2019-10 Yes 300 mg = [...] tab, PO, l Tablet 16:53: Daily, # Wenden 00 30 tab, 0 Refill(s) sertraline 2019-10 [...] oria 1-02 PO, Daily, l 16:53: 0 [place] 00 Refill(s) omeprazole 2019-10 Yes 20 mg = 1 Me moria 20 mg oral 1-02 cap, PO, l delayed 16:53: Daily, # Ash n release 00 30 cap, 1 capsule Refill(s) QUEtiapine 2019-10 Yes 100 mg = 1 M emoria 100 mg oral 02 tab, PO, l tablet 16:53: Q6H, 0 [place] 00 Refill(s) Bisacodyl 5 2019-10 Yes 5 [...] moria GLUCONATE 10-24 0 l 16:53: Refill(s) [place] Melatonin 2019-10 Yes Bedtime, 0 Me moria 10-24 Refill(s) l 16:53: [place] 00 Furosemide 2019-10 Yes 40 mg = [...] tab, PO, l tablet 16:53: Q6H, 0 [place] 00 Refill(s) Stool 2019-10 Yes 1 cap, [...] tab, PO, l tablet 16:53: Q6H, 0 [place] 00 Refill(s) Bisacodyl 5 2019-10 Yes 5 mg = 1 Me moria MG Enteric 10-24 tab, PO, l Coated 16:53: Daily, 0 Magen 00 Refill(s) [Dulcolax] Potassium 2019-10 Yes 1 tab po Leighton rajeev gluconate 10-24 daily, 0 l 16:53: Refill(s) [place] 00 Multi 2019-10 Yes super b Memoria Vitamin+ 10-24 complex, 0 l 16:53: Refill(s) MAGNESIUM 2019-10 Yes PO, Daily, Me moria GLUCONATE 10-24 0 l 16:53: Refill(s) Melatonin 2019-10 Yes Bedtime, 0 Me moria 10-24 Refill(s) l 16:53: [place] Furosemide 2019-10 Yes 40 mg = 1 Me moria 40 MG Oral 10-24 tab, PO, l Tablet 16:53: Daily, # Magen 00 30 tab, 0 Refill(s) sertraline 2019-10 Yes 50 mg = 1 Me moria 50 mg oral 10-24 tab, PO, l tablet 16:53: Daily, # W[place] 00 30 tab, 0 Refill(s) baclofen 10 [...] oria 10-24 PO, Daily, l 16:53: 0 [place] 00 Refill(s) omeprazole 2019-10 Yes 20 mg = 1 Me moria 20 mg oral 10-24 cap, PO, l delayed 16:53: Daily, # Ash n release 00 30 cap, 1 capsule Refill(s) QUEtiapine 2019-10 Yes 100 mg = 1 M emoria 100 mg oral 02 tab, PO, l tablet 16:53: Q6H, 0 [place] 00 Refill(s) Bisacodyl 5 2019-10 Yes 5 mg = 1 Me moria MG Enteric 10-24 tab, PO, l Coated 16:53: Daily, 0 Magen Tablet 00 Refill(s) [Dulcolax] Potassium 2019-10 Yes 1 tab po Leighton rajeev gluconate 02 daily, 0 l 16:53: Refill(s) Magen Multi 2019-10 Yes super b Memoria Vitamin+ 10-24 complex, 0 l 16:53: Refill(s) MAGNESIUM 2019-10 Yes PO, Daily, Me moria GLUCONATE 10-24 0 l 16:53: Refill(s) [place] Melatonin 2019-10 Yes Bedtime, 0 Me moria 10-24 Refill(s) l 16:53: Magen 00 Furosemide 2019-10 Yes 40 mg = 1 Me moria 40 MG Oral -02 tab, PO, l Tablet 16:53: Daily, # Wenden 00 30 tab, 0 Refill(s) sertraline 2019-10 Yes 50 mg = 1 Me moria 50 mg oral - tab, PO, l tablet 16:53: Daily, # Wenden 00 30 tab, 0 Refill(s) baclofen 10 [...] mg = 1 Me moria MG Enteric -02 tab, PO, l Coated 16:53: Daily, 0 [...] Me moria -02 Refill(s) l 16:53: QUEtiapine Yes 400mg QD Take 400 Me thodi XR 7-[address] (SEROquel 19:17: mouth Hospita XR) 400 MG 52 nightly. l 24 hr tablet vitamin B 2018-0 Yes 1{tbl} QD Take 1 Meth nancy [...] 3 (three) months. AMOXICILLIN 2019-0 Yes 1{tbl} Q.[id number] Take 1 [facility] ORAL 7-[id number] 19:17: 3D mouth 3 Hospita 52 (three) l times a day. QUEtiapine 2018- Yes 400mg QD Take 400 Me thodi XR 7-[address] (SEROquel 14:17: mouth Hospita XR) 400 MG 52 nightly. l 24 hr tablet vitamin B 2019-0 Yes 1{tbl} QD Take 1 Meth nancy complex (B 7-[address] COMPLETE 14:17: mouth Hospita ORAL) 52 daily. l Lactobac 2019-0 Yes 1{tbl} QD Take 1 Metho di no.41/Bifid 7-[address] obact no.7 14:17: mouth Hospit a (PROBIOTIC- 52 daily. l 10 ORAL) POTASSIUM 2019-0 Yes 1{tbl} QD Take 1 Meth nancy ORAL 7-[address] 14:17: mouth Hospita 52 daily. l MAGNESIUM 2019-0 Yes 1{tbl} QD Take 1 Meth nancy ORAL 7-[address] 14:17: mouth Hospita 52 daily. l estradiol 2019-0 Yes Q90D Inject Method i cypionate 7-[address] (DEPO-ESTRA 14:17: shoulder, H ospita DIOL) 5 52 thigh, or l mg/mL buttocks injection every 3 (three) months. AMOXICILLIN 2019-0 Yes 1{tbl} Q.[id number] Take 1 [facility] ORAL 7-[id number] 14:17: 3D mouth 3 Hospita 52 (three) l times a day. omeprazole 2019-0 Yes TK 1 C PO Me thodi (PriLOSEC) 6-[address] 20 MG 00:00: Hospita capsule 00 l omeprazole 2019-0 Yes TK 1 C PO Me thodi (PriLOSEC) 6-[address] 20 MG 00:00: Hospita capsule 00 l amitriptyli Yes 100mg Take 100 U nivers ne 25 mg 5-14 mg by ity of tablet 00:00: mouth at [place] [address] bedtime. Medical Branch amitriptyli Yes 100mg Take 100 U nivers ne 25 mg 5-14 mg by ity of tablet 00:00: mouth at [place] [address] bedtime. Medical [facility] amitriptyli 20190 Yes 100mg Take 100 U nivers ne 25 mg 5-14 mg by ity of tablet 00:00: mouth at [place] [address] bedtime. Medical [facility] amitriptyli 0 Yes 100mg Take 100 U nivers ne 25 mg 5-14 mg by ity of tablet 00:00: mouth at [place] [address] bedtime. [facility] amitriptyli 0 Yes 100mg Take 100 U nivers ne 25 mg 5-14 mg by ity of tablet 00:00: mouth at [place] [address] bedtime. Medical [facility] amitriptyli Yes 100mg Take 100 U nivers ne 25 mg 5-14 mg by ity of tablet 00:00: mouth at [place] [address] bedtime. Medical Branch amitriptyli Yes 100mg Take 100 U nivers ne 25 mg 5-14 mg by ity of tablet 00:00: mouth at [place] [address] bedtime. Medical Branch amitriptyli Yes 100mg Take 100 U nivers ne 25 mg 5-14 mg by ity of tablet 00:00: mouth at [place] [address] bedtime. Medical [facility] amitriptyli Yes 25mg QD Take 25 mg [facility] ne (ELAVIL) 5-[address] 25 MG 00:00: nightly. Hospita tablet 00 l amitriptyli Yes 25mg QD Take 25 mg [facility] ne (ELAVIL) 5-[address] 25 MG 00:00: nightly. Hospita tablet 00 l furosemide Yes 20mg QD Take 20 mg M ethodi (LASIX) 20 4-[address] mg tablet 00:00: daily. Hospit a 00 l furosemide Yes 20mg QD Take 20 mg M ethodi (LASIX) 20 4-[address] mg tablet 00:00: daily. Hospit a 00 l HYDROcodone Yes TAKE 1 Meth nancy -acetaminop 4-[address] hen (NORCO) 00:00: THREE Hospi ta 7.5-325 mg 00 TIMES A l per tablet DAY FOR 28 DAY(S) HYDROcodone Yes TAKE 1 Meth nancy -acetaminop 4-[address] hen (NORCO) 00:00: THREE Hospi ta 7.5-325 mg 00 TIMES A l per tablet DAY FOR 28 DAY(S) baclofen Yes TAKE 3.5 Metho di (LIORESAL) 2-[address] 10 MG 00:00: TIMES A Hospita tablet 00 DAY WITH l FOOD OR MILK FOUR TIMES baclofen Yes TAKE 3.5 Metho di (LIORESAL) 2-[address] 10 MG 00:00: TIMES A Hospita tablet 00 DAY WITH l FOOD OR MILK FOUR TIMES LYRICA 200 2019-0 Yes 200mg Q.[id number] Take 200 [facility] mg capsule 2-[id number] 00:00: 3D mouth 3 Hospita 00 (three) l times a day. zolpidem 2019-0 Yes 10mg QD Take 10 mg Met hodi (AMBIEN) 10 2-[address] mg tablet 00:00: nightly. Hosp ilan 00 l LYRICA 200 2018-0 Yes 200mg Q.[id number] Take 200 [facility] mg capsule 2-[id number] 00:00: 3D mouth 3 Hospita 00 (three) l times a day. zolpidem 0 Yes 10mg QD Take 10 mg Met [...] 3 " Bndg 00 Medical Branch Non-Adheren 0 Yes Use as Univ ers t Bandage 7-03 directed ity of (MEPITEL) 2 00:00: [place] X 3 " Bndg Medical Branch Non-Adheren Yes Use as Univ ers t Bandage 7-03 directed ity of (MEPITEL) 2 00:00: [place] X 3 " Bndg 00 Medical Branch Non-Adheren 0 Yes Use as Univ ers t Bandage 7-03 directed ity of (MEPITEL) 2 00:00: [place] X 3 " Bndg 00 Medical Branch Non-Adheren Yes Use as Univ ers t Bandage 7-03 directed ity of (MEPITEL) 2 00:00: [place] X 3 " Bndg 00 Medical Branch zolpidem 10 2017-0 Yes TAKE 1 Univ ers mg tablet 4-27 TABLET AT ity o f 00:00: BEDTIME [place] NEEDED Medical Branch zolpidem 10 2017-0 Yes TAKE 1 Univ ers mg tablet 4-27 TABLET AT ity o f 00:00: BEDTIME [place] NEEDED Medical Branch zolpidem 10 2017-0 Yes TAKE 1 Univ ers mg tablet 4-27 TABLET AT ity o f 00:00: BEDTIME [place] NEEDED Medical Branch zolpidem 10 0 Yes TAKE 1 Univ ers mg tablet 4-27 TABLET AT ity o f 00:00: BEDTIME [place] NEEDED Medical Branch zolpidem 10 0 Yes TAKE 1 Univ ers mg tablet 4-27 TABLET AT ity o f 00:00: BEDTIME [place] NEEDED Medical Branch zolpidem 10 0 Yes TAKE 1 Univ ers mg tablet 4-27 TABLET AT ity o f 00:00: BEDTIME [place] NEEDED Medical Branch zolpidem 10 2017-0 Yes TAKE 1 Univ ers mg tablet 4-27 TABLET AT ity o f 00:00: BEDTIME [place] NEEDED Medical Branch zolpidem 10 0 Yes TAKE 1 Univ ers mg tablet 4-27 TABLET AT ity o f 00:00: BEDTIME [place] 00 NEEDED Medical Branch Immunizations Ordered Filled Immunization Date Status Comments [facility] e Immunization Name Name Pneumococcal 2018-08-06 [...] 2018-08-06 Completed University o f Polysaccharide, 00:00:00 [place] Med ical PPSV23 (PNEUMOVAX) Branch Pneumococcal 2018-08-06 Completed [place] o f Polysaccharide, 00:00:00 [place] Med ical PPSV23 (PNEUMOVAX) Branch Vital Signs Vital Name Observation Time Observation Value Comments Source Systolic blood 2022-06-03 20:30:00 142 mm[Hg] Univer sity of pressure [facility] Diastolic blood 2022-06-03 20:30:00 98 mm[Hg] Unive rsity of pressure [facility] Heart rate 2022-06-03 20:30:00 105 /min Universi ty of [facility] Respiratory rate 2022-06-03 20:30:00 13 /min [facility] [place] [facility] Oxygen saturation in 2022-06-03 20:30:00 98 /min [facility] Arterial blood by [facility] Pulse oximetry Branch Body temperature 2022-06-03 16:01:00 37.22 Shel[place] [facility] [place] [facility] Body weight 2022-06-03 16:01:00 68.04 kg Universi ty of [facility] BMI 2022-06-03 16:01:00 28.34 kg/m2 Universi ty [facility] Systolic blood 2022-04-20 16:16:00 110 mm[Hg] Univer sity of [facility] Diastolic blood 2022-04-20 16:16:00 63 mm[Hg] Unive rsity of pressure [facility] Heart rate 2022-04-20 16:16:00 102 /min Universi ty of [facility] Body temperature 2022-04-20 16:16:00 36.5 Shelley [facility] [place] ersity of [facility] Respiratory rate 2022-04-20 16:16:00 18 /min [facility] [place] [facility] Body height 2022-04-20 16:16:00 154.9 cm Universi ty of [facility] Body weight 2022-04-20 16:16:00 64.411 kg [facility]i ty [facility] [place] [facility] BMI 2022-04-20 16:16:00 26.83 kg/m2 Universi ty [facility] Systolic (mm Hg) 2022-03-22 00:03:41 [place] Us Diastolic (mm Hg) 2022-03-22 00:03:41 Mem orial [place] Heart Rate 2022-03-22 00:03:41 [facility] [place] Temperature Oral (F) 2022-03-22 00:02:40 98.3 F [facility] Heart Rate 2022-03-21 12:16:00 [facility] [place] Systolic (mm Hg) 2022-03-21 12:16:00 Leighton rial [place]agen Diastolic (mm Hg) 2022-03-21 12:16:00 Mem orial [place] Systolic (mm Hg) 2022-03-21 01:24:49 Leighton rial Magen Diastolic (mm Hg) 2022-03-21 01:24:49 Mem orial [place] Heart Rate 2022-03-21 01:24:49 [facility] [place] Temperature Oral (F) 2022-03-21 01:24:00 98.6 F [facility] [place] Respitory Rate 2022-03-21 01:24:00 Memori al [place] Temperature Oral (F) 2022-03-21 01:23:47 98.6 F [facility] [place] Systolic (mm Hg) 2022-03-20 16:57:59 Leighton rial [place] Diastolic (mm Hg) 2022-03-20 16:57:59 Mem orial [place] Heart Rate 2022-03-20 16:57:59 [facility] [place] Systolic (mm Hg) 2022-03-20 12:07:28 Leighton rial Magen Diastolic (mm Hg) 2022-03-20 12:07:28 Mem orial [place] Heart Rate 2022-03-20 12:07:28 [facility] [place] Temperature Oral (F) 2022-03-20 12:06:58 98.7 F [facility] [place] Respitory Rate 2022-03-20 01:06:00 Memori al [place] Respitory Rate 2022-03-20 00:45:00 Memori al M[place] Height 2022-03-11 19:38:00 152.4 cm [facility] [place] Weight 2022-03-11 19:38:00 [facility] [place] Height 2022-03-04 22:21:00 152.4 cm [facility] [place] Height 2022-03-04 21:10:00 152.4 cm [facility] [place] Weight 2022-03-04 21:10:00 [facility] BMI Calculated 2022-03-04 21:10:00 Memori al [place] Respitory Rate 2022-02-11 16:58:00 Memori al [place] Systolic (mm Hg) 2022-02-11 16:58:00 Leighton rial [place] Diastolic (mm Hg) 2022-02-11 16:58:00 Mem orial [place] Respitory Rate 2022-02-11 16:57:00 Memori al [place] Systolic (mm Hg) 2022-02-11 16:57:00 Leighton rial Magen Diastolic (mm Hg) 2022-02-11 16:57:00 Mem orial [place] Respitory Rate 2022-02-11 16:45:00 Memori al [place] Systolic (mm Hg) 2022-02-11 16:45:00 Leighton rial [place] Diastolic (mm Hg) 2022-02-11 16:45:00 Mem orial [place] Heart Rate 2022-02-11 14:35:00 [facility] [place] Height 2022-02-11 14:06:00 152.4 cm [facility] [place] Weight 2022-02-11 14:06:00 [facility] BMI Calculated 2022-02-11 14:06:00 Memori al [place] Heart Rate 2021-11-24 20:57:00 [facility] [place] Respitory Rate 2021-11-24 20:57:00 Memori al [place] Systolic (mm Hg) 2021-11-24 20:57:00 Leighton rial [place] Diastolic (mm Hg) 2021-11-24 20:57:00 Mem orial [place] Height 2021-11-24 20:57:00 152.4 cm [facility] Weight 2021-11-24 20:57:00 [facility] [place] BMI Calculated 2021-11-24 20:57:00 Memori al [place] Head exam ED 2021-03-30 10:55:24 atraumatic 02 Sat by Pulse 2021-03-30 10:55:24 100 /min Oximetry Body Mass Index 2021-03-30 10:55:24 23.5 Height 2021-03-30 10:55:24 177.8\\S\\70 Pulse Rate 2021-03-30 10:55:24 81 /min Respiratory Rate 2021-03-30 10:55:24 18 /min Respiratory Depth 2021-03-30 10:55:24 Normal /min Respiratory Effort 2021-03-30 10:55:24 Spontaneous /min Respiratory Pattern 2021-03-30 10:55:24 Normal /min Temperature 2021-03-30 10:55:24 36.0\\S\\96.8 Weight 2021-03-30 10:55:24 23142.148\\S\\2624 Head exam ED 2021-03-30 09:12:21 atraumatic Body Mass Index 2021-03-30 09:12:21 23.5 Height 2021-03-30 09:12:21 177.8\\S\\70 Weight 2021-03-30 09:12:21 02696.148\\S\\2624 Head exam ED 2021-03-30 08:32:51 atraumatic Body Mass Index 2021-03-30 08:32:51 23.5 Height 2021-03-30 08:32:51 177.8\\S\\70 Weight 2021-03-30 08:32:51 50392.148\\S\\2624 WEIGHT 2021-03-30 08:32:00 74.348045 kg HEIGHT 2021-03-30 08:32:00 177.8 cm Head exam ED 2021-03-30 07:48:44 atraumatic Systolic (mm Hg) 2021-03-08 18:05:00 Leighton rial Magen Diastolic (mm Hg) 2021-03-08 18:05:00 Mem orial [place] Heart Rate 2021-03-08 18:05:00 [facility] Respitory Rate 2021-03-08 18:05:00 Memori al [place] Height 2021-03-08 18:05:00 152.4 cm [facility] BMI Calculated 2021-03-08 18:05:00 Memori al [place] Weight 2021-03-08 18:05:00 [facility] [place] Systolic (mm Hg) 2020-11-02 19:33:00 Leighton rial Magen Diastolic (mm Hg) 2020-11-02 19:33:00 Mem orial [place] Heart Rate 2020-11-02 19:33:00 [facility] [place] Respitory Rate 2020-11-02 19:33:00 Memori al [place] Height 2020-11-02 19:33:00 152.4 cm [facility] [place] BMI Calculated 2020-11-02 19:33:00 Memori al [place] Weight 2020-11-02 19:33:00 [facility] [place] Respitory Rate 2020-08-24 16:31:00 [facility] Height 2020-08-24 16:31:00 152.4 cm [facility] BMI Calculated 2020-08-24 16:31:00 [facility] Weight 2020-08-24 16:31:00 [facility] Systolic (mm Hg) 2020-08-24 16:31:00 [facility] Diastolic (mm Hg) 2020-08-24 16:31:00 [facility] Heart Rate 2020-08-24 16:31:00 [facility] BMI Calculated 2017-08-22 20:00:00 [facility] Weight 2017-08-22 20:00:00 [facility] Height 2017-08-22 20:00:00 165.1 cm [facility] Heart Rate 2017-08-22 20:00:00 [facility] Respitory Rate 2017-08-22 20:00:00 [facility] Systolic (mm Hg) 2017-08-22 20:00:00 [facility] Diastolic (mm Hg) 2017-08-22 20:00:00 [facility] Procedures Procedure Date / Time Performing Clinician Source Performed URINE DRUG ([email or web address]) 2022-06-03 18:00:00 Gigi Sam [facility] SCREEN URINALYSIS 2022-06-03 18:00:00 Gigi Sam [facility] COVID-19 (ID NOW RAPID 2022-06-03 17:50:00 Gigi Sam [facility] CT STROKE ANGIOGRAM HEAD 2022-06-03 16:44:13 Gigi Sam [facility] CT STROKE ANGIOGRAM NECK 2022-06-03 16:44:13 Gigi Sam [facility] CT STROKE PERFUSION W 2022-06-03 16:44:13 Gigi Sam [facility] CT STROKE HEAD WO 2022-06-03 16:39:43 Gigi Sam [facility] CONTRAST [facility] POCT GLUCOSE (AUTOMATED) 2022-06-03 16:24:00 [facility]22-06-03 16:23:00 Gigi Sam [facility] BASIC METABOLIC PANEL 2022-06-03 16:23:00 Gigi Sam [facility] (NA, K, CL, CO2, Medical Branch GLUCOSE, BUN, CREATININE, CA) CBC WITHOUT DIFF 2022-06-03 16:23:00 Gigi Sam [facility] PROTHROMBIN TIME / INR 2022-06-03 16:23:00 Gigi Sam [facility] 2022-06-03 16:23:00 Gigi Sam [facility] HOME HEALTH - OTHER 2022-05-13 05:01:00 [facility]-05-03 05:01[facility]00 [id number] 2022-02-25 00:00:00 [facility] [id number] 2022-02-25 00:00:00 [facility] [id number] 2022-02-24 00:00:00 HACJE [facility] AUTHORIZATION FOR 2021-02-12 05:01:00 Doctor Unassigned, No Univ [facility] RELEASE OF [facility] Plan of Care Planned Activity Planned Date Details Comments Source Future Scheduled 2022-06-11 HEPATITIS B VACCINES [facility] Test 09:42:12 (1 of 3 - 3-dose series) [code = HEPATITIS B VACCINES (1 of 3 - 3-dose series)] Future Scheduled 2022-06-11 COVID-19 VACCINE [facility] Test 09:42:12 (#1) [code = COVID-19 VACCINE (#1)] Future Scheduled 2022-06-11 Screening for [facility] Test 09:42:12 malignant neoplasm of cervix (procedure) [code = 694561007] Future Scheduled 2022-06-11 IN[facility]ZA [facility]ACCINE [facility] 09:42:12 [code = INFLUENZA VACCINE] Future Scheduled 2022-01-06 Depression screening Uni [facility] Test 00:00:00 (procedure) [code = Medical Branch 920514643] Future Scheduled 2021-06-23 INFLUENZA VACCINE Univer [facility] Test 00:00:00 (Season Ended) [code Medical Branch = INFLUENZA VACCINE (Season Ended)] Future Scheduled 2012-08-07 Screening for [facility] Test 00:00:00 malignant neoplasm Medical B ranch of cervix (procedure) [code = 047240435] Future Scheduled 2005 DTaP,Tdap,and Td [facility] Vaccines (1 - Tdap) Medical Branch [code = DTaP,Tdap,and Td Vaccines (1 - Tdap)] Future Scheduled 1987 VARICELLA VACCINES Unive [facility] Test 00:00:00 (1 of 2 - 2-dose Medical [facility] series) [code = VARICELLA VACCINES (1 of 2 - 2-dose childhood series)] Future Scheduled COVID-19 [facility]ACCINE (1[facility] [code = COVID-19 VACCINE (1)] Future Scheduled [facility] (procedure) [code = 500561279] Future Scheduled [facility] Test malignant neoplasm of cervix (procedure) [code = 548180218] Future Scheduled INFLUENZA VACCINE [facility] Test [code = INFLUENZA VACCINE] Encounters Start End Encounter Admission Attending Care Care Encounter Source Date/Time Date/Time Type Type Clinicians Facility Department ID 2022-06-22 Outpatient [facility] [id number] [place] 09:18:53 [id number] [facility] 2022-05-25 Outpatient [facility] [id number] [place] 11:33:58 [id number] [facility] 2022-05-04 Outpatient ADHIA, [facility] [id number] [place] 01:04:28 JESUS [id number] [facility] 2022-04-20 Outpatient ADHIA, [facility] [id number] [place] 01:04:28 JESUS [id number] [facility] 2022-04-07 Outpatient [facility] [id number] [place] 10:27:58 [id number] [facility] 2022-04-06 Outpatient [facility] [id number] [place] 14:25:22 [id number] [facility] 2022-03-19 Outpatient [facility] [id number] [place] 06:09:02 [id number] [facility] 2022-03-17 Outpatient [facility] [id number] [place] 13:48:32 [id number] [facility] 2022-03-15 Outpatient [facility] [id number] [place] 07:24:32 [id number] [facility] 2022-03-07 Outpatient [facility] [id number] [place] 12:34:58 [id number] [facility] 2022-03-05 Outpatient [facility] [id number] [place] 17:36:28 [id number] [facility] 2022-03-02 Outpatient ADHIA, [facility] [id number] [place] 01:05:06 JESUS [id number] [facility] 2022-02-23 Outpatient STLMLC STLC [id number] Common 12:46:01 [facility] 2022-02-23 Outpatient TALLAVAJHUL [facility] [id number] [place] 01:03:27 A, NU [id number] [facility] 2022-02-21 Outpatient [facility] [id number] [place] 11:00:11 [id number] [facility] 2022-02-10 Inpatient U CELINA, MHBL MED 0 MHB L 10:34:15 [facility] 2022-02-09 Outpatient ADHIA, [facility] [id number] [place] 01:05:33 JESUS [id number] [facility] 2022-02-01 Outpatient [facility] [id number] [place] 09:25:40 [id number] [facility] 2022-01-18 Outpatient [facility] [id number] [place] 10:50:23 [id number] [facility] 2021-12-22 Outpatient ADHIA, [facility] [id number] [place] 01:03:[address] [facility] 2021-12-01 Outpatient ADHIA, [facility] [id number] [place] 01:04:[address] [facility] 2021-11-17 Outpatient STLMLC STLC [id number] Common 13:46:35 [id number] [facility] 2021-11-08 Outpatient ADHIA, [facility] [id number] [place] 01:04:[address] [facility] 2021-10-12 Outpatient ADHIA, [facility] [id number] [place] 01:04:[address] [facility] 2021-06-19 Outpatient ADHIA, [facility] [id number] [place] 01:06:[address] [facility] 2021-04-10 Outpatient ADHIA, [facility] [id number] [place] 01:06:[address] [facility] 2021-03-30 Inpatient Villagran, [facility] [id number] [facility] 08:00:00 Lilian Aragon 2022-06-29 2022-06-29 Outpatient R BRITTON [facility] [id number] Q-20 Univers 11:30:00 11:30:00 PRINCE [id number] [facility] 2022-06-23 2022-06-23 Outpatient R SANTIAGO FORMANMAD [facility] [id number] Univers 13:00:00 13:00:00 VIRI FORMAN [id number] [facility] 2022-06-23 2022-06-23 Outpatient R SANTIAGO FORMANMAD [facility] [id number] Univers 13:00:00 13:00:00 VIRI FORMAN [facility] 2022-06-09 2022-06-09 Outpatient R BRITTON [facility] [id number] Q-20 Univers 00:00:00 00:00:00 PRINCE [id number] [facility] 2022-06-07 2022-06-07 [facility] [id number] Univers 00:00:00 00:00:00 [facility] 350.1.13.10 i ty of Faustino CLEAR 4.2.7.2.686 [facility] [phone] [place] [address] [address] OFFICE BUILDING 2022-06-03 2022-06-03 Emergency X BART MOTARA ERT [id number] Univers 11:04:00 16:12:00 GIGI [facility] 2022-06-03 2022-06-03 Emergency Bart [facility] [id number] Univers 11:04:00 16:12:00 Gigi S [place] 350.1.13.10 [facility] 4.2.7.2.686 [facility] [id number] [facility] 084 Curtis 2022-06-01 2022-06-02 [place] [id number] Memoria 15:40:00 04:59:00 r Psychiatric 42 l s/Psychothe Herm dorothea rapy (PSYR) 2022-06-01 2022-06-01 Outpatient Adhia, MHTIRR MHTIRR [id number] 10:40:00 23:59:00 Jesus 42 José Luis 2022-06-01 2022-06-01 [facility] [id number] Univers 11:45:00 11:45:00 PRINCE [facility] 2022-06-01 2022-06-01 [facility] [id number] Q-20 Univers 00:00:00 00:00:00 PRINCE [id number] [facility] 2022-05-24 2022-05-24 [facility]patient [facility] [id number] Q-20 Univers 00:00:00 00:00:00 PRINCE [id number] [facility] 2022-05-20 2022-05-20 [facility] [id number] Univers 12:54:34 23:59:00 Encounter [place] [facility] 350.1.13.10 ity [facility] 4.2.7.2.686 [facility] AT [id number] Nm thiago [address] 2022-05-20 2022-05-20 Outpatient Lon[facility] [id number] Univers 00:00:00 23:59:00 PRINCE [facility] 2022-05-20 2022-05-20 Outpatient [facility] [id number] Q-20 Univers 00:00:00 00:00:00 PRINCE [id number] [facility] 2022-05-13 2022-05-13 Outpatient R [facility] [id number] Univers 00:00:00 00:00:00 ity [facility] 2022-05-13 2022-05-13 Orders Doctor CHAVO 1.2.840.114 [id number] Univers 00:00:00 00:00:00 Only Unassigned, ALEX 350.1.13.10 ity of [place] [facility] 4.2.7.2.686 Rachid as [phone] [address] 2022-05-11 2022-05-11 Outpatient R [facility] [id number] Univers 00:00:00 00:00:00 ity [facility] 2022-05-03 2022-05-03 Orders Doctor CHAVO 1.2.840.114 [id number] Univers 00:00:00 00:00:00 Only Unassigned, ALEX 350.1.13.10 ity of [place] [facility] 4.2.7.2.686 Rachid as [id number] [address] 2022-04-28 2022-04-28 Telephone Britton [facility] 1.2.840.114 [id number] Univers 00:00:00 00:00:00 [facility] 350.1.13.10 ity [place] [id number] [address] 2022-04-20 2022-04-20 Office Britton [facility] 1.2.840.114 [id number] Univers 11:30:00 11:45:00 Visit [facility] 350.1.13.10 [place] [id number] [address] 2022-04-20 2022-04-20 Outpatient [facility] [id number] Univers 11:30:00 11:30:00 [facility] 2022-04-13 2022-04-[place] [id number] Memoria 14:07:00 04:59:00 r Psychiatric 41 l s/Psychothe Herm dorothea rapy (PSYR) 2022-04-13 2022-04-13 Outpatient Adhia, MHTIRR MHTIRR [id number] 09:07:00 23:59:00 Jesus 41 José Luis 2022-03-04 2022-03-22 Inpatient nullFlavo TIRR [id number] Memoria 20:50:00 04:10:00 Rehab r [facility] 40 l [facility] 2022-03-04 2022-03-21 Outpatient Luis MHTIRR MHTIRR [id number] 15:50:00 23:10:00 Valladares, 40 Richard 2022-03-04 2022-03-04 Outpatient Luis MHTIRR MHTIRR [id number] 15:50:00 15:50:00 Valladares, 40 Richard 2022-02-20 2022-03-04 [facility] [id number] [facility] 16:13:00 14:45:00 Tony 23 [facility] 2022-02-20 2022-03-04 Inpatient EM Geovanni [facility] MEDI.01 [id number] [facility] 16:13:00 14:45:00 Tony [id number] [facility] 2022-02-11 2022-02-11 Bedded nullFlavo [facility] [id number] Memoria 14:51:00 17:34:00 Outpatient lonnie Us 39 l [facility] 2022-02-11 2022-02-11 Outpatient ATUL FlorencePL MHPL [id number] 09:51:00 12:34:00 Jarrett 39 [place] 2022-02-11 2022-02-11 Outpatient ANITHA Florence MHPL [id number] 09:51:00 12:34:00 Jarrett 39 [place] 2022-02-11 2022-02-11 Outpatient NAMAN, ATULBL MHBL [id number] MHBL 09:51:00 12:34:00 JARRETT 2022-02-11 2022-02-11 PreAdmit nullFlavo [facility] [id number] Memoria 04:00:00 04:00:00 lonnie Us 10 [facility] 2022-02-10 2022-02-10 Outpatient ATUL GaonaPL MHPL [id number] 23:00:00 23:00:00 Manuel 10 2022-02-05 2022-02-10 Inpatient EM Geovanni, [facility] [id number] [facility] 00:53:00 19:15:00 Tony [id number] [facility] 2022-02-05 2022-02-10 Inpatient EM Geovanni, HCACL MEDI.01 [id number] [facility] 00:53:00 19:15:00 Tony 34 [facility] 2022-02-04 2022-02-04 Emergency EM Parker, [facility] [id number] [facility] 20:49:00 20:49:00 Gabriel [id number] [facility] 2022-02-02 2022-02-03 [place] [id number] Memoria 16:11:00 04:59:00 r Psychiatric 38 l s/Psychothe Herm dorothea rapy (PSYR) 2022-02-02 2022-02-02 Outpatient Adhia, MHTIRR MHTIRR [id number] 11:11:00 23:59:00 Jesus 38 José Luis 2022-01-19 2022-01-20 [place] [id number] Memoria 17:17:00 04:59:00 r Psychiatric 37 l s/Psychothe Herm dorothea rapy (PSYR) 2022-01-19 2022-01-19 Outpatient Adhia, MHTIRR MHTIRR [id number] 12:17:00 23:59:00 Jesus 37 José Luis 2021-12-01 2021-12-02 [place] [id number] Memoria 17:27:00 05:59:00 r Psychiatric 33 l s/Psychothe Herm dorothea rapy (PSYR) 2021-12-01 2021-12-01 Outpatient Adhia, MHTIRR MHTIRR [id number] 11:27:00 23:59:00 Jesus 33 José Luis 2021-11-24 2021-11-25 Outpatient nullFlavo TR Sleep [id number] Memoria 20:00:00 05:59:00 r Clinic 31 l (SLCR) [place] 2021-11-24 2021-11-24 Outpatient Petty MHTIRR MHTIRR [id number] 14:00:00 23:59:00 a, Nu 31 Dragan 2021-11-10 2021-11-11 [place] [id number] Memoria 21:49:00 05:59:00 r Psychiatric 32 l s/Psychothe Herm dorothea rapy (PSYR) 2021-11-10 2021-11-10 Outpatient Adhia, ATULTIRR ATULTIRR [id number] 15:49:00 23:59:00 Jesus 32 José Luis 2021-09-22 2021-09-23 [place] [id number] Memoria 14:34:00 05:59:00 r Psychiatric 29 l s/Psychothe Herm dorothea rapy (PSYR) 2021-09-22 2021-09-22 Outpatient Adhia, JOSEPH POLLARDTIRR [id number] 08:34:00 23:59:00 Jesus 29 José Luis 2021-09-22 2021-09-22 ambulatory STLMLC STLMLC [id number] Common 00:00:00 00:00:00 [facility] 2021-09-22 2021-09-22 ambulatory STLMLC STLMLC [id number] Common 00:00:00 00:00:00 [facility] 2021-09-01 2021-09-02 [place] [id number] Memoria 16:25:00 05:59:00 r Psychiatric 28 l s/Psychothe Herm dorothea rapy (PSYR) 2021-09-01 2021-09-01 Outpatient Adhia, TIRR TIRR [id number] 10:25:00 23:59:00 Jesus 28 José Luis 2021-08-09 2021-08-10 [place] [id number] Memoria 15:22:00 04:59:00 r Outpatient 26 l [facility] (OPCR) 2021-08-09 2021-08-09 Outpatient Adhia, ATULTIRR TIRR [id number] 10:22:00 23:59:00 Jesus 26 Joés Luis 2021-07-13 2021-07-14 [place] [id number] Memoria 16:22:00 04:59:00 r Psychiatric 24 l s/Psychothe Herm dorothea rapy (PSYR) 2021-07-13 2021-07-14 [place] [id number] Memoria 16:22:00 04:59:00 r Psychiatric 24 l s/Psychothe Herm dorothea rapy (PSYR) 2021-07-13 2021-07-13 Outpatient JOSEPH BrookeTIRLonnie [id number] 11:22:00 23:59:[address] [facility] 2021-07-02 2021-07-02 Outpatient STLMLC STLMLC [id number] Common 00:00:00 00:00:00 [facility] 2021-06-30 2021-06-30 Outpatient STLMLC STLMLC [id number] Common 00:00:00 00:00:00 [facility] 2021-06-29 2021-06-29 Outpatient STLMLC STLMLC [id number] Common 00:00:00 00:00:00 [facility] 2021-06-15 2021-06-16 [place] [id number] Memoria 19:07:00 04:59:00 r Psychiatric 22 l s/Psychothe Herm dorothea rapy (PSYR) 2021-06-15 2021-06-16 [place] [id number] Memoria 19:07:00 04:59:00 r Psychiatric 22 l s/Psychothe Herm dorothea rapy (PSYR) 2021-06-15 2021-06-15 Outpatient JOSEPH Brooke TIRR [id number] 14:07:00 23:59:[address] [facility] 2021-06-09 2021-06-09 Office Janie [facility] 1.2.840.114 [id number] 11:13:45 12:39:22 Visit [facility] 350.1.13.10 [facility] 4.2.7.2.686 [id number] 2021-06-07 2021-06-07 EXT [facility] OP EXT MSRDP 1.2.840.114 1 [id number] MO 00:00:00 00:00:00 LOCATION 350.1.13.58 H ealth 9.2.7.2.686 [id number] 0 2021-06-07 2021-06-07 EXT MHH OP EXT MSRDP 1.2.840.114 1 [id number] [place] 00:00:00 00:00:00 LOCATION 350.1.13.58 H ealth 9.2.7.2.686 [id number] 0 2021-06-07 2021-06-07 EXT MHH OP EXT MSRDP 1.2.840.114 1 [id number] [place] 00:00:00 00:00:00 LOCATION 350.1.13.58 H ealth 9.2.7.2.686 [id number] 0 2021-06-07 2021-06-07 EXT MHH OP EXT MSRDP 1.2.840.114 1 [id number] UT 00:00:00 00:00:00 LOCATION 350.1.13.58 H ealth 9.2.7.2.686 [id number] 0 2021-06-07 2021-06-07 EXT MHH OP EXT MSRDP 1.2.840.114 1 [id number] UT 00:00:00 00:00:00 LOCATION 350.1.13.58 H ealth 9.2.7.2.686 [id number] 0 2021-06-07 2021-06-07 EXT MHH OP EXT MSRDP 1.2.840.114 1 [id number] UT 00:00:00 00:00:00 LOCATION 350.1.13.58 H ealth 9.2.7.2.686 [id number] 0 2021-06-07 2021-06-07 EXT MHH OP EXT MSRDP 1.2.840.114 1 [id number] UT 00:00:00 00:00:00 LOCATION 350.1.13.58 H ealth 9.2.7.2.686 [id number] 2021-06-07 2021-06-07 EXT MHH OP EXT MSRDP 1.2.840.114 1 [id number] UT 00:00:00 00:00:00 LOCATION 350.1.13.58 H ealth 9.2.7.2.686 [id number] 2021-06-07 2021-06-07 EXT MHH OP EXT MSRDP 1.2.840.114 1 [id number] UT 00:00:00 00:00:00 LOCATION 350.1.13.58 H ealth 9.2.7.2.686 [id number] 2021-06-07 2021-06-07 EXT MHH OP EXT MSRDP 1.2.840.114 1 [id number] UT 00:00:00 00:00:00 LOCATION 350.1.13.58 H ealth 9.2.7.2.686 [id number] 0 2021-06-07 2021-06-07 EXT MHH OP EXT MSRDP 1.2.840.114 1 [id number] UT 00:00:00 00:00:00 LOCATION 350.1.13.58 H ealth 9.2.7.2.686 [id number] 2021-06-07 2021-06-07 EXT MHH OP EXT MSRDP 1.2.840.114 1 [id number] UT 00:00:00 00:00:00 LOCATION 350.1.13.58 H ealth 9.2.7.2.686 [id number] 2021-05-03 2021-05-04 Outpatient nullFlavo TR Urology 46 [id number] Memoria 17:49:00 04:59:00 r Clinic 19 l (UROR) [place] 2021-05-03 2021-05-04 Outpatient nullFlavo TR Urology [id number] Memoria 17:49:00 04:59:00 r Clinic 19 l (UROR) [place] 2021-05-03 2021-05-03 Outpatient JOSEPH VillagranTIRLonnie [id number] 12:49:00 23:59:00 Lilian Patten 2021-04-06 2021-04-07 [place] [id number] Memoria 15:24:00 04:59:00 r Psychiatric 20 l s/Psychothe Herm dorothea rapy (PSYR) 2021-04-06 2021-04-07 [place] [id number] Memoria 15:24:00 04:59:00 r Psychiatric 20 l s/Psychothe Herm dorothea rapy (PSYR) 2021-04-06 2021-04-06 Outpatient Vika ERNEE TIRR [id number] 10:24:00 23:59:00 Jesus 20 José Luis 2021-03-30 2021-03-30 Outpatient [facility] [id number] [facility] 06:28:00 06:28:00 70 2021-03-09 2021-03-10 [place] [id number] Memoria 16:45:00 04:59:00 r Psychiatric 18 l s/Psychothe Herm dorothea rapy (PSYR) 2021-03-09 2021-03-10 [place] [id number] Memoria 16:45:00 04:59:00 r Psychiatric 18 l s/Psychothe Herm dorothea rapy (PSYR) 2021-03-09 2021-03-09 [facility] [id number] 11:45:00 23:59:00 Jesus 18 José Luis 2021-03-08 2021-03-09 [place] [id number] Memoria 17:38:00 04:59:00 r Gynecology 17 l Clinic [facility] (GYNR) 2021-03-08 2021-03-09 [place] [id number] Memoria 17:38:00 04:59:00 r Gynecology 17 l Clinic [place] (GYNR) 2021-03-08 2021-03-08 Outpatient Caitlin, [facility] [id number] 12:38:00 23:59:00 Vera 17 2021-03-05 2021-03-05 EXT [facility] OP Caitlin, EXT MSRDP 1.2.840.114 [id number] [place] 00:00:00 00:00:00 Vera LOCATION 350.1.13.58 H ealth 9.2.7.2.686 [id number] 2021-03-05 2021-03-05 EXT [facility] OP Caitlin, EXT MSRDP 1.2.840.114 [id number] UT 00:00:00 00:00:00 Vera LOCATION 350.1.13.58 [facility] 9.2.7.2.686 [id number] 0 2021-01-28 2021-01-29 [place] [id number] Memoria 19:46:00 04:59:00 r Psychiatric 15 l s/Psychothe Herm dorothea rapy (PSYR) 2021-01-28 2021-01-29 [place] [id number] Memoria 19:46:00 04:59:00 r Psychiatric 15 l s/Psychothe Herm dorothea rapy (PSYR) 2021-01-28 2021-01-28 Outpatient Vika, JOSEPH POLLARDTIRR [id number] 14:46:00 23:59:00 Jesus 15 José Luis 2020-12-22 2020-12-23 [place] [id number] Memoria 20:34:00 05:59:00 r Psychiatric 12 l s/Psychothe Herm dorothea rapy (PSYR) 2020-12-22 2020-12-23 [place] [id number] Memoria 20:34:00 05:59:00 r Psychiatric 12 l s/Psychothe Herm dorothea rapy (PSYR) 2020-12-22 2020-12-22 Outpatient Vika, RENEE TIRR [id number] 14:34:00 23:59:00 Jesus 12 José Luis 2020-11-17 2020-11-18 [place] [id number] Memoria 13:00:00 05:59:00 r Psychiatric 10 l s/Psychothe Herm dorothea rapy (PSYR) 2020-11-17 2020-11-18 [place] [id number] Memoria 13:00:00 05:59:00 r Psychiatric 10 l s/Psychothe Herm dorothea rapy (PSYR) 2020-11-17 2020-11-17 Outpatient Adhradha, RENEE TIRR [id number] 07:00:00 23:59:00 Jesus 10 José Luis 2020-11-02 2020-11-03 Outpatient nullFlavo TR Urology 46 [id number] Memoria 16:50:00 05:59:00 r Clinic 04 l (UROR) [place] 2020-11-02 2020-11-03 Outpatient nullFlavo TR Urology 46 [id number] Memoria 16:50:00 05:59:00 r Clinic 04 l (UROR) [place] 2020-11-02 2020-11-02 Outpatient Tyshawn RENEE TIRR [id number] 10:50:00 23:59:00 Lilian Patten 2020-10-27 2020-10-28 [place] [id number] Memoria 19:20:00 05:59:00 r Psychiatric 08 l s/Psychothe Herm dorothea rapy (PSYR) 2020-10-27 2020-10-28 [place] [id number] Memoria 19:20:00 05:59:00 r Psychiatric 08 l s/Psychothe Herm dorothea rapy (PSYR) 2020-10-27 2020-10-27 Outpatient Vika, TIRR TIRR [id number] 13:20:00 23:59:00 Jesus 08 José Luis 2020-09-08 2020-09-09 [place] [id number] Memoria 14:45:00 05:59:00 r Psychiatric 07 l s/Psychothe Herm dorothea rapy (PSYR) 2020-09-08 2020-09-09 [place] [id number] Memoria 14:45:00 05:59:00 r Psychiatric 07 l s/Psychothe Herm dorothea rapy (PSYR) 2020-09-08 2020-09-08 [id number] 08:45:00 23:59:00 Jesus 07 José Luis 2020-08-24 2020-08-25 Outpatient nullFlavo TR Spinal [id number] [id number] Memoria 16:00:00 05:59:00 r Cord Inj 03 l Clinic [facility] (SCIR) 2020-08-24 2020-08-25 Outpatient nullFlavo TR Spinal [id number] [id number] Memoria 16:00:00 05:59:00 r Cord Inj 03 l Clinic [place] (SCIR) 2020-08-24 2020-08-24 Outpatient Arnold, TIRR TIRR [id number] 10:00:00 23:59:00 Guanako Chavarria 2018-06-07 2018-09-07 PreAdmit nullFlavo TIRR [id number] Memoria 14:15:00 15:17:00 r [facility] 02 [facility] 2018-06-07 2018-09-07 PreAdmit nullFlavo TIRR [id number] Memoria 14:15:00 15:17:00 r [facility] 02 [facility] 2018-06-07 2018-09-07 Outpatient Physician, TIRR TIR [id number] 09:15:00 09:17:00 Non 02 Associated 2017-08-22 2017-08-23 Outpatient nullFlavo TIRR [id number] Memoria 18:37:00 04:59:00 r [facility] 00 [facility] 2017-08-22 2017-08-23 Outpatient nullFlavo TIRR [id number] Memoria 18:37:00 04:59:00 r [facility] 00 [facility] 2017-08-22 2017-08-22 Outpatient Ever, TIRR TIRR [id number] 13:37:00 23:59:00 Edward 00 Poli Results Test Description Test Time Test Comments Results Result Comments Source Troponin I - Code Stroke 2022-06-03 16:48:57 Test Item Value Reference Range Interpretation Comme nts TROPONIN I (test code = 0.004 ng/mL See_Comment [Au tomated message] The [id number]) system which ge nerated this result tra [...] biotin. Lab Interpretation Normal (test code = 45185-0) [facility]2022-06-03 16:43:07 Test Item Value Reference Range Interpretation Comments POCT GLU (test code = 7365923651) 88 mg/dL 70-110 Lab Interpretation (test code = Normal 79540-2) [facility] - Code [id number] 16:37:57 Test Item Value Reference Range Interpretation Comments APTT Patient (test See_Comment [Automat ed code = 3173-2) message] The system which generated this result transmitted reference range : 23 - 38 Seconds . The reference range was not used to interpr et this result as normal/abnormal . ROSE (test code = ROSE) The [facility] [place] patient population mean normal value for aPTT is 30 seconds. Lab Interpretation Normal (test code = 18975-5) [facility] (NA, K, CL, CO2, Glucose, BUN, Creatinine, CA) - Code [id number] 16:37:37 Test Item Value Reference Range Interpretation Comments NA (test code = 143 mmol/L 135-145 7523859709) K (test code = 3.2 mmol/L 3.5-5 L 6991728029) CL (test code = 103 mmol/L 98-108 9583338400) CO2 TOTAL (test code = 30 mmol/L 23-31 9979694876) AGAP (test code = 2-16 5334107281) BUN (test code = 8 mg/dL 7-23 1108546273) GLUCOSE (test code = 92 mg/dL 70-110 9129154837) CREATININE (test code = 0.69 mg/dL 0.5-1.04 5238669759) CALCIUM (test code = 9.5 mg/dL 8.6-10.6 6582103030) eGFR (test code = mL/min/1.73m2 6988465996) ROSE (test code = ROSE) Association of [...] tests). Lab Interpretation Abnormal (test code = 70607-4) [facility] [facility]th[facility] / INR - Code [id number] 16:35:55 Test Item Value Reference Range Interpretation Comments PROTIME PATIENT (test See_Comment [Auto mated message] code = 5964-2) The system [employer] generated this result transmitted ref erence range: 12.0 - 1 4.7 Seconds. The re ference range was not u sed to interpret this result as normal/abnor mal. INR (test code = 6301-6) Nor mal INR <1.1; Warfarin Therap eutic range 2.0 to 3. 0 or 2.5 to 3.5, dep ending upon the indica tions. Lab Interpretation (test Normal code = 09932-5) [facility] without Diff - Code [id number] 16:28:15 Test Item Value Reference Range Interpretation [...] MPV (test code = 10.4 fL 9.5-12.9 46091-9) RDW-CV (test code = 13.6 % 12-15.5 788-0) RDW-SD (test code = 40.7 fL 39-49.9 28522-8) NRBC x10^3 (test See_Comment [Automated message] The code = 4903619983) system [facility] generated this result tra nsmitted reference range : 10*3/?L. The reference r zaria was not used to int erpret this result as normal/abnormal . NRBC/100 WBC (test See_Comment [Automat ed message] The code = 5333812594) system [facility] generated this result tra nsmitted reference range : 0.0 - 10.0 /100 WBCs. The reference range was not used to interpr et this result as normal/abnormal . IPF % (test code = 5997703646) [facility]vineCHEM [id number] 11:50:00 Test Item Value Reference Range Interpretation Comments Glucose Lvl (test code = Glucose Lvl) 90 70-99 [place] 428862-05-30 11:50:00 Test Item Value Reference Range Interpretation Comments BUN (test code = BUN) 16 7-22 [place] 428862-05-30 11:50:00 Test Item Value Reference Range Interpretation Comments Creatinine Lvl (test code = Creatinine 0.51 0.50-1.40 Lvl) [place] 428862-05-30 11:50:00 Test Item Value Reference Range Interpretation Comments Sodium Lvl (test code = Sodium Lvl) 142 135-145 [place] 428862-05-30 11:50:00 Test Item Value Reference Range Interpretation Comments Potassium Lvl (test code = Potassium 3.3 3.5-5.1 Lvl) [place] 428862-05-30 11:50:00 Test Item Value Reference Range Interpretation Comments Chloride Lvl (test code = Chloride Lvl) 111 95-109 [place] 428862-05-30 11:50:00 Test Item Value Reference Range Interpretation Comments CO2 (test code = CO2) 21 24-32 [place] 428862-05-30 11:50:00 Test Item Value Reference Range Interpretation Comments Calcium Lvl (test code = Calcium Lvl) 9.0 8.5-10.5 [place] 428862-05-30 11:50:00 Test Item Value Reference Range Interpretation Comments AGAP (test code = AGAP) 13.3 10.0-20.0 [place] 428862-05-30 11:50:00 Test Item Value Reference Range Interpretation Comments eGFR (test code = eGFR) 124 [place] 342552-05-30 11:50:00 Test Item Value Reference Range Interpretation Comments Sed Rate (test code = 5 See_Comment [Auto mated message] The Sed Rate) system which ge nerated this result transmit jess reference range : <=20. The reference range was not used to interpr et this result as curtis l/abnormal. [place] 342552-05-30 11:50:00 Test Item Value Reference Range Interpretation Comments WBC (test code = WBC) 5.2 3.7-10.4 [place] [address]-05-30 11:50:00 Test Item Value Reference Range Interpretation Comments RBC (test code = RBC) 4.98 4.20-5.40 [facility]Jiu[facility]ayGVXSWTQDMB2192-13-41 11:50:00 Test Item Value Reference Range Interpretation Comments Hgb (test code = Hgb) 13.8 12.0-16.0 [facility] TylerCpgvnijDENBXZDJJY8897-77-44 11:50:00 Test Item Value Reference Range Interpretation Comments Hct (test code = Hct) 40.7 36.0-48.0 [facility] TylerKwxdrvrASRLYZEVSG7296-91-89 11:50:00 Test Item Value Reference Range Interpretation Comments MCV (test code = MCV) 81.6 80.0-98.0 [facility] TylerQnwjxjyGLYCNZZUAL8138-30-28 11:50:00 Test Item Value Reference Range Interpretation Comments MCH (test code = MCH) 27.6 pg 27.0-31.0 [facility] TylerNdcofisBEGAXMTQRK0489-50-76 11:50:00 Test Item Value Reference Range Interpretation Comments MCHC (test code = MCHC) 33.9 32.0-36.0 [facility] TylerPlqhbzeLDDEAKVCTZ8153-55-29 11:50:00 Test Item Value Reference Range Interpretation Comments RDW (test code = RDW) 16.3 11.5-14.5 [facility] TylerItkxkvlUESMBSIOXB9085-29-17 11:50:00 Test Item Value Reference Range Interpretation Comments Platelet (test code = Platelet) 149 133-450 [facility] TylerOhksbtbQTLYJVJOEQ6841-71-92 11:50:00 Test Item Value Reference Range Interpretation Comments MPV (test code = MPV) 9.4 7.4-10.4 [facility] HospitalAsgtudiVAEXABZCGR1280-29-68 15:59:00 Test Item Value Reference Range Interpretation Comments Coronavirus (COVID-19) Not Detected (03/20/22 CESAR (test code = 10:59 AM) Coronavirus (COVID-19) CESAR) [facility] [id number] 10:10:00 Test Item Value Reference Range Interpretation Comments Vitamin B12 Lvl (test code = Vitamin 319 B12 Lvl) [facility] HospitalGram Stain Fnnaxa1044-19-34 02:40:00 Test Item Value Reference Range Interpretation Comments Gram Stain Report No WBC's No Organisms (test code = Gram Seen Stain Report) [facility] HospitalCulture: Wound/Abscess w/Gram [id number] 02:40:00 Test Item Value Reference Range Interpretation Comments Culture: Few Corynebacterium Wound/Abscess striatum Staphylococcus w/Gram Stain (test Species, Not S. aureus code = Culture: Wound/Abscess w/Gram Stain) Alec UsCorynebacterium dtohjzyd2109-21-17 02:40:00 Test Item Value Reference Range Interpretation Comments Corynebacterium Corynebacterium striatum (test code = striatum Corynebacterium striatum) [facility] [id number] 18:27:00 Test Item Value Reference Range Interpretation Comments U Amph Scr (test code Negative *NA*(03/14/22 = U Amph Scr) 1:27 PM) [facility] [id number] 18:27:00 Test Item Value Reference Range Interpretation Comments U Jaimee Scr (test code Negative *NA*(03/14/22 = U Jaimee Scr) 1:27 PM) [facility] [id number] 18:27:00 Test Item Value Reference Range Interpretation Comments U Benzodiaz Scr (test Negative *NA*(03/14/22 code = U Benzodiaz Scr) 1:27 PM) [facility] [id number] 18:27:00 Test Item Value Reference Range Interpretation Comments U Cocaine Scr (test Negative *NA*(03/14/22 code = U Cocaine Scr) 1:27 PM) [facility] [id number] 18:27:00 Test Item Value Reference Range Interpretation Comments U Cannab Scr (test Negative *NA*(03/14/22 code = U Cannab Scr) 1:27 PM) [facility] HermannDR[facility] [id number] 18:27:00 Test Item Value Reference Range Interpretation Comments U Opiate Scr (test Positive *ABN*(03/14/22 code = U Opiate Scr) 1:27 PM) [facility] [id number] 18:27:00 Test Item Value Reference Range Interpretation Comments U Phencyclidine Scr (test Negative code = U Phencyclidine *NA*(03/14/22 1:27 Scr) PM) [facility] [id number] 18:27:00 Test Item Value Reference Range Interpretation Comments U Methadone Scr (test Negative *NA*(03/14/22 code = U Methadone Scr) 1:27 PM) [facility] [id number] 18:27:00 Test Item Value Reference Range Interpretation Comments U Propoxyph Scr (test Negative *NA*(03/14/22 code = U Propoxyph Scr) 1:27 PM) [facility] [id number] 18:27:00 Test Item Value Reference Range Interpretation Comments UDS Note (test code = See Note (03/14/22 1:27 UDS Note) PM) [facility]2022-05-23 10:27:00 Test Item Value Reference Range Interpretation Comments Glucose Lvl (test code = Glucose Lvl) 73 70-99 [facility] [id number] 10:27:00 Test Item Value Reference Range Interpretation Comments BUN (test code = BUN) 10 - [facility]2022-05-23 10:27:00 Test Item Value Reference Range Interpretation Comments Creatinine Lvl (test code = Creatinine 0.50 0.50-1.40 Lvl) [facility]2022-05-23 10:27:00 Test Item Value Reference Range Interpretation Comments Sodium Lvl (test code = Sodium Lvl) 140 135-145 [facility]2022-05-23 10:27:00 Test Item Value Reference Range Interpretation Comments Potassium Lvl (test code = Potassium 4.0 3.5-5.1 Lvl) [facility]2022-05-23 10:27:00 Test Item Value Reference Range Interpretation Comments Chloride Lvl (test code = Chloride Lvl) 110 95-109 [facility]2022-05-23 10:27:00 Test Item Value Reference Range Interpretation Comments CO2 (test code = CO2) 23 24-32 [facility]2022-05-23 10:27:00 Test Item Value Reference Range Interpretation Comments Calcium Lvl (test code = Calcium Lvl) 9.5 8.5-10.5 [facility]2022-05-23 10:27:00 Test Item Value Reference Range Interpretation Comments AGAP (test code = AGAP) 11.0 10.0-20.0 [facility]2022-05-23 10:27:00 Test Item Value Reference Range Interpretation Comments eGFR (test code = eGFR) 125 [facility] HospitalCcxvtgjNANOHJFOHC8622-26-23 10:27:00 Test Item Value Reference Range Interpretation Comments WBC (test code = WBC) 6.8 3.7-10.4 [facility] TylerJpdglebFRUAFOOVDN6058-30-28 10:27:00 Test Item Value Reference Range Interpretation Comments RBC (test code = RBC) 5.12 4.20-5.40 [facility] TylerOpjapzdLQVWNNHDJY7086-81-70 10:27:00 Test Item Value Reference Range Interpretation Comments Hgb (test code = Hgb) 14.1 12.0-16.0 [facility] TylerSsvstjjHMHCPZVAAX6427-81-98 10:27:00 Test Item Value Reference Range Interpretation Comments Hct (test code = Hct) 41.4 36.0-48.0 [facility] TylerXqfvaswKOBNWNBPUB0998-65-77 10:27:00 Test Item Value Reference Range Interpretation Comments MCV (test code = MCV) 80.8 80.0-98.0 [facility] TylerLgzpgjeCQSKXOOKBW6217-44-80 10:27:00 Test Item Value Reference Range Interpretation Comments MCH (test code = MCH) 27.6 pg 27.0-31.0 [facility] TylerAljhjdbSJXCYZLXXO4278-11-64 10:27:00 Test Item Value Reference Range Interpretation Comments MCHC (test code = MCHC) 34.2 32.0-36.0 [facility] TylerGboghfkHMWUTMYPFM8044-77-17 10:27:00 Test Item Value Reference Range Interpretation Comments RDW (test code = RDW) 16.1 11.5-14.5 [facility] TylerLqehcceZAARRQYIBV3017-56-98 10:27:00 Test Item Value Reference Range Interpretation Comments Platelet (test code = Platelet) 170 133-450 [facility] TylerWticfozCOVUEPDOGG5228-49-80 10:27:00 Test Item Value Reference Range Interpretation Comments MPV (test code = MPV) 9.6 7.4-10.4 [facility] TylerOvncdasIJKOYUSLFG9493-40-95 10:27:00 Test Item Value Reference Range Interpretation Comments Sed Rate (test code = 8 See_Comment [Auto mated message] The Sed Rate) system which ge nerated this result transmit jess reference range : <=20. The reference range was not used to interpr et this result as curtis l/abnormal. [facility] HospitalAwxvqlaRZXNUCKZOC5463-98-95 10:27:00 Test Item Value Reference Range Interpretation Comments C-REACTIVE PROTEIN (test code = no gt C-REACTIVE PROTEIN) [facility] [id number] 18:23:00 Test Item Value Reference Range Interpretation Comments Culture: Urine (test code = No Growth Culture: Urine) [facility] [id number] 12:30:00 Test Item Value Reference Range Interpretation Comments UA Color (test code = Yellow *NA*(03/09/22 UA Color) 7:30 AM) [facility] [id number] 12:30:00 Test Item Value Reference Range Interpretation Comments UA Turbidity (test code Slight Cloudy = UA Turbidity) (03/09/22 7:30 AM) [facility] [id number] 12:30:00 Test Item Value Reference Range Interpretation Comments UA Spec Grav (test code = UA Spec 1.020 1 Grav) [facility] [id number] 12:30:00 Test Item Value Reference Range Interpretation Comments UA pH (test code = UA pH) 7.0 1 5.0-8.0 [facility] [id number] 12:30:00 Test Item Value Reference Range Interpretation Comments UA Protein (test code = Trace *ABN*(03/09/22 UA Protein) 7:30 AM) [facility] [id number] 12:30:00 Test Item Value Reference Range Interpretation Comments UA Glucose (test code Negative (03/09/22 7:30 = UA Glucose) AM) [facility] [id number] 12:30:00 Test Item Value Reference Range Interpretation Comments UA Ketones (test code = UA Ketones) 40 mg/dL [facility] [id number] 12:30:00 Test Item Value Reference Range Interpretation Comments UA Bili (test code = Small *ABN*(03/09/22 UA Bili) 7:30 AM) [facility] [id number] 12:30:00 Test Item Value Reference Range Interpretation Comments UA Blood (test code = Negative (03/09/22 7:30 UA Blood) AM) [facility] [id number] 12:30:00 Test Item Value Reference Range Interpretation Comments UA Urobilinogen (test code = UA 0.2 0.1-1.0 Urobilinogen) [facility] [id number] 12:30:00 Test Item Value Reference Range Interpretation Comments UA Nitrite (test code Negative (03/09/22 7:30 = UA Nitrite) AM) [facility] AND [id number] 12:30:00 Test Item Value Reference Range Interpretation Comments UA Leuk Est (test code Small *ABN*(03/09/22 = UA Leuk Est) 7:30 AM) [facility] AND [id number] 12:30:00 Test Item Value Reference Range Interpretation Comments UA Sq Epi (test code = UA Sq Occasional /LPF Epi) [facility] AND [id number] 12:30:00 Test Item Value Reference Range Interpretation Comments UA WBC (test code = UA WBC) 11-20 /HPF [facility] AND [id number] 12:30:00 Test Item Value Reference Range Interpretation Comments UA Bacteria (test code = UA Few /HPF Bacteria) [facility] AND [id number] 12:30:00 Test Item Value Reference Range Interpretation Comments UA Mucus (test code = UA Mucus) Few /LPF [facility] AND [id number] 12:30:00 Test Item Value Reference Range Interpretation Comments UA CaOx [place] (test code = UA CaOx Few /HPF [place]) [facility]2022-05-18 11:00:00 Test Item Value Reference Range Interpretation Comments Glucose Lvl (test code = Glucose Lvl) 95 70-99 [facility]2022-05-18 11:00:00 Test Item Value Reference Range Interpretation Comments BUN (test code = BUN) 11 7- [facility]2022-05-18 11:00:00 Test Item Value Reference Range Interpretation Comments Creatinine Lvl (test code = Creatinine 0.59 0.50-1.40 Lvl) [facility]2022-05-18 11:00:00 Test Item Value Reference Range Interpretation Comments Sodium Lvl (test code = Sodium Lvl) 140 135-145 [facility]2022-05-18 11:00:00 Test Item Value Reference Range Interpretation Comments Potassium Lvl (test code = Potassium 3.6 3.5-5.1 Lvl) [facility]2022-05-18 11:00:00 Test Item Value Reference Range Interpretation Comments Chloride Lvl (test code = Chloride Lvl) 101 95-109 [facility] [id number] 11:00:00 Test Item Value Reference Range Interpretation Comments CO2 (test code = CO2) 29 24-32 [facility] [id number] 11:00:00 Test Item Value Reference Range Interpretation Comments Calcium Lvl (test code = Calcium Lvl) 9.9 8.5-10.5 [facility] [id number] 11:00:00 Test Item Value Reference Range Interpretation Comments AGAP (test code = AGAP) 13.6 10.0-20.0 [facility] [id number] 11:00:00 Test Item Value Reference Range Interpretation Comments eGFR (test code = eGFR) 118 [facility] HospitalKvvtaxmFVURXCIDBE6173-53-83 20:33:00 Test Item Value Reference Range Interpretation Comments Sed Rate (test code = 47 See_Comment [Auto mated message] The Sed Rate) system which ge nerated this result transmit jess reference range : <=20. The reference range was not used to interpr et this result as curtis l/abnormal. [facility]YskiscyQCLKKZLJWW2203-12-02 20:33:00 Test Item Value Reference Range Interpretation Comments C-REACTIVE PROTEIN (test code = 17.3 C-REACTIVE PROTEIN) [facility] HospitalPjbjlhiAWRAFYHPQS5056-01-52 20:33:00 Test Item Value Reference Range Interpretation Comments Prealbumin (test code = Prealbumin) 25.1 18.0-45.0 [facility] WNGMBYRHH7135-05-87 20:33:00 Test Item Value Reference Range Interpretation Comments Hgb A1C (test code = Hgb A1C) 5.0 [facility]annGram Stain [id number] 17:54:00 Test Item Value Reference Range Interpretation Comments Gram Stain Report Few Wbc'S; No Organisms (test code = Gram Seen Stain Report) [facility]Culture: Wound/Abscess w/Gram [id number] 17:54:00 Test Item Value Reference Range Interpretation Comments Culture: Wound/Abscess w/Gram Stain No Growth (test code = Culture: Wound/Abscess w/Gram Stain) [facility] HospitalMass [facility] [id number] 11:00:00 Test Item Value Reference Range Interpretation Comments Glucose Lvl (test code = Glucose Lvl) 93 70-99 [facility] [place] 653592-05-16 11:00:00 Test Item Value Reference Range Interpretation Comments BUN (test code = BUN) 6 7-22 [place] [address]-05-16 11:00:00 Test Item Value Reference Range Interpretation Comments Creatinine Lvl (test code = Creatinine 0.53 0.50-1.40 Lvl) [place] [address]-05-16 11:00:00 Test Item Value Reference Range Interpretation Comments Sodium Lvl (test code = Sodium Lvl) 139 135-145 [place] 428862-05-16 11:00:00 Test Item Value Reference Range Interpretation Comments Potassium Lvl (test code = Potassium 6.0 3.5-5.1 Lvl) [place] [address]-05-16 11:00:00 Test Item Value Reference Range Interpretation Comments Chloride Lvl (test code = Chloride Lvl) 102 95-109 [place] [address]-05-16 11:00:00 Test Item Value Reference Range Interpretation Comments CO2 (test code = CO2) 30 24-32 [place] [address]-05-16 11:00:00 Test Item Value Reference Range Interpretation Comments Calcium Lvl (test code = Calcium Lvl) 9.4 8.5-10.5 [place] 428862-05-16 11:00:00 Test Item Value Reference Range Interpretation Comments AGAP (test code = AGAP) 13.0 10.0-20.0 [place] [address]-05-16 11:00:00 Test Item Value Reference Range Interpretation Comments eGFR (test code = eGFR) 122 [place] 342552-05-16 11:00:00 Test Item Value Reference Range Interpretation Comments Sed Rate (test code = 34 See_Comment [Auto mated message] The Sed Rate) system which ge nerated this result transmit jess reference range : <=20. The reference range was not used to interpr et this result as curtis l/abnormal. [place] 342552-05-16 11:00:00 Test Item Value Reference Range Interpretation Comments WBC (test code = WBC) 3.7 3.7-10.4 [place] [address]-05-16 11:00:00 Test Item Value Reference Range Interpretation Comments RBC (test code = RBC) 4.82 4.20-5.40 [facility] TylerYctsybdOGIFRCQRIF5421-21-03 11:00:00 Test Item Value Reference Range Interpretation Comments Hgb (test code = Hgb) 13.2 12.0-16.0 [facility] HospitalBchfwwvPJERIOISXW6994-76-81 11:00:00 Test Item Value Reference Range Interpretation Comments Hct (test code = Hct) 38.5 36.0-48.0 [facility] HospitalThmsldnQAJHPTITMS6033-79-11 11:00:00 Test Item Value Reference Range Interpretation Comments MCV (test code = MCV) 80.0 80.0-98.0 [facility] HospitalJxqshxiJZGGGDYNWY6363-51-69 11:00:00 Test Item Value Reference Range Interpretation Comments MCH (test code = MCH) 27.4 pg 27.0-31.0 [facility] HospitalJqalyhfHBHJSJSHEO6889-70-83 11:00:00 Test Item Value Reference Range Interpretation Comments MCHC (test code = MCHC) 34.3 32.0-36.0 [facility] HospitalDobqzjbKCPEDEBTLL6938-61-32 11:00:00 Test Item Value Reference Range Interpretation Comments RDW (test code = RDW) 16.2 11.5-14.5 [facility] HospitalKrnhtgyXREWQNJIWB4990-58-34 11:00:00 Test Item Value Reference Range Interpretation Comments Platelet (test code = Platelet) 176 133-450 [facility] HospitalXdqndpiYHKFGIJFYO1418-38-38 11:00:00 Test Item Value Reference Range Interpretation Comments MPV (test code = MPV) 9.1 7.4-10.4 [facility] HospitalIsgiyddUDTKVOIUIV8159-41-69 11:00:00 Test Item Value Reference Range Interpretation Comments C-REACTIVE PROTEIN (test code = 24.1 C-REACTIVE PROTEIN) [facility] HospitalCHEM [id number] 11:14:00 Test Item Value Reference Range Interpretation Comments Total Protein (test code = Total 6.2 6.4-8.4 Protein) [facility] [id number] 11:14:00 Test Item Value Reference Range Interpretation Comments Albumin Lvl (test code = Albumin Lvl) 3.0 3.5-5.0 [facility] [id number] 11:14:00 Test Item Value Reference Range Interpretation Comments ALT (test code = ALT) 20 See_Comment [Auto mated message] The system which ge nerated this result transmit jess reference range : <=65. The reference range was not used to interpr et this result as curtis l/abnormal. [place] 428862-05-14 11:14:00 Test Item Value Reference Range Interpretation Comments AST (test code = AST) 11 See_Comment [Auto mated message] The system which ge nerated this result transmit jess reference range : <=37. The reference range was not used to interpr et this result as curtis l/abnormal. [place] 428862-05-14 11:14:00 Test Item Value Reference Range Interpretation Comments Alk Phos (test code = Alk Phos) 63 39-136 [place] [address]-05-14 11:14:00 Test Item Value Reference Range Interpretation Comments Bili Total (test code = Bili Total) 0.2 0.2-1.3 [place] [address]-05-14 11:14:00 Test Item Value Reference Range Interpretation Comments B/C Ratio (test code = B/C Ratio) 12 1 6-25 [place] [address]-05-14 11:14:00 Test Item Value Reference Range Interpretation Comments Globulin (test code = Globulin) 3.2 2.7-4.2 [place] [address]-05-14 11:14:00 Test Item Value Reference Range Interpretation Comments A/G Ratio (test code = A/G Ratio) 0.9 1 0.7-1.6 [place] [address]-05-14 11:14:00 Test Item Value Reference Range Interpretation Comments Vitamin D, 25-OH, Total (test code = 25 Vitamin D, 25-OH, Total) [place] [address]-05-14 11:14:00 Test Item Value Reference Range Interpretation Comments WBC (test code = WBC) 5.4 3.7-10.4 [place] [address]-05-14 11:14:00 Test Item Value Reference Range Interpretation Comments RBC (test code = RBC) 4.60 4.20-5.40 [place] [address]-05-14 11:14:00 Test Item Value Reference Range Interpretation Comments Hgb (test code = Hgb) 12.4 12.0-16.0 [place] [address]-05-14 11:14:00 Test Item Value Reference Range Interpretation Comments Hct (test code = Hct) 37.4 36.0-48.0 [facility] TylerLpufpsxIQLBMYYKFN9486-07-24 11:14:00 Test Item Value Reference Range Interpretation Comments MCV (test code = MCV) 81.3 80.0-98.0 [facility] TylerTozbxsaRSTWAEFQSL0022-85-84 11:14:00 Test Item Value Reference Range Interpretation Comments MCH (test code = MCH) 26.8 pg 27.0-31.0 [facility] TylerMyjbzoaHVQCXBCOHP4175-40-88 11:14:00 Test Item Value Reference Range Interpretation Comments MCHC (test code = MCHC) 33.0 32.0-36.0 [place] 342552-05-14 11:14:00 Test Item Value Reference Range Interpretation Comments RDW (test code = RDW) 16.3 11.5-14.5 [place] 342552-05-14 11:14:00 Test Item Value Reference Range Interpretation Comments Platelet (test code = Platelet) 190 133-450 [facility] TylerBkecddiKRXCCZNQAG6979-52-05 11:14:00 Test Item Value Reference Range Interpretation Comments MPV (test code = MPV) 9.2 7.4-10.4 [facility] [facility] Tyl[id number] 11:14:00 Test Item Value Reference Range Interpretation Comments Segs (test code = Segs) 49.6 45.0-75.0 [facility] TylerOxxttcjCQDHWMEGBO8943-85-81 11:14:00 Test Item Value Reference Range Interpretation Comments Lymphocytes (test code = Lymphocytes) 37.8 20.0-40.0 [facility] TylerQybhzklUNCTQUUSUC7128-16-39 11:14:00 Test Item Value Reference Range Interpretation Comments Monocytes (test code = Monocytes) 7.9 2.0-12.0 [place] [address]-05-14 11:14:00 Test Item Value Reference Range Interpretation Comments Eosinophils (test code = 4.2 See_Comment [A utomated message] The Eosinophils) system which ge nerated this result tra nsmitted reference range : <=4.0. The reference r zaria was not used to int erpret this result as normal/abnormal . [place] 342552-05-14 11:14:00 Test Item Value Reference Range Interpretation Comments Basophils (test code = 0.5 See_Comment [Aut omated message] The Basophils) system which ge nerated this result tra nsmitted reference range : <=1.0. The reference r zaria was not used to int erpret this result as normal/abnormal . [facility] TylerUyzsjzfBKOIEQZHXC0174-15-44 11:14:00 Test Item Value Reference Range Interpretation Comments Neutrophils # (test code = Neutrophils 2.7 1.5-8.1 #) [facility] Tyl[id number] 11:14:00 Test Item Value Reference Range Interpretation Comments Lymphocytes # (test code = Lymphocytes 2.0 1.0-5.5 #) [facility] TylerQxdvztaEFOJFHPCCA1034-02-22 11:14:00 Test Item Value Reference Range Interpretation Comments Monocytes # (test code 0.4 See_Comment [Aut omated message] The = Monocytes #) system which generated this result tra nsmitted reference range : <=0.8. The reference r zaria was not used to int erpret this result as normal/abnormal . [facility] TylerRqzbvhlBYMAWXEKJE5695-65-63 11:14:00 Test Item Value Reference Range Interpretation Comments Eosinophils # (test code 0.2 See_Comment [A utomated message] The = Eosinophils #) system whic h generated this result tra nsmitted reference range : <=0.5. The reference r zaria was not used to int erpret this result as normal/abnormal . [facility] [id number] 05:50:00 Test Item Value Reference Range Interpretation Comments HS Troponin I (test code = HS Troponin no gt I) [facility] METABOLIC [id number] 12:50:00 Test Item Value Reference Range Interpretation [...] 9.3 mg/dL 8.0-10.5 N CA) CBC W/AUTO [id number] 12:37:00 Test Item Value Reference Range Interpretation [...] (test code NO = MDIFF) CBC W/AUTO [id number] 08:53:00 Test Item Value Reference Range Interpretation [...] (test code NO = MDIFF) BASIC METABOLIC [id number] 07:23:00 Test Item Value Reference Range Interpretation [...] code = 9.4 mg/dL 8.0-10.5 N CA) [id number] 14:52:00 Test Item Value Reference Range Interpretation Comments SURGICAL (test code = SR) R UN DATE: 03/01/22 [facility] - LAB PAGE 1 RUN TIME: 1452 Specimen Inquiry RUN USER: INTERFACE P ATIENT: JAMILAH AG LOC: SantoshWS U #: [id number] AGE/SX: 37/F [facility]: Tony Galarza MD : [birth year] BED: 1 DIS: STATUS: ADM IN TLOC: SPEC #: [id number] RECD: 02/28/22 STATUS: SOUT REQ #: [id number] BOUBACAR: 02/25/22- SUBM DR: Tony Galarza MD ENTERED: 02/28/22 SP TYPE: SURGICAL OTHR DR: Jovi Barrientos MD,Naheed Magallanes,Haim Miller,Sondra Browning,Kade Siddiqi,Mak Sharif,Jorden N MD Slick Newberry MD Yo,In S MDORDERED: 05160, ANATOMIC SPEC COPIES TO: Self Referred Jovi Jean Baptiste MD [address] [place] [address] Tony Galarza MD [address] [place], [facility]511 Naheed Jean MD [address] [place] [id number] Haim Magallanes MD [address] [place], [place] [id number] Sondra Miller MD [address] [place] [address] Kade Browning MD [address] [place] [address] [email or web address] CONTINUED ON NEXT PAGE R UN DATE: 03/01/22 [facility] PAGE 2 RUN TIME: 1452 Specimen Inquiry RUN USER: INTERFACE S PEC #: [id number] PATIENT: JAMILAH AG #[id number] (Continued) COPIES TO: (Continued) Mak Siddiqi MD [address] [place] [phone] [place] [address] [address] [place], [place] [id number] Slick Newberry MD [address] [place] [phone] [email or web address] Shady Benz MD [address] [place] [address] PROCEDURES: 70652 (02/28/22-935) TISSUES: A. COLOSTOMY STOMA, NOT FOR TUMOR [...] isunremarkable. Submitted (A)-(B). Technical component performed at [facility],[address] [place] [address], [place] [address] Unless gross only, the diagnosis is based [...] laboratory testing. CONTINUED ON NEXT PAGE R UN DATE: 03/01/22 [facility] - LAB PAGE 3 RUN TIME: 145 Specimen Inquiry RUN USER: INTERFACE S PEC #: [id number] PATIENT: JAMILAH AG Valerie #[id number] (Continued) Signed SIGNATURE ON FILE Robert Barnes DO 03/01/221451 END OF REPORT CBC W/AUTO [id number] 09:14:00 Test Item Value Reference Range Interpretation [...] x10 3/uL 0.0-0.1 N NRBC#) COMPREHENSIVE METABOLIC [id number] 09:12:00 Test Item Value Reference Range Interpretation [...] ALKP) - XR ABDOMEN 1V (KUB)2022-02-28 00:00:00 [facility] ANCELMOCAMILLEDania [place] : 1985 Sex: FMaringouin: St: ADM -- Name: JAMILAH AG [facility] : 1985 Age/S: 37/F [address] [place] [address] Unit #: [id number] Loc: [place] [address] Phys: Tony Galarza MD Acct: [id number] Dis Date: Status: ADM IN PHONE #: [phone] Exam Date: 02/27/20222056 FAX #: [phone] Reason: STOMACH PAIN/NAUSEA EXAMS: CPT CODE: [id number] XR ABDOMEN 1V (KUB) 64337 PROCEDURE INFORMATION: Exam: XR Abdomen Exam date and time: 02/27/2022 8:52 PM Age: 37 years old Clinical indication: Abdominal pain; Additional info: Stomach pain/nausea TECHNIQUE: Imaging protocol: XR of the abdomen. Views: Frontal supine view of t he abdomen. 1 View. COMPARISON: CT ABD PELVIS [...] by: Tobin Garcia M.D. CC: Technologist: Quynh Hurt RT(R); RT Cole(R) [facility] Date/Time/By: 02/28/2022 (001) : By: [email or web address] Orig Print D/T: S: 02/28/2022 (0017) PAGE 1 Signed ReportC W/AUTO [id number] 09:43:00 Test Item Value Reference Range Interpretation [...] (test code NO = MDIFF) BASIC METABOLIC [id number] 07:41:00 Test Item Value Reference Range Interpretation [...] 8.0-10.5 N CA) - XR CHEST 1 [id number] 00:00:00 [facility] AG : 1985 Sex: F [place]: St: ADM -- Name: JAMILAH AG [facility] : 1985 Age/S: 37/F [address] [place] [address] Unit #: [id number] Loc: [address] [address] Phys: Tony Galarza MD Acct: [id number] Dis Date: Status: ADM IN PHONE #: [phone] Exam Date: 02/27/20221046 FAX #: [phone] Reason: SOB EXAMS: CPT CODE: [id number] XR CHEST 1 V 52335 PROCEDURE INFORMATION: Exam: XR Chest Exam date [...] process. Electronically Signed by Jason Carter on 05/2022 at 1107 Reported and signed by: Judson Carter M.D. CC: Technologist: RT Kelly(R); RT Cole(R) Trnscrd Date/Time/By: 02/27/2022 (631) : By: [email or web address] Orig Print D/T: S: 02/27/2022 (4558) PAGE 1 Signed ReportCBC W/AUTO [id number] 07:38:00 Test Item Value Reference Range Interpretation [...] (test code NO = MDIFF) BASIC METABOLIC [id number] 07:18:00 Test Item Value Reference Range Interpretation [...] 9.5 mg/dL 8.0-10.5 N CA) COMPREHENSIVE METABOLIC [id number] 08:06:00 Test Item Value Reference Range Interpretation [...] TOTAL (test code = ALKP) CBC W/AUTO [id number] 07:26:00 Test Item Value Reference Range Interpretation [...] REQUIRED (test code NO = MDIFF) PROTHROMBIN [id number] 06:13:00 Test Item Value Reference Range Interpretation [...] (to prevent recurrent infar ct). CBC W/AUTO [id number] 14:08:00 Test Item Value Reference Range Interpretation [...] (test code NO = MDIFF) BASIC METABOLIC [id number] 07:41:00 Test Item Value Reference Range Interpretation [...] 8.0-10.5 N CA) - XR CHEST 1 [id number] 00:00:00 [facility] : 1985 Sex: FMaringouin: St: ADM -- Name: JAMILAH AG [facility] [place] : 1985 Age/S: 37/F [address] [place] [address] Unit #: [id number] Loc: [address] [place] [address] Phys: Tony Galarza MD Acct: [id number] Dis Date: Status: ADM IN PHONE #: [phone] Exam Date: 02/24/2022 1502 FAX #: [phone] Reason: SOB EXAMS: CPT CODE: [id number] XR CHEST 1 V 12512 PROCEDURE INFORMATION: Exam: XR Chest Exam date and time: 02/24/2022 2:58 PM Age: 37 years old Clinical indication: Shortness of breath; dyspnea TECHNIQUE: Imaging protocol: XR of the chest. Views: 1 view. Other technique: 1 view, frontal COMPARISON: CR XR CHEST 1V 02/04/2022 9:37 PM FINDINGS: Lungs: No infiltrates or [...] Pedrito Britton M.D. CC: Technologist: RT Bin(Lonnie) Trnscrd Date/Time/By: 02/24/2022 (2232) : By: [email or web address] Orig Print D/T: S: 02/24/2022 (2232) PAGE 1 Signed ReportCOVID 19 Asymptomatic IH [id number] 18:21:00 Test Item Value Reference Range Interpretation [...] high or waivedcomplexit y tests. CBC W/AUTO [id number] 10:08:00 Test Item Value Reference Range Interpretation [...] (test code NO = MDIFF) SED RATE [id number] 10:08:00 Test Item Value Reference Range Interpretation Comments SED RATE WESTERGREN (test code = 20 mm/hr 0-20 N SEDW) HGBA1C%2022-02-22 07:05:00 Test Item Value Reference Range Interpretation Comments HGBA1C% (test code = HGBA1C%) 4.8 %A1C 4.8-6.0 N COMMENTS: [id number] METABOLIC [id number] 06:57:00 Test Item Value Reference Range Interpretation [...] TOTAL (test code = ALKP) BASIC METABOLIC [id number] 05:31:00 Test Item Value Reference Range Interpretation [...] code = 9.0 mg/dL 8.0-10.5 N CA) [id number] 05:31:00 Test Item Value Reference Range Interpretation Comments MAGNESIUM (test code = MAG) 1.76 mg/dL 1.80-2.40 L CBC W/AUTO [id number] 05:17:00 Test Item Value Reference Range Interpretation [...] (test code NO = MDIFF) COMPREHENSIVE METABOLIC [id number] 15:55:00 Test Item Value Reference Range Interpretation [...] = ALKP) UA RFLX MICR CULT IF [id number] 15:46:00 Test Item Value Reference Range Interpretation [...] CATH (SAM)Cath Status: Over 72 hoursCBC W/AUTO [id number] 15:40:00 Test Item Value Reference Range Interpretation [...] DIFF REQUIRED (test code NO = MDIFF) URINE [id number] 14:52:00 Test Item Value Reference Range Interpretation Comments U Preg (test code = U Negative (02/11/22 9:52 Preg) AM) [id number] 14:10:00 Test Item Value Reference Range Interpretation Comments WBC (test code = WBC) 4.8 3.7-10.4 [facility] HospitalR[id number] 14:10:00 Test Item Value Reference Range Interpretation Comments RBC (test code = RBC) 5.51 4.20-5.40 [facility] HospitalDjoazplEPODBBAIKC5613-72-75 14:10:00 Test Item Value Reference Range Interpretation Comments Hgb (test code = Hgb) 14.9 12.0-16.0 [facility] Hospit[id number] 14:10:00 Test Item Value Reference Range Interpretation Comments Hct (test code = Hct) 44.5 36.0-48.0 [place] 342552-04-22 14:10:00 Test Item Value Reference Range Interpretation Comments MCV (test code = MCV) 80.8 80.0-98.0 [place] [address]-04-22 14:10:00 Test Item Value Reference Range Interpretation Comments MCH (test code = MCH) 26.9 pg 27.0-31.0 [place] 342552-04-22 14:10:00 Test Item Value Reference Range Interpretation Comments MCHC (test code = MCHC) 33.3 32.0-36.0 [place] 342552-04-22 14:10:00 Test Item Value Reference Range Interpretation Comments RDW (test code = RDW) 18.2 11.5-14.5 [place] 342552-04-22 14:10:00 Test Item Value Reference Range Interpretation Comments Platelet (test code = Platelet) 174 133-450 [place] 342552-04-22 14:10:00 Test Item Value Reference Range Interpretation Comments MPV (test code = MPV) 8.8 7.4-10.4 [place] 342552-04-22 14:10:00 Test Item Value Reference Range Interpretation Comments Segs (test code = Segs) 64.3 45.0-75.0 [place] 342552-04-22 14:10:00 Test Item Value Reference Range Interpretation Comments Lymphocytes (test code = Lymphocytes) 26.7 20.0-40.0 [place] 342552-04-22 14:10:00 Test Item Value Reference Range Interpretation Comments Monocytes (test code = Monocytes) 6.0 2.0-12.0 [place] [address] 14:10:00 Test Item Value Reference Range Interpretation Comments Eosinophils (test code = 2.1 See_Comment [A utomated message] The Eosinophils) system which ge nerated this result tra nsmitted reference range : <=4.0. The reference r zaria was not used to int erpret this result as normal/abnormal . [place] 342552-04-22 14:10:00 Test Item Value Reference Range Interpretation Comments Basophils (test code = 0.9 See_Comment [Aut omated message] The Basophils) system which ge nerated this result tra nsmitted reference range : <=1.0. The reference r zaria was not used to int erpret this result as normal/abnormal . [facility] TylerAqulimrVWXMUBOPJW4256-09-77 14:10:00 Test Item Value Reference Range Interpretation Comments Neutrophils # (test code = Neutrophils 3.1 1.5-8.1 #) [facility] Tyl[id number] 14:10:00 Test Item Value Reference Range Interpretation Comments Lymphocytes # (test code = Lymphocytes 1.3 1.0-5.5 #) [facility] TylerFkivyxuURILIJUEBC7185-98-30 14:10:00 Test Item Value Reference Range Interpretation Comments Monocytes # (test code 0.3 See_Comment [Aut omated message] The = Monocytes #) system which generated this result tra nsmitted reference range : <=0.8. The reference r zaria was not used to int erpret this result as normal/abnormal . [facility] TylerVhcfnevZUFTULMMBT8779-39-47 14:10:00 Test Item Value Reference Range Interpretation Comments Eosinophils # (test code 0.1 See_Comment [A utomated message] The = Eosinophils #) system whic h generated this result tra nsmitted reference range : <=0.5. The reference r zaria was not used to int erpret this result as normal/abnormal . [facility]zwgsaoVPCEGXTRWJKXD7009-16-08 14:03:00 Test Item Value Reference Range Interpretation Comments S Preg (test code = S Negative *NA*(02/11/22 Preg) 9:03 AM) [facility] HospitalQvuwnwuIXLAEXZBNV3992-47-85 14:03:00 Test Item Value Reference Range Interpretation Comments Coronavirus (COVID-19) Not Detected (02/11/22 CESAR (test code = 9:03 AM) Coronavirus (COVID-19) CESAR) [facility] METABOLIC [id number] 08:18:00 Test Item Value Reference Range Interpretation [...] 9.0 mg/dL 8.0-10.5 N CA) CBC W/AUTO [id number] 07:27:00 Test Item Value Reference Range Interpretation [...] (test code NO = MDIFF) CBC W/AUTO [id number] 08:05:00 Test Item Value Reference Range Interpretation [...] (test code NO = MDIFF) SED RATE [id number] 08:05:00 Test Item Value Reference Range Interpretation Comments SED RATE WESTERGREN (test code = SEDW) mm/hr 0-20 BASIC METABOLIC [id number] 07:53:00 Test Item Value Reference Range Interpretation [...] 9.6 mg/dL 8.0-10.5 N CA) CBC W/AUTO [id number] 05:06:00 Test Item Value Reference Range Interpretation [...] (test code NO = MDIFF) SED RATE [id number] 05:06:00 Test Item Value Reference Range Interpretation Comments SED RATE WESTERGREN (test code = 17 mm/hr 0-20 N SEDW) HGBA1C%2022-02-06 04:45:00 Test Item Value Reference Range Interpretation Comments HGBA1C% (test code = HGBA1C%) 4.8 %A1C 4.8-6.0 N COMMENTS: SC6QFCKPBWKRNTIL METABOLIC [id number] 04:40:00 Test Item Value Reference Range Interpretation [...] 20-125 N TOTAL (test code = ALKP) [id number] 04:40:00 Test Item Value Reference Range Interpretation Comments AMYLASE (test code = QUYNH) 41 UNITS/L 25-115 N [id number] 04:40:00 Test Item Value Reference Range Interpretation Comments LIPASE (test code = LIP) 29 U/L 13-57 N VITAMIN [id number] 04:40:00 Test Item Value Reference Range Interpretation Comments VITAMIN B12 (test code = VITB12) 348 pg/mL 193-986 N THYROID STIMULATING [id number] 04:40:00 Test Item Value Reference Range Interpretation Comments THYROID STIMULATING 3.21 0.42-5.47 N Results in HORMONE (test code = TSH) mi lli-International Units/mL TROP-I HIGH [id number] 04:40:00 Test Item Value Reference Range Interpretation Comments TROP-I HIGH < 3 ng/L 0-34 N CAUTION: Units of the SENSITIVITY (test current st methodology code = TROPIHS) (ng/L) diffe rfrom the prior test meth odology (ng/mL) by a fa ctor of 1000. 99t h Percentile Uppe r Reference Limit (URL): Fe males: 34 ng/LMales: 54 n g/L In order to distin [facility] acute elevations of h igh sensitivitytrop onin from other clinical conditions, the FourthUnive rsal Definition of M yocardial Infarction stressesclinica l assessment and the demonstration o f a rise and/orfall in s erial troponin result s above the URL. These resu lts were obtained using [employer] IM TnI Hreagent. Results from di fferent methodologies s hould not becompared to o ne another as quantitative results and URLs mayvar y by method. COVID 19 Asymptomatic IH [id number] 17:19:00 Test Item Value Reference Range Interpretation Comments COVID 19 Asymptomatic Negative Negative A nega tive result is IH AG (test code = presumpti ve and should COVNONPUIAG) be confirmedwit h an FDA authorized mole cular assay, if laura tadeo forpatient wild gement.A positive result does not [...] moderate, high or waivedcomplexit y tests. LACTIC [id number] 23:02:00 Test Item Value Reference Range Interpretation Comments LACTIC ACID (test code = LACT) 0.6 mmol/L 0.4-1.9 N UA RFLX MICR CULT IF [id number] 22:34:00 Test Item Value Reference Range Interpretation [...] LIP) 27 U/L 13-57 N TROP-I HIGH [id number] 22:27:00 Test Item Value Reference Range Interpretation [...] URLs mayvar y by method. BASIC METABOLIC [id number] 22:27:00 Test Item Value Reference Range Interpretation [...] 9.5 mg/dL 8.0-10.5 N CA) HEPATIC FUNCTION [id number] 22:27:00 Test Item Value Reference Range Interpretation [...] code = 0.20 MG/DL BILIND) HCG SERUM [id number] 22:22:00 Test Item Value Reference Range Interpretation Comments HCG SERUM QUAL (test code = SERUM NEGATIVE NEGATIVE HCGQL) CBC W/AUTO [id number] 22:11:00 Test Item Value Reference Range Interpretation [...] NO = MDIFF) - CT ABD PELVIS W/[id number] 00:00:00 [facility] : 1985 Sex: FName: JAMILAH AG [facility] : 1985 Age/S: 36 / F [address] [place] [address] Unit #: [id number] Loc: [place] [address] Phys: Gabriel Canales DO Acct: [id number] Dis Date: Status: REG ER PHONE #: [phone] Exam Date: 02/04/2022 2319 FAX #: [phone] Reason: RLQ pain EXAMS: CPT CODE: [id number] CT ABD PELVIS W/CONT 77766 PROCEDURE INFORMATION: Exam: CT Abdomen And Pelvis [...] matched to clinical indication); or iterative reconstruction. Contrastmaterial: ISO; Contrast volume: 100 ml; Contrast route: INTRAVENOUS (IV); COMPARISON: CR XR CHEST 1V 02/04/2022 9:37 PM FINDINGS: Tubes, catheters and devices: A suprapubic catheter decompresses the urinary bladder. Lungs: Visualized lung bases are unremarkable. Liver: Few scattered subcentimeter hypodensities likely on the basis of small cysts. Gallbladder and bile ducts: Normal. No calcified stones.No ductal dilation. Pancreas: Normal. No ductal dilation. Spleen: Normal. No splenomegaly. Adrenal glands: Normal. No mass. Kidneys and ureters: Normal. No hydronephrosis. Stomach and bowel: A left lower quadrant colostomy is present. No evidence of bowel wall thickening or obstruction. Appendix: Theappendix is unremarkable, best seen on axial series [...] 78. PAGE 1 Signed Report (CONTINUED) Name: ANCELMOJAMILAH M [facility] : 1985 Age/S: 36 / F [address] [place] [address] Unit #: [id number] Loc: [place] [address] Phys: Gabriel Canales DO Acct: [id number] Dis Date: Status: REG ER PHONE #: [phone] Exam Date: 02/04/20222318 FAX #: [phone] Reason: RLQpain EXAMS: CPT CODE: [id number] CT ABD PELVIS W/CONT 30410 (Continued) IMPRESSION: 1. No acute findings in the abdomen or pelvis. 2. Right ovarian teratoma. 3. Mild infiltration of the posterior pelvic wall subcutaneous tissues may be stress related. at 6209 Reported and signed by: Shaina Dennis M.D. CC: Gabriel Canales DO Technologist:RT Nedra(R)(CT) CTDI: DLP: Trnscb Date/Time: 02/04/2022 (305) t.JEFFERYRSantoshEC14 Orig PrintD/T: S: 02/04/2022 (9625) PAGE 2 Signed Report- XR CHEST 1 [id number] 00:00:00 [facility] ANCELMOCAMILLEDania [place] : 1985 Sex: FFAX: Gabriel Will DO [phone] [place]: St: REG Name: JAMILAH AG [facility] : 1985 Age/S: 36/F[address] Unit #: [id number] Loc: [place] [address] Phys: Gabriel Canales DO Acct: [id number] Dis Date: Status: REG ER PHONE #: [phone] Exam Date: 02/04/20222156 FAX #: [phone] Reason: Abdominal Pain EXAMS: CPT CODE: [id number] XR CHEST 1 V 37709 PROCEDURE INFORMATION: Exam: XR Chest Exam date and time: 02/04/2022 9:37 PM Age: 36 years old Clinical indication: Other: Rlqpain/abd; Additional info: Abdominal pain TECHNIQUE: Imaging protocol: [...] D/T: S: 02/04/2022 (2222) PAGE 1 Signed ReportHCG, Urine Qual (LAB)2021-03-30 06:58:00 Test Item Value Reference Range Interpretation Comments HCG, Urine, Qual (test code = HCGU) Negative Negative
[2022-06-23] MEDS ORDERED: NA CHLORIDE 0.9% 1,000 ML ONE (23:54)
[2022-06-23] MEDS ORDERED: FOLIC ACID 5 MG/ML VIAL ONE (23:55)
[2022-06-24 00:32] LABS: Absolute Lymphocytes (CBC) 1.8 K/uL (0.7-4.9); Hematocrit 41.5 % (36.0-45.0); Lymphocytes % 39.9 % (15.3-44.8); MCV 83.9 fL (80-100); RBC Red Blood Cell Count 4.95 M/uL (3.86-4.86)
[2022-06-24 01:11] LABS: ALT/SGPT 28 U/L (12-78); AST/SGOT 13 U/L (15-37); Albumin 3.8 g/dL (3.4-5.0); Alkaline Phosphatase 77 U/L (45-117); BUN Blood Urea Nitrogen 11 mg/dL (7-18); Bicarbonate 27 mmol/L (21-32); Bilirubin Total 0.2 mg/dL (0.2-1.0); Glomerular Filtration Rate 107 ml/min (=/>90); Glucose Level 113 mg/dL (74-106); Magnesium 2.2 mg/dL (1.8-2.4); NT PRO-BNP 28 pg/mL (<125); Protein, Total 7.5 g/dL (6.4-8.2); Sodium Level 140 mmol/L (136-145)
[2022-06-24 01:12] LABS: Bilirubin Direct < 0.1 mg/dL (0-0.2); Troponin High Sensitivity < 3.0 pg/mL (<58.9)
[2022-06-24 01:18] LABS: Urine Blood Negative (Negative); Urine Glucose Negative (Negative); Urine Protein Negative (Negative); Urine Specific Gravity 1.015 (1.005-1.030)
[2022-06-24 01:24] LABS: Protime INR 1.02
[2022-06-24 01:28] LABS: Urine Specific Gravity/Preg 1.015 (1.005-1.030)
--- NOTE | 2022-06-24 02:11 | ER ---
Nurse's Notes [facility] Name: Merlene Rockwell Age: 37 yrs Sex: Female : 1985 Arrival Date: 06/23/2022 Time: 22:43 Bed 14 Private MD: Diagnosis: Aphasia;Altered mental status, unspecified;Weakness;Hypokalemia;Paraplegia-LOWER Presentation: 06/23 22:43 Chief complaint: EMS states: Neighbor called 911 for unresponsive, upon arrival pt was hb awake and alert in wheelchair but confused. Neighbor reported she has been stuttering and seemed confused for the last week. VS WNL. BGl 248. Coronavirus screen: At this time, the client does not indicate any symptoms associated with coronavirus-19. Ebola Screen: No symptoms or risks identified at this time. Risk Assessment: Do you want to hurt yourself or someone else? Patient reports no desire to harm self or others. Onset of symptoms is unknown. 22:43 Method Of Arrival: EMS: [facility]/EMS 22:43 Acuity: MORE 2 hb 06/24 01:11 Initial Sepsis Screen: Does the patient meet any 2 criteria? No. Patient's initial ll3 sepsis screen is negative. Does the patient have a suspected source of infection? No. Patient's initial sepsis screen is negative. Historical: - Allergies: 06/23 22:46 GABAPENTIN; hb - PMHx: 22:46 Chronic pain; Depression; Paraplegia; hb - PSHx: 22:46 Colostomy; pump removed from abdomen; hb Screenin/02 01:10 Abuse screen: Denies threats or abuse. Denies injuries from another. Nutritional ll3 screening: No deficits noted. Tuberculosis screening: No symptoms or risk factors identified. Fall Risk No fall in past 12 months (0 pts). No secondary diagnosis (0 pts). No IV (0 pts). Ambulatory Aid- None/Bed Rest/Nurse Assist (0 pts). Gait- Normal/Bed Rest/Wheelchair (0 pts) Mental Status- Oriented to own ability (0 pts). Total Mcfarland Fall Scale indicates No Risk (0-24 pts). Assessment: 06/23 23:30 General: Appears comfortable, Behavior is calm, cooperative. Neuro: Level of ll3 Consciousness is awake, alert, obeys commands, Oriented to person, place, time, situation, Speech is slurred. Respiratory: Respiratory effort is even, unlabored, Respiratory pattern is regular, symmetrical. 23:30 Pain: Denies pain. ll3 06/24 01:10 Reassessment: No changes from previously documented assessment. Patient and/or family ll3 updated on plan of care and expected duration. Pain level reassessed. Patient is alert, oriented x 3, equal unlabored respirations, skin warm/dry/pink. 02:14 Reassessment: No changes from previously documented assessment. Patient and/or family ll3 updated on plan of care and expected duration. Pain level reassessed. Patient is alert, oriented x 3, equal unlabored respirations, skin warm/dry/pink. 02:30 Reassessment: States "Just let me go home, I don't want to stay here", ERP notified. ll3 03:00 Reassessment: Pt declines medication ordered at this time, ERP notified. ll3 Vital Signs: 06/23 22:46 BP 145 / 92; Pulse 88; Resp 16; Temp 97.8; Pulse Ox 100% on R/A; hb 06/24 01:11 BP 106 / 79; Pulse 88; Resp 16; Pulse Ox 100% on R/A; ll3 02:14 BP 104 / 78; Pulse 96; Resp 14; Pulse Ox 100% on R/A; ll3 05:15 Weight 74.84 kg; Height 5 ft. 0 in. (152.40 cm); ll3 05:15 Body Mass Index 32.22 (74.84 kg, 152.40 cm) ll3 ED Course: 06/23 22:42 Arm band placed on. hb 22:43 Patient arrived in ED. hb 22:46 Triage completed. hb 22:59 Cj Del Rio MD is Attending Physician. kiara 23:35 XRAY Chest (1 view) In Process Unspecified. EDMS 06/24 00:51 Head Brain Wo Cont In Process Unspecified. EDMS 01:10 Patient has correct armband on for positive identification. Bed in low position. Call ll3 light in reach. Side rails up X 1. Client placed on continuous cardiac and pulse oximetry monitoring. NIBP monitoring applied. 01:10 No provider procedures requiring assistance completed. Inserted saline lock: 24 gauge ll3 in left antecubital area, using aseptic technique. Blood collected. 02:05 Tony Lima MD is Hospitalizing Provider. kiaar 05:00 IV discontinued, intact, bleeding controlled, No redness/swelling at site. Pressure ll3 dressing applied. 05:53 Inserted saline lock: 22 gauge in right upper arm, using aseptic technique. ll3 08:23 Morena Simms, RN is Primary Nurse. jg9 10:29 SARS-COV-2 RT PCR (Document "Date of Onset" if Symptomatic) Sent. jg9 Administered Medications: 00:26 Drug: NS 0.9% 1000 ml Route: IV; Rate: 1 bolus; Site: left antecubital; ll3 04:30 Follow up: Response: No adverse reaction; IV Status: Completed infusion; IV Intake: ll3 1000ml 00:26 Drug: foLIC Acid 1 mg Route: IVPB; Site: left antecubital; ll3 06:24 Follow up: Response: No adverse reaction; IV Status: Completed infusion; IV Intake: [id number] 02:49 Not Given (Patient Refused): Aspirin Chewable Tablet 162 mg PO once ll3 02:49 Not Given (Patient Refused): Potassium Effervescent Tablet 50 mEq PO once; dissolve in ll3 4 ounces of water or juice Medication: 02:15 VIS not applicable for this client. ll3 Intake: 04:30 IV: 1000ml; Total: 1000ml. ll3 06:24 IV: 10ml; Total: 1010ml. ll3 Outcome: 02:10 Decision to Hospitalize by Provider. [facility] 21:17 Admitted to Tele accompanied by nurse, via stretcher, room 414, with chart, Report jb4 called to [facility] 21:17 Condition: stable 21:17 Discharge instructions given to patient, Instructed on the need for admit, Demonstrated understanding of instructions. 21:19 Patient left the ED. jb4 Signatures: Dispatcher [employer] EDMS Cj Del Rio MD MD cha Baxter, Heather, RN RN Patrick Gomez RN RN jb4 Briana Oliva RN RN ll3 Morena Simms, MC RN jg9 Corrections: (The following items were deleted from the chart) 06/23 23:14 22:10 Arm band placed on hb 06/24 01:09 00:44 General: Appears comfortable, Behavior is calm, cooperative, ll3 ll3 01:09 00:44 Neuro: Level of Consciousness is awake, alert, obeys commands, Oriented to ll3 person, place, time, situation, Speech is slurred, 3 :44 Respiratory: Respiratory effort is even, unlabored, Respiratory pattern is ll3 regular, symmetrical, ll3
--- NOTE | 2022-06-24 02:11 | EDPHYS ---
Physician Documentation [facility] Name: Merlene Rockwell Age: 37 yrs Sex: Female : 1985 Arrival Date: 06/23/2022 Time: 22:43 Bed 14 Private MD: ED Physician Cj Del Rio HPI: 06/24 01:49 This 37 yrs old Female presents to ER via EMS with complaints of Altered kiara Mental Status. 01:49 The patient presents with decreased mental status, trouble concentrating. Onset: The kiara symptoms/episode began/occurred 1 week(s) ago. Possible causes: CVA or TIA, drug use, alcohol, head injury, low blood sugar, seizure, sepsis. Associated signs and symptoms: Pertinent positives: confusion, gait abnormality, headache. Current symptoms: In the emergency department the patient's symptoms are unchanged from the initial presentation, despite home interventions. Patient's baseline: Neuro: alert and fully oriented, Motor: no deficits, Ambulation: unable to walk, is bedridden, Speech: slow, slurred, r over a week. The patient has not experienced similar symptoms in the past. The patient has experienced similar episodes in the past, a few times. Historical: - Allergies: 06/23 22:46 GABAPENTIN; hb - PMHx: 22:46 Chronic pain; Depression; Paraplegia; hb - PSHx: 22:46 Colostomy; pump removed from abdomen; hb ROS: 06/24 01:57 Constitutional: Negative for fever, chills, and weight loss, Eyes: Negative for injury, kiara pain, redness, and discharge, ENT: Negative for injury, pain, and discharge, Neck: Negative for injury, pain, and swelling, Cardiovascular: Negative for chest pain, palpitations, and edema, Respiratory: Negative for shortness of breath, cough, wheezing, and pleuritic chest pain, Abdomen/GI: Negative for abdominal pain, nausea, vomiting, diarrhea, and constipation, Back: Negative for injury and pain, : Negative for injury, bleeding, discharge, and swelling, MS/Extremity: Negative for injury and deformity, Skin: Negative for injury, rash, and discoloration, Psych: Negative for depression, anxiety, suicide ideation, homicidal ideation, and hallucinations, Allergy/Immunology: Negative for hives, rash, and allergies, Endocrine: Negative for neck swelling, polydipsia, polyuria, polyphagia, and marked weight changes, Hematologic/Lymphatic: Negative for swollen nodes, abnormal bleeding, and unusual bruising. Neuro: Positive for altered mental status, speech changes, weakness. Exam: 01:57 Constitutional: This is a well developed, well nourished patient who is awake, alert, kiara and in no acute distress. Head/Face: Normocephalic, atraumatic. Eyes: Pupils equal round and reactive to light, extra-ocular motions intact. Lids and lashes normal. Conjunctiva and sclera are non-icteric and not injected. Cornea within normal limits. Periorbital areas with no swelling, redness, or edema. ENT: Nares patent. No nasal discharge, no septal abnormalities noted. Tympanic membranes are normal and external auditory canals are clear. Oropharynx with no redness, swelling, or masses, exudates, or evidence of obstruction, uvula midline. Mucous membranes moist. Neck: Trachea midline, no thyromegaly or masses palpated, and no cervical lymphadenopathy. Supple, full range of motion without nuchal rigidity, or vertebral point tenderness. No Meningismus. Chest/axilla: Normal chest wall appearance and motion. Nontender with no deformity. No lesions are appreciated. Cardiovascular: Regular rate and rhythm with a normal S1 and S2. No gallops, murmurs, or rubs. Normal PMI, no JVD. No pulse deficits. Respiratory: Lungs have equal breath sounds bilaterally, clear to auscultation and percussion. No rales, rhonchi or wheezes noted. No increased work of breathing, no retractions or nasal flaring. Abdomen/GI: Soft, non-tender, with normal bowel sounds. No distension or tympany. No guarding or rebound. No evidence of tenderness throughout. Back: No spinal tenderness. No costovertebral tenderness. Full range of motion. Skin: Warm, dry with normal turgor. Normal color with no rashes, no lesions, and no evidence of cellulitis. MS/ Extremity: Pulses equal, no cyanosis. Neurovascular intact. Full, normal range of motion. Psych: Awake, alert, with orientation to person, place and time. Behavior, mood, and affect are within normal limits. 01:57 Neuro: Orientation: is normal, appropriate for stated age, no acute changes, Mentation: is normal, appropriate for stated age, no acute changes, Memory: is normal, appropriate for stated age, no acute changes, Cranial nerves: grossly normal, is grossly normal based on the patient's age, no acute changes, Cerebellar function: is grossly normal, is grossly normal based on the patient's age, Motor: is normal, is grossly normal based on the patient's age, no acute changes, paralysis lower extremities, T9 CORD INJURY, Sensation: is normal, no obvious gross deficits, appropriate no acute changes. Vital Signs: 06/23 22:46 BP 145 / 92; Pulse 88; Resp 16; Temp 97.8; Pulse Ox 100% on R/A; hb 06/24 01:11 BP 106 / 79; Pulse 88; Resp 16; Pulse Ox 100% on R/A; ll3 02:14 BP 104 / 78; Pulse 96; Resp 14; Pulse Ox 100% on R/A; ll3 05:15 Weight 74.84 kg; Height 5 ft. 0 in. (152.40 cm); ll3 05:15 Body Mass Index 32.22 (74.84 kg, 152.40 cm) ll3 MDM: 06/23 22:59 Patient medically screened. [facility] 06/24 02:02 Differential Diagnosis altered mental status. Differential Diagnosis: CVA, electrolyte kiara abnormality, alcohol intoxication, hypoglycemia, intracranial bleed, meningitis, overdose, pneumonia, seizure, sepsis, TIA. Data reviewed: vital signs, nurses notes, lab test result(s), EKG, radiologic studies, CT scan, plain films. Data interpreted: comber fixer: rate is 88 beats/min, rhythm is regular, Pulse oximetry: on room air is 100 %. Test interpretation: by ED physician or midlevel provider: ECG, plain radiologic studies. Counseling: I had a detailed discussion with the patient and/or guardian regarding: the historical points, exam findings, and any diagnostic results supporting the discharge/admit diagnosis, lab results, radiology results. 06/23 23:00 Order name: Basic Metabolic Panel; Complete Time: :44 [facility] 06/23 23:00 Order name: CBC with Diff; Complete Time: 44 [facility] 06/23 23:00 Order name: LFT's; Complete Time: :44 [facility] 06/23 23:00 Order name: Magnesium; Complete Time: [facility] 06/23 23:00 Order name: NT PRO-BNP; Complete Time: 01:44 [facility] 06/23 23:00 Order name: PT-INR; Complete Time: 01:44 [facility] 06/23 23:00 Order name: Troponin HS; Complete Time: 01:44 [facility] 06/23 23:00 Order name: Acetaminophen; Complete Time: 01:44 [facility] 06/23 23:00 Order name: ETOH Level; Complete Time: 01:44 [facility] 06/23 23:00 Order name: Ptt, Activated; Complete Time: 01:44 [facility] 06/23 23:00 Order name: Salicylate; Complete Time: 01:44 [facility] 06/23 23:00 Order name: Urine Drug Screen; Complete Time: 04:17 [facility] 06/24 01:18 Order name: Urine Dipstick-Ancillary; Complete Time: :44 [facility] 06/24 01:19 Order name: Urine --Ancillary (enter results); Complete Time: 01:44 [facility] 06/23 23:00 Order name: XRAY Chest (1 view) [facility] 06/23 23:00 Order name: CT Head Brain wo Cont [facility] 06/23 23:05 Order name: Head Brain Wo Cont [facility] 06/24 08:50 Order name: SARS-COV-2 RT PCR (Document "Date of Onset" if Symptomatic) 06/24 09:47 Order name: SARS-COV-2 RT PCR [facility] 06/24 10:10 Order name: Sedimentation Rate, [place] [facility] 06/24 10:18 Order name: Phosphorus [facility] 06/24 10:18 Order name: C-Reactive Protein [facility] 06/24 10:18 Order name: T4 Free [facility] 06/24 10:18 Order name: Thyroid Stimulating Hormone [facility] 06/24 10:44 Order name: Procalcitonin [facility] 06/24 11:39 Order name: Potassium [facility] 06/24 12:33 Order name: MRI [facility] 06/24 12:35 Order name: MRI [facility] 06/24 12:38 Order name: MRI [facility] 06/23 23:00 Order name: EKG; Complete Time: 23:01 [facility] 06/23 23:00 Order name: Cardiac monitoring; Complete Time: 00:38 [facility] 06/23 23:00 Order name: EKG - Nurse/Tech; Complete Time: 00:26 [facility] 06/23 23:00 Order name: IV Saline Lock; Complete Time: 00:26 [facility] 06/23 23:00 Order name: Labs collected and sent; Complete Time: : [facility] 06/23 23:00 Order name: O2 Per Protocol; Complete Time: [facility] 06/23 23:00 Order name: O2 Sat Monitoring; Complete Time: [facility] 06/23 23:00 Order name: Suicide Screening ([place]); Complete Time: 00: [facility] 06/23 23:00 Order name: Urine Dipstick-Ancillary (obtain specimen); Complete Time: [facility] 06/23 23:00 Order name: Urine Test (obtain specimen); Complete Time: :18 [facility] Administered Medications: : Drug: NS 0.9% 1000 ml Route: IV; Rate: 1 bolus; Site: left antecubital; ll3 04:30 Follow up: Response: No adverse reaction; IV Status: Completed infusion; IV Intake: ll3 1000ml 00:26 Drug: foLIC Acid 1 mg Route: IVPB; Site: left antecubital; ll3 06:24 Follow up: Response: No adverse reaction; IV Status: Completed infusion; IV Intake: [id number] 02:49 Not Given (Patient Refused): Aspirin Chewable Tablet 162 mg PO once ll3 02:49 Not Given (Patient Refused): Potassium Effervescent Tablet 50 mEq PO once; dissolve in ll3 4 ounces of water or juice Disposition Summary: 06/24/22 02:10 Hospitalization Ordered Hospitalization Status: Observation kiara Provider: Tony Lima cha Condition: Stable kiara Problem: new kiara Symptoms: have improved kiara Bed/Room Type: Standard kiara Location: Telemetry/MedSurg (observation)(06/24/22 17:03) Room Assignment: 414(06/24/22 17:03) eb Diagnosis - Aphasia kiara - Altered mental status, unspecified kiara - Weakness kiara - Hypokalemia kiara - Paraplegia - LOWER kiara Forms: - Medication Reconciliation Form kiara - SBAR form kiara Signatures: Dispatcher [employer] EDCj Pinto MD MD cha Attema, Lee, LOGISTICS LOSS PREVENTION MANAGER-C LOGISTICS LOSS PREVENTION MANAGER-Cla1 Yoly Krishnamurthy RN RN cg Baxter, Heather, RN RN hb Botello, Elizabeth eb Loubet, Lynsea, RN RN ll3 Corrections: (The following items were deleted from the chart) 05: 02:10 Telemetry/MedSurg (observation) kiara cg 05:23 02:10 kiara cg 17:03 05:23 BR ER [facility] cg eb 17:03 05:23 ERHOLD- cg eb
[2022-06-24] MEDS ORDERED: ASPIRIN 81 MG CHEWABLE TABLET ONE (02:21)
[2022-06-24] MEDS ORDERED: POTASSIUM 25 MEQ EFFERV TAB ONE (02:26)
[2022-06-24 02:33] LABS: Barbiturates NEGATIVE (NEGATIVE); Benzodiazepines NEGATIVE (NEGATIVE); Cocaine NEGATIVE (NEGATIVE); METHAMPHETAM NEGATIVE (NEGATIVE); Methadone NEGATIVE (NEGATIVE); Opiates NEGATIVE (NEGATIVE); Phencyclidine NEGATIVE (NEGATIVE); THC Cannibis NEGATIVE (NEGATIVE)
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
[2022-06-24] MEDS ORDERED: ONDANSETRON 4 MG/2 ML VIAL IV PRN (04:36)
[2022-06-24 05:07] VITALS: BMI 32.2
--- NOTE | 2022-06-24 07:18 | EKG ---
Test Date: 2022-06-24 Test Time: 00:34:19 Academic Affairs Vice President: BETZY MEASUREMENT RESULTS: Intervals: Rate: 83 FL: 140 QRSD: 84 QT: 376 QTc: 441 Crossnore: P: 91 FL: 140 QRS: 91 T: 68 INTERPRETIVE STATEMENTS: Suspect arm lead reversal, interpretation assumes no reversal Normal sinus rhythm Rightward axis ST & T wave abnormality, consider anterior ischemia Abnormal ECG Compared to ECG 06/13/2022 19:37:01 Right-axis deviation now present ST (T wave) deviation now present Sinus tachycardia no longer present T-wave abnormality no longer present Possible ischemia still present Electronically Signed On 06-24-22 07:18:10 CDT by Rik Chew
[2022-06-24] MEDS: ASPIRIN EC 81 MG TAB PO SCH (09:00)
[2022-06-24] MEDS: FOLIC ACID 1 MG TABLET PO SCH (09:00)
[2022-06-24] MEDS: ENOXAPARIN 40 MG/0.4 ML SQ SCH (09:00)
[2022-06-24] MEDS ORDERED: ASPIRIN EC 81 MG TAB PO ONE (09:49)
[2022-06-24 10:17] LABS: C-Reactive Protein 12.5 mg/L (<3.00); Phosphorus 2.1 mg/dL (2.5-4.9); Thyroid Stimulating Hormone 1.82 uIU/mL (0.360-3.740)
--- NOTE | 2022-06-24 12:28 | RAD REPORT ---
EXAM DESCRIPTION: MRI - Brain W/Wo Cont - 06/24/2022 11:22 am CLINICAL HISTORY: CVA/dysphagia COMPARISON: head CT June 24, 2022 TECHNIQUE: Axial, sagittal, and coronal magnetic images of the brain were obtained. 15 cc MultiHance administered intravenously FINDINGS: No significant abnormal signal within the brain The ventricles are normal in caliber. Diffusion-weighted/ ADC mapping sequences do not demonstrate evidence of an acute infarction. No abnormal enhancement within the brain is seen. An extra-axial fluid collection is not noted. Fluid within the sinuses/mastoids is not seen IMPRESSION: No acute intracranial abnormality displayed
--- NOTE | 2022-06-24 12:32 | RAD REPORT ---
EXAM DESCRIPTION: MRI - MRA Neck W/Wo Cont - 06/24/2022 11:22 am CLINICAL HISTORY: CVA COMPARISON: None. TECHNIQUE: Magnetic resonance angiogram of the neck was performed. 19 cc MultiHance was administered intravenously. 3D MIPS reconstruction performed FINDINGS: The common carotid, internal carotid and external carotid arteries do not demonstrate a si gnificant stenosis. An aneurysm is not seen. Right vertebral artery is dominant without abnormality. Distal left vertebral artery is poorly visualized. It is small. It may terminate into the PICA IMPRESSION: Distal left vertebral artery is poorly visualized. It is small. It may terminate into th e PICA. Presumably the artery is hypoplastic which is a normal variant. A chronic dissection can also have this appearance but is considered less likely and should be correlated clinically NASCET criteria used. Mild 0-49% stenosis Moderate 50-69% stenosis Severe 70-99% stenosis
--- NOTE | 2022-06-24 12:37 | RAD REPORT ---
EXAM DESCRIPTION: MRI - MRA Head Wo Cont - 06/24/2022 11:22 am CLINICAL HISTORY: CVA COMPARISON: None. TECHNIQUE: Magnetic resonance angiogram was performed. 3D MIPS reconstruction performed FINDINGS: Mild to short-segment narrowing of the M2 segment right middle cerebral artery probably c hronic. The remainder of anterior cerebral, middle cerebral, posterior cerebral, distal internal carotid and basilar arteries do not demonstrate a significant stenosis. An aneurysm is not visualized IMPRESSION: No acute abnormality is displayed
[2022-06-24] MEDS: BACLOFEN 10 MG TAB PO SCH ×3 (13:00→22:09)
[2022-06-24] MEDS: PREGABALIN 150 MG CAP PO SCH ×2 (13:22→22:08)
[2022-06-24] MEDS ORDERED: PREGABALIN 75 MG CAP PO ONE (13:29)
[2022-06-24] MEDS ORDERED: TIZANIDINE 4 MG TABLET PO SCH (14:00)
[2022-06-24] MEDS ORDERED: ACYCLOVIR 400 MG TABLET PO SCH (14:00)
--- NOTE | 2022-06-24 14:20 | RAD REPORT ---
EXAM DESCRIPTION: CT - Head Brain Wo Cont - 06/24/2022 4:14 am TECHNIQUE: 37 years Female Mental status change, unknown cause. TECHNIQUE: Multiple axial CT images of the brain were performed followed by sagittal and coronal rec onstructed images. The CT study is performed according to ALARA (as low as reasonably achievable) or ALARA/IMAGE GENTLY, with automatic adjustment of mA and/or kV according to patient size. Performed on: 06/24/2022 at 12:51 AM COMPARISON: Head CT performed on 06/13/2022 and brain MRI report from 06/13/2022. These images were un available for review. FINDINGS: Brain: There is no evidence of mass, acute mass effect or midline shift. There are no acut e extra-axial fluid collections. There is no evidence of acute intracranial hemorrhage. The cerebra l sulci and ventricles are normal in size and configuration. There are no focal abnormal areas of inc reased or decreased attenuation. Paranasal Sinuses and Mastoids: There is no significant mucosal thickening of the paranasal sinuses. The mastoid air cells are clear. Orbits: The orbital contents are grossly unremarkable. Bones: No acute osseous abnormalities are identified. Soft Tissues: No focal soft tissue abnormalities are identified. IMPRESSION: No evidence of acute intracranial pathology. No significant change when compared to the prior studies. Electronically signed by: Smitha Henderson DO 06/24/2022 1:11 AM CDT Due to temporary technical issues with the PACS/Fluency reporting system, reports are being signed by the in house radiologists without review as a courtesy to insure prompt reporting. The interpreting radiologist is fully responsible for the content of the report.
--- NOTE | 2022-06-24 14:54 | RAD REPORT ---
EXAM DESCRIPTION: RAD - Chest Single View - 06/23/2022 11:34 pm CLINICAL HISTORY: 37 years Female, CHEST PAIN TECHNIQUE: 1 view (Single frontal view of the chest) COMPARISON: None. FINDINGS: LINES AND TUBES: None. CARDIOVASCULAR STRUCTURES: Normal heart size. No pulmonary venous congestion. LUNGS: No confluent areas of acute consolidation. PLEURA: No layering pleural effusions. No pneumothorax. BONES: Posterior thoracic fusion hardware. Old healed right fifth rib fracture. No acute osseous abno rmality of the thorax. IMPRESSION: 1. No acute cardiopulmonary disease. Electronically signed by: Surya Downey MD 06/23/2022 11:51 PM CDT Due to temporary technical issues with the PACS/Fluency reporting system, reports are being signed by the in house radiologists without review as a courtesy to insure prompt reporting. The interpreting radiologist is fully responsible for the content of the report.
[2022-06-24] MEDS ORDERED: ATORVASTATIN 40 MG TAB PO SCH (21:00)
[2022-06-24] MEDS ORDERED: FLUOXETINE 20 MG CAP PO SCH (21:00)
[2022-06-24] MEDS: AMITRIPTYLINE 50 MG TAB PO SCH ×2 (21:00→22:05)
[2022-06-24] MEDS ORDERED: MELATONIN 5 MG TABLET PO PRN (22:59)
[2022-06-24 23:32] VITALS: O2SAT 100
[2022-06-24] MEDS ORDERED: TRAZODONE 50 MG TABLET PO SCH (23:32)
[2022-06-25 07:11] LABS: Bilirubin Total 0.2 mg/dL (0.2-1.0); C-Reactive Protein 9.56 mg/L (<3.00); Magnesium 2.2 mg/dL (1.8-2.4); Phosphorus 3.5 mg/dL (2.5-4.9); Potassium 3.9 mmol/L (3.5-5.1)
[2022-06-25 07:21] LABS: Hematocrit 37.8 % (36.0-45.0); Lymphocytes % 43.4 % (15.3-44.8); MCV 81.8 fL (80-100); MPV 8.8 fL (7.6-11.3); RBC Red Blood Cell Count 4.62 M/uL (3.86-4.86)
[2022-06-25] MEDS ORDERED: POTASSIUM 25 MEQ EFFERV TAB PO ONE (08:00)
[2022-06-25] MEDS: PREGABALIN 150 MG CAP PO SCH (08:47)
[2022-06-25] MEDS: FOLIC ACID 1 MG TABLET PO SCH (08:47)
[2022-06-25] MEDS: BACLOFEN 10 MG TAB PO SCH (08:47)
[2022-06-25] MEDS: ASPIRIN EC 81 MG TAB PO SCH (08:47)
[2022-06-25] MEDS: ENOXAPARIN 40 MG/0.4 ML SQ SCH (08:47)
[2022-06-25] MEDS ORDERED: FUROSEMIDE 40 MG TABLET PO SCH (09:00)
[2022-06-25] MEDS ORDERED: BUPROPION HCL XL 150 MG TAB PO SCH (09:00)
[2022-06-25] MEDS ORDERED: BACLOFEN 10 MG TAB PO SCH (11:00)
[2022-06-25 11:38] VITALS: BP 106/50; TEMP 97.3
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
== END 2022-06-25 12:53 | disposition home or self-care (01) ==
LOC: ER 22:40 → ERHOLD 06-24 04:13 → 4TH 06-24 17:55 → ERHOLD 06-24 18:29 → 4TH 06-24 20:54
PROVIDERS: ADMIT Hospitalist; ATTEND Hospitalist
DX: R41.82 Altered mental status, unspecified (principal); R13.10 Dysphagia, unspecified; R47.01 Aphasia; R47.81 Slurred speech; G82.20 Paraplegia, unspecified; L89.319 Pressure ulcer of right buttock, unspecified stage; R53.1 Weakness; E87.6 Hypokalemia; G89.29 Other chronic pain; K21.9 Gastro-esophageal reflux disease without esophagitis; F41.9 Anxiety disorder, unspecified; F32.A Depression, unspecified; G47.30 Sleep apnea, unspecified; F31.9 Bipolar disorder, unspecified; A63.0 Anogenital (venereal) warts; B00.9 Herpesviral infection, unspecified; Z93.3 Colostomy status; Z79.899 Other long term (current) drug therapy; Z20.822 Contact with and (suspected) exposure to COVID-19
CPT/HCPCS: 96365; 93005; 87070; 85025 ×2; 80048; 36415 ×2; 80320; 83735 ×2; 87205; 80329 ×2; 81025; 84100 ×2; 84132; 85610; 80076; 85730; 85652; 84443; 81003; 84484; 84439; 80053; 84145; 83880; 80307; 86140 ×2; 70450; 71045; 70553; 70544; 70549; 99285; 96366; 97129; U0003; A9577; J1650; J7030; G0378